=== PATIENT | male | born 1955 | race Caucasian/White ===

== ENCOUNTER → 2018-01-10 11:27 | Outpatient (CLI) | payer OTHER, SELFPAY ==
[2018-01-10 13:58] LABS: Absolute Lymphocyte Count 0.95 X10^3/ul (0.83-4.51); Absolute Neutrophil Count 3.3 X10^3/uL (2.0-7.7); Basophil# 0.02 X10^3/uL; Basophil% 0.4 % (0-1); Eosinophil# 0.15 X10^3/uL; Eosinophils% 3.1 % (0-5); Hematocrit 43.7 % (40-54); Hemoglobin 14.8 g/dl (13.0-16.5); Lymphocyte # 0.95 X10^3/ul (4.0); Lymphocyte % 19.7 % (19-41); Mean Corp Hgb Conc 33.9 g/gl (32-36); Mean Corpuscular Hgb 30.1 pg (27.0-32.0); Mean Platelet Vol. 10.3 fl (6.2-12.0); Monocyte# 0.39 X10^3/uL; Monocyte% 8.1 % (0-10); Neutrophil % 68.5 % (47-70); Platelet Count 189 K/mm3 (150-450); RBC Distribution Width CV 12.9 % (11.6-14.6); RBC Distribution Width SD 41.9 fl (35.1-43.9); Red Blood Count 4.91 M/mm3 (4.6-6.2); White Blood Count 4.8 K/mm3 (4.4-11.0)
[2018-01-10 13:59] LABS: POSITIVE COUNT NO; POSITIVE DIFFERENTIAL NO; POSITIVE MORPHOLOGY NO
[2018-01-10 14:14] LABS: Anion Gap 7 (5-15); BUN 13 mg/dL (7-18); Calcium,Total 9.2 mg/dL (8.5-10.1); Chloride 104 mmol/L (98-107); Cholesterol 212 mg/dL (200); EST Glomerular Filtration Rate 80 mL/min (>60); Est Glom Filt Rate - Afr Amer 97 mL/min (>60); Glucose 88 mg/dL (74-106); High Density Lipoprotein 44 mg/dL; PSA,Total - Annual Screen 0.97 ng/mL (0.00-4.00); Potassium 3.8 mmol/L (3.5-5.1); Sodium Level 139 mmol/L (136-145); Triglycerides 146 mg/dL; Very Low Density Lipoprotein 29 mg/dL (5-40)
== END ==
PROVIDERS: Family Provider Family Medicine; PCP Family Medicine; Visit Provider Family Medicine
DX: Z00.00 Encounter for general adult medical examination without abnormal findings (principal); I10 Essential (primary) hypertension
CPT/HCPCS: 36415; 80048; 80061; 84153; 85025; G0103

== ENCOUNTER → 2018-07-17 10:34 | Outpatient (CLI) | payer OTHER, SELFPAY ==
[2016-08-23 16:16] VITALS: BMI 26.1
[2018-07-17 12:47] LABS: AST(SGOT) 40 U/L (15-37); Alanine Aminotransfer ALT/SGPT 38 U/L (16-61); Cholesterol 243 mg/dL (200); High Density Lipoprotein 50 mg/dL; Triglycerides 168 mg/dL; Very Low Density Lipoprotein 34 mg/dL (5-40)
== END ==
PROVIDERS: Family Provider Family Medicine; PCP Family Medicine; Visit Provider Family Medicine
DX: E16.2 Hypoglycemia, unspecified (principal)
CPT/HCPCS: 36415; 80061; 84450; 84460

== ENCOUNTER 2019-08-17 15:00 | Outpatient (RCR) | payer OTHER, SELFPAY ==
[2019-06-13 14:54] VITALS: BMI 26.1
--- NOTE | 2019-06-27 17:59 | HP.PTEVAL ---
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 Date of Evaluation: 06/27/19 Physical Therapist: Nida Kidd PT, Cert MDT - Visit Plan Frequency: 2-3x /Week Duration: 4-6 Weeks Plan: POSTURE CORRECTION/STRENGTHENING, INSTRUCTION IN APPROPRIATE BODY MECHANICS AND ACTIVITY MODIFICATIONS. RIGHT UE ROM, STRETCHING AND STRENGTHENING. HEP INSTRUCTION. 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 Present symptoms: TWINGES OF PAIN IN RIGHT SHOULDER. NO NUMBNESS OR TINGLING. Present since: CHRONIC RIGHT SHOULDER PAIN. Pain Scale: Worst - 4/10 Least - 0/10. Currently: 0/10. Commenced as a result of: DEGENERATION. Worse: MOVING SHOULDER BACK, DRESSING. Better: WEARING SLING AT NIGHT. IBUPROFEN, CP'S. Disturbed sleep: YES - SLEPT IN BED FOR THE FIRST TIME LAST NIGHT AND SLEPT IN SLING. Previous history/Previous treatment: FULL ROM RIGHT SHOULDER PRIOR TO SURGERY RIGHT SHOULDER PER PATIENT REPORT. PMH/Recent major surgery: HTN, LEFT REVERSE TSR MAR 2017. RESTRICTIONS: NO LIFTING GREATER THAN 1-2 POUNDS. EX'S IN COMFORT RANGE ONLY. OTHER: DOING PENDULUMS, AROM OF ELBOW WRIST AND HAND. ACTIVE SHOULDER FLEX. - Objective Sitting Posture/Standing Posture: FAIR. Other Observations: PATIENT IS PLEASANT AND COOPERATIVE TO WORK WITH AND COMMUNICATES A GOOD UNDERSTANDING OF APPROPRIATE TECHNIQUE AND INTENSITY OF CURRENT HEP. PATIENTS PRESENT THROUGHOUT SESSION. Motor deficit: LEFT UE STRENGTH 5/5 WITH MMT'ING. SEE RIGHT LE ROM BELOW. Sensory deficit: NO. ROM deficit: LEFT UE WFL. RIGHT UE: FULL RIGHT ELBOW, WRIST AND HAND ROM. RIGHT SHOULDER AROM IN SITTING = 85 DEG FLEX AND 65 DEG ABD. SUPINE RIGHT SHLD PROM: FLEX APPROX 100 DEG, IR TO ABDOMEN IN LOOSE PACK POSITION AND ER INITIALLY TO NEUTRAL IN LOOSE PACK POSITION BUT TO APPROX 10 DEG AFTER PROM. Palpation: RIGHT SHOULDER INCISION COVERED WITH BANDAGE. PATIENT REPORTS HE IS SUPPOSED TO LEAVE IT ON WHILE INTACT THEN REMOVE CAREFULLY WHEN STARTS TO COME OFF. - Goals Goal 1:: DECREASE C/O RIGHT SHOULDER PAIN. Goal Time Frame: 4-6 Weeks Goal 2:: IMPROVE RIGHT UE FUNCTIONAL ROM TO EASE ADL'S. Goal Time Frame: 4-6 Weeks Goal 3:: IMPROVE RIGHT UE FUNCTIONAL STRENGTH TO HELP RETURN TO PLOF Goal Time Frame: 4-6 Weeks Goal 4:: INDEP HEP FOR CONTINUED IMPROVEMENT ONCE FORMAL PHYSICAL THERAPY CONCLUDES. Goal Time Frame: 4-6 Weeks - Rehabilitation Potential Rehabilitation Potential: Good - Anticipated Interventions Patient/Client Instruction: Educate patient on: Condition, Plan of Care, Risk Factors, Benefits of Fitness Program For the Purpose of:: To improve self management Therapeutic Exercise to Include: Strength training, Postural training, Flexibilty training, Passive ROM, Active ROM, Scapular Strength/Stabilization For the Purpose of:: To decrease pain, To increase ROM, To improve muscle performance and motor function, To increase tolerance to activity/condition/position, To improve ability of physical actions for home/community/work/leisure Cryotherapy (ice pack, ice massage): Yes Thermo therapy (hot pack): Yes For the Purpose of:: To decrease pain, To decrease swelling/inflammation, To improve nutrient delivery to tissue Thank you for the opportunity to evaluate your patient. For Medicare and Medicare HMO plans, please review the plan of care and approve it. It will need to be FAXED BACK to us at [phone] for Medicare purposes. For Medicare only, by signing this I certify the plan of care. Please let me know if there are questions or concerns regarding this plan of care. Physician Signature: Date:
--- NOTE | 2019-07-30 10:33 | HP.PTREVAL ---
Dakota Lieberman, DO, It has been my pleasure to treat NOLAN HOWE over the last 10 visits for REVERSE RIGHT TOTAL SHOULDER 06/20/19. Please see the progress note below for an update on the physical therapy plan of care! Subjective: PATIENT REPORTS HE IS IMPROVING BUT HIS ROM OUT TO THE SIDE AND HIS STRENGTH IS LIMITED. STATES HE HAS A WORK OUT AREA IN HIS BASEMENT FROM REHAB FOR HIS LEFT TSR TWO YEARS AGO. FOLLOW UP PENDING WITH SURGEON TUESDAY. PATIENT REPORTS HE IS SEEING A GRADUAL IMPROVEMENT EVERYDAY. STATES HE IS REALLY HAPPY WITH HIS PROGRESS. WANTS TO MAXIMIZE REHAB. Objective/Function: PATIENT IS MAKING GREAT PROGRESS WITH PT BUT STILL HAS LIMITED RIGHT UE ROM AND STRENGTH NOTED BELOW. HE IS A GOOD CANDIDATE TO CONTINUE PT FOR MANUAL THERAPY AND EX PROGRESSIONS AND PATIENT DESIRES TO DO SO. UPON EXAM TODAY: ROM deficit: RIGHT UE: FULL RIGHT ELBOW, WRIST AND HAND ROM. RIGHT SHOULDER AROM IN SITTING = 144 DEG FLEX AND 144 DEG ABD. SUPINE RIGHT SHLD PROM: FLEX APPROX 144 DEG, IR/ER = 47 DEG/54 DEG WITH 80 DEG SHLD ABD. MMT: FLEX 3-/5, ABD 3-/5, IR 3-/5, ER 2/5. INCISION LOOKS GOOD AND HAS GOOD SCAR MOBILITY. Plan Plan: *CHECK FOR ANY NEW INSTRUCTIONS FROM SURGEON AFTER FOLLOW UP TUESDAY. ALSO PLEASE CHECK FOR NEW ORDER DUE TO CURRENT ORDER ONLY ALLOWING 18 VISITS. CONT PT 3X/WK X 10 VISITS FOR MANUAL THERAPY AND THER EX PROGRESSIONS WITH HEP PROGRESSIONS TOLERATED EXERCISING IN COMFORTABLE ROM ONLY. Goals Goal 1:: DECREASE C/O RIGHT SHOULDER PAIN. Goal Time Frame: 4-6 Weeks Goal 2:: IMPROVE RIGHT UE FUNCTIONAL ROM TO EASE ADL'S. Goal Time Frame: 4-6 Weeks Goal 3:: IMPROVE RIGHT UE FUNCTIONAL STRENGTH TO HELP RETURN TO PLOF Goal Time Frame: 4-6 Weeks Goal 4:: INDEP HEP FOR CONTINUED IMPROVEMENT ONCE FORMAL PHYSICAL THERAPY CONCLUDES. Goal Time Frame: 4-6 Weeks Anticipated Interventions Patient/Client Instruction: Educate patient on: Condition, Plan of Care, Risk Factors, Benefits of Fitness Program For the Purpose of:: To improve self management Therapeutic Exercise to Include: Strength training, Postural training, Flexibilty training, Passive ROM, Active ROM, Scapular Strength/Stabilization For the Purpose of:: To decrease pain, To increase ROM, To improve muscle performance and motor function, To increase tolerance to activity/condition/position, To improve ability of physical actions for home/community/work/leisure Cryotherapy (ice pack, ice massage): Yes Thermo therapy (hot pack): Yes For the Purpose of:: To decrease pain, To decrease swelling/inflammation, To improve nutrient delivery to tissue Please do not hesitate to contact me at [phone] by phone or if you have questions or concerns regarding this new plan of care! Sincerely, Nida Kidd, PT, Cert MDT
--- NOTE | 2019-08-17 15:23 | HP.PTDCSUM ---
HP - PT D/C Summary It has been my pleasure to treat NOLAN HOWE under orders from Dakota Lieberman DO, for the diagnosis of REVERSE RIGHT TOTAL SHOULDER 06/20/19 for a total of 18 visit(s). Discharge Date: Please see the following information for a summary of their discharge status. - Subjective Subjective: PATIENT REPORTS HE IS DOING GOOD AND IS CONFIDENT THAT HE WILL CONTINUE TO IMPROVE WITH TIME. L SDLY AT NIGHT DOES PROVOKE TINGLING BUT LONG HE STAYS ON HIS BACK IT IS FINE. FOLLOW UP WITH SURGEON PENDING IN ABOUT 4 WEEKS. STATES HE RETIRED TODAY. - Pain Right Shoulder Pain Intensity (Out of 10): 2 - Overall Improvement % Improvement: 50 - Objective Objective/Function: ALL GOALS MET. PATIENT IS INDEP WITH A HEP AND DEMONSTRATES IMPROVED ROM AND FUNCTION WITH RIGHT UE TODAY. UPON EXAM: RIGHT SHOULDER AROM IN SITTING: FLEX 158 DEG, ABD 159 DEG. SUPINE FLEX 155, SUPINE ABD 150 DEG. IR/ER 50/56 W/90 DEG ABD. PATIENT WITH C/O END RANGE DISCOMFORT IN THE SHOULDER WITH TESTING ALL PLANES ESPECIALLY ABD. - Goals Goal 1:: DECREASE C/O RIGHT SHOULDER PAIN. Goal Progress: Goal Met Goal 2:: IMPROVE RIGHT UE FUNCTIONAL ROM TO EASE ADL'S. Goal Progress: Goal Met Goal 3:: IMPROVE RIGHT UE FUNCTIONAL STRENGTH TO HELP RETURN TO PLOF Goal Progress: Goal Met Goal 4:: INDEP HEP FOR CONTINUED IMPROVEMENT ONCE FORMAL PHYSICAL THERAPY CONCLUDES. Goal Progress: Goal Met - Plan Plan: D/C TO INDEP EX. PATIENT IS AGREEABLE. - D/C Information If there are questions or concerns regarding this patient's physical therapy, please feel free to call me at [phone]. Thank you for the referral of this patient. Sincerely, Nida Kidd, PT, Cert MDT
== END 2019-08-17 19:00 | disposition home or self-care (01) ==
LOC: PT 15:00
PROVIDERS: Family Provider Family Medicine; PCP Family Medicine; Referring Provider Orthopaedic Surgery; Visit Provider Orthopaedic Surgery
DX: M19.011 Primary osteoarthritis, right shoulder (principal); M25.511 Pain in right shoulder
CPT/HCPCS: 97110; 97140; 97162; 97530

== ENCOUNTER 2020-02-13 08:30 | Emergency (ER) | payer MEDICARE, OTHER, SELFPAY ==
[2019-06-13 14:54] VITALS: BMI 26.1
[2020-02-13 08:31] VITALS: BP 134/101; PULSE 64; RESP 18; TEMP 36.6; O2SAT 100; BMI 27.6
--- NOTE | 2020-02-13 08:37 | RAD_ITS ---
STUDY: X-RAY - LEFT FOOT CLINICAL: Male, 64 years old. LACERATION TO PLANTAR SURFACE, METATARSAL AREA. STEPPED ON GLASS TECHNIQUE: 3 view(s) of the foot. COMPARISON: None. FINDINGS: Normal talus and tarsal bones. Small calcaneal spurs. Normal visualized subtalar, talonavicular, calcaneocuboid, tarsal and tarsometatarsal articulations. Normal metatarsi. Normal metatarsophalangeal joint of the great toe. Normal tibial and fibular sesamoid bones. Normal interphalangeal joint of the great toe. Normal phalanges of the great toe. Normal second through fifth metatarsophalangeal joints. Normal interphalangeal joints and phalanges of the lesser toes. The soft tissue structures are unremarkable specifically, no demonstrated radiopaque foreign body.. RAD/Foot min 3 Views IMPRESSION: No significant or suspicious soft tissue swelling, no plain film evidence of radio opaque foreign body Calcaneal spurs No demonstrated fracture or suspicious osseous lesion Electronically Signed: Ben Schmidt MD at 9:22 EDT , Service support ,
--- NOTE | 2020-02-13 08:40 | ED.DCSUM_ITS ---
- ER Visit Summary Date of Service: 02/13/20 Chief Complaint: Left foot laceration History of Present Illness: The patient is a 64 M presenting with left foot laceration. Patient accidentally stepped on a broken glass bottle this morning. He cut the bottom of his left foot. He has no foreign body sensation. Last tetanus is unknown. No other injuries. Physical Examination: Vitals are stable. Patient is afebrile. Alert no acute distress. HEENT exam is unremarkable. Neck is supple. Lungs are clear and equal bilaterally. Heart is regular rate and rhythm. Extremities 2 cm laceration plantar surface left foot Skin is warm and dry. No focal neurologic deficit. Remainder of exam is unremarkable. Emergency Department Course and Treatment: Patient was given tetanus IM. Wound was irrigated. Left foot x-ray shows no significant or suspicious soft tissue swelling, no plain film evidence of radio opaque foreign body. Calcaneal spurs. No demonstrated fracture or suspicious osseous lesion. Anesthetized with lidocaine. 2, 5-0 simple sutures were placed. Patient tolerated this well. Advised wound care instructions. Advised return the ED for worsening complaints. Disposition: Discharged home Impression: Left foot laceration, laceration repair This note was generated with [employer] dictation software. It may contain incorrect words, spelling, and punctuation that were not noted in review of the chart prior to signing ED Disposition - Plan for ED Patient: Instructions: ED Laceration Foot Referrals: Avril Sorenson MD [Primary Care Provider] -
[2020-02-13] MEDS: Diphth,Pertuss(Acell),Tet Vac 0.5 ML Vial IM (08:43)
== END 2020-02-13 10:12 | disposition home or self-care (01) ==
LOC: ED 09:19
PROVIDERS: Emergency Provider Emergency Medicine; PCP Family Medicine
DX: S91.312A Laceration without foreign body, left foot, initial encounter (principal); Z23 Encounter for immunization; W25.XXXA Contact with sharp glass, initial encounter; Y93.9 Activity, unspecified; Y92.9 Unspecified place or not applicable; Y99.9 Unspecified external cause status; M77.32 Calcaneal spur, left foot
CPT/HCPCS: 12001; 73630; 90715; 99283

== ENCOUNTER → 2020-04-08 11:40 | Outpatient (CLI) | payer MEDICARE, OTHER, SELFPAY ==
[2020-04-08 15:23] LABS: Absolute Neutrophil Count 3.3 X10^3/uL (2.0-7.7); Basophil# 0.04 X10^3/uL; Basophil% 0.8 % (0-1); Eosinophil# 0.22 X10^3/uL; Eosinophils% 4.5 % (0-5); Hematocrit 44.5 % (40-54); Hemoglobin 14.6 g/dL (13.0-16.5); Lymphocyte % 16.5 % (19-41); Mean Corp Hgb Conc 32.8 g/dL (32-36); Mean Corpuscular Volume 91.6 fL (80-94); Mean Platelet Vol. 10.3 fl (6.2-12.0); Monocyte# 0.46 X10^3/uL; Monocyte% 9.5 % (0-10); NRBC Flagged by Analyzer 0 % (0-5); Neutrophil # 3.31 X10^3/uL (2.7-7.7); Neutrophil % 68.5 % (47-70); Platelet Count 228 K/mm3 (150-450); RBC Distribution Width SD 43.7 fl (35.1-43.9); Red Blood Count 4.86 M/mm3 (4.6-6.2); White Blood Count 4.8 K/mm3 (4.4-11.0)
[2020-04-08 15:40] LABS: Anion Gap 3 (5-15); BUN 17 mg/dL (7-18); BUN/Creat Ratio 16.8 RATIO (10-20); Calcium,Total 9.3 mg/dL (8.5-10.1); Chloride 103 mmol/L (98-107); Creatinine, Serum 1.01 mg/dL (0.70-1.30); EST Glomerular Filtration Rate 79 mL/min (>60); Est Glom Filt Rate - Afr Amer 95 mL/min (>60); Glucose 89 mg/dL (74-106); PSA,Total - Annual Screen 1.38 ng/mL (0.00-4.00); Potassium 3.9 mmol/L (3.5-5.1); Sodium Level 137 mmol/L (136-145)
== END ==
PROVIDERS: PCP Family Medicine; Referring Provider Registered Nurse; Visit Provider Registered Nurse
DX: R31.9 Hematuria, unspecified (principal)
CPT/HCPCS: 36415; 80048; 84153; 85025; 87086; G0103

== ENCOUNTER → 2020-05-07 07:45 | Outpatient (CLI) | payer MEDICARE, OTHER, SELFPAY ==
--- NOTE | 2020-05-07 07:49 | CT_ITS ---
STUDY: CT ABDOMEN AND PELVIS WITH AND WITHOUT CONTRAST REASON FOR EXAM: Male, 65 years old. Hematuria x 4 months, hypertension. No prior abdominal surgery or problems. Delayed images included. RADIATION DOSAGE (If Supplied By Facility): CTDIvol = ( 17.57 ) mGy, DLP = ( 2205.84 ) mGycm TECHNIQUE: Transaxial images were obtained from the dome of the diaphragm to the symphysis pubis without oral contrast. IV 100mL Isovue-300 was administered. Sagittal and coronal images were reconstructed. Individualized dose optimization techniques were used for this CT. COMPARISON: None. FINDINGS: The visualized lung bases are unremarkable. Coronary artery calcification. There is decreased attenuation of the liver consistent with steatosis. Normal gallbladder and extrahepatic biliary system. Normal spleen. There is a 2.6 cm x 2.3 cm aneurysm of the splenic artery with the rim calcification. Normal pancreas. Normal bilateral adrenal glands. There is a 2.8 cm cyst in the mid posterior aspect of the right kidney. 1 cm cyst in the lower pole of the left kidney. There is also evidence of a 1.3 cm cyst in the upper pole of the left kidney with the tiny calcific density along its lateral aspect. Normal visualized stomach. Normal small intestine. There are scattered colonic diverticula consistent with diverticulosis. The appendix is visualized and appears normal. There is scattered atherosclerotic calcification of the abdominal aorta, without a demonstrated aneurysm. Normal inferior vena cava. There is borderline retroperitoneal lymphadenopathy with enlarged nodes no greater than 10mm in the short axis diameter. Marked degree of irregular bladder wall thickening with the papillary masses along the bladder wall. This is worse on the right side. Increased markings in the surrounding peritoneal fat. Prominence of the vas deferens. There is a small umbilical hernia containing fat. Normal osseous structures. CT/CT Abd/Pelvis W/WO Contrast IMPRESSION: Marked degree of irregular bladder wall thickening with intraluminal filling defects. Correlation with cystoscopy is recommended. Small bilateral renal cysts. Fatty infiltration of the liver. 2.6 cm x 2.3 cm splenic artery aneurysm. Electronically Signed: Sabino Rodriguez, at 9:46 EDT , Service support ,
== END ==
PROVIDERS: PCP Family Medicine; Referring Provider Nurse Practitioner Adult Health; Visit Provider Nurse Practitioner Adult Health
DX: R31.0 Gross hematuria (principal)
CPT/HCPCS: 74178; Q9967

== ENCOUNTER 2020-05-30 10:23 | Inpatient (IN) | payer MEDICARE, OTHER, SELFPAY ==
--- NOTE | 2020-05-21 09:13 | EKG12_ITS ---
Test Reason : PRE OP Blood Pressure : / mmHG Vent. Rate : 076 BPM Atrial Rate : 076 BPM P-R Int : 154 ms QRS Dur : 100 ms QT Int : 394 ms P-R-T Axes : 074 -46 040 degrees QTc Int : 443 ms Normal sinus rhythm Left anterior fascicular block Abnormal ECG Confirmed by JHONY MACDONALD, JENNIE ([id number]), industrial editor VICKIE MACIAS ([id number]) on 05/22/2020 8:15:11 AM Referred By: David Pino Confirmed By:JENNIE BOOKER MD
[2020-05-28] VITALS (18 sets, daily range): BP systolic 135–192; BP diastolic 91–122; PULSE 51–98; RESP 16–18; TEMP 36.2–37.2; O2SAT 92–99; BMI 26.9
[2020-05-28] MEDS: Lactated Ringers 1,000 ML 100 ML IV (10:43)
--- NOTE | 2020-05-28 11:55 | BLB_PTH ---
PATIENT: NOLAN HOWE LOC: MS3 U#:[id number] AGE/SX: 65/M ROOM: MS306 RE05/30/[address]: Dr. David Pino MD : 1955 BED: 1 DIS: 05/31/2020 SPEC #: [id number] RECD: 05/28/20 14:42 STATUS: OSMANY FLORES #: [id number] LINDSAY: 05/28/20 11:[address]: David Pino DEPT: SURGICAL PATHOLOGY RECD BY: Elmer Del Valle ENTERED: 05/29/20 07:03 SP TYPE: TURB OTHR DR: Dr. Avril Sorenson MD Tissues: Urinary bladder, NOS Procedures: Surgery Specimen Level V HEADER OPERATION: Cystoscopy, TUR of bladder PRE-OP DIAGNOSIS: Bladder cancer TISSUE SUBMITTED: Bladder resection of bladder tumor MICROSCOPIC DIAGNOSIS Urinary bladder tumor, transurethral resection: Papillary urothelial carcinoma. See cancer checklist below. AM:michael 05/30/20 COMMENT BLADDER CANCER (TUR) SUMMARY Procedure: Transurethral resection of bladder (TURBT) Tumor site: Not specified Histologic type: Papillary urothelial carcinoma Histologic grade: 3/3 (WHO high-grade) Tumor configuration: Papillary Muscularis propria invasion: Present Lymphvascular invasion: Not identified Tumor extension: Into detrusor muscle and adjacent to mature adipose tissue. Additional pathologic findings: Focal chronic inflammation. The above summary is in compliance with [employer] of [place] [employer] (CAP) Cancer Protocols Checklist and [place] Joint Committee on Cancer (AJCC), Staging Manual, 8th Ed. MICROSCOPIC DESCRIPTION Slides are reviewed. GROSS DESCRIPTION Received in fixative is one container labeled with the patient's name and designated bladder resection tumor. The specimen consists of multiple irregular fragments of pink-heran, rubbery, granular, friable soft tissue that in aggregate measure in aggregate 6 x 3 x 0.8 cm. The specimen is totally submitted in six cassettes. / AM:michael 05/29/20 TC:0 [facility]: [id number]
--- NOTE | 2020-05-28 13:13 | PCM.HP.STD ---
Problem List (1) Bladder cancer Status: Acute Qualifiers: Bladder location: overlapping sites Qualified Code(s): C67.8 - Malignant neoplasm of overlapping sites of bladder History of Present Illness Date of Admission: 05/28/20 Chief Complaint: Bladder cancer The patient is a 65 year old male who is been having bleeding for several months finally sought medical attention was found to have multiple large tumors in his bladder today working to proceed with a transurethral resection of large bladder tumors Past Medical History Past Medical History (Chronic Problems): Chronic Problems (Last Reviewed 06/13/19 @ 15:[address] Felipe Barraza MD) Atherosclerosis of coronary artery of [place] heart without angina pectoris (Chronic) Essential (primary) hypertension (Chronic) Hyperlipemia (Chronic) Medical History: Medical History (Last Reviewed 05/28/20 @ 13:[address] David Pino MD) Pre-operative cardiovascular examination (Acute) Z01.810 Atherosclerosis of coronary artery of [place] heart without angina pectoris (Chronic) I25.10 Essential (primary) hypertension (Chronic) I10 Hyperlipemia (Chronic) E78.5 Syncope and collapse (Resolved) Onset Date: 08/23/16 R55 Nonsustained ventricular tachycardia (Resolved) Onset Date: 09/01/07 I47.2 History of non-ST elevation myocardial infarction (NSTEMI) (Resolved) Onset Date: 09/01/07 I25.2 Erectile dysfunction N52.9 Gout M10.9 Hemorrhoids K64.9 Allergies No Known Allergies Allergy (Verified 05/28/20 10:25) Home Medications: Ambulatory Orders Medication Instructions Recorded Ramipril [Altace] 10 mg PO QHS 08/23/16 hydrochlorothiazide 25 mg tablet 12.5 mg PO DAILY 06/12/19 turmeric root extract 500 mg 500 mg PO DAILY 06/13/19 capsule Ginkgo Biloba 500 mg PO BID 05/19/20 [place] Extract [L[place]] 150 mg PO DAILY 05/19/20 Saw [place] Fruit [Saw [place]] 450 mg PO BID 05/19/20 Ciprofloxacin [Cipro] 500 mg PO BID #14 tab 05/28/20 Hydrocodone/Acetaminophen [[place] 1 each PO Q4H PRN PRN 5 Days #14 05/28/20 5-325 Tablet] tablet Surgical History: Surgical History (Last Reviewed 06/13/19 @ 15:[address] Felipe Barraza MD) History of left heart catheterization Onset Date: 08/2007 Z98.890 Surgical History: no surgical history Psychiatric History: No pertinent psych hx Smoking Status: Never smoker Tobacco Use: Non-smoker - *Family History Paternal Family History: Family History (Last Reviewed 06/13/19 @ 15:[address] Felipe Barraza MD) Mother Hypertension Cancer Father Hypertension History Items: Hypertension Maternal Family History: Family History (Last Reviewed 06/13/19 @ 15:[address] Felipe Barraza MD) Mother Hypertension Cancer Father Hypertension History Items: Cancer - Lung cancer, Hypertension Review of Systems Constitutional: Denies: Chills, Fever, Weight Change HEENT: Denies: Head Aches, Sinus Congestion, Sinus Drainage Cardiovascular: Denies: Chest Pain, Palpitations Respiratory: Denies: Cough, Shortness of breath at rest, Sputum production Gastrointestinal: Denies: Abdominal Pain, Nausea, Vomiting Genitourinary: Denies: Dysuria Musculoskeletal: Denies: Joint Pain, Joint Tenderness Skin: Denies: Rash, Wounds Neurological: Denies: Numbness, Tingling, Focal weakness Psychiatric: Denies: Anxiety, Depression, Homicidal Ideations, Suicidal Ideations Hematologic/ Lymphatic: Denies: Easy Bruising, Easy Bleeding VTE Information - Inpt Only VTE Present on Admission: No VTE Mechan Device Prophylaxis: SCD's Patient Problems: Active and Suspected Problems (Last Reviewed 06/13/19 @ 15:[address] Felipe Barraza MD) Bladder cancer (Acute) - Physical Exam Vitals/I&O's: Vital Signs Temp Pulse Resp BP Pulse Ox 98.9 F 69 16 142/101 H 98 05/28/20 10:28 05/28/20 10:28 05/28/20 10:28 05/28/20 10:28 05/28/20 10:28 Oxygen Delivery Method Room Air Weight: 93.2 kg Body Mass Index (BMI) 26.9 Finger Stick Blood Glucose 126 General: Alert, Oriented x3, Cooperative HEENT: Atraumatic, PERRLA, EOMI, Normocephalic Neck: Supple, No JVD, Negative Carotid Bruits Lungs: Clear to auscultation, Normal air movement Cardiovascular: Regular rate, No murmurs Abdomen: Bowel Sounds Present, Soft, Non Tender Extremities: No edema, Capillary Refill Less than 3 Seconds Skin: No rashes, No breakdown Musculoskeletal: No Tenderness to Palpation of Joints or Extremities Neurological: Cranial nerves II-XII grossly intact Psych/Mental Status: Normal Affect, Appropriate Current Medications Lactated Ringer's () 1,000 mls @ 100 mls/hr IV .Q10H TREY Last Admin: 05/28/20 10:43 Dose: 100 mls/hr Documented by: Assessment/Plan All Active Problems (Last Reviewed 06/13/19 @ 15:[address] Felipe Barraza MD) Bladder cancer (Acute) Pre-operative cardiovascular examination (Acute) Syncope and collapse (Resolved 08/23/16) Nonsustained ventricular tachycardia (Resolved 09/01/07) History of non-ST elevation myocardial infarction (NSTEMI) (Resolved 09/01/07) Plan to proceed with resection of multiple large bladder tumors
--- NOTE | 2020-05-28 13:14 | DCINST_ITS ---
Discharge Diet: Light diet - advance as tolerated Discharge Activity: Return to Normal Activity Allergies/Adverse Reactions: Allergies No Known Allergies Allergy (Verified 05/28/20 10:25) Medications to take at Discharge Ramipril [Altace] 10 mg PO QHS 08/23/16 hydrochlorothiazide 25 mg tablet 12.5 mg PO DAILY 06/12/19 turmeric root extract 500 mg capsule 500 mg PO DAILY 06/13/19 Ginkgo Biloba 500 mg PO BID 05/19/20 [place] Extract [[place]] 150 mg PO DAILY 05/19/20 [place] Fruit [Saw [place]] 450 mg PO BID 05/19/20 Ciprofloxacin [Cipro] 500 mg PO BID #14 tab 05/28/20 Hydrocodone/Acetaminophen [[place] 5-325 Tablet] 1 each PO Q4H PRN PRN 5 Days #14 tablet 05/28/20 The following prescriptions were given: Ciprofloxacin [Cipro] 500 mg PO BID #14 tab Transmission Status: Pending to [id number] Hydrocodone/Acetaminophen [[place] 5-325 Tablet] 1 each PO Q4H PRN PRN 5 Days #14 tablet PRN Reason: Pain Score 1-10/10 Transmission Status: Sent to [id number] Primary Care Physician: Avril Sorenson MD [Primary Care Provider] - Test Results: Test results from this visit will be discussed in further detail at your follow- up appointment, if applicable. Please Follow Up With: David Pino MD When: in 2 weeks, please call to make an appointment.
[2020-05-28] MEDS: Cefazolin 2 GM in 0.9% Normal Saline 100 ML IV (13:18)
--- NOTE | 2020-05-28 14:08 | OP.PCM_ITS ---
Problem List (1) Bladder cancer Status: Acute Qualifiers: Bladder location: overlapping sites Qualified Code(s): C67.8 - Malignant neoplasm of overlapping sites of bladder Report of Operation Date of Procedure: 05/28/20 Pre-Operative Diagnosis: Bladder cancer Post-Operative Diagnosis: Same multiple sites appears invasive Surgery/Procedure Performed:: Transurethral resection of a large bladder tumor multiple sites overlapping Description of Surgical Findings:: 65-year-old male who is been having bleeding for quite some time presents to the office for evaluation CAT scan was the done and reviewed on cystoscopy was found multiple tumors are large within the bladder he has tumors in multiple locations within the bladder he has tumors in the posterior wall left wall right lobe dome bladder neck trigone. But more importantly appears to have an invasive tumor involving the right lateral wall. Patient was taken back to the operating room after smooth induction of general anesthesia he was placed in dorsolithotomy position the penis testicles prepped draped in usual sterile fashion went into the bladder with a 21 [place] rigid cystourethroscope then switched over to a 26 [place]ian continuous-flow resectoscope. Identified the trigone the left and right ureter orifice were clear tumors he had some tumors in the posterior wall these were resected these appeared noninvasive tumors in the dome these were resected these appeared non- resect invasive posterior wall tumors were 3 cm the dome tumor was 4 cm and then I got to the right lateral wall right lateral wall is a flat sessile tumor was not papillary in nature appear to base if this was resected this. To be invasive muscle invasive tumor on the right side of the bladder. Resected down to the bladder fibers in the right side and appeared to be invasive cancer in the right side of the bladder this is suspicious on CAT scan. After resecting this and I resected all the major tumors in the bladder at this point appear to have invasive bladder cancer using the need more aggressive. After resection was done I cauterized the resection site obtain hemostasis we put a 24 [place]ian catheter into the bladder put on continuous ear irrigation to keep the urine clear patient anesthetic was reversed is taken at the PACU in good condition. Type of Anesthesia:: General Drains: [address] - Admit VTE Documentation VTE Present on Admission: No VTE Mechan Device Prophylaxis: SCD's
[2020-05-28] MEDS: Ketorolac 15 MG/ML Vial IV (15:04)
--- NOTE | 2020-05-28 17:12 | SUR.PHASEI ---
AT APPROXIMATELY 1615 PATIENT STATES HAS EXTREME URGE TO HAVE A BOWEL MOVEMENT. PATIENT PLACED ON BEDPAN AND UNABLE TO HAVE BOWEL MOVEMENT. DRAINAGE IN HAUSER BAG HAS DECREASED DRAMATICALLY. DR. CAPELLAN NOTIFIED AND TO THE BEDSIDE. DR. CAPELLAN FLUSHED THE HAUSER WITH STERILE SALINE NUMEROUS TIMES. CLOTS REMOVED AND HAUSER PATENT.
[2020-05-28] MEDS: 0.45% Normal Saline 1,000 ML 125 ML IV (18:23)
[2020-05-28] MEDS: Ramipril 10 MG Capsule PO (18:26)
[2020-05-28] MEDS: hydroCHLOROthiazide 12.5mg 12.5 MG PO (18:26)
--- NOTE | 2020-05-28 19:29 | NURSING ---
1915-rounded with banking officer RN. martínez found to be to clotted off. irrigated with saline per MD order. large amount of dark, red clots noted. martínez now patent with dark, red urine. pt denies further pressure at this time. banking officer RN at bedside for report.
[2020-05-28] MEDS: Docusate Sodium 100 MG Capsule PO (21:31)
[2020-05-28] MEDS: oxyCODONE 5 MG Tablet PO (21:31)
[2020-05-28] MEDS: Acetaminophen 500 MG Tablet PO (21:31)
[2020-05-29] MEDS: Ketorolac 15 MG/ML Vial IV ×5 (00:23→23:52)
[2020-05-29] MEDS: 0.45% Normal Saline 1,000 ML 125 ML IV ×3 (02:22→18:11)
[2020-05-29 02:23] VITALS: BP 140/99; PULSE 86; RESP 16; TEMP 36.9; O2SAT 97
[2020-05-29 05:35] LABS: Hematocrit 37.3 % (40-54); Hemoglobin 12.3 g/dL (13.0-16.5); Mean Corpuscular Hgb 30.1 pg (27.0-32.0); Mean Corpuscular Volume 91.4 fL (80-94); Mean Platelet Vol. 9.7 fl (6.2-12.0); Platelet Count 209 K/mm3 (150-450); RBC Distribution Width SD 43.4 fl (35.1-43.9); Red Blood Count 4.08 M/mm3 (4.6-6.2)
[2020-05-29] MEDS: 0.9% Saline Lock 10 ML Syringe IV ×2 (05:45→23:52)
[2020-05-29 05:48] LABS: Anion Gap 6 (5-15); BUN 17 mg/dL (7-18); BUN/Creat Ratio 16.7 RATIO (10-20); Calcium,Total 8.4 mg/dL (8.5-10.1); Chloride 107 mmol/L (98-107); Creatinine, Serum 1.02 mg/dL (0.70-1.30); EST Glomerular Filtration Rate 78 mL/min (>60); Est Glom Filt Rate - Afr Amer 94 mL/min (>60); Estimated Creatinine Clearance 80.51 ml/min; Glucose 114 mg/dL (74-106); Potassium 4.3 mmol/L (3.5-5.1); Sodium Level 138 mmol/L (136-145)
[2020-05-29 06:30] VITALS: BP 133/85; PULSE 77; RESP 16; TEMP 37; O2SAT 96
--- NOTE | 2020-05-29 07:18 | PCM.PN.BLA ---
Progress Note 65-year-old male status post TURBT for a very invasive looking bladder tumor still has bleeding overnight the nurses had to keep irrigating getting clear this morning the urine is finally clearing up but still on continuous irrigation. Was to continue with continuous irrigation till urine is clear hopefully can go home either tomorrow or the next day once the bleeding stopped. STROKE Vital Signs/Narrative: Vital Signs Temp Pulse Resp BP Pulse Ox 05/29/20 06:30 98.6 F 77 16 133/85 H 96
[2020-05-29 09:15] VITALS: BP 114/82; PULSE 81; RESP 16; TEMP 36.6; O2SAT 96
[2020-05-29] MEDS: Pantoprazole Sodium 20 MG Tablet PO (09:19)
[2020-05-29] MEDS: Docusate Sodium 100 MG Capsule PO ×2 (09:20→21:18)
[2020-05-29] MEDS: Magnesium Hydroxide 30 ML UDC 15 ML PO (09:20)
[2020-05-29] MEDS: hydroCHLOROthiazide 12.5mg 12.5 MG PO (09:25)
[2020-05-29 16:00] VITALS: BP 135/91; PULSE 75; RESP 16; TEMP 37.2; O2SAT 98
[2020-05-29 21:02] VITALS: BP 125/91; PULSE 73; RESP 18; TEMP 36.8; O2SAT 96
[2020-05-29] MEDS: Ramipril 10 MG Capsule PO (21:18)
[2020-05-30] MEDS: 0.45% Normal Saline 1,000 ML 125 ML IV ×3 (01:31→16:59)
[2020-05-30 03:15] VITALS: BP 141/93; PULSE 71; RESP 16; TEMP 36.6; O2SAT 98
[2020-05-30] MEDS: Ketorolac 15 MG/ML Vial IV ×3 (05:52→17:00)
[2020-05-30] MEDS: 0.9% Saline Lock 10 ML Syringe IV (05:53)
[2020-05-30] MEDS: hydroCHLOROthiazide 12.5mg 12.5 MG PO (09:01)
[2020-05-30] MEDS: Docusate Sodium 100 MG Capsule PO ×2 (09:01→20:55)
[2020-05-30] MEDS: Magnesium Hydroxide 30 ML UDC 15 ML PO (09:01)
[2020-05-30] MEDS: Pantoprazole Sodium 20 MG Tablet PO (09:01)
[2020-05-30 09:15] VITALS: BP 130/79; PULSE 90; RESP 18; TEMP 36.4; O2SAT 96
--- NOTE | 2020-05-30 10:41 | CASEMGMT ---
RN CM Assessment Intro role of CM to patient in room. He is sitting in chair, awake alert and able to participate in assessment. Patient is in good spirits, verbalized concerns regarding his diagnosis, prognosis and possible more upcoming surgery. Patient states he is independent, able to return home and no concerns re: follow, prescriptions or care needs. His is able to assist and provide transportation. PCP: Dr. Avril Rinaldi Specialist: Dr. Pino Pharmacy: [facility] [place] [facility] benefit: yes Living arrangements: independent, no care needs. Transportation: drives if needed Patient DC goal: home on discharge DC Plan: Home on discharge. Pt may need martínez on dc and will f/u with Dr. Pino. Eagle SCHILLINGN RN ACM
[2020-05-30 15:15] VITALS: BP 125/76; PULSE 85; RESP 18; TEMP 36.6; O2SAT 97
[2020-05-30 20:52] VITALS: BP 110/74; PULSE 73; RESP 18; TEMP 36.8; O2SAT 93
[2020-05-30] MEDS: Ramipril 10 MG Capsule PO (20:55)
[2020-05-31] MEDS: Ketorolac 15 MG/ML Vial IV ×2 (00:50→06:20)
[2020-05-31] MEDS: 0.45% Normal Saline 1,000 ML 125 ML IV (01:01)
[2020-05-31 02:58] VITALS: BP 129/82; PULSE 80; RESP 16; TEMP 36.9; O2SAT 97
--- NOTE | 2020-05-31 07:34 | DCINST_ITS ---
Discharge Diet: Light diet - advance as tolerated Discharge Activity: Return to Normal Activity Suture Line Care: Avoid Pulling/Pushing Catheter: Akbar to large bag Drain: [place] Allergies/Adverse Reactions: Allergies No Known Allergies Allergy (Verified 05/28/20 10:25) Medications to take at Discharge Ramipril [Altace] 10 mg PO QHS 08/23/16 hydrochlorothiazide 25 mg tablet 12.5 mg PO DAILY 06/12/19 turmeric root extract 500 mg capsule 500 mg PO DAILY 06/13/19 Ginkgo Biloba 500 mg PO BID 05/19/20 [place] Extract [[place]] 150 mg PO DAILY 05/19/20 [place] Fruit [Saw [place]] 450 mg PO BID 05/19/20 Ciprofloxacin [Cipro] 500 mg PO BID #14 tab 05/28/20 Hydrocodone/Acetaminophen [[place] 5-325 Tablet] 1 ea PO Q4H PRN PRN 5 Days #14 tab 05/28/20 The following prescriptions were given: Ciprofloxacin [Cipro] 500 mg PO BID #14 tab Transmission Status: Received by [id number] Hydrocodone/Acetaminophen [[place] 5-325 Tablet] 1 ea PO Q4H PRN PRN 5 Days #14 tab PRN Reason: Pain Score 1-10/10 Transmission Status: Received by [id number] Primary Care Physician: Avril Sorenson MD [Primary Care Provider] - Test Results: Test results from this visit will be discussed in further detail at your follow- up appointment, if applicable. Please Follow Up With: David Pino MD When: tuesday
--- NOTE | 2020-05-31 07:35 | PCM.DC.SUM ---
Discharge Date and Diagnosis - Problem List Patient Problems: Active and Suspected Problems (Last Reviewed 05/28/20 @ 13:[address] David Pino MD) Bladder cancer (Acute) Date of Admission: 05/28/20 Date of Discharge: 05/31/20 - Primary Discharge Diagnosis Acute Problems: Active Problems (Last Reviewed 05/28/20 @ 13:[address] David Pino MD) Bladder cancer (Acute) - Secondary Discharge Diagnosis Chronic Problems: Chronic Problems (Last Reviewed 05/28/20 @ 13:[address] David Pino MD) Atherosclerosis of coronary artery of the [place] heart without angina pectoris (Chronic) Essential (primary) hypertension (Chronic) Hyperlipemia (Chronic) Hospital Course and Treatment Operations: None, - - TURBT large tumor Summary of Care Provided: The patient is a 65 year old male with a history of gross hematuria presented to the hospital for treatment for transurethral urethral resection he underwent a transurethral resection of very large invasive tumor pathology came back invasive bladder cancer long discussion with the patient regarding the findings he had to stay in the hospital for several days because of the bleeding from the deep resection bleeding finally stopped he can go home today with the Akbar catheter on and get it out Tuesday. Patient Problems: Active and Suspected Problems (Last Reviewed 05/28/20 @ 13:[address] David Pino MD) Bladder cancer (Acute) - Physical Exam Vitals/I&O's: Vital Signs Temp Pulse Resp BP Pulse Ox 98.4 F 80 16 129/82 H 97 05/31/20 02:58 05/31/20 02:58 05/31/20 02:58 05/31/20 02:58 05/31/20 02:58 Oxygen Delivery Method Room Air Weight: 93.2 kg Body Mass Index (BMI) 26.9 Finger Stick Blood Glucose 126 Intake and Output for Last 24 Hours 05/29/20 05/30/20 05/31/20 23:59 23:59 23:59 Intake Total 3862.09 / 4162.09 3427.09 / 3427.09 1000 / 1000 Output Total 8420 / 8420 92317 / 86448 2350 / 2350 Balance -4557.91 / -4257.91 -8522.91 / -8522.91 -1350 / -1350 General: Alert, Oriented x3, Cooperative HEENT: Atraumatic, PERRLA, EOMI, Normocephalic Neck: Supple, No JVD, Negative Carotid Bruits Lungs: Clear to auscultation, Normal air movement Cardiovascular: Regular rate, No murmurs Abdomen: Bowel Sounds Present, Soft, Non Tender Extremities: No edema, Capillary Refill Less than 3 Seconds Skin: No rashes, No breakdown Musculoskeletal: No Tenderness to Palpation of Joints or Extremities Neurological: Cranial nerves II-XII grossly intact Psych/Mental Status: Normal Affect, Appropriate Current Medications Acetaminophen (Tylenol) 500 mg PO Q4H PRN PRN PRN Reason: Pain Score 1-10/10 /Headache Last Admin: 05/28/20 21:31 Dose: 500 mg Documented by: Aminocaproic Acid (Amicar) 500 mg PO Q6 COUNT INCLUDES THE [facility] Last Admin: 05/31/20 06:20 Dose: 500 mg Documented by: [place] Alkaloids/Opium (B & O) 60 mg RECTAL Q6H PRN PRN PRN Reason: Spasm Last Admin: 05/29/20 00:34 Dose: 60 mg Documented by: Docusate Sodium (Colace) 100 mg PO BID COUNT INCLUDES THE [facility] Last Admin: 05/30/20 20:55 Dose: 100 mg Documented by: Hydrochlorothiazide () 12.5 mg PO DAILY COUNT INCLUDES THE [facility] Last Admin: 05/30/20 09:01 Dose: 12.5 mg Documented by: Sodium Chloride () 1,000 mls @ 125 mls/hr IV .Q8H COUNT INCLUDES THE [facility] Last Admin: 05/31/20 01:01 Dose: 125 mls/hr Documented by: Ketorolac Tromethamine (Toradol (Bkc)) 15 mg IV Q6 COUNT INCLUDES THE [facility] Stop: 06/02/20 18:01 Last Admin: 05/31/20 06:20 Dose: 15 mg Documented by: Magnesium Hydroxide (Milk Of Magnesia) 15 ml PO DAILY COUNT INCLUDES THE [facility] Last Admin: 05/30/20 09:01 Dose: 15 ml Documented by: Morphine Sulfate () 2 mg IV Q2H PRN PRN PRN Reason: Pain Score 6-10/10 Ondansetron HCl (Zofran) 4 mg IV Q6H PRN PRN PRN Reason: Nausea Oxycodone HCl (Oxyir) 5 mg PO Q4H PRN PRN PRN Reason: Pain Score 1-05/31 Last Admin: 05/28/20 21:31 Dose: 5 mg Documented by: Pantoprazole Sodium (Protonix) 20 mg PO DAILY COUNT INCLUDES THE [facility] Last Admin: 05/30/20 09:01 Dose: 20 mg Documented by: Ramipril (Altace) 10 mg PO QHS COUNT INCLUDES THE [facility] Last Admin: 05/30/20 20:55 Dose: 10 mg Documented by: Sodium Chloride () 10 - 40 ml IV UD PRN PRN Reason: SALINE FLUSH Last Admin: 05/30/20 05:53 Dose: 10 ml Documented by: Tolterodine Tartrate (Detrol La) 4 mg PO DAILY PRN PRN PRN Reason: Spasms Discharge Diet: Light diet - advance as tolerated Discharge Activity: Return to Normal Activity Suture Line Care: Avoid Pulling/Pushing Catheter: Akbar to large bag Drain: [place] Home Medications: Medications to take at Discharge Ramipril [Altace] 10 mg PO QHS 08/23/16 hydrochlorothiazide 25 mg tablet 12.5 mg PO DAILY 06/12/19 turmeric root extract 500 mg capsule 500 mg PO DAILY 06/13/19 Ginkgo Biloba 500 mg PO BID 05/19/20 [place] Extract [[place]] 150 mg PO DAILY 05/19/20 [place] Fruit [Saw [place]] 450 mg PO BID 05/19/20 Ciprofloxacin [Cipro] 500 mg PO BID #14 tab 05/28/20 Hydrocodone/Acetaminophen [[place] 5-325 Tablet] 1 ea PO Q4H PRN PRN 5 Days #14 tab 05/28/20 Following Prescriptions Were Given to Patient: Ciprofloxacin [Cipro] 500 mg PO BID #14 tab Transmission Status: Received by [id number] Hydrocodone/Acetaminophen [[place] 5-325 Tablet] 1 ea PO Q4H PRN PRN 5 Days #14 tab PRN Reason: Pain Score 1-05/31 Transmission Status: Received by [id number] Primary Care Physician: Avril Sorenson MD [Primary Care Provider] - Please Follow Up With: David Pino MD When: tuesday Medical Necessity - Tobacco Use Smoking Status: Never smoker Tobacco Use: Non-smoker Meaningful Use Info Meaningful Use Diagnoses (Choose all that apply): None applicable
[2020-05-31 08:27] VITALS: BP 144/85; PULSE 75; RESP 18; TEMP 36.7; O2SAT 97
[2020-05-31] MEDS: Docusate Sodium 100 MG Capsule PO (09:28)
[2020-05-31] MEDS: Pantoprazole Sodium 20 MG Tablet PO (09:28)
[2020-05-31] MEDS: Magnesium Hydroxide 30 ML UDC 15 ML PO (09:35)
[2020-05-31] MEDS: hydroCHLOROthiazide 12.5mg 12.5 MG PO (09:35)
[2020-05-31 10:50] VITALS: BP 138/77; PULSE 60; RESP 18; TEMP 37; O2SAT 99
== END 2020-05-31 11:08 | disposition home or self-care (01) | DRG 670 ==
LOC: SDC 10:30 → MS3 10:30
PROVIDERS: Anesthesiology; Admitting Provider Urology; PCP Family Medicine; Referring Provider Urology; Visit Provider Urology
PROC: 0TBB8ZZ Excision of Bladder, Via Natural or Artificial Opening Endoscopic (ICD-10-PCS; principal; 2020-05-28 11:45)
DX: C67.8 Malignant neoplasm of overlapping sites of bladder (principal); R31.0 Gross hematuria; N32.89 Other specified disorders of bladder; I25.10 Atherosclerotic heart disease of native coronary artery without angina pectoris; I10 Essential (primary) hypertension; E78.5 Hyperlipidemia, unspecified; I25.2 Old myocardial infarction; Z79.899 Other long term (current) drug therapy
CPT/HCPCS: 36415; 80048; 85027; 87635; 88307; 93005; 99251; C9803; J7120; A4216; G0463; J2405; J3490; J9280; U0003

== ENCOUNTER → 2020-06-04 11:30 | Outpatient (CLI) | payer MEDICARE, OTHER, SELFPAY ==
[2020-05-28 18:08] VITALS: BMI 26.9
--- NOTE | 2020-06-04 11:33 | VDLE_ITS ---
Reason For Study: RLE swelling RIGHT GSV is normal. CFV is compressible, spontaneous, phasic, competent and demonstrates normal augmentation. FV is compressible, spontaneous, phasic, competent and demonstrates normal augmentation. POP V is partially compressible with decreased flow. DVT appears to be loosley attached. T/P Trunk, PTV, Gastroc V, and Soleus V are dilated and noncompressible. Varicose veins below the knee are dilated and noncompressible. Procedure This is a venous duplex using B-mode, color flow and spectral Doppler. Exam performed in department. The exam was abbreviated due to the COVID 19 protocol. The exam was diagnostic. A preliminary report was called and/or faxed to Dr. Sorenson. Interpretation Summary Acute deep vein thrombosis is noted in the right popliteal vein. Acute deep vein thrombosis is noted in the right tibio-peroneal trunk. Acute deep vein thrombosis is noted in the right posterior tibial vein. Acute deep vein thrombosis is noted in the right peroneal vein. Acute deep vein thrombosis is noted in the right gastrocnemius vein. Acute deep vein thrombosis is noted in the right soleus vein. The right common femoral vein and femoral vein are patent, compressible, and competent. The right great saphenous vein appears patent and compressible segmentally. Acute superficial thrombophlebitis is noted involving superficial varicosities below the right knee. Ordering Physician: Ju Berrios Referring Physician: Avril Sorenson M.D. Performed By: Alexander Kerr RVT
== END ==
PROVIDERS: PCP Family Medicine; Referring Provider Registered Nurse; Visit Provider Registered Nurse
CPT/HCPCS: 93971

== ENCOUNTER → 2020-06-11 13:59 | Outpatient (CLI) | payer MEDICARE, OTHER, SELFPAY ==
[2020-06-10 14:22] VITALS: BMI 26.0
--- NOTE | 2020-06-11 14:01 | VDLE_ITS ---
Reason For Study: DVT RIGHT LEFT GSV is normal. GSV is normal. CFV is compressible, spontaneous, phasic, CFV is compressible, spontaneous, phasic, competent and demonstrates normal competent, and demonstrates normal augmentation. augmentation. FV is compressible, spontaneous, phasic, FV is compressible, spontaneous, phasic, competent and demonstrates normal competent and demonstrates normal augmentation. augmentation. POP V is compressible, spontaneous, phasic, POP V is compressible, spontaneous, phasic, competent and demonstrates normal competent and demonstrates normal augmentation. augmentation. Right T/P Trunk, PTV, Gastroc V, and Soleus V T/P Trunk is compressible. are dilated and noncompressible. PTV is compressible. Varicose veins below the knee are dilated and LT PerV is compressible. noncompressible. Acute deep tyree thrombosis is noted in the RT PerV is compressible. left Gastroc V. Procedure This is a venous duplex using B-mode, color flow and spectral Doppler. Exam performed in department. A preliminary report was called and/or faxed to [facility]. Interpretation Summary Acute deep venous thrombosis right tibioperoneal trunk and posterior tibial and gastrocnemius and soleus veins. Superficial thrombophlebitis right lower extremity infrageniculate varicose veins Acute deep venous thrombosis left gastrocnemius vein Patent and compressible bilateral great saphenous veins Right lower extremity comparison to previous examination of June 04, 2020 is similar except for loosely attached thrombus appears more consolidated Ordering Physician: Lit Cobb Referring Physician: Avril Sorenson M.D. Performed By: Elsa Prescott RVT
== END ==
PROVIDERS: PCP Family Medicine; Referring Provider Internal Medicine Medical Oncology; Visit Provider Internal Medicine Medical Oncology
DX: I82.431 Acute embolism and thrombosis of right popliteal vein (principal); M79.89 Other specified soft tissue disorders
CPT/HCPCS: 93970

== ENCOUNTER → 2020-06-17 14:53 | Outpatient (CLI) | payer MEDICARE, OTHER, SELFPAY ==
[2020-06-11 15:04] VITALS: BMI 26.0
--- NOTE | 2020-06-17 14:53 | VDLE_ITS ---
Reason For Study: DVT RIGHT LEFT GSV is normal. GSV is normal. CFV is compressible, spontaneous, phasic, CFV is compressible, spontaneous, phasic, competent and demonstrates normal competent, and demonstrates normal augmentation. augmentation. FV is compressible, spontaneous, phasic, FV is compressible, spontaneous, phasic, competent and demonstrates normal competent and demonstrates normal augmentation. augmentation. POP V is compressible, spontaneous, phasic, POP V is compressible, spontaneous, phasic, competent and demonstrates normal competent and demonstrates normal augmentation. augmentation. Right T/P Trunk, PTV, Gastroc V, and Soleus V T/P Trunk is compressible. are dilated and noncompressible. PTV is compressible. Varicose veins below the knee are dilated and LT PerV is compressible. noncompressible. Acute deep vein thrombosis is noted in the RT PerV is compressible. left GastrocV. Procedure Acute deep vein thrombosis is now noted in This is a venous duplex using B-mode, color the left SoleusV. flow and spectral Doppler. Exam performed in department. Compared to 06/11/2020. A preliminary report was called and/or faxed to [facility]. Interpretation Summary Acute deep venous thrombosis right tibioperoneal trunk, posterior tibial vein, gastrocnemius vein, and soleus veins. Superficial thrombophlebitis varicose veins distal to the right knee. Deep venous thrombosis left gastrocnemius and soleus veins Patent and compressible bilateral great saphenous veins Refer to previous examinations of June 11 and June 04 documenting deep venous thrombosis Ordering Physician: Lit Cobb Referring Physician: Avril Sorensno M.D. Performed By: Elsa Prescott RVT
== END ==
PROVIDERS: PCP Family Medicine; Referring Provider Internal Medicine Medical Oncology; Visit Provider Internal Medicine Medical Oncology
DX: I82.402 Acute embolism and thrombosis of unspecified deep veins of left lower extremity (principal); I82.431 Acute embolism and thrombosis of right popliteal vein
CPT/HCPCS: 93970

== ENCOUNTER 2020-06-18 05:57 | Inpatient (IN) | payer MEDICARE, OTHER, SELFPAY ==
[2020-05-28 18:08] VITALS: BMI 26.9
--- NOTE | 2020-06-11 08:45 | RAD_ITS ---
HISTORY: PREOP FOR BLADDER SURGERY. EXAM: XR Chest 2 Views: COMPARISON: None FINDINGS: # of images incl. paperwork: 2 Bilateral shoulder arthroplasties. Pulmonary hyperexpansion with flattening of the diaphragm Paucity of peripheral parenchymal pulmonary perfusion Heart is not enlarged. No acute osseous pathology perceived. Pulmonary vascularity is distinct. No effusions. RAD/Chest PA and Lateral IMPRESSION: No acute cardiopulmonary disease. Probable obstructive lung disease.. at 0509 Reported and signed by: Keven Quinonez MD Electronically Signed: Keven Quinonez MD at 5:08 EDT Tel , Service support ,
[2020-06-11 09:53] LABS: Hematocrit 36.4 % (40-54); Hemoglobin 11.9 g/dL (13.0-16.5); Mean Corp Hgb Conc 32.7 g/dL (32-36); Mean Corpuscular Hgb 30.1 pg (27.0-32.0); Mean Corpuscular Volume 92.2 fL (80-94); Mean Platelet Vol. 9.2 fl (6.2-12.0); Platelet Count 346 K/mm3 (150-450); RBC Distribution Width CV 12.9 % (11.6-14.6); Red Blood Count 3.95 M/mm3 (4.6-6.2); White Blood Count 7.2 K/mm3 (4.4-11.0)
[2020-06-11 10:40] LABS: ALB/GLOB Ratio 0.8 RATIO (0.9-2.4); AST(SGOT) 66 U/L (15-37); Alanine Aminotransfer ALT/SGPT 86 U/L (16-61); Albumin, Serum 3.6 g/dL (3.2-5.0); Alkaline Phosphatase 61 U/L (45-117); Anion Gap 7 (5-15); BUN 20 mg/dL (7-18); BUN/Creat Ratio 18.9 RATIO (10-20); Calcium,Total 9.2 mg/dL (8.5-10.1); Chloride 104 mmol/L (98-107); Creatinine, Serum 1.06 mg/dL (0.70-1.30); EST Glomerular Filtration Rate 74 mL/min (>60); Est Glom Filt Rate - Afr Amer 90 mL/min (>60); Globulin 4.3 g/dL (2.2-4.2); Glucose 91 mg/dL (74-106); Potassium 3.8 mmol/L (3.5-5.1); Protein, Total 7.9 g/dL (6.4-8.2); Sodium Level 138 mmol/L (136-145)
[2020-06-11 15:04] VITALS: BMI 26.0
[2020-06-18] VITALS (13 sets, daily range): BP systolic 123–158; BP diastolic 83–101; PULSE 79–102; RESP 16–18; TEMP 36.1–37.1; O2SAT 92–97; BMI 25.4
[2020-06-18] MEDS: Lactated Ringers 1,000 ML 100 ML IV ×4 (06:53→15:05)
[2020-06-18] MEDS: Lactated Ringers 1,000 ML 15 ML IV (06:59)
[2020-06-18] MEDS: Cefazolin 2 GM in 0.9% Normal Saline 100 ML IV ×2 (07:29→13:00)
--- NOTE | 2020-06-18 07:30 | BLA_PTH ---
PATIENT: NOLAN HOWE LOC: [facility] U#:[id number] AGE/SX: 65/M ROOM: [facility]314 RE06/18/[address]: Dr. David Pino MD : 1955 BED: 1 DIS: 06/24/2020 SPEC #: [id number] RECD: 06/18/20 14:37 STATUS: OSMANY FLORES #: [id number] LINDSAY: 06/18/20 07:[address]: David Pino DEPT: SURGICAL PATHOLOGY RECD BY: Elmer Del Valle ENTERED: 06/19/20 07:03 SP TYPE: BLADDER BX OTHR DR: Dr. Avril Sorenson MD Tissues: A - LYMPH NODE BIOPSY B - LYMPH NODE BIOPSY C - Prostate, NOS Procedures: Surgery Specimen Level V Surgery Specimen Level HEADER OPERATION: Laparoscopic robotic assisted cystectomy PRE-OP DIAGNOSIS: Invasive bladder cancer TISSUE SUBMITTED: A - Right pelvic lymph node, B - Left pelvic lymph node, C - Bladder MICROSCOPIC DIAGNOSIS A. Right pelvic lymph node, biopsy: Seven out of seven lymph nodes, negative for metastatic carcinoma. B. Left pelvic lymph node, biopsy: One lymph node, negative for metastatic carcinoma. C. Bladder and prostate, radical cystoprostatectomy: Invasive urothelial carcinoma. A minute focus of prostatic adenocarcinoma (0.3 x 0.2 cm in greatest dimension). Two out of two lymph nodes, negative for metastatic carcinoma. See cancer summary in the comment section. SJ:michael 06/24/20 COMMENT BLADDER CANCER SUMMARY Procedure - radical cystoprostatectomy Tumor site - invasive carcinoma involving anterior wall and right lateral wall and noninvasive carcinoma involving dome, left lateral, anterior and posterior wall. Tumor size - exact size cannot be determined. Histologic type - invasive urothelial carcinoma Histologic grade - grade 3, poorly differentiated Tumor configuration - invasive and flat Tumor extension - tumor invades into the perivesical tissue microscopically. Margins - margins uninvolved by invasive carcinoma. Lymphvascular invasion - not identified Regional lymph nodes: Number of lymph nodes examined - 10 Number of lymph nodes involved - 0 Additional pathologic findings - - urothelial dysplasia. - chronic inflammation and foreign body giant cell reaction. - multiple hyalinized and calcified nodules, perivesical adipose tissue. - ureter, no pathologic diagnosis. PATHOLOGIC STAGE: pT3a pN0 Mx PROSTATE CANCER (RADICAL) SUMMARY Procedure - Radical cystoprostatectomy Prostate Size - 4 cm craniocaudally, 5 cm transversely and 3 cm anterior-posteriorly Histologic type: Acinar adenocarcinoma Histologic grade - grade group 1 ([place] score 3+3=6) Tumor Quantitation - estimated % of prostate involved by tumor - <5% Extraprostatic Extension - Not identified Urinary Bladder Neck Invasion - Not identified Seminal Vesicle Invasion - Not identified Lymphvascular Invasion - Not identified Perineural Invasion - Not identified Margins - Margins uninvolved by invasive carcinoma, Treatment Effect - No known presurgical therapy. Regional Lymph Nodes - Number of lymph nodes involved - 0 Number of Lymph Nodes Examined - 10 Additional Pathologic Findings - Benign prostatic hyperplasia. - Chronic inflammation. Ancillary studies - not performed PATHOLOGIC STAGE: pT2 pN0 pMx The above summary is in compliance with [employer] ([employer]) Cancer Protocols Checklist and [place] [employer] on Cancer (AJCC), Staging Manual, 8th Ed. Please make reference to previous specimen ([id number]) urinary bladder tumor, TUR with diagnosis of papillary urothelial carcinoma. Case has been reviewed in consultation with Dr. Jean who concurs with the above diagnosis. IDC:AM MICROSCOPIC DESCRIPTION Slides are reviewed. GROSS DESCRIPTION A - Received in fixative is one container labeled with the patient's name and designated right pelvic lymph node. The specimen consists of multiple pieces of adipose tissue that in aggregate measure 8 x 6 x 2 cm. Multiple indurated nodules, possible lymph nodes, are identified, largest lymph node measures 2.5 x 0.5 x 0.3 cm. News Gathering Technician sections are submitted in two cassettes as follows: 1 - multiple possible lymph nodes, 2 - one serially sectioned lymph node. / SJ:rg 06/19/20 B - Received in fixative is one container labeled with the patient's name and designated left pelvic lymph node. The specimen consists of multiple pieces of adipose tissue that in aggregate measure 7 x 4.5 x 1.5 cm. An indurated area, possible lymph node, is identified. Multiple plastic nuno are noted in the specimen. News Gathering Technician sections are submitted in two cassettes as follows: 1 - one possible lymph node, 2 - area associated with nuno. / SJ:rg 06/19/20 C - Received in fixative is one container labeled with the patient's name and designated bladder and prostate. The specimen consists of a radical cystoprostatectomy specimen weight 350 gm. The portion of bladder with attached perivesical adipose tissue measures 11 x 6 x 7 cm. The prostate measures 4 cm craniocaudally, 5 cm transversely and 3 cm anterior-posteriorly. The attached right seminal vesicle measures 2 x 2 x 1 cm and attached right vas deferens measures 3 cm in length and 0.5 cm in diameter. The left seminal vesicle measures 2 x 1.5 x 1 cm and the attached left vas deferens measures 4 cm in length and 0.5 cm in diameter. The dome of the bladder and the posterior surface shows peritoneal reflection. The resection margin of the bladder is inked black. The prostate is inked as follows: anterior surface - yellow, posterior surface - black, right lateral surface - blue, left lateral surface - green. The bladder is open and it is filled with hemorrhagic fluid. More dictation will follow after overnight fixation. / SJ: 06/19/20 Sections of prostate do not reveal any mass lesion. The bladder mucosa throughout bladder wall shows ragged surface. No gross tumor projecting into the bladder lumen is identified. The ragged left mucosa measures 4 x 4 x 0.2 cm. The ureteral opening appears to be patent. A tubular segment, possible left ureter measures 5 cm in length and 0.5 cm in diameter. Sections do not reveal any mass lesion. The resection margin is inked blue. The right ureter measures 4 cm in length and 0.5 cm in diameter. Sections do not reveal any mass lesion. The resection margin is inked green. Section of bladder wall reveals the tumor appears to invade into the bladder wall. Invasion into the prostate tissue is not seen. Sections of the perivesical adipose tissue do not reveal any bladder lesion or any obviously enlarged lymph node. Several indurated and hard calcified nodules are noted in the area of perivesical adipose tissue largest measuring 0.5 cm in greatest dimension. News Gathering Technician sections are submitted as follows: 1 - right seminal vesicle and vas deferens, 2 - left seminal vesicle and vas deferens, 3 - apical margin, prostate, enface, 4-9 - prostate (4 & 5 - apical portion prostate, 6?&?7 - middle portion prostate, 8 & 9 - basal portion prostate), 10??possible left ureter, 11 - right ureter, 12 & 13 - dome of bladder, 14 & 15 - anterior wall, 16-18 - right bladder wall, 19 & 20 - left bladder wall, 21 & 22 - posterior bladder wall 23 & 24 - perivesical adipose tissue, 25 - calcified nodules after decalcification. / JOS:michael 06/20/20 More sections are submitted in two more cassettes, possible sections of ureter. / JOS:michael 06/23/20 TC:0 CPT: 92870, 79050 [id number]
--- NOTE | 2020-06-18 07:33 | HP.PCM_ITS ---
Problem List (1) Bladder cancer Status: Acute Qualifiers: Bladder location: overlapping sites History of Present Illness Date of Admission: 06/18/20 Chief Complaint: Invasive bladder cancer The patient is a 65 year old male who been having gross bleeding for about 5-1/2 months finally sought medical help and was referred to urology. We did a cystoscopy showed at mass and on CAT scan he looked appear to have an invasive m ass we did a resection and this came back with invasive bladder cancer. During his postoperative period he did have a DVT and was put on low-dose Lovenox. He underwent a bowel prep and he has been marked for stoma we talked about the options of management for his invasive bladder cancer including chemotherapy and radiation, chemotherapy followed by cystectomy, and cystectomy and bilateral lymph node dissection. He saw medical oncology to review the options. And he is decided to proceed with radical cystectomy and formation of an ileal conduit and also organ to bilateral pelvic complete lymph node dissection. Past Medical History Past Medical History (Chronic Problems): Chronic Problems (Last Reviewed 06/11/20 @ 15:01 by Alexandrea Graves) Atherosclerosis of coronary artery of [place] heart without angina pectoris (Chronic) Essential (primary) hypertension (Chronic) Hyperlipemia (Chronic) Medical History: Medical History (Last Reviewed 06/18/20 @ 07:[address] David Pino MD) Pre-operative cardiovascular examination (Acute) Z01.810 Atherosclerosis of coronary artery of [place] heart without angina pectoris (Chronic) I25.10 Essential (primary) hypertension (Chronic) I10 Hyperlipemia (Chronic) E78.5 Syncope and collapse (Resolved) Onset Date: 08/23/16 R55 Nonsustained ventricular tachycardia (Resolved) Onset Date: 09/01/07 I47.2 History of non-ST elevation myocardial infarction (NSTEMI) (Resolved) Onset Date: 09/01/07 I25.2 Deep venous thrombosis of right popliteal vein I82.431 Erectile dysfunction N52.9 Gout M10.9 Hemorrhoids K64.9 Allergies No Known Allergies Allergy (Verified 06/06/20 14:05) Home Medications: Ambulatory Orders Medication Instructions Recorded Ramipril [Altace] 10 mg PO QHS 08/23/16 hydrochlorothiazide 25 mg tablet 12.5 mg PO DAILY 06/12/19 Enoxaparin Sodium [Lovenox] 100 mg SQ DAILY 06/06/20 Surgical History: Surgical History (Last Reviewed 06/18/20 @ 07:[address] David Pino MD) History of left heart catheterization Onset Date: 08/2007 Z98.890 Surgical History: no surgical history Psychiatric History: No pertinent psych hx Smoking Status: Never smoker Tobacco Use: Non-smoker - *Family History Paternal Family History: Family History (Last Reviewed 06/11/20 @ 15:01 by Alexandrea Graves) Mother Hypertension Cancer Father Hypertension History Items: Hypertension Maternal Family History: Family History (Last Reviewed 06/11/20 @ 15:01 by Alexandrea Graves) Mother Hypertension Cancer Father Hypertension History Items: Cancer - Lung cancer, Hypertension Review of Systems Constitutional: Denies: Chills, Fever, Weight Change HEENT: Denies: Head Aches, Sinus Congestion, Sinus Drainage Cardiovascular: Denies: Chest Pain, Palpitations Respiratory: Denies: Cough, Shortness of breath at rest, Sputum production Gastrointestinal: Denies: Abdominal Pain, Nausea, Vomiting Genitourinary: Denies: Dysuria Musculoskeletal: Denies: Joint Pain, Joint Tenderness Skin: Denies: Rash, Wounds Neurological: Denies: Numbness, Tingling, Focal weakness Psychiatric: Denies: Anxiety, Depression, Homicidal Ideations, Suicidal Ideations Hematologic/ Lymphatic: Denies: Easy Bruising, Easy Bleeding VTE Information - Inpt Only VTE Present on Admission: No VTE Mechan Device Prophylaxis: SCD's - Physical Exam Vitals/I&O's: Vital Signs Temp Pulse Resp BP Pulse Ox 98.8 F 79 16 123/87 H 95 06/18/20 06:36 06/18/20 06:36 06/18/20 06:36 06/18/20 06:36 06/18/20 06:36 Oxygen Delivery Method Room Air Weight: 88.5 kg Body Mass Index (BMI) 25.4 Finger Stick Blood Glucose 126 General: Alert, Oriented x3, Cooperative HEENT: Atraumatic, PERRLA, EOMI, Normocephalic Neck: Supple, No JVD, Negative Carotid Bruits Lungs: Clear to auscultation, Normal air movement Cardiovascular: Regular rate, No murmurs Abdomen: Bowel Sounds Present, Soft, Non Tender Extremities: No edema, Capillary Refill Less than 3 Seconds Skin: No rashes, No breakdown Musculoskeletal: No Tenderness to Palpation of Joints or Extremities Neurological: Cranial nerves II-XII grossly intact Psych/Mental Status: Normal Affect, Appropriate Laboratory Results 06/18/20 06:40: Blood Type Pending, Antibody Screen Pending, Crossmatch See Detail Current Medications Cefazolin Sodium 2 gm/ Sodium (Chloride) 110 mls @ 150 mls/hr IV PREOP ONE Stop: 06/18/20 07:43 Lactated Ringer's () 1,000 mls @ 100 mls/hr IV .Q10H TREY Last Admin: 06/18/20 06:53 Dose: 100 mls/hr Documented by: Lactated Ringer's () 1,000 mls @ 15 mls/hr IV .Q48H TREY Last Admin: 06/18/20 06:59 Dose: 15 mls/hr Documented by: Assessment/Plan All Active Problems (Last Reviewed 06/11/20 @ 15:01 by Alexandrea Graves) Bladder cancer (Acute) DVT, popliteal, acute (Acute) Pre-operative cardiovascular examination (Acute) Syncope and collapse (Resolved 08/23/16) Nonsustained ventricular tachycardia (Resolved 09/01/07) History of non-ST elevation myocardial infarction (NSTEMI) (Resolved 09/01/07) 65-year-old male with invasive bladder cancer plan to proceed with a robotic cystoprostatectomy and an open formation of an ileal conduit and bilateral pelvic lymph node dissection, bowel prep is been performed, he has been marked for stoma, consent was signed in the preoperative area, I spoke to patient and his all their questions were answered and he is willing to proceed.
[2020-06-18] MEDS: Bupivacaine Mpf 0.5% 30 ML VIAL (13:30)
--- NOTE | 2020-06-18 13:47 | OP.PCM_ITS ---
Problem List (1) Bladder cancer Status: Acute Qualifiers: Bladder location: overlapping sites Report of Operation Date of Procedure: 06/18/20 Pre-Operative Diagnosis: Invasive bladder cancer Post-Operative Diagnosis: Same Surgery/Procedure Performed:: Laparoscopic robotic assisted radical cystoprostatectomy, bilateral pelvic lymph node dissection, open formation of an ileal conduit Description of Surgical Findings:: 65-year-old male was taken back to the operating room at the smooth induction of general anesthesia he was placed supine on the table and then in dorsolithotomy position with the legs in stirrups. The abdomen shaved prepped and draped in usual sterile fashion. First used a Veress needle to go into the umbilicus with a camera and placed my camera trocar right arm trocar to left arm trochars dental front office assistant air seal suction port and a 5 mm suction port. We then docked the robot the patient was full Trendelenburg and we started the dissection first restoring both posterior behind the bladder and we incised along the course of the vas deferens and the right side all the way to the prostate and went to the left side incised the vas deferens all the way to the prostate and then dissected out the vas deferens and seminal vesicles posteriorly and dissected out the prostate posteriorly to the between the rectum and the and the prostate I then pulled out of the pelvis we opened up the prostate space on the right side went through we took the pedicles on the right side with clips all the way to the pedicles of the prostate and the bladder going as wide as possible then we reached the apex of the prostate and then we went to the left side and did a very wide dissection of the left side and took the pedicle the bladder and prostate and the left side with a very wide dissection using clips through the vascular pedicle I then came up to the prostate we incised the endopelvic fascia place a stitch in the dorsal vein complex transected through the dorsal vein complex with stitches and then transected through the dorsal vein complex and the urethra I then oversewed the urethra and then we dissected between the pelvic wall and the prostate we then freed up the prostate off the deep pelvis and then this was pulled out and put an Endo Catch bag we completed the radical cystoprostatectomy part this only took about 200 cc blood loss I then went to the lymph node dissection on the left side and looked in the left side and went to the right side first open up the fascia over the artery and vein dissected out the the lymph nodes over the artery and vein of the pelvic lymph nodes identified the thermal cutting machine operator nerve and dissected all the lymph node tissue on the right and the right side is complete lymph node dissection the right side took a extensive amount time of 45 minutes to get all the tissue. I then went to the left side started dissection off the left sidewall opened up the nerve packet off the left sidewall immediately the I did not opt I did not identify the left thermal cutting machine operator nerve Searching for and then as I was searching for it came across the clip that was on the obturator nerve look like the obturator nerve had been inadvertently taken and transected during the pedicle dissection of the left bladder dissection I tried to find the other end of the thermal cutting machine operator nerve but he had pulled back retracted into the pelvis and I could not get the other ends to do a reanastomosis of the nerve so at this point is documented that the left thermal cutting machine operator nerve unfortunately had been transected let the family know about the repercussions regarding this complication. I then continued the dissection of the left sidewall took all the lymph node tissue in the left sidewall I then once as this was done then the robot was undocked we made a midline incision we pulled out the prostate and bladder through the midline incision I then identified the sigmoid colon identified the terminal ileum we went 15 cm from the to mid terminal ileum and then I marked the bowel we did another 15 cm for the for the bowel we then stapled across the bowel with the Endo SOURAV in 2 locations we went through the mesentery making sure that we had good blood supply to our conduit we did a reanastomosis of the 2 ends of the bowel first by antimesenteric side but placing the Endo SOURAV through the bowel and then using a TA 85 across the top we then closed the peritoneal window then the 2 ureters were identified and they had been transected during the dissection and the long length of been saved and then did anastomosis of the left ureter to the conduit in a Mary fashion the anastomosis of the right ureter to the conduit in a Mary fashion over a stent and then once the anastomosis was the done then we created the stoma open up the incision over the stoma site made sure that 2 fingerbreadths was able go through the fascia then grabbed the end of the ileal conduit with the [place] pulled it up transected the suture line and then we did a stitches to put the ileal conduit up on the bowel we did a imbricated fashion stitches all the way around to do a nose nice [place] I then closed the midline incision with a running PDS and then closed the skin with nuno we left a drain in the pelvis through one of the port sites and then all the needles and sponges were accounted for blood loss was by 500 500 cc he did get 3.5 L of crystalloid the dressings were placed the all the incisions were closed with subcuticular stitches except for the midline incision was closed with nuno and the appliance was placed on the conduit patient acetic was reversed taken back to PACU in good condition I will let the family know about the surgery and also let them know about the injury to the left obturator nerve. Type of Anesthesia:: General Specimen's removed: prostate and bladder Drains: SANTIAGO drain pelvis Estimated Blood Loss (mL): 500cc - Admit VTE Documentation VTE Present on Admission: No VTE Mechan Device Prophylaxis: SCD's
[2020-06-18 14:39] LABS: Hematocrit 37.8 % (40-54); Hemoglobin 11.9 g/dL (13.0-16.5); Mean Corp Hgb Conc 31.5 g/dL (32-36); Mean Corpuscular Hgb 29.5 pg (27.0-32.0); Mean Corpuscular Volume 93.8 fL (80-94); Mean Platelet Vol. 8.9 fl (6.2-12.0); Platelet Count 313 K/mm3 (150-450); RBC Distribution Width CV 12.8 % (11.6-14.6); RBC Distribution Width SD 44.4 fl (35.1-43.9); Red Blood Count 4.03 M/mm3 (4.6-6.2); White Blood Count 13.5 K/mm3 (4.4-11.0)
[2020-06-18 14:49] LABS: Anion Gap 7 (5-15); BUN 21 mg/dL (7-18); BUN/Creat Ratio 14.4 RATIO (10-20); Calcium,Total 9.1 mg/dL (8.5-10.1); Chloride 109 mmol/L (98-107); Creatinine, Serum 1.46 mg/dL (0.70-1.30); EST Glomerular Filtration Rate 51 mL/min (>60); Est Glom Filt Rate - Afr Amer 62 mL/min (>60); Estimated Creatinine Clearance 56.25 ml/min; Glucose 131 mg/dL (74-106); Potassium 5.3 mmol/L (3.5-5.1); Sodium Level 138 mmol/L (136-145)
--- NOTE | 2020-06-18 16:25 | NURSING ---
pt arrived to unit. a&ox3. ls cta, dim bases. bs hypoactive. gown changed as drainage noted. shadow drainage on drsg marked. noted moderate amt leaking coming from under flap of illeoconduit ostomy appliance, op site applied to nuno. martínez attached to ileoconduit appliance. SANTIAGO emptied w/ primary RN for 70cc dark red drainage. pt does states he has not had his altace yet today, communication sent to pharmacy to send up. pt report slight dizziness when he raises his head. Dr. Odette ureña.
[2020-06-18] MEDS: 0.45% Normal Saline 1,000 ML 150 ML IV (16:54)
[2020-06-18] MEDS: Ketorolac 15 MG/ML Vial IV (18:30)
[2020-06-18] MEDS: Ramipril 10 MG Capsule PO (18:30)
[2020-06-18] MEDS: Ciprofloxacin 400 MG/200 ML BAG 200 MG IV (21:38)
[2020-06-18] MEDS: 0.9% Saline Lock 10 ML Syringe IV (21:47)
[2020-06-18] MEDS: Docusate Sodium 100 MG Capsule PO (21:49)
[2020-06-19] VITALS (7 sets, daily range): BP systolic 97–133; BP diastolic 60–85; PULSE 82–94; RESP 18; TEMP 36.5–37.1; O2SAT 93–98; BMI 25.4
[2020-06-19] MEDS: Ketorolac 15 MG/ML Vial IV ×4 (00:41→17:27)
[2020-06-19] MEDS: 0.9% Saline Lock 10 ML Syringe IV ×5 (00:44→22:40)
[2020-06-19] MEDS: 0.45% Normal Saline 1,000 ML 150 ML IV ×4 (00:59→19:54)
[2020-06-19] MEDS: Enoxaparin 40 MG/0.4 ML Syringe SC (05:00)
[2020-06-19 06:31] LABS: Hematocrit 33.7 % (40-54); Hemoglobin 10.8 g/dL (13.0-16.5); Mean Corpuscular Hgb 29.3 pg (27.0-32.0); Mean Corpuscular Volume 91.3 fL (80-94); Mean Platelet Vol. 9.5 fl (6.2-12.0); Platelet Count 247 K/mm3 (150-450); RBC Distribution Width CV 12.7 % (11.6-14.6); RBC Distribution Width SD 42.2 fl (35.1-43.9); Red Blood Count 3.69 M/mm3 (4.6-6.2); White Blood Count 9.4 K/mm3 (4.4-11.0)
[2020-06-19 06:50] LABS: Anion Gap 6 (5-15); BUN 24 mg/dL (7-18); BUN/Creat Ratio 18.8 RATIO (10-20); Calcium,Total 8.2 mg/dL (8.5-10.1); Chloride 109 mmol/L (98-107); Creatinine, Serum 1.28 mg/dL (0.70-1.30); EST Glomerular Filtration Rate 60 mL/min (>60); Est Glom Filt Rate - Afr Amer 72 mL/min (>60); Estimated Creatinine Clearance 64.16 ml/min; Glucose 101 mg/dL (74-106); Sodium Level 138 mmol/L (136-145)
--- NOTE | 2020-06-19 07:30 | PCM.PROGNOTE ---
Patient Problems: Active and Suspected Problems (Last Reviewed 06/18/20 @ 07:[address] David Pino MD) Bladder cancer (Acute) Subjective: Postoperative day #1 status post radical cystectomy and ileal conduit formation, he has good urine output from the ileal conduit. Some leakage around the ostomy site because of the bag and the staple line - Physical Exam Vitals/I&O's: Vital Signs Temp Pulse Resp BP Pulse Ox 98.4 F 84 18 120/73 98 06/19/20 04:52 06/19/20 04:52 06/19/20 04:52 06/19/20 04:52 06/19/20 04:52 Oxygen Delivery Method Room Air Weight: 88.5 kg Body Mass Index (BMI) 25.4 Finger Stick Blood Glucose 126 Intake and Output for Last 24 Hours 06/17/20 06/18/20 06/19/20 23:59 23:59 23:59 Intake Total 4808.33 / 4808.33 980.25 / 980.25 Output Total 960 / 960 520 / 520 Balance 3848.33 / 3848.33 460.25 / 460.25 General: Alert, Oriented x3, Cooperative HEENT: Atraumatic, PERRLA, EOMI, Normocephalic Neck: Supple, No JVD, Negative Carotid Bruits Lungs: Clear to auscultation, Normal air movement Cardiovascular: Regular rate, No murmurs Abdomen: Bowel Sounds Present, Soft, Non Tender Extremities: No edema, Capillary Refill Less than 3 Seconds Skin: No rashes, No breakdown Musculoskeletal: No Tenderness to Palpation of Joints or Extremities Neurological: Cranial nerves II-XII grossly intact Psych/Mental Status: Normal Affect, Appropriate Laboratory Results 06/18/20 06:40: Blood Type A NEGATIVE, Antibody Screen NEGATIVE, Crossmatch See Detail 06/18/20 14:30: WBC 13.5 H, RBC 4.03 L, Hgb 11.9 L, Hct 37.8 L, MCV 93.8, MCH 29.5, MCHC 31.5 L, RDW Std Deviation 44.4 H, RDW Coeff of Lidia 12.8, Plt Count 313, MPV 8.9 06/18/20 14:30: Sodium 138, Potassium 5.3 H, Chloride 109 H, Carbon Dioxide 22.0, Anion Gap 7, BUN 21 H, Creatinine 1.46 H, Estim Creat Clear Calc 56.25, Est GFR (MDRD) Af Amer 62, Est GFR (MDRD) Non-Af 51 L, BUN/Creatinine Ratio 14.4, Glucose 131 H, Calcium 9.1 06/19/20 05:45: WBC 9.4, RBC 3.69 L, Hgb 10.8 L, Hct 33.7 L, MCV 91.3, MCH 29.3, MCHC 32.0, RDW Std Deviation 42.2, RDW Coeff of Lidia 12.7, Plt Count 247, MPV 9.5 06/19/20 05:45: Sodium 138, Potassium 4.0, Chloride 109 H, Carbon Dioxide 23.0, Anion Gap 6, BUN 24 H, Creatinine 1.28, Estim Creat Clear Calc 64.16, Est GFR (MDRD) Af Amer 72, Est GFR (MDRD) Non-Af 60, BUN/Creatinine Ratio 18.8, Glucose 101, Calcium 8.2 L Current Medications Acetaminophen (Acetaminophen 500 Mg Tablet) 500 mg PO Q4H PRN PRN PRN Reason: Pain Score 1-05/31 /Headache Docusate Sodium (Docusate Sodium 100 Mg Capsule) 100 mg PO BID [facility] Last Admin: 06/18/20 21:49 Dose: 100 mg Documented by: Enoxaparin Sodium (Enoxaparin 40 Mg/0.4 Ml Syringe) 40 mg SC DAILY@0600 [facility] Last Admin: 06/19/20 05:00 Dose: 40 mg Documented by: Hydrochlorothiazide (Hydrochlorothiazide 12.5mg) 12.5 mg PO DAILY [facility] Lactated Ringer's () 1,000 mls @ 15 mls/hr IV .Q48H [facility] Last Infusion: 06/18/20 14:40 Dose: Infused Documented by: Sodium Chloride () 1,000 mls @ 150 mls/hr IV .[id number] [facility] Last Admin: 06/19/20 05:00 Dose: 150 mls/hr Documented by: Ciprofloxacin (Cipro) 400 mg in 200 mls @ 200 mls/hr IV Q12H [facility] Stop: 06/19/20 09:59 Last Infusion: 06/19/20 00:25 Dose: Infused Documented by: Sodium Chloride () 250 mls @ 15 mls/hr IV .[id number] PRN PRN Reason: Saline Flush Last Infusion: 06/19/20 00:59 Dose: 0 mls/hr Documented by: Sodium Chloride () 250 mls @ 15 mls/hr IV .[id number] PRN PRN Reason: Additional IVPB Infusion Ketorolac Tromethamine (Ketorolac 15 Mg/Ml Vial) 15 mg IV Q6 [facility] Stop: 06/23/20 18:01 Last Admin: 06/19/20 05:01 Dose: 15 mg Documented by: Magnesium Hydroxide (Magnesium Hydroxide 30 Ml Udc) 15 ml PO DAILY [facility] Metoclopramide HCl (Metoclopramide 10 Mg/2 Ml Vial) 10 mg IV Q8H PRN PRN PRN Reason: Nausea/vomiting Morphine Sulfate (Morphine 2 Mg/Ml Syringe) 2 mg IV Q2H PRN PRN PRN Reason: Pain Score 6-10 Ondansetron HCl (Ondansetron 4 Mg/2 Ml Vial) 4 mg IV Q6H PRN PRN PRN Reason: Nausea Pantoprazole Sodium (Pantoprazole Sodium 20 Mg Tablet) 20 mg PO DAILY [facility] Ramipril (Ramipril 10 Mg Capsule) 10 mg PO DAILY@1900 [facility] Last Admin: 06/18/20 18:30 Dose: 10 mg Documented by: Sodium Chloride (0.9% Saline Lock 10 Ml Syringe) 10 - 40 ml IV UD PRN PRN Reason: SALINE FLUSH Last Admin: 06/19/20 05:02 Dose: 10 ml Documented by: Medical Necessity - Tobacco Use Smoking Status: Never smoker Tobacco Use: Non-smoker Assessment/Plan All Active Problems (Last Reviewed 06/18/20 @ 07:[address] David Pino MD) Bladder cancer (Acute) DVT, popliteal, acute (Acute) Pre-operative cardiovascular examination (Acute) Syncope and collapse (Resolved 08/23/16) Nonsustained ventricular tachycardia (Resolved 09/01/07) History of non-ST elevation myocardial infarction (NSTEMI) (Resolved 09/01/07) 65-year-old male status post cystectomy and ileal conduit today with stay on sips of water and chips we can also do clear Ensure. He needs to walk the hallways and we can await return of bowel function continue with IV fluids. Also has a history of DVT and currently is on low-dose Lovenox once there is no sign of bleeding we can increase Lovenox dose.
--- NOTE | 2020-06-19 08:28 | NURSING ---
wound photo: abdomen
[2020-06-19] MEDS: Ensure Clear 120 ML Liquid PO ×4 (08:32→22:40)
[2020-06-19] MEDS: Magnesium Hydroxide 30 ML UDC 15 ML PO (08:33)
[2020-06-19] MEDS: Pantoprazole Sodium 20 MG Tablet PO (08:33)
[2020-06-19] MEDS: hydroCHLOROthiazide 12.5mg 12.5 MG PO (08:33)
[2020-06-19] MEDS: Ciprofloxacin 400 MG/200 ML BAG 200 MG IV (08:34)
[2020-06-19] MEDS: Docusate Sodium 100 MG Capsule PO ×2 (08:35→22:38)
--- NOTE | 2020-06-19 10:30 | CASEMGMT ---
RN CM Face to Face with patient for initial transition planning/care coordination assessment. RN CM introduced self and role at [facility]. Patient lying in bed, alert and oriented. Patient willing to participate in assessment and is able to answer all questions appropriately. Care providers, pharmacy, and demographics verified. Patient wishes to discharge home, denies need for home health at this time. Patient states he has no further needs or concerns at this time. CM to follow for discharge planning needs that may arise. PCP: [facility]: Odette, urologist; Reza, oncologist; Axel, care advocate Preferred Pharmacy: [facility] Insurance: [facility] [place] Prescription Benefit: yes Living Will/HPOA: yes, Mary Marinelli LNOK: Living Arrangements: Patient lives with in a single story home with 2 steps to enter the home. Patient is independent at home. Transportation: self, DME/HHC: Patient states she has raised toilet and grab bars at home. Patient denies previous HHC. Disposition Plan: Patient to discharge home with family support and follow up plans in place. Elsa FERRARO, RN, CM
--- NOTE | 2020-06-19 10:39 | NT.THERAPY_ITS ---
Nutrition Therapy Report - History Nutrition Services has been consulted to:: Manage nutrient details of diet order Current diet / nutrition support order:: NPO sip/chips; Ensure Clear 120 ml 4x/day medpass. - Anthropometric Measurements Height:: 6 ft 1.5 in Weight:: 88.5 kg Body Mass Index (BMI):: 25.4 - Relevant Labs Relevant Labs:: WBC 13.5 K/mm3 (4.4-11.0) H 06/18/20 14:30 RBC 3.69 M/mm3 (4.6-6.2) L 06/19/20 05:45 Hgb 10.8 g/dL (13.0-16.5) L 06/19/20 05:45 Hct 33.7 % (40-54) L 06/19/20 05:45 MCHC 31.5 g/dL (32-36) L 06/18/20 14:30 RDW Std Deviation 44.4 fl (35.1-43.9) H 06/18/20 14:30 Potassium 5.3 mmol/L (3.5-5.1) H 06/18/20 14:30 Chloride 109 mmol/L (98-107) H 06/19/20 05:45 BUN 24 mg/dL (7-18) H 06/19/20 05:45 Creatinine 1.46 mg/dL (0.70-1.30) H 06/18/20 14:30 Est GFR (MDRD) Non-Af 51 mL/min (>60) L 06/18/20 14:30 Glucose 131 mg/dL (74-106) H 06/18/20 14:30 Calcium 8.2 mg/dL (8.5-10.1) L 06/19/20 05:45 AST 66 U/L (15-37) H 06/11/20 09:03 ALT 86 U/L (16-61) H 06/11/20 09:03 Globulin 4.3 g/dL (2.2-4.2) H 06/11/20 09:03 Albumin/Globulin Ratio 0.8 RATIO (0.9-2.4) L 06/11/20 09:03 - Assessment Food / Nutrition-Related History:: Pt 3 wks ago underwent ransurethral resection of a large bladder tumor; s/p day #1 radical cystoprostatectomy, bilateral pelvic lymph node dissection, ileal conduit. Pt w/ variable intake x 3 weeks d/t testing & procedures w/ intake of jello over the past 4 days-- typically consumes 3 meals per day, d/t taking antibiotics since previous admin notes I haven't gotten back to eating normally. Tolerated 4 oz Ensure clear this a.m.; pt notes passing flatus. Pt reports unintentional wt loss w/ UBW 205#, CBW 195.1#; wt hx per EMR 205.04# 05/28/20. Wt loss 9.94#/4.8% x ~2 1/2 weeks (severe). - Nutrition Diagnosis Problem / Etiology / Signs & Symptoms (PES):: Moderate malnutrition in the context of acute illness/injury r/t inadequate oral intake d/t several test ing/procedures x 3 weeks aeb pt consuming </= 75% energy intake compared to estimated energy needs x 3 weeks, wt loss 9.94#/4.8% x 2 1/2 weeks. Evidence of Malnutrition Exists:: Yes Moderate PCM:: Acute Illness - Nutrition Intervention Nutrition Prescription:: [id number] calories, 85-95 grams protein. - Food / Nutrient Delivery Interventions Nutrition support ordered as / adjusted to:: Rec GLORIA Cardiac as pt medically able. Continue Ensure clear w/ medpass. Will adjust ONS as diet order progresses. Nutrition education provided?: No - MNT Monitoring Further MNT monitoring and evaluation required?: Yes MNT Follow-up in:: 3-5 days
[2020-06-19] MEDS: Acetaminophen 500 MG Tablet PO (17:34)
[2020-06-19] MEDS: Ramipril 10 MG Capsule PO (19:09)
--- NOTE | 2020-06-19 19:46 | NURSING ---
pt walked two full laps in the [place]. tolerated well.
[2020-06-20] MEDS: 0.9% Saline Lock 10 ML Syringe IV ×6 (00:18→17:35)
[2020-06-20] MEDS: Ketorolac 15 MG/ML Vial IV ×4 (00:18→17:36)
[2020-06-20 00:21] VITALS: BP 151/88; PULSE 85; RESP 18; TEMP 37.2; O2SAT 95
[2020-06-20] MEDS: Acetaminophen 500 MG Tablet PO (00:25)
[2020-06-20] MEDS: 0.45% Normal Saline 1,000 ML 150 ML IV ×2 (02:03→08:47)
[2020-06-20] MEDS: Morphine 2 MG/ML Syringe IV (02:42)
[2020-06-20 02:43] VITALS: BP 135/88; PULSE 87; RESP 18; TEMP 37.2; O2SAT 95
[2020-06-20] MEDS: Enoxaparin 40 MG/0.4 ML Syringe SC (06:17)
[2020-06-20 07:30] LABS: Hematocrit 30.8 % (40-54); Hemoglobin 10.3 g/dL (13.0-16.5); Mean Corp Hgb Conc 33.4 g/dL (32-36); Mean Corpuscular Hgb 30.3 pg (27.0-32.0); Mean Corpuscular Volume 90.6 fL (80-94); Platelet Count 218 K/mm3 (150-450); RBC Distribution Width CV 12.8 % (11.6-14.6); RBC Distribution Width SD 42.3 fl (35.1-43.9); White Blood Count 8.7 K/mm3 (4.4-11.0)
[2020-06-20 08:00] LABS: Anion Gap 7 (5-15); BUN 15 mg/dL (7-18); BUN/Creat Ratio 15.2 RATIO (10-20); Calcium,Total 8.2 mg/dL (8.5-10.1); Chloride 106 mmol/L (98-107); Creatinine, Serum 0.99 mg/dL (0.70-1.30); EST Glomerular Filtration Rate 80 mL/min (>60); Est Glom Filt Rate - Afr Amer 97 mL/min (>60); Estimated Creatinine Clearance 82.95 ml/min; Glucose 99 mg/dL (74-106); Potassium 3.6 mmol/L (3.5-5.1); Sodium Level 137 mmol/L (136-145)
[2020-06-20 08:31] VITALS: BP 130/72; PULSE 80; RESP 18; TEMP 37; O2SAT 96
[2020-06-20 08:43] VITALS: PULSE 80
[2020-06-20] MEDS: Magnesium Hydroxide 30 ML UDC 15 ML PO (08:48)
[2020-06-20] MEDS: Ensure Clear 120 ML Liquid PO ×3 (08:48→17:35)
[2020-06-20] MEDS: Pantoprazole Sodium 20 MG Tablet PO (08:50)
[2020-06-20] MEDS: hydroCHLOROthiazide 12.5mg 12.5 MG PO (08:50)
[2020-06-20] MEDS: Docusate Sodium 100 MG Capsule PO ×2 (08:50→21:10)
--- NOTE | 2020-06-20 08:50 | CASEMGMT ---
TYE CARIAS updated by ostomy nurse that patient will need HHC at discharge. TYE CARIAS in to discuss with patient. List provided and patient would like [facility]. TYE CARIAS sent referral to [facility] and awaiting call back with acceptance. TYE CARIAS will continue to monitor this patient and plan for a safe discharge.
--- NOTE | 2020-06-20 10:15 | CASEMGMT ---
RN ARETHA received call from [facility] and they are able to accept the patient. RN ARETHA updated the patient regarding acceptance. Patient had no further questions or concerns at this time.
--- NOTE | 2020-06-20 12:50 | PCM.PN.BLA ---
Progress Note 65-year-old male status post radical cystoprostatectomy, lymph node dissection, is doing well. Labs reviewed today. Hemoglobin stable creatinines good he is got good urine output still not passing gas or flatus. No abdominal pain. No abdominal distention. Ileal conduit looks healthy. All incisions are clean and intact. He has been up and walking in the hallways. Doing well progressing rapidly. Still continue with sips of water and chips for now until his bowel function returns.
[2020-06-20] MEDS: 0.45% Normal Saline 1,000 ML 100 ML IV (17:35)
[2020-06-20] MEDS: Ramipril 10 MG Capsule PO (17:36)
[2020-06-20 17:40] VITALS: BP 147/86; PULSE 83; RESP 18; TEMP 36.9; O2SAT 95
[2020-06-20 21:04] VITALS: BP 126/90; PULSE 88; RESP 18; TEMP 36.9; O2SAT 95
[2020-06-20] MEDS: Calcium Carbonate 500 MG Tablet PO (22:41)
[2020-06-21] MEDS: Ketorolac 15 MG/ML Vial IV ×2 (00:24→06:35)
[2020-06-21 03:11] VITALS: BP 154/100; PULSE 91; RESP 18; TEMP 36.8; O2SAT 94
[2020-06-21] MEDS: Mag Hydrox/Al Hydrox/Simeth 30 ML UDC PO ×2 (03:15→23:50)
[2020-06-21] MEDS: 0.45% Normal Saline 1,000 ML 100 ML IV ×3 (03:15→22:18)
[2020-06-21] MEDS: Calcium Carbonate 500 MG Tablet PO (03:15)
[2020-06-21] MEDS: Enoxaparin 40 MG/0.4 ML Syringe SC (06:34)
[2020-06-21 08:32] VITALS: BP 150/89; PULSE 82; RESP 18; TEMP 36.9; O2SAT 94
[2020-06-21 08:32] LABS: Hematocrit 29.4 % (40-54); Hemoglobin 9.5 g/dL (13.0-16.5); Mean Corp Hgb Conc 32.3 g/dL (32-36); Mean Corpuscular Hgb 29.2 pg (27.0-32.0); Mean Corpuscular Volume 90.5 fL (80-94); Platelet Count 213 K/mm3 (150-450); RBC Distribution Width CV 12.5 % (11.6-14.6); RBC Distribution Width SD 41.3 fl (35.1-43.9); Red Blood Count 3.25 M/mm3 (4.6-6.2); White Blood Count 7.7 K/mm3 (4.4-11.0)
[2020-06-21] MEDS: Docusate Sodium 100 MG Capsule PO ×2 (08:56→19:57)
[2020-06-21] MEDS: Pantoprazole Sodium 20 MG Tablet PO (08:57)
[2020-06-21] MEDS: Magnesium Hydroxide 30 ML UDC 15 ML PO (08:57)
[2020-06-21] MEDS: hydroCHLOROthiazide 12.5mg 12.5 MG PO (08:57)
[2020-06-21] MEDS: Ensure Clear 120 ML Liquid PO ×2 (09:00→12:40)
[2020-06-21 09:02] LABS: Anion Gap 9 (5-15); BUN 14 mg/dL (7-18); BUN/Creat Ratio 15.3 RATIO (10-20); Calcium,Total 7.9 mg/dL (8.5-10.1); Chloride 106 mmol/L (98-107); Creatinine, Serum 0.92 mg/dL (0.70-1.30); EST Glomerular Filtration Rate 88 mL/min (>60); Est Glom Filt Rate - Afr Amer 106 mL/min (>60); Estimated Creatinine Clearance 89.26 ml/min; Glucose 86 mg/dL (74-106); Potassium 3.8 mmol/L (3.5-5.1); Sodium Level 137 mmol/L (136-145)
--- NOTE | 2020-06-21 09:49 | PCM.PN.BLA ---
Progress Note 65-year-old male status post robotic radical cystoprostatectomy he is doing really well his abdomen is nice and soft the conduit is pink and healthy has good urine output. Blood work is stable. Still has not passed any flatus no bowel movement yet await for return of bowel function but working to proceed with clear liquid diet but no further than that until he passes gas or has return of bowel function. He has been ambulating. Abdomen soft soft and benign. His both his legs no swelling or tenderness in both his legs he is on Lovenox for DVT history just low-dose since he still perioperative and at risk of bleeding if he got a high dose. STROKE Vital Signs/Narrative: Vital Signs Temp Pulse Resp BP Pulse Ox 06/21/20 08:32 98.5 F 82 18 150/89 H 94
[2020-06-21] MEDS: Ketorolac 10 MG Tablet PO ×3 (12:36→23:50)
[2020-06-21 14:08] VITALS: BP 120/77; PULSE 82; RESP 14; TEMP 36.9; O2SAT 96
[2020-06-21] MEDS: Ramipril 10 MG Capsule PO (17:34)
[2020-06-21 20:00] VITALS: BP 132/84; PULSE 75; RESP 18; TEMP 36.6; O2SAT 97
[2020-06-21 23:51] VITALS: BP 137/96; PULSE 80; RESP 16; TEMP 36.9; O2SAT 94
[2020-06-22 06:17] VITALS: BP 145/94; PULSE 81; RESP 16; TEMP 36.9; O2SAT 96
[2020-06-22] MEDS: Ketorolac 10 MG Tablet PO ×3 (06:22→18:11)
[2020-06-22] MEDS: Enoxaparin 40 MG/0.4 ML Syringe SC (06:23)
[2020-06-22] MEDS: 0.9% Saline Lock 10 ML Syringe IV (06:23)
[2020-06-22] MEDS: 0.45% Normal Saline 1,000 ML 100 ML IV ×2 (07:15→16:24)
[2020-06-22] MEDS: hydroCHLOROthiazide 12.5mg 12.5 MG PO (09:19)
[2020-06-22] MEDS: Pantoprazole Sodium 20 MG Tablet PO (09:19)
[2020-06-22] MEDS: Magnesium Hydroxide 30 ML UDC 15 ML PO (09:19)
--- NOTE | 2020-06-22 09:57 | PCM.PROGNOTE ---
Patient Problems: Active and Suspected Problems (Last Reviewed 06/18/20 @ 07:[address] David Pino MD) Bladder cancer (Acute) Subjective: He passed some gas yesterday liquid bowel movement just a little bit of gas he is on clear liquid diet. Abdomen is nice and soft and benign has been ambulating doing well - Physical Exam Vitals/I&O's: Vital Signs Temp Pulse Resp BP Pulse Ox 98.4 F 81 16 145/94 H 96 06/22/20 06:17 06/22/20 06:17 06/22/20 06:17 06/22/20 06:17 06/22/20 06:17 Oxygen Delivery Method Room Air Weight: 88.5 kg Body Mass Index (BMI) 25.4 Finger Stick Blood Glucose 126 Intake and Output for Last 24 Hours 06/20/20 06/21/20 06/22/20 23:59 23:59 22:59 Intake Total 3922.5 / 3922.5 3171.67 / 3651.67 1875 / 1875 Output Total 2147 / 2147 2440 / 3080 1580 / 1580 Balance 1775.5 / 1775.5 731.67 / 571.67 295 / 295 General: Alert, Oriented x3, Cooperative HEENT: Atraumatic, PERRLA, EOMI, Normocephalic Neck: Supple, No JVD, Negative Carotid Bruits Lungs: Clear to auscultation, Normal air movement Cardiovascular: Regular rate, No murmurs Abdomen: Bowel Sounds Present, Soft, Non Tender Extremities: No edema, Capillary Refill Less than 3 Seconds Skin: No rashes, No breakdown Musculoskeletal: No Tenderness to Palpation of Joints or Extremities Neurological: Cranial nerves II-XII grossly intact Psych/Mental Status: Normal Affect, Appropriate Laboratory Results 06/18/20 06:40: Crossmatch See Detail Current Medications Acetaminophen (Acetaminophen 500 Mg Tablet) 500 mg PO Q4H PRN PRN PRN Reason: Pain Score 1-10/10 /Headache Last Admin: 06/20/20 00:25 Dose: 500 mg Documented by: Al Hydroxide/Mg Hydroxide (Mag Hydrox/Al Hydrox/Simeth 30 Ml Udc) 30 ml PO Q6H PRN PRN PRN Reason: reflux Last Admin: 06/21/20 23:50 Dose: 30 ml Documented by: Calcium Carbonate (Calcium Carbonate 500 Mg Tablet) 500 mg PO Q4H PRN PRN PRN Reason: reflux Last Admin: 06/21/20 03:15 Dose: 500 mg Documented by: Docusate Sodium (Docusate Sodium 100 Mg Capsule) 100 mg PO BID [facility] Last Admin: 06/22/20 09:16 Dose: Not Given Documented by: Enoxaparin Sodium (Enoxaparin 40 Mg/0.4 Ml Syringe) 40 mg SC DAILY@0600 [facility] Last Admin: 06/22/20 06:23 Dose: 40 mg Documented by: Hydrochlorothiazide (Hydrochlorothiazide 12.5mg) 12.5 mg PO DAILY [facility] Last Admin: 06/22/20 09:19 Dose: 12.5 mg Documented by: Lactated Ringer's () 1,000 mls @ 15 mls/hr IV .Q48H [facility] Last Admin: 06/22/20 09:16 Dose: Not Given Documented by: Sodium Chloride () 250 mls @ 15 mls/hr IV .[id number] PRN PRN Reason: Saline Flush Last Infusion: 06/19/20 10:15 Dose: 0 mls/hr Documented by: Sodium Chloride () 250 mls @ 15 mls/hr IV .[id number] PRN PRN Reason: Additional IVPB Infusion Sodium Chloride () 1,000 mls @ 100 mls/hr IV .Q10H [facility] Last Admin: 06/22/20 07:15 Dose: 100 mls/hr Documented by: Ketorolac Tromethamine (Ketorolac 10 Mg Tablet) 10 mg PO Q6 [facility] Stop: 06/26/20 11:37 Last Admin: 06/22/20 06:22 Dose: 10 mg Documented by: Magnesium Hydroxide (Magnesium Hydroxide 30 Ml Udc) 15 ml PO DAILY [facility] Last Admin: 06/22/20 09:19 Dose: 15 ml Documented by: Metoclopramide HCl (Metoclopramide 10 Mg/2 Ml Vial) 10 mg IV Q8H PRN PRN PRN Reason: Nausea/vomiting Morphine Sulfate (Morphine 2 Mg/Ml Syringe) 2 mg IV Q2H PRN PRN PRN Reason: Pain Score 6-10 Last Admin: 06/20/20 02:42 Dose: 2 mg Documented by: Nutritional Formula (Lactose Free) (Ensure Clear 120 Ml Liquid) 120 ml PO 4X/DAY [facility] Last Admin: 06/22/20 09:16 Dose: Not Given Documented by: Ondansetron HCl (Ondansetron 4 Mg/2 Ml Vial) 4 mg IV Q6H PRN PRN PRN Reason: Nausea Pantoprazole Sodium (Pantoprazole Sodium 20 Mg Tablet) 20 mg PO DAILY [facility] Last Admin: 06/22/20 09:19 Dose: 20 mg Documented by: Ramipril (Ramipril 10 Mg Capsule) 10 mg PO DAILY@1900 [facility] Last Admin: 06/21/20 17:34 Dose: 10 mg Documented by: Sodium Chloride (0.9% Saline Lock 10 Ml Syringe) 10 - 40 ml IV UD PRN PRN Reason: SALINE FLUSH Last Admin: 06/22/20 06:23 Dose: 10 ml Documented by: Medical Necessity - Tobacco Use Smoking Status: Never smoker Tobacco Use: Non-smoker Assessment/Plan All Active Problems (Last Reviewed 06/18/20 @ 07:[address] David Pino MD) Bladder cancer (Acute) DVT, popliteal, acute (Acute) Pre-operative cardiovascular examination (Acute) Syncope and collapse (Resolved 08/23/16) Nonsustained ventricular tachycardia (Resolved 09/01/07) History of non-ST elevation myocardial infarction (NSTEMI) (Resolved 09/01/07) 65-year-old male status post radical cystectomy ostomy nurse should see him on Tuesday to deal with ostomy supplies and also help with placement of the ostomy so does not fall off. The ileostomy is a exact location where was marked for surgery but may have some difficulty with seal because of the nuno and skin etc. Good urine output. Await return of bowel function will continue with clear liquid diets.
[2020-06-22 12:48] VITALS: BP 137/79; PULSE 96; RESP 18; TEMP 37.3; O2SAT 96
[2020-06-22 15:50] VITALS: PULSE 68
[2020-06-22 16:29] VITALS: BP 119/75; PULSE 85; RESP 16; TEMP 38.2; O2SAT 97
[2020-06-22] MEDS: Ramipril 10 MG Capsule PO (18:11)
[2020-06-22 21:50] VITALS: BP 126/71; PULSE 76; RESP 18; TEMP 36.8; O2SAT 95
[2020-06-23] MEDS: 0.9% Saline Lock 10 ML Syringe IV (00:43)
[2020-06-23] MEDS: Ketorolac 10 MG Tablet PO ×3 (00:44→19:26)
[2020-06-23] MEDS: 0.45% Normal Saline 1,000 ML 100 ML IV (02:14)
[2020-06-23 04:00] VITALS: BP 138/72; PULSE 71; RESP 18; TEMP 36.7; O2SAT 98
[2020-06-23] MEDS: Enoxaparin 40 MG/0.4 ML Syringe SC (05:20)
--- NOTE | 2020-06-23 07:26 | PCM.PROGNOTE ---
Patient Problems: Active and Suspected Problems (Last Reviewed 06/18/20 @ 07:[address] David Pino MD) Bladder cancer (Acute) Subjective: 65-year-old male status post radical cystoprostatectomy ileal conduit formation doing well passing gas has had liquid bowel movements abdomen is nice and soft and benign incisions are clean and intact SANTIAGO output is minimal. - Physical Exam Vitals/I&O's: Vital Signs Temp Pulse Resp BP Pulse Ox 98.1 F 71 18 138/72 H 98 06/23/20 04:00 06/23/20 04:00 06/23/20 04:00 06/23/20 04:00 06/23/20 04:00 Oxygen Delivery Method Room Air Weight: 88.5 kg Body Mass Index (BMI) 25.4 Finger Stick Blood Glucose 126 Intake and Output for Last 24 Hours 06/22/20 06/22/20 06/23/20 00:59 23:59 23:59 Intake Total 1523.33 / 1523.33 Output Total 1220 / 1220 Balance 303.33 / 303.33 General: Alert, Oriented x3, Cooperative HEENT: Atraumatic, PERRLA, EOMI, Normocephalic Neck: Supple, No JVD, Negative Carotid Bruits Lungs: Clear to auscultation, Normal air movement Cardiovascular: Regular rate, No murmurs Abdomen: Bowel Sounds Present, Soft, Non Tender Extremities: No edema, Capillary Refill Less than 3 Seconds Skin: No rashes, No breakdown Musculoskeletal: No Tenderness to Palpation of Joints or Extremities Neurological: Cranial nerves II-XII grossly intact Psych/Mental Status: Normal Affect, Appropriate Current Medications Acetaminophen (Acetaminophen 500 Mg Tablet) 500 mg PO Q4H PRN PRN PRN Reason: Pain Score 1-10/10 /Headache Last Admin: 06/20/20 00:25 Dose: 500 mg Documented by: Al Hydroxide/Mg Hydroxide (Mag Hydrox/Al Hydrox/Simeth 30 Ml Udc) 30 ml PO Q6H PRN PRN PRN Reason: reflux Last Admin: 06/21/20 23:50 Dose: 30 ml Documented by: Calcium Carbonate (Calcium Carbonate 500 Mg Tablet) 500 mg PO Q4H PRN PRN PRN Reason: reflux Last Admin: 06/21/20 03:15 Dose: 500 mg Documented by: Docusate Sodium (Docusate Sodium 100 Mg Capsule) 100 mg PO BID [facility] Last Admin: 06/22/20 23:00 Dose: Not Given Documented by: Enoxaparin Sodium (Enoxaparin 40 Mg/0.4 Ml Syringe) 40 mg SC DAILY@0600 [facility] Last Admin: 06/23/20 05:20 Dose: 40 mg Documented by: Hydrochlorothiazide (Hydrochlorothiazide 12.5mg) 12.5 mg PO DAILY [facility] Last Admin: 06/22/20 09:19 Dose: 12.5 mg Documented by: Ketorolac Tromethamine (Ketorolac 10 Mg Tablet) 10 mg PO Q6H PRN PRN PRN Reason: Pain Score 1-10 Stop: 06/26/20 11:31 Magnesium Hydroxide (Magnesium Hydroxide 30 Ml Udc) 15 ml PO DAILY [facility] Last Admin: 06/22/20 09:19 Dose: 15 ml Documented by: Morphine Sulfate (Morphine 2 Mg/Ml Syringe) 2 mg IV Q2H PRN PRN PRN Reason: Pain Score 6-10 Last Admin: 06/20/20 02:42 Dose: 2 mg Documented by: Pantoprazole Sodium (Pantoprazole Sodium 20 Mg Tablet) 20 mg PO DAILY [facility] Last Admin: 06/22/20 09:19 Dose: 20 mg Documented by: Ramipril (Ramipril 10 Mg Capsule) 10 mg PO DAILY@1900 [facility] Last Admin: 06/22/20 18:11 Dose: 10 mg Documented by: Sodium Chloride (0.9% Saline Lock 10 Ml Syringe) 10 - 40 ml IV UD PRN PRN Reason: SALINE FLUSH Last Admin: 06/23/20 00:43 Dose: 10 ml Documented by: Medical Necessity - Tobacco Use Smoking Status: Never smoker Tobacco Use: Non-smoker Assessment/Plan All Active Problems (Last Reviewed 06/18/20 @ 07:[address] David Pino MD) Bladder cancer (Acute) DVT, popliteal, acute (Acute) Pre-operative cardiovascular examination (Acute) Syncope and collapse (Resolved 08/23/16) Nonsustained ventricular tachycardia (Resolved 09/01/07) History of non-ST elevation myocardial infarction (NSTEMI) (Resolved 09/01/07) 65-year-old male status post cystoprostatectomy ileal conduit formation doing well advance to regular diet, nuno out tomorrow, consult ostomy nurse for supplies and ostomy issues. Probably will be better once to get the nuno out the seal will be better etc. Plan for discharge tomorrow.
--- NOTE | 2020-06-23 07:40 | NURSING ---
[facility] and patient will have [facility]'s home health care for reinforcing ostomy teaching at discharge. Plan is for possible discharge tomorrow according to Dr Pino's note. Ostomy appliance was changed this am per career orientation teacher RN. hoping once nuno are removed, the ostomy appliance will stay in place longer than a day. will continue to follow.
[2020-06-23] MEDS: Pantoprazole Sodium 20 MG Tablet PO (08:15)
[2020-06-23] MEDS: hydroCHLOROthiazide 12.5mg 12.5 MG PO (08:15)
--- NOTE | 2020-06-23 08:59 | NURSING ---
Discussed options with patient about appliance types. A flat 1 piece appliance may be a better choice for patient since it is more flexible than a 2 piece appliance. will try with next change. pt has been very attentive with appliance changes.
[2020-06-23 09:42] VITALS: BP 126/64; PULSE 86; RESP 18; TEMP 37.1; O2SAT 96
[2020-06-23 13:50] VITALS: BP 117/69; PULSE 67; RESP 18; TEMP 36.9; O2SAT 96
[2020-06-23] MEDS: Ramipril 10 MG Capsule PO (19:26)
[2020-06-23 19:54] VITALS: BP 136/74; PULSE 72; RESP 18; TEMP 36.9; O2SAT 97
[2020-06-24] MEDS: Ketorolac 10 MG Tablet PO (01:26)
[2020-06-24 02:00] VITALS: BP 143/91; PULSE 74; RESP 18; TEMP 36.8; O2SAT 95
[2020-06-24] MEDS: Enoxaparin 40 MG/0.4 ML Syringe SC (06:25)
--- NOTE | 2020-06-24 07:42 | DCINST_ITS ---
Discharge Diet: Light diet - advance as tolerated, Soft diet Discharge Activity: May Not Drive, May not drive while taking narcotic pain medications. Call your doctor if your incision/area has: Continuous Slow Oozing, Sudden Increased Bleeding, Increased Pain/ Swelling, Increased Redness, Foul Smelling Discharge, Swelling at the incision site Call your doctor if you observe: Fever of 101 or Higher Suture Line Care: Avoid Pulling/Pushing, Avoid Pinching/Bending Additional Dressing/Incision Instructions:: Ostomy care Allergies/Adverse Reactions: Allergies No Known Allergies Allergy (Verified 06/06/20 14:05) Medications to take at Discharge Ramipril [Altace] 10 mg PO QHS 08/23/16 hydrochlorothiazide 25 mg tablet 12.5 mg PO DAILY 06/12/19 Enoxaparin Sodium [Lovenox] 100 mg SQ DAILY 06/06/20 Ciprofloxacin [Cipro] 500 mg PO DAILY #10 tab 06/24/20 Docusate Sodium [Colace] 100 mg PO BID #20 cap 06/24/20 Hydrocodone/Acetaminophen [[place] 5-325 Tablet] 1 each PO Q6H PRN PRN 7 Days #14 tablet 06/24/20 The following prescriptions were given: Ciprofloxacin [Cipro] 500 mg PO DAILY #10 tab Transmission Status: Pending to [id number] Docusate Sodium [Colace] 100 mg PO BID #20 cap Transmission Status: Pending to [id number] Hydrocodone/Acetaminophen [[place] 5-325 Tablet] 1 each PO Q6H PRN PRN 7 Days #14 tablet PRN Reason: Pain 1-10 Or Fever Transmission Status: Received by [id number] Orders to be completed after discharge: Type & Screen Time Frame: 06/11/20, Location: None Selected Primary Care Physician: Avril Sorenson MD [Primary Care Provider] - Test Results: Test results from this visit will be discussed in further detail at your follow- up appointment, if applicable. Please Follow Up With: David Pino MD When: in 2 weeks, please call to make an appointment.
--- NOTE | 2020-06-24 07:44 | PCM.DC.SUM ---
Discharge Date and Diagnosis - Problem List Patient Problems: Active and Suspected Problems (Last Reviewed 06/18/20 @ 07:[address] David Pino MD) Bladder cancer (Acute) Date of Admission: 06/18/20 Date of Discharge: 06/24/20 - Primary Discharge Diagnosis Acute Problems: Active Problems (Last Reviewed 06/18/20 @ 07:[address] David Pino MD) Bladder cancer (Acute) - Secondary Discharge Diagnosis Chronic Problems: Chronic Problems (Last Reviewed 06/18/20 @ 07:[address] David Pino MD) Atherosclerosis of coronary artery of [place] without angina pectoris (Chronic) Essential (primary) hypertension (Chronic) Hyperlipemia (Chronic) Hospital Course and Treatment Consultations 06/18/20 20:45 Consult: Onc/Wound/label folder Routine Comment: 06/23/20 07:25 Consult: Onc/Wound/label folder Routine Comment: ostomy care, plan discharge tomorrow Operations: None, - - Robotic cystectomy and formation of an ileal conduit Summary of Care Provided: The patient is a 65 year old male who was found to have invasive bladder cancer underwent robotic cystoprostatectomy and formation of an ileal conduit. Postoperative course was relatively unremarkable by postoperative day #4 he was passing gas and flatus advanced him to a clear liquid diet and then we advance him to full liquid diet and then finally regular diet he was ambulating pain was under control abdomen is nice and soft SANTIAGO drain was removed, nuno removed. He was discharged home in good condition on postoperative day #6 with an ileal conduit he will go home ostomy supplies is given daily antibiotic, stool softeners and pain medicine he resume all his medications. Patient Problems: Active and Suspected Problems (Last Reviewed 06/18/20 @ 07:[address] David Pino MD) Bladder cancer (Acute) - Physical Exam Vitals/I&O's: Vital Signs Temp Pulse Resp BP Pulse Ox 98.3 F 74 18 143/91 H 95 06/24/20 02:00 06/24/20 02:00 06/24/20 02:00 06/24/20 02:00 06/24/20 02:00 Oxygen Delivery Method Room Air Weight: 88.5 kg Body Mass Index (BMI) 25.4 Finger Stick Blood Glucose 126 Intake and Output for Last 24 Hours 06/22/20 06/23/20 06/24/20 23:59 23:59 23:59 Intake Total 5.00 / 2095.00 700 / 700 Output Total 2154 / 215 1240 / 1240 Balance -60.00 / -60.00 -540 / -540 General: Alert, Oriented x3, Cooperative HEENT: Atraumatic, PERRLA, EOMI, Normocephalic Neck: Supple, No JVD, Negative Carotid Bruits Lungs: Clear to auscultation, Normal air movement Cardiovascular: Regular rate, No murmurs Abdomen: Bowel Sounds Present, Soft, Non Tender Extremities: No edema, Capillary Refill Less than 3 Seconds Skin: No rashes, No breakdown Musculoskeletal: No Tenderness to Palpation of Joints or Extremities Neurological: Cranial nerves II-XII grossly intact Psych/Mental Status: Normal Affect, Appropriate Current Medications Acetaminophen (Acetaminophen 500 Mg Tablet) 500 mg PO Q4H PRN PRN PRN Reason: Pain Score 1-10/10 /Headache Last Admin: 06/20/20 00:25 Dose: 500 mg Documented by: Al Hydroxide/Mg Hydroxide (Mag Hydrox/Al Hydrox/Simeth 30 Ml Udc) 30 ml PO Q6H PRN PRN PRN Reason: reflux Last Admin: 06/21/20 23:50 Dose: 30 ml Documented by: Calcium Carbonate (Calcium Carbonate 500 Mg Tablet) 500 mg PO Q4H PRN PRN PRN Reason: reflux Last Admin: 06/21/20 03:15 Dose: 500 mg Documented by: Docusate Sodium (Docusate Sodium 100 Mg Capsule) 100 mg PO BID COUNTS INCLUDE 234 BEDS AT THE [facility] Last Admin: 06/23/20 22:46 Dose: Not Given Documented by: Enoxaparin Sodium (Enoxaparin 40 Mg/0.4 Ml Syringe) 40 mg SC DAILY@0600 COUNTS INCLUDE 234 BEDS AT THE [facility] Last Admin: 06/24/20 06:25 Dose: 40 mg Documented by: Hydrochlorothiazide (Hydrochlorothiazide 12.5mg) 12.5 mg PO DAILY COUNTS INCLUDE 234 BEDS AT THE [facility] Last Admin: 06/23/20 08:15 Dose: 12.5 mg Documented by: Ketorolac Tromethamine (Ketorolac 10 Mg Tablet) 10 mg PO Q6H PRN PRN PRN Reason: Pain Score 1-10 Stop: 06/26/20 11:31 Last Admin: 06/24/20 01:26 Dose: 10 mg Documented by: Magnesium Hydroxide (Magnesium Hydroxide 30 Ml Udc) 15 ml PO DAILY COUNTS INCLUDE 234 BEDS AT THE [facility] Last Admin: 06/23/20 08:10 Dose: Not Given Documented by: Morphine Sulfate (Morphine 2 Mg/Ml Syringe) 2 mg IV Q2H PRN PRN PRN Reason: Pain Score 6-10 Last Admin: 06/20/20 02:42 Dose: 2 mg Documented by: Pantoprazole Sodium (Pantoprazole Sodium 20 Mg Tablet) 20 mg PO DAILY COUNTS INCLUDE 234 BEDS AT THE [facility] Last Admin: 06/23/20 08:15 Dose: 20 mg Documented by: Ramipril (Ramipril 10 Mg Capsule) 10 mg PO DAILY@1900 COUNTS INCLUDE 234 BEDS AT THE [facility] Last Admin: 06/23/20 19:26 Dose: 10 mg Documented by: Sodium Chloride (0.9% Saline Lock 10 Ml Syringe) 10 - 40 ml IV UD PRN PRN Reason: SALINE FLUSH Last Admin: 06/23/20 00:43 Dose: 10 ml Documented by: Discharge Diet: Light diet - advance as tolerated, Soft diet Discharge Activity: May Not Drive, May not drive while taking narcotic pain medications. Call your doctor if your incision/area has: Continuous Slow Oozing, Sudden Increased Bleeding, Increased Pain/ Swelling, Increased Redness, Foul Smelling Discharge, Swelling at the incision site Call your doctor if you observe: Fever of 101 or Higher Suture Line Care: Avoid Pulling/Pushing, Avoid Pinching/Bending Additional Dressing/Incision Instructions:: Ostomy [facility]PC Medications: Medications to take at Discharge Ramipril [Altace] 10 mg PO QHS 08/23/16 hydrochlorothiazide 25 mg tablet 12.5 mg PO DAILY 06/12/19 Enoxaparin Sodium [Lovenox] 100 mg SQ DAILY 06/06/20 Ciprofloxacin [Cipro] 500 mg PO DAILY #10 tab 06/24/20 Docusate Sodium [Colace] 100 mg PO BID #20 cap 06/24/20 Hydrocodone/Acetaminophen [[place] 5-325 Tablet] 1 each PO Q6H PRN PRN 7 Days #14 tablet 06/24/20 Following Prescriptions Were Given to Patient: Ciprofloxacin [Cipro] 500 mg PO DAILY #10 tab Transmission Status: Pending to [id number] Docusate Sodium [Colace] 100 mg PO BID #20 cap Transmission Status: Pending to [id number] Hydrocodone/Acetaminophen [[place] 5-325 Tablet] 1 each PO Q6H PRN PRN 7 Days #14 tablet PRN Reason: Pain 1-10 Or Fever Transmission Status: Received by [id number] Other Amb Orders: Type & Screen Time Frame: 06/11/20, Location: None Selected Primary Care Physician: Avril Sorenson MD [Primary Care Provider] - Please Follow Up With: David Pino MD When: in 2 weeks, please call to make an appointment. Medical Necessity - Tobacco Use Smoking Status: Never smoker Tobacco Use: Non-smoker Meaningful Use Info Meaningful Use Diagnoses (Choose all that apply): None applicable
[2020-06-24 08:18] VITALS: BP 132/87; PULSE 71; RESP 18; TEMP 36.7; O2SAT 98
[2020-06-24] MEDS: hydroCHLOROthiazide 12.5mg 12.5 MG PO (08:36)
[2020-06-24] MEDS: Pantoprazole Sodium 20 MG Tablet PO (08:36)
--- NOTE | 2020-06-24 09:43 | NURSING ---
Dr Pino was in this am to remove the nuno to the abdominal incision. steri strips are in place. wanted to review ostomy appliance change with patient again prior to discharge home. removed appliance. peristomal skin is intact. stoma is still slightly edematous and beefy red. stoma measures approx 1 1/8. pt still with some small creases in skin around the stoma. cleansed peristomal skin with warm water. pat dry. applied an Adaptic ring with a flat 1 piece Dara appliance. Pt tolerated well. denies further questions or concerns. pt aware that supplies have been ordered through [employer] and should be delivered in 3-5 days. pt sent home with 4 ostomy appliances and night drainage bag with connectors.
--- NOTE | 2020-06-24 11:22 | NURSING ---
[facility] called this nurse and stated that since patient's primary insurance is Medicare, the home health care will have to get supplies for patient and once patient is finished with home health, supplies can be ordered through [facility]. This nurse let Elsa Buitrago RN CM know this and the supply list was faxed to [facility]'s home health care. Lisa stated that Medicare is the only insurance that has that stipulation.
== END 2020-06-24 10:01 | disposition home or self-care (01) | DRG 654 ==
LOC: ACINP 05:58 → MS3 15:56
PROVIDERS: Admitting Provider Urology; PCP Family Medicine; Referring Provider Urology; Visit Provider Urology
PROC: 0VT04ZZ Resection of Prostate, Percutaneous Endoscopic Approach (ICD-10-PCS; CPT 55866; principal; 2020-06-18 07:10)
DX: C67.8 Malignant neoplasm of overlapping sites of bladder (principal); I82.402 Acute embolism and thrombosis of unspecified deep veins of left lower extremity; I82.431 Acute embolism and thrombosis of right popliteal vein; C79.82 Secondary malignant neoplasm of genital organs; G97.49 Accidental puncture and laceration of other nervous system organ or structure during other procedure; I25.10 Atherosclerotic heart disease of native coronary artery without angina pectoris; E78.5 Hyperlipidemia, unspecified; I10 Essential (primary) hypertension; Z79.02 Long term (current) use of antithrombotics/antiplatelets; Z79.899 Other long term (current) drug therapy; S34.4XXA Injury of lumbosacral plexus, initial encounter; Y83.8 Other surgical procedures as the cause of abnormal reaction of the patient, or of later complication, without mention of misadventure at the time of the procedure; Y73.3 Surgical instruments, materials and gastroenterology and urology devices (including sutures) associated with adverse incidents; Y92.234 Operating room of hospital as the place of occurrence of the external cause; Y93.89 Activity, other specified; Y99.8 Other external cause status
CPT/HCPCS: 36415; 71046; 80048; 80053; 85027; 86850; 86900; 86901; 86920; 86922; 87635; 88305; 88307; 88309; 93970; C9803; J7050; J7120; A4216; C1769; J0744; J2405; U0003

== ENCOUNTER → 2020-07-01 10:31 | Outpatient (CLI) | payer MEDICARE, OTHER, SELFPAY ==
[2020-06-19 10:41] VITALS: BMI 25.4
[2020-07-01 11:08] LABS: Hematocrit 36.6 % (40-54); Hemoglobin 11.5 g/dL (13.0-16.5); Mean Corp Hgb Conc 31.4 g/dL (32-36); Mean Corpuscular Hgb 28.4 pg (27.0-32.0); Mean Corpuscular Volume 90.4 fL (80-94); Mean Platelet Vol. 9.4 fl (6.2-12.0); Platelet Count 353 K/mm3 (150-450); RBC Distribution Width CV 12.9 % (11.6-14.6); RBC Distribution Width SD 42.7 fl (35.1-43.9); Red Blood Count 4.05 M/mm3 (4.6-6.2); White Blood Count 10.6 K/mm3 (4.4-11.0)
[2020-07-01 11:29] LABS: Anion Gap 8 (5-15); BUN 24 mg/dL (7-18); BUN/Creat Ratio 19.7 RATIO (10-20); Calcium,Total 9.5 mg/dL (8.5-10.1); Chloride 105 mmol/L (98-107); Creatinine, Serum 1.22 mg/dL (0.70-1.30); EST Glomerular Filtration Rate 63 mL/min (>60); Est Glom Filt Rate - Afr Amer 76 mL/min (>60); Glucose 102 mg/dL (74-106); Potassium 3.9 mmol/L (3.5-5.1); Sodium Level 138 mmol/L (136-145)
== END ==
PROVIDERS: PCP Family Medicine; Visit Provider Urology
DX: R39.89 Other symptoms and signs involving the genitourinary system (principal)
CPT/HCPCS: 36415; 80048; 85027

== ENCOUNTER 2020-07-06 11:51 | Inpatient (IN) | payer MEDICARE, OTHER, SELFPAY ==
[2020-06-19 10:41] VITALS: BMI 25.4
[2020-07-06] VITALS (8 sets, daily range): BP systolic 134–148; BP diastolic 69–95; PULSE 76–87; RESP 16–20; TEMP 36.3–37.6; O2SAT 96–100; BMI 23.5; BMI 25.1; BMI 25.2
--- NOTE | 2020-07-06 12:08 | CT_ITS ---
STUDY: CT ABDOMEN AND PELVIS WITH CONTRAST REASON FOR EXAM: Male, 65 years old. Upper abdominal pain elevated white cells nausea vomiting, cystectomy for bladder cancer RADIATION DOSAGE (If Supplied By Facility): CTDIvol = ( 14.55 ) mGy, DLP = ( 1362.16 ) mGycm TECHNIQUE: CT images were obtained from the dome of the diaphragm to the symphysis pubis without oral contrast. Oral and amp; IV Gastrografin and amp; 100mL Isovue-300 was administered. Sagittal and coronal images were reconstructed. Individualized dose optimization techniques were used for this CT. COMPARISON: None. FINDINGS: The visualized lung bases are unremarkable. The visualized portions of the heart are within normal limits. Normal liver. Normal gallbladder and extrahepatic biliary system. Normal spleen. Normal pancreas. Normal bilateral adrenal glands. There are bilateral renal cysts and mild hydronephrosis with bilateral stents leading to a right lower quadrant urinary divergence. There is a small parastomal hernia. There is early small bowel obstruction with dilated fluid-filled loops of bowel. Normal abdominal aorta. Normal inferior vena cava. Normal retroperitoneum. Normal urinary bladder. Normal abdominal wall. Normal osseous structures. CT/Abdomen/Pelvis WITH Contrast IMPRESSION: 1. Small bowel obstruction. 2. Expected appearance after cystectomy and urinary diversion. Electronically Signed: Carine Kelley, at 15:00 EST Tel , Service support ,
--- NOTE | 2020-07-06 12:10 | ED.DCSUM_ITS ---
History of Present Illness Chief Complaint: Abd Pain Informant: Patient Onset: Yesterday Context: Gradual Onset Timing: Waxes and wanes Current Severity: Moderate Maximum Severity: Moderate Narrative: Patient presents with upper abdominal pain that started after eating pizza last evening. He has had waves of pain and spasm since that time. He had bladder surgery twice in May, with removal of his bladder, lymph nodes, and prostate on June 18 and placement of urostomy. Patient states since his pain started last evening he has not noted any passage of gas or bowel movements. He denies fever or chills. He has been able to tolerate liquids but does report 2 episodes of vomiting. - Past Medical History (1) Bladder cancer Status: Chronic (2) DVT, popliteal, acute Status: Chronic (3) Atherosclerosis of coronary artery of [place] heart without angina pectoris Status: Chronic (4) Essential (primary) hypertension Status: Chronic (5) Hyperlipemia Status: Chronic (6) History of non-ST elevation myocardial infarction (NSTEMI) Status: Resolved (7) Nonsustained ventricular tachycardia Status: Resolved Past Medical History - Allergies and Home Meds Allergies/Adverse Reactions: Allergies No Known Allergies Allergy (Verified 06/06/20 14:05) Primary Care Physician: Avril Sorenson MD [Primary Care Provider] - Prior records reviewed: Yes Surgical History: no surgical history Smoking Status: Never smoker - Family History Paternal Family History: Family History (Last Reviewed 06/11/20 @ 15:01 by Alexandrea Graves) Mother Hypertension Cancer Father Hypertension Family History: Reports: Hypertension Maternal Family History: Family History (Last Reviewed 06/11/20 @ 15:01 by Alexandrea Graves) Mother Hypertension Cancer Father Hypertension Family History: Reports: Cancer - Lung cancer, Hypertension Review of Systems General: Denies: Chills, Fever Eyes: Denies: Visual changes - bilaterally ENT: Denies: Bilateral ear pain Cardiovascular: Denies: Chest pain Respiratory: Denies: Dyspnea, Cough Gastrointestinal: Reports: Abdominal pain, Nausea, Vomiting Musculoskeletal: Denies: Swelling, Extremity Pain Neurological: Denies: Headache Hematologic: Denies: Easy bruising, Easy bleeding Allergy: Denies: Uticaria Physical Exam Vital Signs/Narrative: Vital Signs Temp Pulse Resp BP Pulse Ox 07/06/20 11:51 97.4 F L 83 20 H 137/85 H 100 Inital Vital Signs reviewed: Yes General: Well nourished, Well developed Head: Normocephalic ENT: Moist mucous membranes Neck: Supple Cardiovascular: Regular rate, Regular rhythm Respiratory: No distress, CTA bilaterally Abdomen: Soft, Tender - Fuhs upper abdominal tenderness to palpation. Tenderness slightly increased around the midline surgical incision. No overlying skin changes., Hypoactive bowel sounds Skin: Normal color Neurological: Alert, Oriented x3 Psychological: Normal affect Diagnostic/Tx/Re-eval Impressions Abdomen/Pelvis CT 07/06/20 12:08 IMPRESSION: 1. Small bowel obstruction. 2. Expected appearance after cystectomy and urinary diversion. Electronically Signed: Carine Kelley, at 15:00 EST Tel , Service support , 07/06/20 12:08 Abdomen/Pelvis WITH Contrast [CT] Stat Laboratory Results 07/06/20 07/06/20 07/06/20 12:20 12:28 12:28 WBC 12.2 H RBC 4.38 L Hgb 12.4 L Hct 38.4 L MCV 87.7 MCH 28.3 MCHC 32.3 RDW Std Deviation 41.1 RDW Coeff of Lidia 12.8 Plt Count 390 MPV 9.6 Immature Gran % (Auto) 0.400 Neut % (Auto) 89.0 H Lymph % (Auto) 5.6 L [place] % (Auto) 3.9 Eos % (Auto) 0.7 Baso % (Auto) 0.4 Absolute Neuts (auto) 10.9 H Absolute Lymphs (auto) 0.68 L Nucleated RBC % 0 Sodium 140 Potassium 4.2 Chloride 107 Carbon Dioxide 24.0 Anion Gap 9 BUN 28 H Creatinine 1.13 Estim Creat Clear Calc 74.76 Est GFR (MDRD) Af Amer 83 Est GFR (MDRD) Non-Af 69 BUN/Creatinine Ratio 24.8 H Glucose 114 H Lactic Acid Calcium 9.7 Total Bilirubin 0.40 Direct Bilirubin 0.13 AST 21 ALT 30 Alkaline Phosphatase 68 Total Protein 8.3 H Albumin 3.3 Globulin 5.0 H Lipase 278 Urine Color Straw Urine Clarity Cloudy Urine pH 8.0 Ur Specific [place] 1.015 Urine Protein 100 H Urine Glucose (UA) Normal Urine Ketones 15 H Urine Occult Blood 250 H Urine Nitrite Positive H Urine Bilirubin Negative Urine Urobilinogen Normal Ur Leukocyte Esterase 500 H Urine RBC 25-50 SEEN Urine WBC 25-50 SEEN Ur Squamous Epith Cells 0 SEEN Urine Bacteria 2+ Urine Mucus 1+ Urine Yeast 2+ 07/06/20 12:28 WBC RBC Hgb Hct MCV MCH MCHC RDW Std Deviation RDW Coeff of Lidia Plt Count MPV Immature Gran % (Auto) Neut % (Auto) Lymph % (Auto) [place] % (Auto) Eos % (Auto) Baso % (Auto) Absolute Neuts (auto) Absolute Lymphs (auto) Nucleated RBC % Sodium Potassium Chloride Carbon Dioxide Anion Gap BUN Creatinine Estim Creat Clear Calc Est GFR (MDRD) Af Amer Est GFR (MDRD) Non-Af BUN/Creatinine Ratio Glucose Lactic Acid 2.2 H* Calcium Total Bilirubin Direct Bilirubin AST ALT Alkaline Phosphatase Total Protein Albumin Globulin Lipase Urine Color Urine Clarity Urine pH Ur Specific [place] Urine Protein Urine Glucose (UA) Urine Ketones Urine Occult Blood Urine Nitrite Urine Bilirubin Urine Urobilinogen Ur Leukocyte Esterase Urine RBC Urine WBC Ur Squamous Epith Cells Urine Bacteria Urine Mucus Urine Yeast - Medical Decision Making Patient has been given 2 doses of morphine along with a dose of Zofran to help with pain and nausea. He was able to tolerate p.o. contrast for his CT scan. He does have evidence of mild dehydration with an elevated BUN. He was given a liter of IV fluids. CT scan does reveal early small bowel obstruction. I will speak with surgery as well as hospitalist for admission and will update his u rologist, Dr. Pino as well. ED Disposition - Plan for ED Patient: Disposition: Acute Care Hospital [facility] Diagnosis: Small bowel obstruction Referrals: Avril Sorenson MD [Primary Care Provider] -
[2020-07-06] MEDS: 0.9% Normal Saline 1,000 ML 150 ML IV ×3 (12:26→22:28)
[2020-07-06] MEDS: Morphine 4 MG/ML Syringe IV ×4 (12:27→20:09)
[2020-07-06] MEDS: Ondansetron 4 MG/2 ML Vial IV (12:27)
[2020-07-06 12:41] LABS: Squamous Epithelial Cells - UA 0 SEEN /hpf (0-5)
[2020-07-06 12:44] LABS: Absolute Lymphocyte Count 0.68 X10^3/uL (0.83-4.51); Absolute Neutrophil Count 10.9 X10^3/uL (2.0-7.7); Basophil# 0.05 X10^3/uL; Basophil% 0.4 % (0-1); Eosinophil# 0.08 X10^3/uL; Eosinophils% 0.7 % (0-5); Hematocrit 38.4 % (40-54); Hemoglobin 12.4 g/dL (13.0-16.5); Lymphocyte # 0.68 X10^3/ul (4.0); Lymphocyte % 5.6 % (19-41); Mean Corp Hgb Conc 32.3 g/dL (32-36); Mean Corpuscular Hgb 28.3 pg (27.0-32.0); Mean Corpuscular Volume 87.7 fL (80-94); Mean Platelet Vol. 9.6 fl (6.2-12.0); Monocyte# 0.47 X10^3/uL; Monocyte% 3.9 % (0-10); NRBC Flagged by Analyzer 0 % (0-5); Neutrophil # 10.87 X10^3/uL (2.7-7.7); Platelet Count 390 K/mm3 (150-450); RBC Distribution Width CV 12.8 % (11.6-14.6); RBC Distribution Width SD 41.1 fl (35.1-43.9); Red Blood Count 4.38 M/mm3 (4.6-6.2); White Blood Count 12.2 K/mm3 (4.4-11.0)
[2020-07-06 12:44] LABS: Color, Urine Straw (Yellow); Glucose, Dipstick Normal (Normal); Ketone-Dipstick 15 mg/dl (Negative); Leukocyte Esterase-Dipstick 500 /ul (Negative); Nitrite-Dipstick Positive (Negative); Occult Blood-Urine 250 /ul (Negative); Protein-Dipstick 100 mg/dl (Negative); Specific Gravity, Urine 1.015 (1.002-1.030); Urine Bilirubin Dipstick Negative (Negative); Urine Clarity Cloudy (Clear); Urine Urobilinogen Normal (Normal)
[2020-07-06 12:55] LABS: Bacteria 2+ /hpf (None Seen); Mucous, Urine 1+ /hpf (<or=2+); Red Blood Cells-Urine 25-50 SEEN /hpf (0-5); White Blood Cells 25-50 SEEN /hpf (0-5); Yeast-Urine 2+ /hpf (None Seen)
[2020-07-06 13:08] LABS: AST(SGOT) 21 U/L (15-37); Alanine Aminotransfer ALT/SGPT 30 U/L (16-61); Albumin, Serum 3.3 g/dL (3.2-5.0); Alkaline Phosphatase 68 U/L (45-117); Anion Gap 9 (5-15); BUN 28 mg/dL (7-18); BUN/Creat Ratio 24.8 RATIO (10-20); Bilirubin, Direct 0.13 mg/dL (0.00-0.30); Calcium,Total 9.7 mg/dL (8.5-10.1); Chloride 107 mmol/L (98-107); Creatinine, Serum 1.13 mg/dL (0.70-1.30); EST Glomerular Filtration Rate 69 mL/min (>60); Est Glom Filt Rate - Afr Amer 83 mL/min (>60); Estimated Creatinine Clearance 74.76 ml/min; Glucose 114 mg/dL (74-106); Lipase 278 U/L (73-393); Potassium 4.2 mmol/L (3.5-5.1); Protein, Total 8.3 g/dL (6.4-8.2); Sodium Level 140 mmol/L (136-145)
--- NOTE | 2020-07-06 13:13 | ED.RN ---
lactic of 2.2 reported to . verbalizes understanding
[2020-07-06 13:14] LABS: Lactic Acid 2.2 mmol/L (0.4-1.9)
[2020-07-06] MEDS: 0.9% Normal Saline 1,000 ML 999 ML IV (14:07)
--- NOTE | 2020-07-06 15:39 | PCM.HP.STD ---
<Jamshid Lord - Last Filed: 07/06/20 15:39> Problem List (1) Small bowel obstruction Status: Acute (2) CAD (coronary artery disease) Status: Chronic (3) Bladder cancer Status: Chronic (4) Essential (primary) hypertension Status: Chronic History of Present Illness Date of Admission: 07/06/20 Chief Complaint: abdominal pain The patient is a 65 year old M with pmhx of bladder cancer with recent cystoprostatectomy, ileal conduit and lymph node removal 06/18, also hx CAD prior NSTEMI, HTN who presented to the ER with c/o abdominal pain. He began having pain about 4am today. He described it as a severe aching across the mid abdominal area somewhat above his ostomy sight. He had associated nausea and vomiting. He was found to have a SBO. He last ate last night about 8pm - pizza. Last BM was two days ago and was normal no diarrhea or blood. He has had occasional flatus today. Currently he has no nausea or pain at all after receiving prn meds in the ER. He denies hx of bowel obstruction or bowel cancer. [] Past Medical History Past Medical History (Chronic Problems): Chronic Problems (Last Reviewed 06/18/20 @ 07:[address] David Pino MD) Bladder cancer (Chronic) DVT, popliteal, acute (Chronic) CAD (coronary artery disease) (Chronic) Atherosclerosis of coronary artery of [place] heart without angina pectoris (Chronic) Essential (primary) hypertension (Chronic) Hyperlipemia (Chronic) Medical History: Medical History (Last Reviewed 06/18/20 @ 07:[address] David Pino MD) Pre-operative cardiovascular examination (Acute) Z01.810 Atherosclerosis of coronary artery of [place] heart without angina pectoris (Chronic) I25.10 Essential (primary) hypertension (Chronic) I10 Hyperlipemia (Chronic) E78.5 Syncope and collapse (Resolved) Onset Date: 08/23/16 R55 Nonsustained ventricular tachycardia (Resolved) Onset Date: 09/01/07 I47.2 History of non-ST elevation myocardial infarction (NSTEMI) (Resolved) Onset Date: 09/01/07 I25.2 Deep venous thrombosis of right popliteal vein I82.431 Erectile dysfunction N52.9 Gout M10.9 Hemorrhoids K64.9 Allergies No Known Allergies Allergy (Verified 06/06/20 14:05) Home Medications: Ambulatory Orders Medication Instructions Recorded Ramipril [Altace] 10 mg PO QHS 08/23/16 hydrochlorothiazide 25 mg tablet 12.5 mg PO DAILY 06/12/19 Enoxaparin Sodium [Lovenox] 100 mg SQ DAILY 06/06/20 Ciprofloxacin [Cipro] 500 mg PO DAILY #10 tab 06/24/20 Docusate Sodium [Colace] 100 mg PO BID #20 cap 06/24/20 Surgical History: Surgical History (Last Reviewed 06/18/20 @ 07:[address] David Pino MD) History of left heart catheterization Onset Date: 08/2007 Z98.890 Surgical History: - - ileal conduit, prostatectomy, bladder removal, bladder tumor excision Psychiatric History: No pertinent psych hx Lives: Spouse/ Significant Other Smoking Status: Never smoker Tobacco Use: Non-smoker Alcohol: None Drugs: None - *Family History Paternal Family History: Family History (Last Reviewed 07/06/20 @ 15:46 by ASTER Walker) Mother Hypertension Cancer Father Hypertension History Items: Hypertension Maternal Family History: Family History (Last Reviewed 07/06/20 @ 15:46 by ASTER Walker) Mother Hypertension Cancer Father Hypertension History Items: Cancer - Lung cancer, Hypertension Review of Systems Constitutional: Denies: Chills, Fever, Weight Change HEENT: Denies: Head Aches, Sinus Congestion, Sinus Drainage Cardiovascular: Denies: Chest Pain, Palpitations Respiratory: Denies: Cough, Shortness of breath at rest, Sputum production Gastrointestinal: Reports: Abdominal Pain, Nausea, Vomiting. Denies: Diarrhea Genitourinary: Denies: Dysuria, Hesitancy, Urgency Musculoskeletal: Denies: Joint Pain, Joint Tenderness Skin: Denies: Lesions, Rash, Wounds Neurological: Denies: Numbness, Tingling, Focal weakness Psychiatric: Denies: Anxiety, Depression, Homicidal Ideations, Suicidal Ideations Hematologic/ Lymphatic: Denies: Easy Bruising, Easy Bleeding VTE Information - Inpt Only VTE Present on Admission: No VTE Mechan Device Prophylaxis: None VTE Pharm Prophylaxis ordered?: Yes Patient Problems: Active and Suspected Problems (Last Reviewed 06/18/20 @ 07:[address] David Pino MD) Small bowel obstruction (Acute) - Physical Exam Vitals/I&O's: Vital Signs Temp Pulse Resp BP Pulse Ox 97.8 F 84 17 148/76 H 96 07/06/20 15:23 07/06/20 15:23 07/06/20 15:23 07/06/20 15:23 07/06/20 15:23 Oxygen Delivery Method Room Air Weight: 183 lb Body Mass Index (BMI) 23.5 Finger Stick Blood Glucose 126 Intake and Output for Last 24 Hours 07/04/20 07/05/20 07/06/20 23:59 23:59 23:59 Intake Total 806.85 / 806.85 Balance 806.85 / 806.85 General: Alert, Oriented x3, Cooperative HEENT: Atraumatic, PERRLA, EOMI, Normocephalic Neck: Supple, No JVD, Negative Carotid Bruits Lungs: Clear to auscultation, Normal air movement Cardiovascular: Regular rate, No murmurs Abdomen: Hypoactive Bowel Sounds, Tender Extremities: No edema, Capillary Refill Less than 3 Seconds Skin: No rashes, No breakdown Musculoskeletal: No Tenderness to Palpation of Joints or Extremities Neurological: Cranial nerves II-XII grossly intact Psych/Mental Status: Normal Affect, Appropriate, Alert and oriented to time, place, person, mood and affect Laboratory Results 07/06/20 12:20: Urine Color Straw, Urine Clarity Cloudy, Urine pH 8.0, Ur Specific [place] 1.015, Urine Protein 100 H, Urine Glucose (UA) Normal, Urine Ketones 15 H, Urine Occult Blood 250 H, Urine Nitrite Positive H, Urine Bilirubin Negative, Urine Urobilinogen Normal, Ur Leukocyte Esterase 500 H, Urine RBC 25-50 SEEN, Urine WBC 25-50 SEEN, Ur Squamous Epith Cells 0 SEEN, Urine Bacteria 2+, Urine Mucus 1+, Urine Yeast 2+ 07/06/20 12:28: WBC 12.2 H, RBC 4.38 L, Hgb 12.4 L, Hct 38.4 L, MCV 87.7, MCH 28.3, MCHC 32.3, RDW Std Deviation 41.1, RDW Coeff of [place]idia 12.8, Plt Count 390, MPV 9.6, Immature Gran % (Auto) 0.400, Neut % (Auto) 89.0 H, Lymph % (Auto) 5.6 L, [place] % (Auto) 3.9, Eos % (Auto) 0.7, Baso % (Auto) 0.4, Absolute Neuts (auto) 10.9 H, Absolute Lymphs (auto) 0.68 L, Nucleated RBC % 0 07/06/20 12:28: Sodium 140, Potassium 4.2, Chloride 107, Carbon Dioxide 24.0, Anion Gap 9, BUN 28 H, Creatinine 1.13, Estim Creat Clear Calc 74.76, Est GFR (MDRD) Af Amer 83, Est GFR (MDRD) Non-Af 69, BUN/Creatinine Ratio 24.8 H, Glucose 114 H, Calcium 9.7, Total Bilirubin 0.40, Direct Bilirubin 0.13, AST 21, ALT 30, Alkaline Phosphatase 68, Total Protein 8.3 H, Albumin 3.3, Globulin 5.0 H, Lipase 278 07/06/20 12:28: Lactic Acid 2.2 H* Current Medications Sodium Chloride () 1,000 mls @ 150 mls/hr IV .Q6H40M TREY Last Infusion: 07/06/20 14:08 Dose: 0 mls/hr Documented by: Assessment/Plan All Active Problems (Last Reviewed 06/18/20 @ 07:[address] David Pino MD) Small bowel obstruction (Acute) Pre-operative cardiovascular examination (Acute) Syncope and collapse (Resolved 08/23/16) Nonsustained ventricular tachycardia (Resolved 09/01/07) History of non-ST elevation myocardial infarction (NSTEMI) (Resolved 09/01/07) 1. SBO - See CT abdomen. initiate bowel rest. currently no pain or nausea. had flatus today. NPO, IV fluids, antiemetics. Dr. Prabhakar following. 2. Recent ileal conduit - wound care consult for ostomy care. UA + however unsure if this is relevant given his recent ileal conduit procedure. No fever. Some leukocytosis but likely 2/2 SBO. 3. Bladder cancer - care as per Dr. Pino. 4. Hx CAD/NSTEMI- hold home meds. 5. HTN - recently taken off HCTZ for hypotension. hold home meds DVT ppx: lovenox This patient was seen by Jamshid Lord PA-C under the supervision of Dr. Fernandez. <Samuel Fernandez - Last Filed: 07/06/20 16:00> History of Present Illness The patient is a 65 year old M presents with abdominal pain that began this morning. Patient presented to the emergency room and was found to have a small bowel obstruction. Patient did receive morphine that did help his abdominal pain. Patient denies a history of a prior small bowel obstruction. [] Past Medical History Medical History: Medical History (Last Updated 07/06/20 @ 15:[address] Samuel Fernandez DO) Pre-operative cardiovascular examination (Acute) Z01.810 Atherosclerosis of coronary artery of [place] heart without angina pectoris (Chronic) I25.10 Essential (primary) hypertension (Chronic) I10 Hyperlipemia (Chronic) E78.5 Syncope and collapse (Resolved) Onset Date: 08/23/16 R55 Nonsustained ventricular tachycardia (Resolved) Onset Date: 09/01/07 I47.2 History of non-ST elevation myocardial infarction (NSTEMI) (Resolved) Onset Date: 09/01/07 I25.2 Bladder cancer C67.9 Deep venous thrombosis of right popliteal vein I82.431 Erectile dysfunction N52.9 Gout M10.9 Hemorrhoids K64.9 Allergies No Known Allergies Allergy (Verified 06/06/20 14:05) Surgical History: Surgical History (Last Updated 07/06/20 @ 15:[address] Samuel Fernandez DO) S/P ileal conduit Z93.6 Status post radical cystoprostatectomy Z90.79, Z90.6 History of left heart catheterization Onset Date: 08/2007 Z98.890 Surgical History: - Psychiatric History: No pertinent psych hx Lives: Spouse/ Significant Other Smoking Status: Never smoker Tobacco Use: Non-smoker Alcohol: None Drugs: None - *Family History Paternal Family History: Family History (Last Reviewed 07/06/20 @ 15:[address] Samuel Fernandez DO) Mother Hypertension Cancer Father Hypertension Maternal Family History: Family History (Last Reviewed 07/06/20 @ 15:[address] Samuel Fernandez DO) Mother Hypertension Cancer Father Hypertension Review of Systems Constitutional: Denies: Chills, Fever, Weight Change HEENT: Denies: Head Aches, Sinus Congestion, Sinus Drainage Cardiovascular: Denies: Chest Pain, Palpitations Respiratory: Denies: Cough, Shortness of breath at rest Gastrointestinal: Reports: Abdominal Pain, Nausea, Vomiting. Denies: Diarrhea Genitourinary: Denies: Dysuria, Hesitancy, Urgency Musculoskeletal: Denies: Joint Pain, Joint Tenderness Skin: Denies: Lesions, Rash, Wounds Neurological: Denies: Focal weakness, Numbness, Tingling Psychiatric: Denies: Anxiety, Depression, Homicidal Ideations, Suicidal Ideations Hematologic/ Lymphatic: Denies: Easy Bruising, Easy Bleeding VTE Information - Inpt Only VTE Present on Admission: No VTE Mechan Device Prophylaxis: None VTE Pharm Prophylaxis ordered?: Yes - Physical Exam Vitals/I&O's: Vital Signs Temp Pulse Resp BP Pulse Ox 36.6 C 84 17 148/76 H 96 07/06/20 15:23 07/06/20 15:23 07/06/20 15:23 07/06/20 15:23 07/06/20 15:23 Oxygen Delivery Method Room Air Weight: 83.007 kg Body Mass Index (BMI) 23.5 Finger Stick Blood Glucose 126 Intake and Output for Last 24 Hours 07/04/20 07/05/20 07/06/20 23:59 23:59 23:59 Intake Total 806.85 / 806.85 Balance 806.85 / 806.85 General: Alert, Cooperative HEENT: Atraumatic, Normocephalic Lungs: Clear to auscultation, Normal air movement Cardiovascular: Regular rate, No murmurs Abdomen: Soft, Hypoactive Bowel Sounds, Tender Extremities: No edema, No Calf Tenderness Skin: No rashes, No breakdown Psych/Mental Status: Normal Affect, Appropriate Laboratory Results 07/06/20 12:20: Urine Color Straw, Urine Clarity Cloudy, Urine pH 8.0, Ur Specific [place] 1.015, Urine Protein 100 H, Urine Glucose (UA) Normal, Urine Ketones 15 H, Urine Occult Blood 250 H, Urine Nitrite Positive H, Urine Bilirubin Negative, Urine Urobilinogen Normal, Ur Leukocyte Esterase 500 H, Urine RBC 25-50 SEEN, Urine WBC 25-50 SEEN, Ur Squamous Epith Cells 0 SEEN, Urine Bacteria 2+, Urine Mucus 1+, Urine Yeast 2+ 07/06/20 12:28: WBC 12.2 H, RBC 4.38 L, Hgb 12.4 L, Hct 38.4 L, MCV 87.7, MCH 28.3, MCHC 32.3, RDW Std Deviation 41.1, RDW Coeff of [place] 12.8, Plt Count 390, MPV 9.6, Immature Gran % (Auto) 0.400, Neut % (Auto) 89.0 H, Lymph % (Auto) 5.6 L, [place] % (Auto) 3.9, Eos % (Auto) 0.7, Baso % (Auto) 0.4, Absolute Neuts (auto) 10.9 H, Absolute Lymphs (auto) 0.68 L, Nucleated RBC % 0 07/06/20 12:28: Sodium 140, Potassium 4.2, Chloride 107, Carbon Dioxide 24.0, Anion Gap 9, BUN 28 H, Creatinine 1.13, Estim Creat Clear Calc 74.76, Est GFR (MDRD) Af Amer 83, Est GFR (MDRD) Non-Af 69, BUN/Creatinine Ratio 24.8 H, Glucose 114 H, Calcium 9.7, Total Bilirubin 0.40, Direct Bilirubin 0.13, AST 21, ALT 30, Alkaline Phosphatase 68, Total Protein 8.3 H, Albumin 3.3, Globulin 5.0 H, Lipase 278 07/06/20 12:28: Lactic Acid 2.2 H* Current Medications Sodium Chloride () 1,000 mls @ 150 mls/hr IV .Q6H40M TREY Last Infusion: 07/06/20 14:08 Dose: 0 mls/hr Documented by: Assessment/Plan Patient seen and examined independently. Data reviewed. I agree with the above note by the physician assistant press operator. 1. Partial small bowel obstruction: Supportive management at this time with IV fluids, pain control and antiemetics. Dr. Prabhakar was notified from the emergency room and will be seeing patient in consultation. Discussed with the patient that the plan is conservative and that surgery would be a last resort at this time. Inpatient E&M: 51229 Init Hosp L2
[2020-07-06] MEDS: proCHLORPERazine 10 MG/2 ML Vial 5 MG IV (16:22)
[2020-07-06 16:38] LABS: Reflex Lactate? Y
--- NOTE | 2020-07-06 16:45 | RAD_ITS ---
STUDY: X-RAY - ABDOMEN/PELVIS REASON FOR EXAM: Male, 65 years old. n/g placement TECHNIQUE: Frontal view of the abdomen COMPARISON: 06 July 2020 earlier same day FINDINGS: Gastric drainage tube is present with its tip immediately past the gastroesophageal junction and side-port likely at the gastric esophageal junction. Lung bases are clear. Intravenously administered contrast is excreted bilaterally into the mildly dilated renal collecting systems which are decompressed with stents. RAD/Abdomen Single View (Portable) IMPRESSION: Gastric tube with tip in the proximal fundus, immediately past the gastric esophageal junction. Consider advancing to place into the gastric antrum. Electronically Signed: Carine Kelley, at 17:41 EST Tel , Service support ,
--- NOTE | 2020-07-06 16:50 | PCM.CONS.B ---
- Consult Date of Consult: 07/06/20 - Reason for Consult Chief Complaint: abdominal pain History of Present Illness: 65 y/o WM s/p cystoprostatectomy with ileal conduit done on 06/18/[address] Pino. He presents with complaint of abdominal pain beginning early this morning. Described as a severe ache across abdomen with upper abdominal pain with occasional sharp spasms. He has nausea and numerous episodes of emesis. He states that last BM was about two days ago and he did have flatus today. He does feel bloated. He denies fevers. He presented to [facility] ED and workup revealed WBC of 12.2K with left shift of differential. He had an elevated lactic acid level - probably due to volume depletion and repeat lactic acid was normal. His BUN level was elevated, again because of above. CT scan was obtained which revealed early small bowel obstruction. He is admitted to the hospitalist service and I have been consulted for surgical evaluation. Past Medical History: bladder cancer - node negative coronary artery disease hypertension hyperlipidemia history of DVT history of gout Past Surgical History: cystoprostatectomy with ileal conduit and ureteral implantation cardiac catheterization Medications: altace HCTZ lovenox Allergies: Has no known drug allergies Social history: TOB use denies Review of Systems: General - denies fevers Cardiovascular denies chest pain, has known coronary artery disease, has hypertension Pulmonary denies shortness of breath, denies coughing up blood Gastrointestinal as per HPI Neurological denies seizures Genitourinary see HPI Hematological denies spontaneous/prolonged bleeding Skin denies open non healing wound Musculoskeletal no new major bone/joint pains Endocrine denies diabetes Psychological denies hallucinations Physical examination: Vital signs Temp 98.5 HR 67 BP 136/74 RR 18 General WD/WN WM in no apparent distress, alert and oriented, not septic appearing HEENT Normocephalic. EOM intact with sclera clear and no icterus noted. Neck is supple with no jugular venous distention noted. Trachea is midline. Lungs no labored breathing noted, such as retractions. No cough heard. Heart regular. Abdomen soft with some generalized tenderness but no peritoneal signs, tympanitic, stoma is pink and functioning Extremities no pitting edema noted. Genitourinary/Rectal deferred Skin normal skin integrity. 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 At this point in time, I do not believe that this patient requires surgical intervention. He is about 2 1/2 weeks out from bladder resection with ileal conduit with ureteral implantation done via robotic surgery. I have reviewed CT scan, and this appears as an early SBO. He presented with dehydration as noted by elevated BUN and lactic acid, he rec'd IV bolus of fluid. Continue with IV fluid, NPO/bowel rest, NG tub decompression, pain medications as needed. Will follow patient with you, I suspect Dr. Pino will take over care tomorrow. I suspect that this patient's SBO will resolve - he was given gastrografin contrast for the CT scan - this will help. I have answered all questions to the patient?s satisfaction and the patient has no further questions. Thank you for allowing me to participate in the care of this nice patient.
[2020-07-06 17:29] LABS: Lactic Acid 0.9 mmol/L (0.4-1.9)
[2020-07-06] MEDS: 0.9% Saline Lock 10 ML Syringe IV (20:08)
--- NOTE | 2020-07-06 20:11 | NURSING ---
advanced ng 4 cm per nursing communication. pt tolerated well. flushed the NG at this time.
[2020-07-07 00:59] VITALS: BP 136/92; PULSE 80; RESP 16; TEMP 36.8; O2SAT 98
[2020-07-07] MEDS: 0.9% Saline Lock 10 ML Syringe IV ×3 (01:01→07:06)
[2020-07-07] MEDS: Morphine 4 MG/ML Syringe IV ×4 (01:01→18:25)
[2020-07-07 04:37] VITALS: BP 135/89; PULSE 83; RESP 16; TEMP 37.2; O2SAT 98
[2020-07-07] MEDS: 0.9% Normal Saline 1,000 ML 150 ML IV ×2 (04:38→11:35)
--- NOTE | 2020-07-07 04:42 | NURSING ---
flushed ng tube with 30 ml NS.
--- NOTE | 2020-07-07 05:45 | RAD_ITS ---
HISTORY: SBO EXAMINATION/TECHNIQUE: XR Abdomen 1 View: COMPARISON: July 06, 2020 FINDINGS: LINES AND TUBES: Bilateral ureteral stents are again noted. Distal tips in the region of the right side of the bladder NG tube is seen with the tip in the distal stomach BOWEL GAS PATTERN: Retained fecal material is seen predominantly in the a sending colon. There is a dilated loop of proximal small bowel measures up to 4.7 cm. The patient has a known small bowel obstruction. FREE AIR: Not assessed on a single supine view. ORGANOMEGALY: Not seen. CALCIFICATIONS: No abnormal calcifications observed. LOWER CHEST: No acute pathology. BONES AND SOFT TISSUES: No acute pathology. RAD/Abdomen Single View (Portable) IMPRESSION: Dilated loop of small bowel in the upper abdomen compatible with patient's history of small bowel obstruction. Retained fecal material seen within the a sending colon Ureter ostomy tubes and NG tube as discussed at 2240 Reported and signed by: Leonor Lockhart DO Electronically Signed: Leonor Lockhart DO at 22:39 EST Tel , Service support ,
[2020-07-07 05:53] LABS: Absolute Lymphocyte Count 0.58 X10^3/uL (0.83-4.51); Absolute Neutrophil Count 9.6 X10^3/uL (2.0-7.7); Basophil# 0.04 X10^3/uL; Basophil% 0.4 % (0-1); Eosinophils% 1.8 % (0-5); Hemoglobin 10.4 g/dL (13.0-16.5); Lymphocyte # 0.58 X10^3/ul (4.0); Lymphocyte % 5.2 % (19-41); Mean Corp Hgb Conc 31.5 g/dL (32-36); Mean Corpuscular Hgb 28.3 pg (27.0-32.0); Mean Corpuscular Volume 89.9 fL (80-94); Mean Platelet Vol. 9.3 fl (6.2-12.0); Monocyte# 0.69 X10^3/uL; Monocyte% 6.2 % (0-10); NRBC Flagged by Analyzer 0 % (0-5); Neutrophil # 9.57 X10^3/uL (2.7-7.7); POSITIVE DIFFERENTIAL YES; Platelet Count 304 K/mm3 (150-450); RBC Distribution Width SD 42.9 fl (35.1-43.9); Red Blood Count 3.67 M/mm3 (4.6-6.2); White Blood Count 11.1 K/mm3 (4.4-11.0)
[2020-07-07 05:57] LABS: Differential Indicated SCAN CRITERIA MET
[2020-07-07 06:25] LABS: Differential Comment SCANNED
[2020-07-07 06:40] LABS: ALB/GLOB Ratio 0.6 RATIO (0.9-2.4); AST(SGOT) 14 U/L (15-37); Alanine Aminotransfer ALT/SGPT 21 U/L (16-61); Albumin, Serum 2.6 g/dL (3.2-5.0); Alkaline Phosphatase 58 U/L (45-117); Anion Gap 4 (5-15); BUN 22 mg/dL (7-18); Calcium,Total 8.9 mg/dL (8.5-10.1); Chloride 116 mmol/L (98-107); EST Glomerular Filtration Rate 79 mL/min (>60); Est Glom Filt Rate - Afr Amer 96 mL/min (>60); Estimated Creatinine Clearance 82.12 ml/min; Globulin 4.1 g/dL (2.2-4.2); Glucose 101 mg/dL (74-106); Potassium 4.2 mmol/L (3.5-5.1); Protein, Total 6.7 g/dL (6.4-8.2); Sodium Level 145 mmol/L (136-145)
--- NOTE | 2020-07-07 06:51 | PN_ITS ---
Progress Note 65-year-old male who is about 3 weeks out from a robotic cystoprostatectomy and open formation of an ileal conduit. Just saw him last week and he was on regular diet passing gas having bowel movements was losing some weight but his appetite was coming back. He then described having some sharp abdominal pains in the lower abdomen and then he had some pizza yesterday and then started throwing up and having sharp abdominal pain came into the emergency room CAT scan was done that demonstrated dilated loops of small bowel some stool and air in the colon and the rectum but what appears to be an early small bowel obstruction His white blood count is normal. No fevers or chills. CT scan was reviewed x- ray reviewed today. X-ray still demonstrates dilated loop of small bowel this morning. On examination he is alert and oriented x3 in no acute distress his abdomen is actually remarkably soft and benign appearing has had no pain or tenderness. The conduit is clean and intact the conduit is nice and healthy and pink urine output is adequate. Assessment and plan 65-year-old male status post cystectomy and formation ileal conduit for invasive bladder cancer, lymph nodes were negative prognosis is good. General surgery saw him yesterday and recommended conservative approach which is very reasonable with early small bowel obstruction especially early after major surgery possible that NG decompression ambulation and time will resolve his small bowel obstruction so organ to proceed with this approach but I did speak to the patient with the possibility that if the bowel obstruction does not resolve spontaneously or on its own that we may need to explore the patient possible do a laparoscopic or open exploration. For now follow general surgery recommendations for NG decompression ambulation and observation. STROKE Vital Signs/Narrative: Vital Signs Temp Pulse Resp BP Pulse Ox 07/07/20 04:37 98.9 F 83 16 135/89 H 98
--- NOTE | 2020-07-07 07:37 | PCM.PN.SRG ---
Patient Problems: Active and Suspected Problems (Last Updated 07/06/20 @ 15:[address] Samuel Fernandez, DO) Small bowel obstruction (Acute) Subjective: patient's abdominal pain is about the same, developed left flank back spasm which is more painful at this point - will give toradol x 1 and heating pads to area, still no flatus - Physical Exam Vitals/I&O's: Vital Signs Temp Pulse Resp BP Pulse Ox 98.9 F 83 16 135/89 H 98 07/07/20 04:37 07/07/20 04:37 07/07/20 04:37 07/07/20 04:37 07/07/20 04:37 Oxygen Delivery Method Room Air Weight: 86.5 kg Body Mass Index (BMI) 25.1 Finger Stick Blood Glucose 126 Intake and Output for Last 24 Hours 07/05/20 07/06/20 07/07/20 23:59 23:59 23:59 Intake Total 2841.85 / 2841.85 955 / 955 Output Total 1750 / 1750 1200 / 1200 Balance 1091.85 / 1091.85 -245 / -245 General: Alert, Oriented x3 HEENT: Atraumatic Oral: Moist Mucosa Neck: Supple Lungs: Normal air movement Abdomen: Soft, - - no peritoneal signs or guarding Laboratory Results 07/06/20 12:20: Urine Color Straw, Urine Clarity Cloudy, Urine pH 8.0, Ur Specific [place] 1.015, Urine Protein 100 H, Urine Glucose (UA) Normal, Urine Ketones 15 H, Urine Occult Blood 250 H, Urine Nitrite Positive H, Urine Bilirubin Negative, Urine Urobilinogen Normal, Ur Leukocyte Esterase 500 H, Urine RBC 25-50 SEEN, Urine WBC 25-50 SEEN, Ur Squamous Epith Cells 0 SEEN, Urine Bacteria 2+, Urine Mucus 1+, Urine Yeast 2+ 07/06/20 12:28: WBC 12.2 H, RBC 4.38 L, Hgb 12.4 L, Hct 38.4 L, MCV 87.7, MCH 28.3, MCHC 32.3, RDW Std Deviation 41.1, RDW Coeff of Lidia 12.8, Plt Count 390, MPV 9.6, Immature Gran % (Auto) 0.400, Neut % (Auto) 89.0 H, Lymph % (Auto) 5.6 L, [place] % (Auto) 3.9, Eos % (Auto) 0.7, Baso % (Auto) 0.4, Absolute Neuts (auto) 10.9 H, Absolute Lymphs (auto) 0.68 L, Nucleated RBC % 0 07/06/20 12:28: Sodium 140, Potassium 4.2, Chloride 107, Carbon Dioxide 24.0, Anion Gap 9, BUN 28 H, Creatinine 1.13, Estim Creat Clear Calc 74.76, Est GFR (MDRD) Af Amer 83, Est GFR (MDRD) Non-Af 69, BUN/Creatinine Ratio 24.8 H, Glucose 114 H, Calcium 9.7, Total Bilirubin 0.40, Direct Bilirubin 0.13, AST 21, ALT 30, Alkaline Phosphatase 68, Total Protein 8.3 H, Albumin 3.3, Globulin 5.0 H, Lipase 278 07/06/20 12:28: Lactic Acid 2.2 H* 07/06/20 16:50: Lactic Acid 0.9 07/07/20 05:35: WBC 11.1 H, RBC 3.67 L, Hgb 10.4 L, Hct 33.0 L, MCV 89.9, MCH 28.3, MCHC 31.5 L, RDW Std Deviation 42.9, RDW Coeff of Lidia 13.0, Plt Count 304, MPV 9.3, Immature Gran % (Auto) 0.400, Neut % (Auto) 86.0 H, Lymph % (Auto) 5.2 L, [place] % (Auto) 6.2, Eos % (Auto) 1.8, Baso % (Auto) 0.4, Absolute Neuts (auto) 9.6 H, Absolute Lymphs (auto) 0.58 L, Nucleated RBC % 0, Differential Comment SCANNED 07/07/20 05:35: Sodium 145, Potassium 4.2, Chloride 116 H, Carbon Dioxide 25.0, Anion Gap 4 L, BUN 22 H, Creatinine 1.00, Estim Creat Clear Calc 82.12, Est GFR (MDRD) Af Amer 96, Est GFR (MDRD) Non-Af 79, BUN/Creatinine Ratio 22.0 H, Glucose 101, Calcium 8.9, Total Bilirubin 0.50, AST 14 L, ALT 21, Alkaline Phosphatase 58, Total Protein 6.7, Albumin 2.6 L, Globulin 4.1, Albumin/Globulin Ratio 0.6 L Current Medications Acetaminophen (Acetaminophen 325 Mg Tablet) 650 mg PO Q6H PRN PRN PRN Reason: Pain Score 1-10/Temp > 100.7 F Enoxaparin Sodium (Enoxaparin 40 Mg/0.4 Ml Syringe) 40 mg SC DAILY [facility] Sodium Chloride () 1,000 mls @ 150 mls/hr IV .Q6H40M TREY Last Admin: 07/07/20 04:38 Dose: 150 mls/hr Documented by: Famotidine 20 mg/ Sodium (Chloride) 10 mls @ 300 mls/hr IV Q12 TREY Morphine Sulfate (Morphine 4 Mg/Ml Syringe) 4 mg IV Q3H PRN PRN PRN Reason: Pain Score 6-10 Last Admin: 07/07/20 07:06 Dose: 4 mg Documented by: Ondansetron HCl (Ondansetron 4 Mg/2 Ml Vial) 4 mg IV Q8H PRN PRN PRN Reason: NAUSEA/VOMITING Prochlorperazine Edisylate (Prochlorperazine 10 Mg/2 Ml Vial) 5 mg IV Q4H PRN PRN PRN Reason: Breakthrough nausea/vomiting Last Admin: 07/06/20 16:22 Dose: 5 mg Documented by: Sodium Chloride (0.9% Saline Lock 10 Ml Syringe) 10 - 40 ml IV UD PRN PRN Reason: SALINE FLUSH Last Admin: 07/07/20 07:06 Dose: 10 ml Documented by: Medical Necessity - Tobacco Use Smoking Status: Never smoker Tobacco Use: Non-smoker Assessment/Plan All Active Problems (Last Updated 07/06/20 @ 15:[address] Samuel Fernandez, DO) Small bowel obstruction (Acute) Pre-operative cardiovascular examination (Acute) Syncope and collapse (Resolved 08/23/16) Nonsustained ventricular tachycardia (Resolved 09/01/07) History of non-ST elevation myocardial infarction (NSTEMI) (Resolved 09/01/07) Impression: partial SBO, s/p cystoprostatectomy with ileal conduit Plan: I would recommend continue present therapy Will treat left flank pain with heating pads, see if toradol will help May consider another dose of gastrograffin via NG tube to see if it will open things up I have reviewed this morning's KUB - I believe that there is contrast in the right colon as well as a large amount of stool, albeit there is a dilated upper abdominal SB loop noted
[2020-07-07 07:42] VITALS: BP 142/91; PULSE 81; RESP 18; TEMP 36.9; O2SAT 97
[2020-07-07] MEDS: Ketorolac 15 MG/ML Vial IV ×2 (07:44→18:23)
--- NOTE | 2020-07-07 08:42 | PN_ITS ---
Patient Problems: Active and Suspected Problems (Last Updated 07/06/20 @ 15:[address] Samuel Fernandez, DO) Small bowel obstruction (Acute) Reason for Visit: Small bowel obstruction Subjective: Patient is a 65-year-old gentleman with history of bladder CA with recent ileal conduit creation presented with abdominal pain imaging studies demonstrated small bowel obstruction Objective: GENERAL: cooperative HEENT: Atraumatic; EYES; Anicteric, Normal Conjunctiva NECK; supple, normal thyroid, RESPIRATORY: Diminished to auscultation CARDIOVASCULAR: Regular S1 S2, GI: soft, normoactive bowel sounds, : No Renal angle tenderness; EXTREMITIES: No edema, no clubbing, MUSCULOSKELETAL: no muscle waisting NEURO: Awake; no lateralizing signs. SKIN: No Rash PSYCH; Flat affect Vitals/I&O's: Vital Signs Temp Pulse Resp BP Pulse Ox 98.4 F 81 18 142/91 H 97 07/07/20 07:42 07/07/20 07:42 07/07/20 07:42 07/07/20 07:42 07/07/20 07:42 Oxygen Delivery Method Room Air Weight: 86.5 kg Body Mass Index (BMI) 25.1 Finger Stick Blood Glucose 126 Intake and Output for Last 24 Hours 07/05/20 07/06/20 07/07/20 23:59 23:59 23:59 Intake Total 2841.85 / 2841.85 955 / 955 Output Total 1750 / 1750 1200 / 1200 Balance 1091.85 / 1091.85 -245 / -245 Laboratory Results 07/06/20 12:20: Urine Color Straw, Urine Clarity Cloudy, Urine pH 8.0, Ur Specific [place] 1.015, Urine Protein 100 H, Urine Glucose (UA) Normal, Urine Ketones 15 H, Urine Occult Blood 250 H, Urine Nitrite Positive H, Urine Bilirubin Negative, Urine Urobilinogen Normal, Ur Leukocyte Esterase 500 H, Urine RBC 25-50 SEEN, Urine WBC 25-50 SEEN, Ur Squamous Epith Cells 0 SEEN, Urine Bacteria 2+, Urine Mucus 1+, Urine Yeast 2+ 07/06/20 12:28: WBC 12.2 H, RBC 4.38 L, Hgb 12.4 L, Hct 38.4 L, MCV 87.7, MCH 28.3, MCHC 32.3, RDW Std Deviation 41.1, RDW Coeff of Lidia 12.8, Plt Count 390, MPV 9.6, Immature Gran % (Auto) 0.400, Neut % (Auto) 89.0 H, Lymph % (Auto) 5.6 L, [place] % (Auto) 3.9, Eos % (Auto) 0.7, Baso % (Auto) 0.4, Absolute Neuts (auto) 10.9 H, Absolute Lymphs (auto) 0.68 L, Nucleated RBC % 0 07/06/20 12:28: Sodium 140, Potassium 4.2, Chloride 107, Carbon Dioxide 24.0, Anion Gap 9, BUN 28 H, Creatinine 1.13, Estim Creat Clear Calc 74.76, Est GFR (MDRD) Af Amer 83, Est GFR (MDRD) Non-Af 69, BUN/Creatinine Ratio 24.8 H, Glucose 114 H, Calcium 9.7, Total Bilirubin 0.40, Direct Bilirubin 0.13, AST 21, ALT 30, Alkaline Phosphatase 68, Total Protein 8.3 H, Albumin 3.3, Globulin 5.0 H, Lipase 278 07/06/20 12:28: Lactic Acid 2.2 H* 07/06/20 16:50: Lactic Acid 0.9 07/07/20 05:35: WBC 11.1 H, RBC 3.67 L, Hgb 10.4 L, Hct 33.0 L, MCV 89.9, MCH 28.3, MCHC 31.5 L, RDW Std Deviation 42.9, RDW Coeff of Lidia 13.0, Plt Count 304, MPV 9.3, Immature Gran % (Auto) 0.400, Neut % (Auto) 86.0 H, Lymph % (Auto) 5.2 L, [place] % (Auto) 6.2, Eos % (Auto) 1.8, Baso % (Auto) 0.4, Absolute Neuts (auto) 9.6 H, Absolute Lymphs (auto) 0.58 L, Nucleated RBC % 0, Differential Comment SCANNED 07/07/20 05:35: Sodium 145, Potassium 4.2, Chloride 116 H, Carbon Dioxide 25.0, Anion Gap 4 L, BUN 22 H, Creatinine 1.00, Estim Creat Clear Calc 82.12, Est GFR (MDRD) Af Amer 96, Est GFR (MDRD) Non-Af 79, BUN/Creatinine Ratio 22.0 H, Glucose 101, Calcium 8.9, Total Bilirubin 0.50, AST 14 L, ALT 21, Alkaline Phosphatase 58, Total Protein 6.7, Albumin 2.6 L, Globulin 4.1, Albumin/Globulin Ratio 0.6 L Current Medications Acetaminophen (Acetaminophen 325 Mg Tablet) 650 mg PO Q6H PRN PRN PRN Reason: Pain Score 1-10/Temp > 100.7 F Enoxaparin Sodium (Enoxaparin 40 Mg/0.4 Ml Syringe) 40 mg SC DAILY [facility] Sodium Chloride () 1,000 mls @ 150 mls/hr IV .Q6H40M TRE[facility] Last Admin: 07/07/20 04:38 Dose: 150 mls/hr Documented by: Famotidine 20 mg/ Sodium (Chloride) 10 mls @ 300 mls/hr IV Q12 [facility] Morphine Sulfate (Morphine 4 Mg/Ml Syringe) 4 mg IV Q3H PRN PRN PRN Reason: Pain Score 6-10 Last Admin: 07/07/20 07:06 Dose: 4 mg Documented by: Ondansetron HCl (Ondansetron 4 Mg/2 Ml Vial) 4 mg IV Q8H PRN PRN PRN Reason: NAUSEA/VOMITING Prochlorperazine Edisylate (Prochlorperazine 10 Mg/2 Ml Vial) 5 mg IV Q4H PRN PRN PRN Reason: Breakthrough nausea/vomiting Last Admin: 07/06/20 16:22 Dose: 5 mg Documented by: Sodium Chloride (0.9% Saline Lock 10 Ml Syringe) 10 - 40 ml IV UD PRN PRN Reason: SALINE FLUSH Last Admin: 07/07/20 07:06 Dose: 10 ml Documented by: STROKE Vital Signs/Narrative: Vital Signs Temp Pulse Resp BP Pulse Ox 07/07/20 07:42 98.4 F 81 18 142/91 H 97 Medical Necessity - Tobacco Use Smoking Status: Never smoker Tobacco Use: Non-smoker Assessment/Plan All Active Problems (Last Updated 07/06/20 @ 15:[address] Samuel Fernandez, DO) Small bowel obstruction (Acute) Pre-operative cardiovascular examination (Acute) Syncope and collapse (Resolved 08/23/16) Nonsustained ventricular tachycardia (Resolved 09/01/07) History of non-ST elevation myocardial infarction (NSTEMI) (Resolved 09/01/07) Patient is a 65-year-old gentleman with history of bladder CA with recent ileal conduit creation presented with abdominal pain imaging studies demonstrated small bowel obstruction 1. Small bowel obstruction ?Admitted to regular nursing floor managed conservatively with bowel rest IV fluids pain medications with consultation placed to general surgery 2. History of bladder cancer ?s/p cystoprostatectomy with ileal conduit, consult placed to urology and wound care consult for ostomy care. 3. Hypertension - Blood pressure controlled, home medications continued with dose adjustment as needed 4. History of coronary artery disease ?History of previous non-STEMI 5. DVT prophylaxis ?CHEMA Ariza Clinical Impression(s) from Imaging Studies Abdomen/Pelvis CT 07/06/20 12:08 IMPRESSION: 1. Small bowel obstruction. 2. Expected appearance after cystectomy and urinary diversion. Electronically Signed: Carine Kelley, at 15:00 EST Tel , Service support , KUB X-Ray 07/06/20 16:45 IMPRESSION: Gastric tube with tip in the proximal fundus, immediately past the gastric esophageal junction. Consider advancing to place into the gastric antrum. Electronically Signed: Carine Kelley, at 17:41 EST Tel , Service support , Inpatient E&M: [id number] [facility] L2
--- NOTE | 2020-07-07 08:53 | NURSING ---
Was asked to see patient for ileal conduit. pt is s/p robotic cystoprostatectomy on 06/18/[address] Pino. Pt had been having leakage issues at home and had reached out to this nurse a few times. Pt is now doing much better with appliance changes and is getting approx 2-3 days out of an appliance. pt had been changing appliance numerous times a day previously. pt states he has been feeling much more confident now. appliance intact at this time. stoma is nice an pink. urine is clear with a few mucous shreds noted. pt aware to call for needs. will continue to monitor.
[2020-07-07] MEDS: Famotidine 200 MG/20 ML MDV 20 MG in 0.9% Normal Saline (Pres. free 8 ML 300 MG IV ×2 (09:15→22:19)
[2020-07-07] MEDS: Enoxaparin 40 MG/0.4 ML Syringe SC (09:15)
--- NOTE | 2020-07-07 10:24 | NURSING ---
Pt had been up ambulating in the halls. pt states that the ostomy appliance started leaking once back to the room. removed the ostomy appliance. peristomal skin is intact. pt still has 3 small crease noted to the medial edge of the stoma that patient has been filling in with stoma paste. stoma measures approx 1 1/4. patient currently using a flat 1 piece appliance with paste and an Adaptic ring. pt tolerated appliance change well. will continue to monitor. pt has been doing well with appliance changes at home.
--- NOTE | 2020-07-07 13:17 | CASEMGMT ---
Social Work Note Per home health nurse licensed practical questions, pt has completed HCPOA and LW and provided copies to [facility]. SW reviewed chart, no copies found on chart. SW in to speak with pt. SW introduced self and role at [facility]. Pt is alert and orientated x3. SW informed pt that HCPOA and LW are not on file at [facility]. Pt states he completed the documents on June 04 or and is able to bring in copies. 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
[2020-07-07 14:06] VITALS: BP 128/88; PULSE 92; RESP 18; TEMP 36.9; O2SAT 97
--- NOTE | 2020-07-07 14:44 | CHAPLAIN ---
Type of Pastoral Visit _x__ Initial Visit ___ Follow-up Visit ___ On-call Visit ___ General Patient Visit ___ Spiritual Assessment ___ Family Conference ___ Bereavement ___ Rapid Response ___ Code Blue ___ Other (describe below) Pastoral Care Referral From _x__ Patient ___ Family ___ Nurse ___ Physician ___ Health Care Consultant ___ Police Artist ___ Other (describe below) Sacrament/Intervention _x__ Active listening ___ Anointing ___ Orthodoxy ___ Bereavement ___ Communion _x__ Jael exploration ___ ___ Life review _x__ Prayer ___ Reconciliation ___ Sacrament of Sick _x__ Supportive presence ___ Wedding ___ Other (describe below) Pastoral Comments patient leads the lengthy conversation of health review and jael development; pt identifies self as a believer and knows I am ready; pt states that though I would not wish this on myself, it has actually been a very good thing for me and it has caused me to grow in my jael in God and to reach out to people; pt welcomes prayer and presence
--- NOTE | 2020-07-07 16:32 | PCM.PN.SRG ---
Patient Problems: Active and Suspected Problems (Last Updated 07/06/20 @ 15:[address] Samuel Fernandez, DO) Small bowel obstruction (Acute) Subjective: Patient is feeling significantly better. No abdominal pain at this time. He has been up and walking. Very little coming out of his NG tube. Objective: Soft nontender nondistended - Physical Exam Vitals/I&O's: Vital Signs Temp Pulse Resp BP Pulse Ox 98.4 F 92 18 128/88 H 97 07/07/20 14:06 07/07/20 14:06 07/07/20 14:06 07/07/20 14:06 07/07/20 14:06 Oxygen Delivery Method Room Air Weight: 190 lb 11.198 oz Body Mass Index (BMI) 25.1 Finger Stick Blood Glucose 126 Intake and Output for Last 24 Hours 07/05/20 07/06/20 07/07/20 23:59 23:59 23:59 Intake Total 2841.85 / 2841.85 2475 / 2475 Output Total 1750 / 1750 1800 / 1800 Balance 1091.85 / 1091.85 675 / 675 Laboratory Results 07/06/20 16:50: Lactic Acid 0.9 07/07/20 05:35: WBC 11.1 H, RBC 3.67 L, Hgb 10.4 L, Hct 33.0 L, MCV 89.9, MCH 28.3, MCHC 31.5 L, RDW Std Deviation 42.9, RDW Coeff of Lidia 13.0, Plt Count 304, MPV 9.3, Immature Gran % (Auto) 0.400, Neut % (Auto) 86.0 H, Lymph % (Auto) 5.2 L, [place] % (Auto) 6.2, Eos % (Auto) 1.8, Baso % (Auto) 0.4, Absolute Neuts (auto) 9.6 H, Absolute Lymphs (auto) 0.58 L, Nucleated RBC % 0, Differential Comment SCANNED 07/07/20 05:35: Sodium 145, Potassium 4.2, Chloride 116 H, Carbon Dioxide 25.0, Anion Gap 4 L, BUN 22 H, Creatinine 1.00, Estim Creat Clear Calc 82.12, Est GFR (MDRD) Af Amer 96, Est GFR (MDRD) Non-Af 79, BUN/Creatinine Ratio 22.0 H, Glucose 101, Calcium 8.9, Total Bilirubin 0.50, AST 14 L, ALT 21, Alkaline Phosphatase 58, Total Protein 6.7, Albumin 2.6 L, Globulin 4.1, Albumin/Globulin Ratio 0.6 L Current Medications Acetaminophen (Acetaminophen 325 Mg Tablet) 650 mg PO Q6H PRN PRN PRN Reason: Pain Score 1-10/Temp > 100.7 F Enoxaparin Sodium (Enoxaparin 40 Mg/0.4 Ml Syringe) 40 mg SC DAILY [facility] Last Admin: 07/07/20 09:15 Dose: 40 mg Documented by: Sodium Chloride () 1,000 mls @ 150 mls/hr IV .Q6H40M [facility] Last Infusion: 07/07/20 14:47 Dose: 150 mls/hr Documented by: Famotidine 20 mg/ Sodium (Chloride) 10 mls @ 300 mls/hr IV Q12 [facility] Last Infusion: 07/07/20 09:17 Dose: Infused Documented by: Morphine Sulfate (Morphine 4 Mg/Ml Syringe) 4 mg IV Q3H PRN PRN PRN Reason: Pain Score 6-10 Last Admin: 07/07/20 14:00 Dose: 4 mg Documented by: Ondansetron HCl (Ondansetron 4 Mg/2 Ml Vial) 4 mg IV Q8H PRN PRN PRN Reason: NAUSEA/VOMITING Prochlorperazine Edisylate (Prochlorperazine 10 Mg/2 Ml Vial) 5 mg IV Q4H PRN PRN PRN Reason: Breakthrough nausea/vomiting Last Admin: 07/06/20 16:22 Dose: 5 mg Documented by: Sodium Chloride (0.9% Saline Lock 10 Ml Syringe) 10 - 40 ml IV UD PRN PRN Reason: SALINE FLUSH Last Admin: 07/07/20 07:06 Dose: 10 ml Documented by: Medical Necessity - Tobacco Use Smoking Status: Never smoker Tobacco Use: Non-smoker Assessment/Plan All Active Problems (Last Updated 07/06/20 @ 15:[address] Samuel Fernandez, DO) Small bowel obstruction (Acute) Pre-operative cardiovascular examination (Acute) Syncope and collapse (Resolved 08/23/16) Nonsustained ventricular tachycardia (Resolved 09/01/07) History of non-ST elevation myocardial infarction (NSTEMI) (Resolved 09/01/07) Assessment resolving partial small bowel obstruction Plan: Anticipate probably being able to get the NG tube out either later today or tomorrow anticipate him to make a full recovery.
[2020-07-07] MEDS: BENZOCAINE/MENTHOL 1 LOZENGE MUCOUS MEM ×2 (17:57→22:23)
[2020-07-07 20:00] VITALS: BP 132/85; PULSE 110; RESP 18; TEMP 37.5; O2SAT 94
[2020-07-08] MEDS: 0.9% Normal Saline 1,000 ML 150 ML IV ×3 (00:44→13:47)
[2020-07-08 02:20] VITALS: BP 142/96; PULSE 91; RESP 16; TEMP 36.7; O2SAT 95
[2020-07-08] MEDS: Morphine 4 MG/ML Syringe IV (02:27)
[2020-07-08] MEDS: Ketorolac 15 MG/ML Vial IV (04:54)
--- NOTE | 2020-07-08 05:55 | RAD_ITS ---
STUDY: X-RAY - ABDOMEN/PELVIS REASON FOR EXAM: Male, 65 years old. Small bowel obstruction. TECHNIQUE: Two AP supine views of the abdomen and pelvis. COMPARISON: 07/07/2020. FINDINGS: Normal visualized lung bases. There is an NG tube with its tip in the distal stomach. Again seen are bilateral ureteral stents. There is increasing air within mildly distended small bowel loops. Dominantly in the left upper quadrant. Feces is seen in nondistended ascending colon. Air is seen in the rectum. There is no demonstrated free abdominal air. The visualized liver, spleen and kidneys are grossly normal in size and morphology. Normal soft tissue structures. There are no osseous changes. RAD/Abdomen Single View IMPRESSION: 1. Increasing small bowel dilatation when compared to prior study. 2. NG tube not present on the prior study. 3. No other major interval change. Electronically Signed: Andrew Hubbard DO at 18:35 EST Tel [phone], Service support ,
[2020-07-08 06:04] LABS: Hematocrit 30.6 % (40-54); Hemoglobin 9.5 g/dL (13.0-16.5); Mean Corpuscular Hgb 28.2 pg (27.0-32.0); Mean Corpuscular Volume 90.8 fL (80-94); Mean Platelet Vol. 9.6 fl (6.2-12.0); Platelet Count 273 K/mm3 (150-450); RBC Distribution Width CV 13.2 % (11.6-14.6); RBC Distribution Width SD 44.2 fl (35.1-43.9); Red Blood Count 3.37 M/mm3 (4.6-6.2); White Blood Count 8.7 K/mm3 (4.4-11.0)
[2020-07-08 06:28] LABS: Anion Gap 8 (5-15); BUN 21 mg/dL (7-18); BUN/Creat Ratio 21.9 RATIO (10-20); Calcium,Total 8.3 mg/dL (8.5-10.1); Chloride 116 mmol/L (98-107); Creatinine, Serum 0.96 mg/dL (0.70-1.30); EST Glomerular Filtration Rate 83 mL/min (>60); Est Glom Filt Rate - Afr Amer 101 mL/min (>60); Estimated Creatinine Clearance 85.54 ml/min; Glucose 88 mg/dL (74-106); Magnesium 2.1 mg/dL (1.6-2.6); Potassium 3.6 mmol/L (3.5-5.1); Sodium Level 144 mmol/L (136-145)
--- NOTE | 2020-07-08 07:21 | PN_ITS ---
Progress Note 65-year-old male status post radical cystoprostatectomy and lymph node dissection for invasive bladder cancer. Cancer was invasive but all the lymph nodes were negative so hopefully he is in the clear. Came back with either small bowel early obstruction or ileus. He underwent NG decompression. NG output is fairly low. Clinically on exam his abdomen is soft and benign not distended he is got good bowel sounds this morning he reported passing some gas. On KUB still has some loops of dilated small bowel but no stacking pattern and there is a lot of stool in the rectum. On examination is alert oriented x3 nontoxic abdomen soft and benign good bowel sounds in all quadrants. Ileostomy is nice and pink and healthy good urine output. 65-year-old male appears to be resolving partial small bowel obstruction versus ileus. Today we will remove the NG tube. We will continue with sips and chips of water no more. May be can have some clear Ensure but otherwise very limited oral intake for now. Ambulate. Will give him a Dulcolax suppository. And will await full return of bowel function I think he needs to have a bowel movement a nd move some stool that in the colon hopefully this will resolve his ileus. Do not discharge patient not ready to go home.
--- NOTE | 2020-07-08 07:29 | PN_ITS ---
Patient Problems: Active and Suspected Problems (Last Updated 07/06/20 @ 15:[address] Samuel Fernandez, DO) Small bowel obstruction (Acute) Reason for Visit: Small bowel obstruction Subjective: Patient is a 65-year-old gentleman with history of bladder CA with recent ileal conduit creation presented with abdominal pain imaging studies demonstrated small bowel obstruction Patient is a 65-year-old gentleman with history of bladder CA with recent ileal conduit creation presented with abdominal pain imaging studies demonstrated small bowel obstruction Objective: GENERAL: cooperative HEENT: Atraumatic; EYES; Anicteric, Normal Conjunctiva NECK; supple, normal thyroid, RESPIRATORY: Diminished to auscultation CARDIOVASCULAR: Regular S1 S2, GI: soft, normoactive bowel sounds, : No Renal angle tenderness; EXTREMITIES: No edema, no clubbing, MUSCULOSKELETAL: no muscle waisting NEURO: Awake; no lateralizing signs. SKIN: No Rash PSYCH; Flat affect Vitals/I&O's: Vital Signs Temp Pulse Resp BP Pulse Ox 98.1 F 91 16 142/96 H 95 07/08/20 02:20 07/08/20 02:20 07/08/20 02:20 07/08/20 02:20 07/08/20 02:20 Oxygen Delivery Method Room Air Weight: 86.5 kg Body Mass Index (BMI) 25.1 Finger Stick Blood Glucose 126 Intake and Output for Last 24 Hours 07/06/20 07/07/20 07/08/20 23:59 23:59 23:59 Intake Total 2841.85 / 2841.85 3102.5 / 3102.5 1105 / 1105 Output Total 1750 / 1750 2375 / 2375 1125 / 1125 Balance 1091.85 / 1091.85 727.5 / 727.5 - Laboratory Results 07/08/20 05:25: WBC 8.7, RBC 3.37 L, Hgb 9.5 L, Hct 30.6 L, MCV 90.8, MCH 28.2, MCHC 31.0 L, RDW Std Deviation 44.2 H, RDW Coeff of Lidia 13.2, Plt Count 273, MPV 9.6 07/08/20 05:25: Sodium 144, Potassium 3.6, Chloride 116 H, Carbon Dioxide 20.0 L , Anion Gap 8, BUN 21 H, Creatinine 0.96, Estim Creat Clear Calc 85.54, Est GFR (MDRD) Af Amer 101, Est GFR (MDRD) Non-Af 83, BUN/Creatinine Ratio 21.9 H, Glucose 88, Calcium 8.3 L, Magnesium 2.1 Current Medications Acetaminophen (Acetaminophen 325 Mg Tablet) 650 mg PO Q6H PRN PRN PRN Reason: Pain Score 1-10/Temp > 100.7 F Enoxaparin Sodium (Enoxaparin 40 Mg/0.4 Ml Syringe) 40 mg SC DAILY [facility] Last Admin: 07/07/20 09:15 Dose: 40 mg Documented by: Sodium Chloride () 1,000 mls @ 150 mls/hr IV .Q6H40M [facility] Last Admin: 07/08/20 07:06 Dose: 150 mls/hr Documented by: Famotidine 20 mg/ Sodium (Chloride) 10 mls @ 300 mls/hr IV Q12 [facility] Last Infusion: 07/07/20 22:21 Dose: Infused Documented by: Morphine Sulfate (Morphine 4 Mg/Ml Syringe) 4 mg IV Q3H PRN PRN PRN Reason: Pain Score 6-10 Last Admin: 07/08/20 02:27 Dose: 4 mg Documented by: Ondansetron HCl (Ondansetron 4 Mg/2 Ml Vial) 4 mg IV Q8H PRN PRN PRN Reason: NAUSEA/VOMITING Prochlorperazine Edisylate (Prochlorperazine 10 Mg/2 Ml Vial) 5 mg IV Q4H PRN PRN PRN Reason: Breakthrough nausea/vomiting Last Admin: 07/06/20 16:22 Dose: 5 mg Documented by: Sodium Chloride (0.9% Saline Lock 10 Ml Syringe) 10 - 40 ml IV UD PRN PRN Reason: SALINE FLUSH Last Admin: 07/07/20 07:06 Dose: 10 ml Documented by: Throat Lozenges (Benzocaine/Menthol 1 Lozenge) 1 lozenge MUCOUS MEM Q2H PRN PRN PRN Reason: SORE THROAT Last Admin: 07/07/20 22:23 Dose: 1 lozenge Documented by: Medical Necessity - Tobacco Use Smoking Status: Never smoker Tobacco Use: Non-smoker Assessment/Plan All Active Problems (Last Updated 07/06/20 @ 15:[address] Samuel Fernandez, DO) Small bowel obstruction (Acute) Pre-operative cardiovascular examination (Acute) Syncope and collapse (Resolved 08/23/16) Nonsustained ventricular tachycardia (Resolved 09/01/07) History of non-ST elevation myocardial infarction (NSTEMI) (Resolved 09/01/07) Patient is a 65-year-old gentleman with history of bladder CA with recent ileal conduit creation presented with abdominal pain imaging studies demonstrated small bowel obstruction 1. Small bowel obstruction ?Admitted to regular nursing floor managed conservatively with bowel rest IV fluids pain medications with consultation placed to general surgery - Patient is a 65-year-old gentleman with history of bladder CA with recent ileal conduit creation presented with abdominal pain imaging studies demonstrated small bowel obstruction 2. History of bladder cancer ?s/p cystoprostatectomy with ileal conduit, consult placed to urology and wound care consult for ostomy care. 3. Hypertension - Blood pressure controlled, home medications continued with dose adjustment as needed 4. History of coronary artery disease ?History of previous non-STEMI 5. DVT prophylaxis ?[facility]: 22664 [facility] H[facility] L2
[2020-07-08 08:50] VITALS: BP 123/73; PULSE 80; RESP 18; TEMP 36.9; O2SAT 98
[2020-07-08] MEDS: Famotidine 200 MG/20 ML MDV 20 MG in 0.9% Normal Saline (Pres. free 8 ML 300 MG IV (08:52)
[2020-07-08] MEDS: Enoxaparin 40 MG/0.4 ML Syringe SC (08:52)
--- NOTE | 2020-07-08 10:13 | NURSING ---
Pt sitting up in chair. had been up ambulating in the halls frequently this am. NG tube was D/C'd this am and pt is now taking clear liquids. pt states tolerating them well at this time. ostomy appliance remains intact. urine is slightly dark in color, but pt has been NPO and just getting IV fluids. will monitor. pt denies pain or cramping.
--- NOTE | 2020-07-08 11:25 | PN.SURG_ITS ---
Patient Problems: Active and Suspected Problems (Last Updated 07/06/20 @ 15:[address] Samuel Fernandez, DO) Small bowel obstruction (Acute) Subjective: patient feels much improved, passing flatus, denies abdominal pain - Physical Exam Vitals/I&O's: Vital Signs Temp Pulse Resp BP Pulse Ox 98.1 F 91 16 142/96 H 95 07/08/20 02:20 07/08/20 02:20 07/08/20 02:20 07/08/20 02:20 07/08/20 02:20 Oxygen Delivery Method Room Air Weight: 86.5 kg Body Mass Index (BMI) 25.1 Finger Stick Blood Glucose 126 Intake and Output for Last 24 Hours 07/06/20 07/07/20 07/08/20 23:59 23:59 23:59 Intake Total 2841.85 / 2841.85 3102.5 / 3102.5 1115 / 1115 Output Total 1750 / 1750 2375 / 2375 1125 / 1125 Balance 1091.85 / 1091.85 727.5 / 727.5 -10 / -10 General: Alert, Oriented x3 Oral: Moist Mucosa Neck: Supple Lungs: Normal air movement Abdomen: Soft Laboratory Results 07/08/20 05:25: WBC 8.7, RBC 3.37 L, Hgb 9.5 L, Hct 30.6 L, MCV 90.8, MCH 28.2, MCHC 31.0 L, RDW Std Deviation 44.2 H, RDW Coeff of Lidia 13.2, Plt Count 273, MPV 9.6 07/08/20 05:25: Sodium 144, Potassium 3.6, Chloride 116 H, Carbon Dioxide 20.0 L , Anion Gap 8, BUN 21 H, Creatinine 0.96, Estim Creat Clear Calc 85.54, Est GFR (MDRD) Af Amer 101, Est GFR (MDRD) Non-Af 83, BUN/Creatinine Ratio 21.9 H, Glucose 88, Calcium 8.3 L, Magnesium 2.1 Current Medications Acetaminophen (Acetaminophen 325 Mg Tablet) 650 mg PO Q6H PRN PRN PRN Reason: Pain Score 1-10/Temp > 100.7 F Enoxaparin Sodium (Enoxaparin 40 Mg/0.4 Ml Syringe) 40 mg SC DAILY [facility] Last Admin: 07/08/20 08:52 Dose: 40 mg Documented by: Sodium Chloride () 1,000 mls @ 150 mls/hr IV .Q6H40M [facility] Last Admin: 07/08/20 07:06 Dose: 150 mls/hr Documented by: Famotidine 20 mg/ Sodium (Chloride) 10 mls @ 300 mls/hr IV Q12 [facility] Last Infusion: 07/08/20 08:54 Dose: Infused Documented by: Morphine Sulfate (Morphine 4 Mg/Ml Syringe) 4 mg IV Q3H PRN PRN PRN Reason: Pain Score 6-10 Last Admin: 07/08/20 02:27 Dose: 4 mg Documented by: Ondansetron HCl (Ondansetron 4 Mg/2 Ml Vial) 4 mg IV Q8H PRN PRN PRN Reason: NAUSEA/VOMITING Prochlorperazine Edisylate (Prochlorperazine 10 Mg/2 Ml Vial) 5 mg IV Q4H PRN PRN PRN Reason: Breakthrough nausea/vomiting Last Admin: 07/06/20 16:22 Dose: 5 mg Documented by: Sodium Chloride (0.9% Saline Lock 10 Ml Syringe) 10 - 40 ml IV UD PRN PRN Reason: SALINE FLUSH Last Admin: 07/07/20 07:06 Dose: 10 ml Documented by: Throat Lozenges (Benzocaine/Menthol 1 Lozenge) 1 lozenge MUCOUS MEM Q2H PRN PRN PRN Reason: SORE THROAT Last Admin: 07/07/20 22:23 Dose: 1 lozenge Documented by: Medical Necessity - Tobacco Use Smoking Status: Never smoker Tobacco Use: Non-smoker Assessment/Plan All Active Problems (Last Updated 07/06/20 @ 15:[address] Samuel Fernandez, DO) Small bowel obstruction (Acute) Pre-operative cardiovascular examination (Acute) Syncope and collapse (Resolved 08/23/16) Nonsustained ventricular tachycardia (Resolved 09/01/07) History of non-ST elevation myocardial infarction (NSTEMI) (Resolved 09/01/07) Impression: partial SBO - resolved, s/p cystoprostatectomy with ileal conduit Plan: Will sign off case please let me know if any changes in patient's progress, thank you
--- NOTE | 2020-07-08 11:33 | DCINST_ITS ---
- Discharge Diagnoses Current Active Problems: Current Active and Chronic Problems (Last Updated 07/06/20 @ 15:[address] Samuel Fernandez, DO) Bladder cancer (Chronic) DVT, popliteal, acute (Chronic) Small bowel obstruction (Acute) CAD (coronary artery disease) (Chronic) Atherosclerosis of coronary artery of [place] heart without angina pectoris (Ch [place]) Essential (primary) hypertension (Chronic) Hyperlipemia (Chronic) You will use the following diet at home:: Regular - Soft mechanical diet advance as tolerated Your food should be the consistency of: Soft (bite-sized & easy to chew/swallow) Allergies/Adverse Reactions: Allergies No Known Allergies Allergy (Verified 06/06/20 14:05) Medications to take at Discharge Ramipril [Altace] 10 mg PO QHS 08/23/16 hydrochlorothiazide 25 mg tablet 12.5 mg PO DAILY 06/12/19 Enoxaparin Sodium [Lovenox] 100 mg SQ DAILY 06/06/20 Docusate Sodium [Colace] 100 mg PO BID #20 cap 06/24/20 Primary Care Physician: Avril Sorenson MD [Primary Care Provider] - Please follow up with your Primary Care Physician in: in 1-2 weeks Test Results: Test results from this visit will be discussed in further detail at your follow- up appointment, if applicable. Please Follow Up With: David Pino MD When: To call for appointment Proposed Discharge Date: 07/08/20
--- NOTE | 2020-07-08 11:49 | DS.PCM_ITS ---
Discharge Date and Diagnosis - Problem List Patient Problems: Active and Suspected Problems (Last Updated 07/06/20 @ 15:[address] Samuel Fernandez DO) Small bowel obstruction (Acute) Date of Admission: 07/06/20 Date of Discharge: 07/08/20 - Primary Discharge Diagnosis Acute Problems: Active Problems (Last Updated 07/06/20 @ 15:[address] Samuel Fernandez DO) Small bowel obstruction (Acute) - Secondary Discharge Diagnosis Chronic Problems: Chronic Problems (Last Updated 07/06/20 @ 15:[address] Samuel Fernandez DO) Bladder cancer (Chronic) DVT, popliteal, acute (Chronic) CAD (coronary artery disease) (Chronic) Atherosclerosis of coronary artery of [place] heart without angina pectoris (Chronic) Essential (primary) hypertension (Chronic) Hyperlipemia (Chronic) Hospital Course and Treatment Imaging Results: Clinical Impression(s) from Imaging Studies Abdomen/Pelvis CT 07/06/20 12:08 IMPRESSION: 1. Small bowel obstruction. 2. Expected appearance after cystectomy and urinary diversion. Electronically Signed: Carine Kelley, at 15:00 EST Tel , Service support , KUB X-Ray 07/06/20 16:45 IMPRESSION: Gastric tube with tip in the proximal fundus, immediately past the gastric esophageal junction. Consider advancing to place into the gastric antrum. Electronically Signed: Carine Kelley at 17:41 EST Tel , Service support , KUB X-Ray 07/07/20 05:45 IMPRESSION: Dilated loop of small bowel in the upper abdomen compatible with patient's history of small bowel obstruction. Retained fecal material seen within the a sending colon Ureter ostomy tubes and NG tube as discussed at 2240 Reported and signed by: Leonor Lockhart DO Electronically Signed: Leonor Lockhart DO at 22:39 EST Tel , Service support , Consultations 07/06/20 22:32 Consult: Onc/Wound/sleeve maker Routine Comment: Operations: None, - - Robotic cystectomy and formation of an ileal conduit Summary of Care Provided: Patient is a 65-year-old gentleman with history of bladder CA with recent ileal conduit creation presented with abdominal pain imaging studies demonstrated small bowel obstruction 1. Small bowel obstruction ?Admitted to regular nursing floor managed conservatively with bowel rest IV fluids pain medications with consultation placed to general surgery - Patient is a 65-year-old gentleman with history of bladder CA with recent ileal conduit creation presented with abdominal pain imaging studies demonstrated small bowel obstruction -Patient did respond to conservative management discharged home after his small bowel obstruction resolved on soft mechanical diet with plans to advance as tolerated 2. History of bladder cancer ?s/p cystoprostatectomy with ileal conduit, consult placed to urology and wound care consult for ostomy care. 3. Hypertension - Blood pressure controlled, home medications continued with dose adjustment as needed 4. History of coronary artery disease ?History of previous non-STEMI 5. DVT prophylaxis ?[facility] Lovenox Patient Problems: Active and Suspected Problems (Last Updated 07/06/20 @ 15:[address] Samuel Fernandez, DO) Small bowel obstruction (Acute) Objective: GENERAL: cooperative HEENT: Atraumatic; EYES; Anicteric, Normal Conjunctiva NECK; supple, normal thyroid, RESPIRATORY: Diminished to auscultation CARDIOVASCULAR: Regular S1 S2, GI: soft, normoactive bowel sounds, : No Renal angle tenderness; EXTREMITIES: No edema, no clubbing, MUSCULOSKELETAL: no muscle waisting NEURO: Awake; no lateralizing signs. SKIN: No Rash PSYCH; Flat affect - Physical Exam Vitals/I&O's: Vital Signs Temp Pulse Resp BP Pulse Ox 98.1 F 91 16 142/96 H 95 07/08/20 02:20 07/08/20 02:20 07/08/20 02:20 07/08/20 02:20 07/08/20 02:20 Oxygen Delivery Method Room Air Weight: 86.5 kg Body Mass Index (BMI) 25.1 Finger Stick Blood Glucose 126 Intake and Output for Last 24 Hours 07/06/20 07/07/20 07/08/20 23:59 23:59 23:59 Intake Total 2841.85 / 2841.85 3102.5 / 3102.5 1115 / 1115 Output Total 1750 / 1750 2375 / 2375 1125 / 1125 Balance 1091.85 / 1091.85 727.5 / 727.5 -10 / -10 Laboratory Results 07/08/20 05:25: WBC 8.7, RBC 3.37 L, Hgb 9.5 L, Hct 30.6 L, MCV 90.8, MCH 28.2, MCHC 31.0 L, RDW Std Deviation 44.2 H, RDW Coeff of Lidia 13.2, Plt Count 273, MPV 9.6 07/08/20 05:25: Sodium 144, Potassium 3.6, Chloride 116 H, Carbon Dioxide 20.0 L , Anion Gap 8, BUN 21 H, Creatinine 0.96, Estim Creat Clear Calc 85.54, Est GFR (MDRD) Af Amer 101, Est GFR (MDRD) Non-Af 83, BUN/Creatinine Ratio 21.9 H, Glucose 88, Calcium 8.3 L, Magnesium 2.1 Current Medications Acetaminophen (Acetaminophen 325 Mg Tablet) 650 mg PO Q6H PRN PRN PRN Reason: Pain Score 1-10/Temp > 100.7 F Enoxaparin Sodium (Enoxaparin 40 Mg/0.4 Ml Syringe) 40 mg SC DAILY [facility] Last Admin: 07/08/20 08:52 Dose: 40 mg Documented by: Sodium Chloride () 1,000 mls @ 150 mls/hr IV .Q6H40M [facility] Last Admin: 07/08/20 07:06 Dose: 150 mls/hr Documented by: Famotidine 20 mg/ Sodium (Chloride) 10 mls @ 300 mls/hr IV Q12 [facility] Last Infusion: 07/08/20 08:54 Dose: Infused Documented by: Morphine Sulfate (Morphine 4 Mg/Ml Syringe) 4 mg IV Q3H PRN PRN PRN Reason: Pain Score 6-10 Last Admin: 07/08/20 02:27 Dose: 4 mg Documented by: Ondansetron HCl (Ondansetron 4 Mg/2 Ml Vial) 4 mg IV Q8H PRN PRN PRN Reason: NAUSEA/VOMITING Prochlorperazine Edisylate (Prochlorperazine 10 Mg/2 Ml Vial) 5 mg IV Q4H PRN PRN PRN Reason: Breakthrough nausea/vomiting Last Admin: 07/06/20 16:22 Dose: 5 mg Documented by: Sodium Chloride (0.9% Saline Lock 10 Ml Syringe) 10 - 40 ml IV UD PRN PRN Reason: SALINE FLUSH Last Admin: 07/07/20 07:06 Dose: 10 ml Documented by: Throat Lozenges (Benzocaine/Menthol 1 Lozenge) 1 lozenge MUCOUS MEM Q2H PRN PRN PRN Reason: SORE THROAT Last Admin: 07/07/20 22:23 Dose: 1 lozenge Documented by: Discharge Diet: Soft diet Discharge Activity: Return to Normal Activity Home Medications: Medications to take at Discharge Ramipril [Altace] 10 mg PO QHS 08/23/16 hydrochlorothiazide 25 mg tablet 12.5 mg PO DAILY 06/12/19 Enoxaparin Sodium [Lovenox] 100 mg SQ DAILY 06/06/20 Docusate Sodium [Colace] 100 mg PO BID #20 cap 06/24/20 Primary Care Physician: Avril Sorenson MD [Primary Care Provider] - Please follow up with your Primary Care Physician in: in 1-2 weeks Please Follow Up With: David Pino MD When: To call for appointment Disposition: Home Minutes spent on discharge:: 45 Patient Condition:: Stable Medical Necessity - Tobacco Use Smoking Status: Never smoker Tobacco Use: Non-smoker Meaningful Use Info Meaningful Use Diagnoses (Choose all that apply): None applicable Inpatient E&M: 60821 Disch Hosp
--- NOTE | 2020-07-08 14:39 | CASEMGMT ---
TYE CARIAS readmission chart review: Patient initial admission 06/18/20 for Lap robotic cystectomy , open ileo conduit. Patient was discharged home on 06/24/20 with [facility] for urostomy teaching. Patient had follow up appt with [facility] urologist on 07/01/20 and REKHA Sorenson 07/04/20. Patient returned 07/06/20 to [facility] ED for abdominal pain. CT showed SBO and NG tube was placed. TYE CARIAS in to discuss discharge planning with patient. Patient is up independent in the hallways walking. Patient wishes to return home with resumption of HHC with [facility]. Disposition plan: Patient to discharge home with resumption of HHC, family support, and follow-up plans in place.
[2020-07-08] MEDS: Ensure Clear 120 ML Liquid PO ×2 (14:41→17:42)
[2020-07-08 14:45] VITALS: BP 120/74; PULSE 72; RESP 18; TEMP 36.8; O2SAT 95
[2020-07-08 20:45] VITALS: BP 121/81; PULSE 72; RESP 18; TEMP 36.8; O2SAT 99
[2020-07-08] MEDS: Acetaminophen 325 MG Tablet 650 MG PO (21:14)
[2020-07-08] MEDS: Famotidine 20 MG Tablet PO (21:14)
[2020-07-09] MEDS: BENZOCAINE/MENTHOL 1 LOZENGE MUCOUS MEM (00:25)
--- NOTE | 2020-07-09 05:55 | RAD_ITS ---
STUDY: X-RAY - ABDOMEN/PELVIS REASON FOR EXAM: Male, 65 years old patient with small bowel obstruction. TECHNIQUE: Two AP supine views of the abdomen and pelvis. COMPARISON: Radiographs of the abdomen dated 07/08/2020. FINDINGS: Normal visualized lung bases. There is dilated small bowel with maximum transverse dimension of approximately 5.6 cm. Patient has bilateral ureteral stents. There is no obvious organomegaly or mass. Normal soft tissue structures. Normal visualized osseous structures. RAD/Abdomen Single View IMPRESSION: Radiographic findings are consistent with small bowel obstruction Electronically Signed: Nayeli Feliciano MD at 5:44 EST , Service support ,
[2020-07-09 06:08] VITALS: BP 137/93; PULSE 62; RESP 18; TEMP 36.6; O2SAT 100
[2020-07-09 06:53] LABS: Hematocrit 30.2 % (40-54); Hemoglobin 9.3 g/dL (13.0-16.5); Mean Corp Hgb Conc 30.8 g/dL (32-36); Mean Corpuscular Hgb 27.8 pg (27.0-32.0); Mean Corpuscular Volume 90.1 fL (80-94); Mean Platelet Vol. 9.5 fl (6.2-12.0); Platelet Count 268 K/mm3 (150-450); RBC Distribution Width CV 13.1 % (11.6-14.6); RBC Distribution Width SD 43.1 fl (35.1-43.9); Red Blood Count 3.35 M/mm3 (4.6-6.2); White Blood Count 6.3 K/mm3 (4.4-11.0)
[2020-07-09 07:18] LABS: Anion Gap 6 (5-15); BUN 17 mg/dL (7-18); BUN/Creat Ratio 18.1 RATIO (10-20); Calcium,Total 8.5 mg/dL (8.5-10.1); Chloride 117 mmol/L (98-107); Creatinine, Serum 0.94 mg/dL (0.70-1.30); EST Glomerular Filtration Rate 86 mL/min (>60); Est Glom Filt Rate - Afr Amer 104 mL/min (>60); Estimated Creatinine Clearance 87.36 ml/min; Glucose 89 mg/dL (74-106); Potassium 3.6 mmol/L (3.5-5.1); Sodium Level 143 mmol/L (136-145)
--- NOTE | 2020-07-09 07:21 | PCM.PN.BLA ---
Progress Note 65-year-old male status post cystoprostatectomy his abdomen is soft and benign he is passing gas he had bowel movements yesterday KUB today still demonstrates a few loops of small bowel but he does have air also within the colon and he had a bowel movement yesterday is passing flatus. So clinically he is not acting like a small bowel obstruction even on x-ray there is some dilated loops? We can advance his diet to regular diet today we will see how he does. If he can tolerate regular food notes a late today he may be able to go home if he is tolerating regular diet. STROKE Vital Signs/Narrative: Vital Signs Temp Pulse Resp BP Pulse Ox 07/09/20 06:08 97.8 F 62 18 137/93 H 100
[2020-07-09 08:00] VITALS: BP 144/90; PULSE 72; RESP 16; TEMP 36.5; O2SAT 97
[2020-07-09] MEDS: Enoxaparin 40 MG/0.4 ML Syringe SC (08:01)
[2020-07-09] MEDS: Famotidine 20 MG Tablet PO ×2 (08:01→20:51)
--- NOTE | 2020-07-09 08:37 | PCM.PN.HOSP ---
Patient Problems: Active and Suspected Problems (Last Updated 07/06/20 @ 15:[address] Samuel Fernandez, DO) Small bowel obstruction (Acute) Reason for Visit: Small bowel obstruction Subjective: Patient seen admits to having had bowel movement. Repeat imaging studies obtained this morning however demonstrated presence of small bowel obstruction. Objective: GENERAL: cooperative HEENT: Atraumatic; EYES; Anicteric, Normal Conjunctiva NECK; supple, normal thyroid, RESPIRATORY: Diminished to auscultation CARDIOVASCULAR: Regular S1 S2, GI: soft, normoactive bowel sounds, : No Renal angle tenderness; EXTREMITIES: No edema, no clubbing, MUSCULOSKELETAL: no muscle waisting NEURO: Awake; no lateralizing signs. SKIN: No Rash PSYCH; Flat affect Vitals/I&O's: Vital Signs Temp Pulse Resp BP Pulse Ox 97.8 F 62 18 137/93 H 100 07/09/20 06:08 07/09/20 06:08 07/09/20 06:08 07/09/20 06:08 07/09/20 06:08 Oxygen Delivery Method Room Air Weight: 86.5 kg Body Mass Index (BMI) 25.1 Finger Stick Blood Glucose 126 Intake and Output for Last 24 Hours 07/07/20 07/08/20 07/09/20 23:59 23:59 23:59 Intake Total 3102.5 / 3102.5 3780 / 3780 400 / 400 Output Total 2375 / 2375 1875 / 1875 Balance 727.5 / 727.5 1905 / 1905 400 / 400 Laboratory Results 07/09/20 06:32: WBC 6.3, RBC 3.35 L, Hgb 9.3 L, Hct 30.2 L, MCV 90.1, MCH 27.8, MCHC 30.8 L, RDW Std Deviation 43.1, RDW Coeff of Lidia 13.1, Plt Count 268, MPV 9.5 07/09/20 06:32: Sodium 143, Potassium 3.6, Chloride 117 H, Carbon Dioxide 20.0 L, Anion Gap 6, BUN 17, Creatinine 0.94, Estim Creat Clear Calc 87.36, Est GFR (MDRD) Af Amer 104, Est GFR (MDRD) Non-Af 86, BUN/Creatinine Ratio 18.1, Glucose 89, Calcium 8.5 Current Medications Acetaminophen (Acetaminophen 325 Mg Tablet) 650 mg PO Q6H PRN PRN PRN Reason: Pain Score 1-10/Temp > 100.7 F Last Admin: 07/08/20 21:14 Dose: 650 mg Documented by: Enoxaparin Sodium (Enoxaparin 40 Mg/0.4 Ml Syringe) 40 mg SC DAILY [facility] Last Admin: 07/09/20 08:01 Dose: 40 mg Documented by: Famotidine (Famotidine 20 Mg Tablet) 20 mg PO BID [facility] Last Admin: 07/09/20 08:01 Dose: 20 mg Documented by: Morphine Sulfate (Morphine 4 Mg/Ml Syringe) 4 mg IV Q3H PRN PRN PRN Reason: Pain Score 6-10 Last Admin: 07/08/20 02:27 Dose: 4 mg Documented by: Nutritional Formula (Lactose Free) (Ensure Clear 120 Ml Liquid) 120 ml PO 4X/DAY [facility] Last Admin: 07/09/20 08:03 Dose: Not Given Documented by: Ondansetron HCl (Ondansetron 4 Mg/2 Ml Vial) 4 mg IV Q8H PRN PRN PRN Reason: NAUSEA/VOMITING Prochlorperazine Edisylate (Prochlorperazine 10 Mg/2 Ml Vial) 5 mg IV Q4H PRN PRN PRN Reason: Breakthrough nausea/vomiting Last Admin: 07/06/20 16:22 Dose: 5 mg Documented by: Sodium Chloride (0.9% Saline Lock 10 Ml Syringe) 10 - 40 ml IV UD PRN PRN Reason: SALINE FLUSH Last Admin: 07/07/20 07:06 Dose: 10 ml Documented by: Throat Lozenges (Benzocaine/Menthol 1 Lozenge) 1 lozenge MUCOUS MEM Q2H PRN PRN PRN Reason: SORE THROAT Last Admin: 07/09/20 00:25 Dose: 1 lozenge Documented by: STROKE Vital Signs/Narrative: Vital Signs Temp Pulse Resp BP Pulse Ox 07/09/20 06:08 97.8 F 62 18 137/93 H 100 Medical Necessity - Tobacco Use Smoking Status: Never smoker Tobacco Use: Non-smoker Assessment/Plan All Active Problems (Last Updated 07/06/20 @ 15:[address] Samuel Fernandez, DO) Small bowel obstruction (Acute) Pre-operative cardiovascular examination (Acute) Syncope and collapse (Resolved 08/23/16) Nonsustained ventricular tachycardia (Resolved 09/01/07) History of non-ST elevation myocardial infarction (NSTEMI) (Resolved 09/01/07) Patient is a 65-year-old gentleman with history of bladder CA with recent ileal conduit creation presented with abdominal pain imaging studies demonstrated small bowel obstruction 1. Small bowel obstruction ?Admitted to regular nursing floor managed conservatively with bowel rest IV fluids pain medications with consultation placed to general surgery - Patient is a 65-year-old gentleman with history of bladder CA with recent ileal conduit creation presented with abdominal pain imaging studies demonstrated small bowel obstruction ?07/09/2020. Patient is having bowel movement imaging studies however demonstrated presence of small bowel obstruction. Clinically patient small bowel obstruction is resolved surgery recommended discharge however patient urologist felt patient needed to stay for 1 additional day view of the radiographic findings 2. History of bladder cancer ?s/p cystoprostatectomy with ileal conduit, consult placed to urology and wound care consult for ostomy care. 3. Hypertension - Blood pressure controlled, home medications continued with dose adjustment as needed 4. History of coronary artery disease ?History of previous non-STEMI 5. DVT prophylaxis [facility]: 68391 [facility] Hosp L2
[2020-07-09 10:07] LABS: Ferritin 118 ng/mL (26-388); Iron 17 ug/dL (65-175); Iron Binding Capacity,Total 204 ug/dL (250-450); PERCENT IRON SATURATION 8.3 % (15.0-55.0)
[2020-07-09] MEDS: Sodium Ferric Gluconat 250 MG in 0.9% Normal Saline 250 ML 135 MG IV (13:20)
[2020-07-09] MEDS: 0.9% Saline Lock 10 ML Syringe IV (13:21)
[2020-07-09 15:20] VITALS: BP 127/76; PULSE 78; RESP 16; TEMP 36.4; O2SAT 97
--- NOTE | 2020-07-09 15:47 | PN.SURG_ITS ---
Patient Problems: Active and Suspected Problems (Last Updated 07/06/20 @ 15:[address] Samuel Fernandez, DO) Small bowel obstruction (Acute) Subjective: Patient tolerating p.o. Patient has had bowel movements and is passing flatus. Objective: Abdomen is soft nontender. - Physical Exam Vitals/I&O's: Vital Signs Temp Pulse Resp BP Pulse Ox 97.6 F L 78 16 127/76 H 97 07/09/20 15:20 07/09/20 15:20 07/09/20 15:20 07/09/20 15:20 07/09/20 15:20 Oxygen Delivery Method Room Air Weight: 190 lb 11.198 oz Body Mass Index (BMI) 25.1 Finger Stick Blood Glucose 126 Intake and Output for Last 24 Hours 07/07/20 07/08/20 07/09/20 23:59 23:59 23:59 Intake Total 3102.5 / 3102.5 3780 / 3780 850 / 850 Output Total 2375 / 2375 1875 / 1875 Balance 727.5 / 727.5 1905 / 1905 850 / 850 Laboratory Results 07/09/20 06:32: WBC 6.3, RBC 3.35 L, Hgb 9.3 L, Hct 30.2 L, MCV 90.1, MCH 27.8, MCHC 30.8 L, RDW Std Deviation 43.1, RDW Coeff of Lidia 13.1, Plt Count 268, MPV 9.5 07/09/20 06:32: Sodium 143, Potassium 3.6, Chloride 117 H, Carbon Dioxide 20.0 L , Anion Gap 6, BUN 17, Creatinine 0.94, Estim Creat Clear Calc 87.36, Est GFR (MDRD) Af Amer 104, Est GFR (MDRD) Non-Af 86, BUN/Creatinine Ratio 18.1, Glucose 89, Calcium 8.5 07/09/20 06:32: Iron 17 L, TIBC 204 L, Iron Saturation 8.3 L, Ferritin 118 Current Medications Acetaminophen (Acetaminophen 325 Mg Tablet) 650 mg PO Q6H PRN PRN PRN Reason: Pain Score 1-10/Temp > 100.7 F Last Admin: 07/08/20 21:14 Dose: 650 mg Documented by: Enoxaparin Sodium (Enoxaparin 40 Mg/0.4 Ml Syringe) 40 mg SC DAILY [facility] Last Admin: 07/09/20 08:01 Dose: 40 mg Documented by: Famotidine (Famotidine 20 Mg Tablet) 20 mg PO BID [facility] Last Admin: 07/09/20 08:01 Dose: 20 mg Documented by: Morphine Sulfate (Morphine 4 Mg/Ml Syringe) 4 mg IV Q3H PRN PRN PRN Reason: Pain Score 6-10 Last Admin: 07/08/20 02:27 Dose: 4 mg Documented by: Nutritional Formula (Lactose Free) (Ensure Clear 120 Ml Liquid) 120 ml PO 4X/DAY [facility] Last Admin: 07/09/20 13:07 Dose: Not Given Documented by: Ondansetron HCl (Ondansetron 4 Mg/2 Ml Vial) 4 mg IV Q8H PRN PRN PRN Reason: NAUSEA/VOMITING Prochlorperazine Edisylate (Prochlorperazine 10 Mg/2 Ml Vial) 5 mg IV Q4H PRN PRN PRN Reason: Breakthrough nausea/vomiting Last Admin: 07/06/20 16:22 Dose: 5 mg Documented by: Sodium Chloride (0.9% Saline Lock 10 Ml Syringe) 10 - 40 ml IV UD PRN PRN Reason: SALINE FLUSH Last Admin: 07/09/20 13:21 Dose: 10 ml Documented by: Throat Lozenges (Benzocaine/Menthol 1 Lozenge) 1 lozenge MUCOUS MEM Q2H PRN PRN PRN Reason: SORE THROAT Last Admin: 07/09/20 00:25 Dose: 1 lozenge Documented by: Medical Necessity - Tobacco Use Smoking Status: Never smoker Tobacco Use: Non-smoker Assessment/Plan All Active Problems (Last Updated 07/06/20 @ 15:[address] Samuel Fernandez, DO) Small bowel obstruction (Acute) Pre-operative cardiovascular examination (Acute) Syncope and collapse (Resolved 08/23/16) Nonsustained ventricular tachycardia (Resolved 09/01/07) History of non-ST elevation myocardial infarction (NSTEMI) (Resolved 09/01/07) We will go slow on advancing his diet. Should be able to be discharged tomorrow.
[2020-07-09 20:48] VITALS: BP 147/102; PULSE 75; RESP 18; TEMP 37.2; O2SAT 97
[2020-07-09] MEDS: Ramipril 10 MG Capsule PO (22:57)
[2020-07-10 02:43] VITALS: BP 141/98; PULSE 64; RESP 18; TEMP 36.6; O2SAT 96
[2020-07-10 06:02] LABS: Hematocrit 27.9 % (40-54); Hemoglobin 8.8 g/dL (13.0-16.5); Mean Corp Hgb Conc 31.5 g/dL (32-36); Mean Corpuscular Volume 88.9 fL (80-94); Mean Platelet Vol. 9.5 fl (6.2-12.0); Platelet Count 260 K/mm3 (150-450); RBC Distribution Width SD 42.2 fl (35.1-43.9); Red Blood Count 3.14 M/mm3 (4.6-6.2); White Blood Count 5.3 K/mm3 (4.4-11.0)
[2020-07-10 06:40] LABS: Anion Gap 7 (5-15); BUN 12 mg/dL (7-18); Calcium,Total 8.5 mg/dL (8.5-10.1); Chloride 114 mmol/L (98-107); Creatinine, Serum 0.92 mg/dL (0.70-1.30); EST Glomerular Filtration Rate 87 mL/min (>60); Est Glom Filt Rate - Afr Amer 106 mL/min (>60); Estimated Creatinine Clearance 89.26 ml/min; Glucose 93 mg/dL (74-106); Potassium 3.5 mmol/L (3.5-5.1); Sodium Level 142 mmol/L (136-145)
[2020-07-10 07:45] VITALS: BP 154/90; PULSE 72; RESP 16; TEMP 36.6; O2SAT 98
[2020-07-10 07:53] LABS: Vitamin B12 416 pg/mL (211-911)
[2020-07-10] MEDS: Famotidine 20 MG Tablet PO (08:48)
[2020-07-10] MEDS: Enoxaparin 40 MG/0.4 ML Syringe SC (08:48)
[2020-07-10] MEDS: 0.9% Saline Lock 10 ML Syringe IV (08:49)
--- NOTE | 2020-07-10 09:47 | NURSING ---
Ostomy appliance changed without difficulty. pt has been up ambulating in halls. should be able to discharge later today.
--- NOTE | 2020-07-10 11:21 | PCM.DC ---
- Discharge Diagnoses Current Active Problems: Current Active and Chronic Problems (Last Updated 07/06/20 @ 15:[address] Samuel Fernandez, DO) Bladder cancer (Chronic) DVT, popliteal, acute (Chronic) Small bowel obstruction (Acute) CAD (coronary artery disease) (Chronic) Atherosclerosis of coronary artery of [place] heart without angina pectoris (Chronic) Essential (primary) hypertension (Chronic) Hyperlipemia (Chronic) You will use the following diet at home:: Regular Your food should be the consistency of: Mechanical soft (ground), Soft (bite-sized & easy to chew/swallow) Discharge Activity: Return to Normal Activity Allergies/Adverse Reactions: Allergies No Known Allergies Allergy (Verified 06/06/20 14:05) Medications to take at Discharge Ramipril [Altace] 10 mg PO QHS 08/23/16 Enoxaparin Sodium [Lovenox] 100 mg SQ DAILY 06/06/20 Docusate Sodium [Colace] 100 mg PO BID #120 cap 07/10/20 Iron Poly/Vit C [Niferex-150] 150 mg PO DAILYCM #60 cap 07/10/20 The following prescriptions were given: Docusate Sodium [Colace] 100 mg PO BID #120 cap Transmission Status: Pending to [id number] Iron Poly/Vit C [Niferex-150] 150 mg PO DAILYCM #60 cap Transmission Status: Pending to [id number] Primary Care Physician: Avril Sorenson MD [Primary Care Provider] - Please follow up with your Primary Care Physician in: in 1-2 weeks Test Results: Test results from this visit will be discussed in further detail at your follow-up appointment, if applicable. Please Follow Up With: David Pino MD When: To call for appointment Proposed Discharge Date: 07/10/20
[2020-07-10 11:30] VITALS: BP 127/80; PULSE 75; RESP 16; TEMP 36.8; O2SAT 98
--- NOTE | 2020-07-11 16:02 | CASEMGMT ---
TYE CM DC CALL DC Date: 07/10/2020 DC Disposition: Home DC Diagnosis: SBO Intro role of CM to patient via phone. Pt had concerns re: being readmitted with SBO. He felt it would have benefitted him to have been told prior to discharge to have milder, softer diet and perhaps he would not have had a bowel obstruction. Pt states he is following softer, small bite diet and tolerating. He walked a half hour today without difficulty. He needs to make f/u appointments and states he does not need assistance with this. No further concerns and no questions. Eagle SCHILLINGN RN ACM
== END 2020-07-10 11:41 | disposition home or self-care (01) | DRG 390 ==
LOC: ED 15:10 → MS3 15:27
PROVIDERS: Emergency Provider Emergency Medicine; PCP Family Medicine; Visit Provider Internal Medicine
DX: K91.31 Postprocedural partial intestinal obstruction (principal); I25.10 Atherosclerotic heart disease of native coronary artery without angina pectoris; I10 Essential (primary) hypertension; E78.5 Hyperlipidemia, unspecified; E86.9 Volume depletion, unspecified; D50.9 Iron deficiency anemia, unspecified; M62.830 Muscle spasm of back; Y83.6 Removal of other organ (partial) (total) as the cause of abnormal reaction of the patient, or of later complication, without mention of misadventure at the time of the procedure; Y92.9 Unspecified place or not applicable; Z79.899 Other long term (current) drug therapy; I25.2 Old myocardial infarction; Z86.718 Personal history of other venous thrombosis and embolism; Z85.51 Personal history of malignant neoplasm of bladder; Z90.79 Acquired absence of other genital organ(s)
CPT/HCPCS: 36415; 74018; 74177; 80048; 80053; 80076; 81001; 82607; 82728; 83540; 83550; 83605; 83690; 83735; 85025; 85027; 97802; 97803; 99285; J7030; J7050; Q9967; A4216; J2405; J2916; J3490

== ENCOUNTER → 2020-07-16 10:35 | Outpatient (CLI) | payer MEDICARE, OTHER, SELFPAY ==
[2020-07-15 13:07] VITALS: BMI 24.3
[2020-07-16 12:35] LABS: Absolute Lymphocyte Count 0.93 X10^3/uL (0.83-4.51); Basophil# 0.03 X10^3/uL; Basophil% 0.4 % (0-1); Eosinophil# 0.46 X10^3/uL; Eosinophils% 5.8 % (0-5); Hematocrit 37.2 % (40-54); Hemoglobin 11.4 g/dL (13.0-16.5); Lymphocyte # 0.93 X10^3/ul (4.0); Lymphocyte % 11.8 % (19-41); Mean Corp Hgb Conc 30.6 g/dL (32-36); Mean Corpuscular Hgb 27.5 pg (27.0-32.0); Mean Corpuscular Volume 89.6 fL (80-94); Mean Platelet Vol. 9.8 fl (6.2-12.0); Monocyte% 5.1 % (0-10); NRBC Flagged by Analyzer 0 % (0-5); Neutrophil # 6.01 X10^3/uL (2.7-7.7); Neutrophil % 76.4 % (47-70); Platelet Count 395 K/mm3 (150-450); RBC Distribution Width CV 13.9 % (11.6-14.6); RBC Distribution Width SD 45.2 fl (35.1-43.9); Red Blood Count 4.15 M/mm3 (4.6-6.2); White Blood Count 7.9 K/mm3 (4.4-11.0)
== END ==
PROVIDERS: PCP Family Medicine; Referring Provider Family Medicine; Visit Provider Family Medicine
DX: D64.9 Anemia, unspecified (principal)
CPT/HCPCS: 36415; 85025

== ENCOUNTER → 2020-07-22 08:58 | Outpatient (CLI) | payer MEDICARE, OTHER, SELFPAY ==
[2020-06-11 15:04] VITALS: BMI 26.0
[2020-07-15 13:07] VITALS: BMI 24.3
--- NOTE | 2020-07-22 08:59 | VDLE_ITS ---
Reason For Study: HX OF DVT RIGHT LEFT GSV is normal. GSV is normal. CFV is compressible, spontaneous, phasic, CFV is compressible, spontaneous, phasic, competent and demonstrates normal competent, and demonstrates normal augmentation. augmentation. FV is compressible, spontaneous, phasic, FV is compressible, spontaneous, phasic, competent and demonstrates normal competent and demonstrates normal augmentation. augmentation. POP V, T/P TRUNK, GASTROCNEMIUS V, SOLEUS V, POP V is compressible, spontaneous, phasic, PTV, PERVare dilated and noncompressible. competent and demonstrates normal augmentation. SSV is compressible. T/P Trunk is compressible. Procedure PROX & DISTAL PTV are compressible. This is a venous duplex using B-mode, color flow and spectral Doppler. MID PTV & GASTROCNEMIUS V are DILATED AND Exam performed in department. NONCMPRESSIBLE. A preliminary report was called and/or faxed to DR SHEPPARD @ [phone]. Interpretation Summary Deep venous thrombosis right popliteal, tibioperoneal trunk, gastrocnemius, soleus, posterior tibial, and peroneal veins. Patent and compressible right great and small saphenous vein Deep venous thrombosis left mid posterior tibial vein and gastrocnemius vein. Patent and compressible left great saphenous vein Refer to previous examination of June 17, 2020 demonstrating bilateral lower extremity deep vein thrombosis Ordering Physician: Lit Sheppard Referring Physician: Lit Sheppard Performed By: Heike Doherty, GRABIEL, RVT
== END ==
PROVIDERS: PCP Family Medicine; Referring Provider Internal Medicine Medical Oncology; Visit Provider Internal Medicine Medical Oncology
DX: I82.431 Acute embolism and thrombosis of right popliteal vein (principal)
CPT/HCPCS: 93970

== ENCOUNTER 2020-07-25 14:16 | Inpatient (IN) | payer MEDICARE, OTHER, SELFPAY ==
[2020-07-15 13:07] VITALS: BMI 24.3
[2020-07-25] VITALS (7 sets, daily range): BP systolic 137–173; BP diastolic 92–100; PULSE 80–95; RESP 16–24; TEMP 36.2–37.1; O2SAT 97–100; BMI 24.4; BMI 24.3
--- NOTE | 2020-07-25 15:11 | CT_ITS ---
STUDY: CT ABDOMEN AND PELVIS WITH CONTRAST REASON FOR EXAM: Male, 65 years old. Bowel obstruction 2 weeks ago, pain with nausea/vomiting today. Prior cystoprostatectomy with bilateral ureteral stents. RADIATION DOSAGE (If Supplied By Facility): CTDIvol = ( 10.68 ) mGy, DLP = ( 772.46 ) mGycm TECHNIQUE: Transaxial images were obtained from the dome of the diaphragm to the symphysis pubis without oral contrast. IV 100mL Isovue-300 was administered. Sagittal and coronal images were reconstructed. Individualized dose optimization techniques were used for this CT. COMPARISON: 07/06/2020 FINDINGS: The visualized lung bases are unremarkable. The visualized portions of the heart are within normal limits. Small amount of ascites surrounding the liver. Normal liver. Normal gallbladder and extrahepatic biliary system. Normal spleen. Normal pancreas. Normal bilateral adrenal glands. Small bilateral renal cysts. Bilateral ureteral stents into the right lower quadrant ileal conduit with mild hydronephrosis bilaterally. However, no ureteral dilatation. Normal visualized stomach. There is a moderately dilated fluid-filled loop of small bowel in the right side of the pelvis. Normal colon. There is non-visualization of the appendix. Normal abdominal aorta. Normal inferior vena cava. Normal retroperitoneum. Normal urinary bladder. Normal abdominal wall. Normal osseous structures. CT/Abdomen/Pelvis W IV Cont ONLY IMPRESSION: Moderately dilated fluid-filled loop of small bowel in the right side of the pelvis. Electronically Signed: Gary Ortiz MD at 17:07 EST Tel , Service support ,
--- NOTE | 2020-07-25 15:13 | ED.DCSUM_ITS ---
- ER Visit Summary Date of Service: 07/25/20 Chief Complaint: Abdominal pain History of Present Illness: The patient is a 65 M 3 of bladder cancer with bladder resection, urostomy, recent small bowel obstruction 2 weeks ago for which she was admitted and DVT for which he just finished Lovenox for. Patient states he started have abdominal pain again today at noon. He denies any fever or chills. He did throw up today at home. Physical Examination: Older male vital signs stable afebrile. H EENT exam unremarkable. Neck nontender. Lungs clear to auscultation bilaterally. Heart regular rhythm no murmur. Abdomen soft diffusely tender. Urostomy bag with yellow urine in it. He is diffusely tender in his abdomen. He does have bowel sounds. Patient is moving all 4 extremities. Currently calves are nontender without edema. Neurologically is awake and alert. Test Results: White count of 13.4. Hemoglobin 12. Chemistries showed a chloride of 110. Gap of 15 creatinine 1.38 previously was 0.9. Liver enzymes normal. Lipase 289. CAT scan abdomen pelvis with IV contrast shows dilated loops of small bowel consistent with small bowel obstruction. Emergency Department Course and Treatment: Older male with a recent bowel obstruction. Prior abdominal surgery for bladder resection and urostomy. Concern is for bowel obstruction. Treated with IV morphine, Zofran and IV fluids. CAT scan and labs pending. Repeat exam patient received a second dose of morphine 8 mg IV. Treatment Plan: Hospitalist is being consulted as is Dr. Paradise Mckoy for general surgery. Disposition: Admit Impression: Acute abdominal pain small bowel obstruction History of bladder CA with resection History of prior bowel obstruction History of recent DVT This note was generated with [employer] dictation software. It may contain incorrect words, spelling, and punctuation that were not noted in review of the chart prior to signing ED Disposition - Plan for ED Patient: Referrals: Avril Sorenson MD [Primary Care Provider] -
[2020-07-25 15:28] LABS: Absolute Lymphocyte Count 0.78 X10^3/uL (0.83-4.51); Basophil# 0.04 X10^3/uL; Basophil% 0.3 % (0-1); Eosinophil# 0.06 X10^3/uL; Eosinophils% 0.4 % (0-5); Hematocrit 39.1 % (40-54); Hemoglobin 12.7 g/dL (13.0-16.5); Lymphocyte # 0.78 X10^3/ul (4.0); Lymphocyte % 5.8 % (19-41); Mean Corp Hgb Conc 32.5 g/dL (32-36); Mean Corpuscular Hgb 28.2 pg (27.0-32.0); Mean Corpuscular Volume 86.9 fL (80-94); Mean Platelet Vol. 9.8 fl (6.2-12.0); Monocyte# 0.44 X10^3/uL; Monocyte% 3.3 % (0-10); NRBC Flagged by Analyzer 0 % (0-5); Neutrophil # 11.98 X10^3/uL (2.7-7.7); Neutrophil % 89.8 % (47-70); Platelet Count 334 K/mm3 (150-450); RBC Distribution Width CV 14.2 % (11.6-14.6); RBC Distribution Width SD 44.9 fl (35.1-43.9); White Blood Count 13.4 K/mm3 (4.4-11.0)
[2020-07-25] MEDS: 0.9% Normal Saline 1,000 ML 1000 ML IV (15:28)
[2020-07-25] MEDS: morphine 8 MG/ML Syringe IV ×2 (15:29→16:05)
[2020-07-25] MEDS: Ondansetron 4 MG/2 ML Vial IV (15:29)
[2020-07-25 15:45] LABS: ALB/GLOB Ratio 0.8 RATIO (0.9-2.4); AST(SGOT) 16 U/L (15-37); Alanine Aminotransfer ALT/SGPT 27 U/L (16-61); Albumin, Serum 3.9 g/dL (3.2-5.0); Alkaline Phosphatase 74 U/L (45-117); Anion Gap 15 (5-15); BUN 28 mg/dL (7-18); BUN/Creat Ratio 20.3 RATIO (10-20); Calcium,Total 10.1 mg/dL (8.5-10.1); Chloride 110 mmol/L (98-107); Creatinine, Serum 1.38 mg/dL (0.70-1.30); EST Glomerular Filtration Rate 55 mL/min (>60); Est Glom Filt Rate - Afr Amer 66 mL/min (>60); Estimated Creatinine Clearance 59.51 ml/min; Globulin 4.8 g/dL (2.2-4.2); Glucose 134 mg/dL (74-106); Lipase 289 U/L (73-393); Potassium 3.5 mmol/L (3.5-5.1); Protein, Total 8.7 g/dL (6.4-8.2); Sodium Level 143 mmol/L (136-145)
[2020-07-25] MEDS: morphine 8 MG/ML Syringe 6 MG IV (17:11)
[2020-07-25] MEDS: morphine 10 MG/ML Syringe 6 MG IV (17:44)
[2020-07-25] MEDS: 0.9% Normal Saline 1,000 ML 175 ML IV (20:31)
--- NOTE | 2020-07-25 20:42 | HP.PCM_ITS ---
Problem List (1) Abdominal pain Status: Acute Qualifiers: Abdominal location: generalized Qualified Code(s): R10.84 - Generalized abdominal pain (2) Nausea and vomiting Status: Acute Qualifiers: Vomiting type: unspecified Vomiting Intractability: non-intractable Qualified Code(s): R11.2 - Nausea with vomiting, unspecified History of Present Illness Date of Admission: 07/25/20 Chief Complaint: Generalized abdominal pain, nausea and vomiting The patient is a 65 year old M seen in the emergency room at [facility] with chief complaint of generalized abdominal pain that started today along with nausea and vomiting. Patient had recently been hospitalized at [facility] for small bowel obstruction-he did not require surgery, he was discharged on 09/09/2019. Work-up in the emergency room included a CBC which showed a white count of 13.4, chemistry profile showed a creatinine of 1.38, BUN of 28, and his lipase was 289. Patient had a CT of the abdomen and pelvis-it showed moderately dilated fluid-filled loops of small bowel in the right side of the pelvis. Patient was given morphine and Zofran along with IV fluids in the emergency room. He will be admitted to [place] [id number] for small bowel obstruction, he will be seen in consultation by general surgery, he will receive IV fluids and IV pain medications. Past Medical History Past Medical History (Chronic Problems): Chronic Problems (Last Updated 07/25/20 @ 20:[address] Greg Iglesias, ) Bladder cancer (Chronic) CAD (coronary artery disease) (Chronic) Atherosclerosis of coronary artery of [place] heart without angina pectoris (Chronic) Essential (primary) hypertension (Chronic) Hyperlipemia (Chronic) Medical History: Medical History (Last Updated 07/25/20 @ 20:[address] Greg Iglesias, ) Pre-operative cardiovascular examination (Resolved) Z01.810 Atherosclerosis of coronary artery of [place] heart without angina pectoris (Chronic) I25.10 Essential (primary) hypertension (Chronic) I10 Hyperlipemia (Chronic) E78.5 Syncope and collapse (Resolved) Onset Date: 08/23/16 R55 Nonsustained ventricular tachycardia (Resolved) Onset Date: 09/01/07 I47.2 History of non-ST elevation myocardial infarction (NSTEMI) (Resolved) Onset Date: 09/01/07 I25.2 Bladder cancer C67.9 Deep venous thrombosis of right popliteal vein I82.431 Erectile dysfunction N52.9 Gout M10.9 Hemorrhoids K64.9 Allergies No Known Allergies Allergy (Verified 07/25/20 14:17) Home Medications: Ambulatory Orders Medication Instructions Recorded Enoxaparin Sodium [Lovenox] 100 mg SQ DAILY 06/06/20 Docusate Sodium [Colace] 100 mg PO BID #120 cap 07/10/20 Iron Poly/Vit C [Niferex-150] 150 mg PO DAILYCM #60 cap 07/10/20 Surgical History: Surgical History (Last Reviewed 07/15/20 @ 13:05 by Leigha Escobedo) S/P ileal conduit Z93.6 Status post radical cystoprostatectomy Z90.79, Z90.6 History of left heart catheterization Onset Date: 08/2007 Z98.890 Surgical History: - - Bladder resection, urostomy, prostate resection Psychiatric History: No pertinent psych hx Lives: Spouse/ Significant Other Smoking Status: Never smoker Tobacco Use: Non-smoker Alcohol: None Drugs: None - *Family History Paternal Family History: Family History (Last Reviewed 07/15/20 @ 13:05 by Leigha Escobedo) Mother Hypertension Cancer Father Hypertension History Items: Hypertension Maternal Family History: Family History (Last Reviewed 07/15/20 @ 13:05 by Leigha Escobedo) Mother Hypertension Cancer Father Hypertension History Items: Cancer - Lung cancer, Hypertension Review of Systems Constitutional: Denies: Anorexia - Bilateral, Chills, Fever, Night Sweats, Malaise, Weakness, Weight Change, Fatigue Eyes: Denies: Cataracts, Conjunctivae Inflammation, Double vision, Drainage HEENT: Denies: Dysphasia, Ear Pain, Eye Pain, Hearing Changes, Nasal bleeding, Nasal Congestion, Post Nasal Drip Cardiovascular: Denies: Chest Pain, Claudication, Chest Pressure, Chest Tightness, Edema, Heaviness, Palpitations Respiratory: Denies: Cough, Hemoptysis, Pleuritic Pain, Shortness of Breath, Shortness of breath at rest, Shortness of breath upon exertion, Sputum production Gastrointestinal: Reports: Abdominal Pain, Nausea, Vomiting. Denies: Constipation, Diarrhea, Hematemesis, Hematochezia, Melena Genitourinary: Denies: Dysuria, Frequency, Hematuria, Hesitancy, Urgency Musculoskeletal: Denies: Back Pain, Foot Pain, Hand Pain, Joint Pain, Joint stiffness, Joint swelling, Joint Tenderness, Leg Pain Skin: Denies: Dryness, Pruritis, Rash Neurological: Denies: Blurred vision, Double vision, Change in Speech, Slurred speech, Difficulty swallowing, Focal weakness, Incoordination, Numbness, Tingling Psychiatric: Denies: Anxiety, Depression, Homicidal Ideations, Suicidal Ideations Endocrine: Denies: Change in Body Habitus, Heat/ Cold Intolerance, Polydipsia, Polyuria Hematologic/ Lymphatic: Reports: Hx of blood clot - History of bilateral DVT May 2020, repeat duplex in July 2020 shows presence of continued right VTE. Denies: Adenopathy, Anemia, Easy Bruising, Easy Bleeding, Petechiae, Purpura VTE Information - Inpt Only VTE Present on Admission: No VTE Mechan Device Prophylaxis: None VTE Pharm Prophylaxis ordered?: No Reason prophylaxis not ordered:: Treatment Not Indicated - Patient has VTE of the right leg Patient Problems: Active and Suspected Problems (Last Updated 07/25/20 @ 20:[address] Greg Iglesias, DO) Abdominal pain (Acute) Nausea and vomiting (Acute) - Physical Exam Vitals/I&O's: Vital Signs Temp Pulse Resp BP Pulse Ox 98.6 F 85 18 150/94 H 100 07/25/20 18:12 07/25/20 18:12 07/25/20 18:12 07/25/20 18:12 07/25/20 18:12 Oxygen Delivery Method Room Air Weight: 83.574 kg Body Mass Index (BMI) 24.3 Finger Stick Blood Glucose 126 Intake and Output for Last 24 Hours 07/23/20 07/24/20 07/25/20 23:59 23:59 23:59 Intake Total 1000 / 1000 Balance 1000 / 1000 General: Alert, Oriented x3, Cooperative, No apparent distress, Well developed, Well nourished HEENT: Atraumatic, PERRLA, EOMI, Normocephalic Oral: Moist Mucosa Neck: Supple, No JVD, Negative Carotid Bruits, Trachea Midline, Thyroid Normal Size and Texture Lungs: Clear to auscultation, Normal air movement, No rhonchi, No wheeze, No rales Cardiovascular: Regular rate, Regular Rhythm, Normal S1, Normal S2, No murmurs, PMI Normal, No rub noted, No Gallop Abdomen: Non-Distended, Hypoactive Bowel Sounds, Tender - Diffuse abdominal tenderness is noted across the abdomen to palpation, - - Ileostomy is present Extremities: No clubbing, No cyanosis, No edema, Capillary Refill Less than 3 Seconds Skin: No rashes, No breakdown Musculoskeletal: No Tenderness to Palpation of Joints or Extremities Neurological: Cranial nerves II-XII grossly intact, Neuro grossly intact Psych/Mental Status: Normal Affect, Appropriate, Alert and oriented to time, place, person, mood and affect Laboratory Results 07/25/20 05:20: WBC 13.4 H, RBC 4.50 L, Hgb 12.7 L, Hct 39.1 L, MCV 86.9, MCH 28.2, MCHC 32.5, RDW Std Deviation 44.9 H, RDW Coeff of Lidia 14.2, Plt Count 334, MPV 9.8, Immature Gran % (Auto) 0.400, Neut % (Auto) 89.8 H, Lymph % (Auto) 5.8 L, Jenkins % (Auto) 3.3, Eos % (Auto) 0.4, Baso % (Auto) 0.3, Absolute Neuts (auto) 12.0 H, Absolute Lymphs (auto) 0.78 L, Nucleated RBC % 0 07/25/20 15:20: Sodium 143, Potassium 3.5, Chloride 110 H, Carbon Dioxide 18.0 L , Anion Gap 15, BUN 28 H, Creatinine 1.38 H, Estim Creat Clear Calc 59.51, Est GFR (MDRD) Af Amer 66, Est GFR (MDRD) Non-Af 55 L, BUN/Creatinine Ratio 20.3 H, Glucose 134 H, Calcium 10.1, Total Bilirubin 0.50, AST 16, ALT 27, Alkaline Phosphatase 74, Total Protein 8.7 H, Albumin 3.9, Globulin 4.8 H, Albumin/Globulin Ratio 0.8 L, Lipase 289 Current Medications Enoxaparin Sodium (Enoxaparin 40 Mg/0.4 Ml Syringe) 40 mg SC DAILY [facility] Sodium Chloride () 1,000 mls @ 175 mls/hr IV .[id number] [facility] Last Admin: 07/25/20 20:31 Dose: 175 mls/hr Documented by: Morphine Sulfate (Morphine 4 Mg/Ml Syringe) 4 mg IV Q3H PRN PRN PRN Reason: Pain Score 6-10 Ondansetron HCl (Ondansetron 4 Mg/2 Ml Vial) 4 mg IV Q8H PRN PRN PRN Reason: NAUSEA/VOMITING Assessment/Plan All Active Problems (Last Updated 07/25/20 @ 20:[address] Greg Iglesias, DO) DVT, popliteal, acute (Acute) Small bowel obstruction (Acute) Prostate cancer (Resolved) Abdominal pain (Acute) Nausea and vomiting (Acute) Pre-operative cardiovascular examination (Resolved) Syncope and collapse (Resolved 08/23/16) Nonsustained ventricular tachycardia (Resolved 09/01/07) History of non-ST elevation myocardial infarction (NSTEMI) (Resolved 09/01/07) #1 acute small bowel obstruction-patient will be admitted to [facility], he will be given IV fluids, he will be n.p.o., he will be seen by general surgery in consultation. #2 VTE right leg-patient will need to remain on Lovenox or another anticoagulant, his latest study dated 07/22/2020 shows continued DVT in the right leg. #3 recent history of bladder cancer 05/2020 with complete bladder resection and prostate resection and the formation of an ileal conduit. #4 history of essential hypertension-patient is not currently on any medications Inpatient E&M: 38340 Init Hosp L3
[2020-07-25] MEDS: Enoxaparin 100 MG/ML Syringe 90 MG SC (23:23)
[2020-07-25] MEDS: Morphine 4 MG/ML Syringe IV (23:34)
[2020-07-26] MEDS: 0.9% Normal Saline 1,000 ML 175 ML IV ×4 (02:18→23:26)
[2020-07-26] MEDS: Morphine 4 MG/ML Syringe IV (02:43)
[2020-07-26] MEDS: Ondansetron 4 MG/2 ML Vial IV ×2 (02:47→20:20)
[2020-07-26 03:46] VITALS: BP 159/89; PULSE 82; RESP 18; TEMP 37.3; O2SAT 93
[2020-07-26] MEDS: HYDROmorphone 0.5 MG/0.5 ML SYRINGE IV (04:12)
[2020-07-26 07:14] LABS: Absolute Lymphocyte Count 0.18 X10^3/uL (0.83-4.51); Absolute Neutrophil Count 10.4 X10^3/uL (2.0-7.7); Basophil# 0.02 X10^3/uL; Basophil% 0.2 % (0-1); Eosinophil# 0.01 X10^3/uL; Eosinophils% 0.1 % (0-5); Hematocrit 36.8 % (40-54); Hemoglobin 11.6 g/dL (13.0-16.5); Lymphocyte # 0.18 X10^3/ul (4.0); Lymphocyte % 1.6 % (19-41); Mean Corp Hgb Conc 31.5 g/dL (32-36); Mean Corpuscular Hgb 27.6 pg (27.0-32.0); Mean Corpuscular Volume 87.6 fL (80-94); Mean Platelet Vol. 9.6 fl (6.2-12.0); Monocyte# 0.46 X10^3/uL; Monocyte% 4.1 % (0-10); NRBC Flagged by Analyzer 0 % (0-5); Neutrophil # 10.43 X10^3/uL (2.7-7.7); Neutrophil % 93.6 % (47-70); POSITIVE DIFFERENTIAL YES; Platelet Count 228 K/mm3 (150-450); RBC Distribution Width CV 14.6 % (11.6-14.6); RBC Distribution Width SD 47.2 fl (35.1-43.9); White Blood Count 11.2 K/mm3 (4.4-11.0)
[2020-07-26 07:18] LABS: Differential Indicated SCAN CRITERIA MET
[2020-07-26 07:36] LABS: Differential Comment SCANNED
--- NOTE | 2020-07-26 08:05 | PCM.CONS.GEN ---
Reason for Consult Date of Consultation: 07/26/20 History of Present Illness: The patient is a 65 year old M male presented to the ER due to abdominal pain nausea and vomiting starting yesterday. Patient states around noon he ate something that did not seem to agree with them he did have nausea and vomiting and also increased abdominal pain started periumbilical and then more towards the right side of the abdomen. Patient states his pain has improved significantly and does not really have any pain this morning. Patient still has not passed any flatus or had any bowel movements since yesterday. Patient states he normally has bowel movement every other day or daily. Patient currently denies any nausea or vomiting. Patient did recently just have a ileal conduit placed the end of May due to bladder cancer. He did have an episode of partial small bowel obstruction which he was admitted for mid June - resolved with NG/conservative management. Patient CT abdomen pelvis on admit does show some mildly dilated small bowel loops in the right abdomen however the stomach is not distended. Past Medical History Past Medical History (Chronic Problems): Chronic Problems (Last Updated 07/25/20 @ 20:[address] Greg Iglesias, ) Bladder cancer (Chronic) CAD (coronary artery disease) (Chronic) Atherosclerosis of coronary artery of [place] heart without angina pectoris (Chronic) Essential (primary) hypertension (Chronic) Hyperlipemia (Chronic) Medical History: Medical History (Last Updated 07/25/20 @ 20:[address] Greg Iglesias, ) Pre-operative cardiovascular examination (Resolved) Z01.810 Atherosclerosis of coronary artery of [place] heart without angina pectoris (Chronic) I25.10 Essential (primary) hypertension (Chronic) I10 Hyperlipemia (Chronic) E78.5 Syncope and collapse (Resolved) Onset Date: 08/23/16 R55 Nonsustained ventricular tachycardia (Resolved) Onset Date: 09/01/07 I47.2 History of non-ST elevation myocardial infarction (NSTEMI) (Resolved) Onset Date: 09/01/07 I25.2 Bladder cancer C67.9 Deep venous thrombosis of right popliteal vein I82.431 Erectile dysfunction N52.9 Gout M10.9 Hemorrhoids K64.9 Allergies No Known Allergies Allergy (Verified 07/25/20 14:17) Home Medications: Ambulatory Orders Medication Instructions Recorded Enoxaparin Sodium [Lovenox] 40 mg SQ DAILY 06/06/20 Docusate Sodium [Colace] 100 mg PO BID #120 cap 07/10/20 Iron Poly/Vit C [Niferex-150] 150 mg PO DAILYCM #60 cap 07/10/20 Surgical History: Surgical History (Last Reviewed 07/15/20 @ 13:05 by Leigha Escobedo) S/P ileal conduit Z93.6 Status post radical cystoprostatectomy Z90.79, Z90.6 History of left heart catheterization Onset Date: 08/2007 Z98.890 Surgical History: - - Bladder resection, urostomy, prostate resection Psychiatric History: No pertinent psych hx Lives: Spouse/ Significant Other Smoking Status: Never smoker Tobacco Use: Non-smoker Alcohol: None Drugs: None - *Family History Paternal Family History: Family History (Last Reviewed 07/15/20 @ 13:05 by Leigha Escobedo) Mother Hypertension Cancer Father Hypertension History Items: Hypertension Maternal Family History: Family History (Last Reviewed 07/15/20 @ 13:05 by Leigha Escobedo) Mother Hypertension Cancer Father Hypertension History Items: Cancer - Lung cancer, Hypertension Review of Systems Constitutional: Denies: Anorexia Eyes: Denies: Blurred vision HEENT: Denies: Difficulty Swallowing Cardiovascular: Denies: Chest Pain Respiratory: Denies: Cough Gastrointestinal: Reports: Abdominal Pain, Constipation, Nausea, Vomiting Neurological: Denies: Balance problems Psychiatric: Denies: Depression Hematologic/ Lymphatic: Reports: Hx of blood clot. Denies: Anemia Patient Problems: Active and Suspected Problems (Last Updated 07/25/20 @ 20:[address] Greg Iglesias, DO) Abdominal pain (Acute) Nausea and vomiting (Acute) - Physical Exam Vitals/I&O's: Vital Signs Temp Pulse Resp BP Pulse Ox 99.1 F 82 18 159/89 H 93 07/26/20 03:46 07/26/20 03:46 07/26/20 03:46 07/26/20 03:46 07/26/20 03:46 Oxygen Delivery Method Room Air Weight: 184 lb 4 oz Body Mass Index (BMI) 24.3 Finger Stick Blood Glucose 126 Intake and Output for Last 24 Hours 07/24/20 07/25/20 07/26/20 23:59 23:59 23:59 Intake Total 1000 / 1000 / Output Total 500 / 500 550 / 550 Balance 500 / 500 1438.75 / 1438.75 General: Alert, Oriented x3, Cooperative, No apparent distress HEENT: Atraumatic Lungs: Normal air movement Cardiovascular: Regular rate Abdomen: Soft, Non Tender, Non-Distended, - - Ileal conduit pink Extremities: No clubbing, No cyanosis, No edema Neurological: Cranial nerves II-XII grossly intact Psych/Mental Status: Normal Affect Laboratory Results 07/25/20 05:20: WBC 13.4 H, RBC 4.50 L, Hgb 12.7 L, Hct 39.1 L, MCV 86.9, MCH 28.2, MCHC 32.5, RDW Std Deviation 44.9 H, RDW Coeff of Lidia 14.2, Plt Count 334, MPV 9.8, Immature Gran % (Auto) 0.400, Neut % (Auto) 89.8 H, Lymph % (Auto) 5.8 L, [place] % (Auto) 3.3, Eos % (Auto) 0.4, Baso % (Auto) 0.3, Absolute Neuts (auto) 12.0 H, Absolute Lymphs (auto) 0.78 L, Nucleated RBC % 0 07/25/20 15:20: Sodium 143, Potassium 3.5, Chloride 110 H, Carbon Dioxide 18.0 L, Anion Gap 15, BUN 28 H, Creatinine 1.38 H, Estim Creat Clear Calc 59.51, Est GFR (MDRD) Af Amer 66, Est GFR (MDRD) Non-Af 55 L, BUN/Creatinine Ratio 20.3 H, Glucose 134 H, Calcium 10.1, Total Bilirubin 0.50, AST 16, ALT 27, Alkaline Phosphatase 74, Total Protein 8.7 H, Albumin 3.9, Globulin 4.8 H, Albumin/Globulin Ratio 0.8 L, Lipase 289 07/26/20 06:55: WBC 11.2 H, RBC 4.20 L, Hgb 11.6 L, Hct 36.8 L, MCV 87.6, MCH 27.6, MCHC 31.5 L, RDW Std Deviation 47.2 H, RDW Coeff of Lidia 14.6, Plt Count 228, MPV 9.6, Immature Gran % (Auto) 0.400, Neut % (Auto) 93.6 H, Lymph % (Auto) 1.6 L, [place] % (Auto) 4.1, Eos % (Auto) 0.1, Baso % (Auto) 0.2, Absolute Neuts (auto) 10.4 H, Absolute Lymphs (auto) 0.18 L, Nucleated RBC % 0, Differential Comment SCANNED 07/26/20 06:55: Sodium Pending, Potassium Pending, Chloride Pending, Carbon Dioxide Pending, Anion Gap Pending, BUN Pending, Creatinine Pending, Est GFR (MDRD) Af Amer Pending, Est GFR (MDRD) Non-Af Pending, BUN/Creatinine Ratio Pending, Glucose Pending, Calcium Pending Current Medications Enoxaparin Sodium (Enoxaparin 100 Mg/Ml Syringe) 90 mg SC Q12 [facility] Last Admin: 07/25/20 23:23 Dose: 90 mg Documented by: Sodium Chloride () 1,000 mls @ 175 mls/hr IV .Q5H43M [facility] Last Admin: 07/26/20 07:57 Dose: 175 mls/hr Documented by: Morphine Sulfate (Morphine 4 Mg/Ml Syringe) 4 mg IV Q3H PRN PRN PRN Reason: Pain Score 6-10 Last Admin: 07/26/20 02:43 Dose: 4 mg Documented by: Ondansetron HCl (Ondansetron 4 Mg/2 Ml Vial) 4 mg IV Q8H PRN PRN PRN Reason: NAUSEA/VOMITING Last Admin: 07/26/20 02:47 Dose: 4 mg Documented by: Sodium Chloride (0.9% Saline Lock 10 Ml Syringe) 10 - 40 ml IV UD PRN PRN Reason: SALINE FLUSH Assessment/Plan All Active Problems (Last Updated 07/25/20 @ 20:[address] Greg Iglesias, DO) DVT, popliteal, acute (Acute) Small bowel obstruction (Acute) Prostate cancer (Resolved) Abdominal pain (Acute) Nausea and vomiting (Acute) Pre-operative cardiovascular examination (Resolved) Syncope and collapse (Resolved 08/23/16) Nonsustained ventricular tachycardia (Resolved 09/01/07) History of non-ST elevation myocardial infarction (NSTEMI) (Resolved 09/01/07) Will plan for modified small bowel follow-through. We will have patient drink contrast then will get acute abdominal series downstairs in 1 hour and then in another 3 hours if the contrast not already in the colon. If contrast does make it to the colon we will plan to allow the patient to eat. Patient no further questions this time. Jelena Mckoy M.D. Pager: [phone] [facility] [address] [place] [address], [address] [place] [address] Office: [phone] Inpatient E&M: 18652 Init Hosp L3
[2020-07-26 08:27] LABS: Anion Gap 8 (5-15); BUN 28 mg/dL (7-18); BUN/Creat Ratio 23.5 RATIO (10-20); Chloride 117 mmol/L (98-107); Creatinine, Serum 1.19 mg/dL (0.70-1.30); EST Glomerular Filtration Rate 65 mL/min (>60); Est Glom Filt Rate - Afr Amer 79 mL/min (>60); Estimated Creatinine Clearance 69.01 ml/min; Glucose 114 mg/dL (74-106); Potassium 3.8 mmol/L (3.5-5.1); Sodium Level 144 mmol/L (136-145)
--- NOTE | 2020-07-26 08:29 | RAD_ITS ---
CLINICAL HISTORY: Male, 65 years old. Small bowel obstruction. PROCEDURE: Small bowel follow-through TECHNIQUE: (All elements of maximal sterile barrier technique followed, including US elements as applicable) After the ministration of oral contrast, multiple images of the opacified abdomen were obtained. FINDINGS: There are multiple loops of moderately dilated small bowel with progression of oral contrast through the small bowel consistent with a moderate puncture partial small bowel obstruction. RAD/Small Bowel Series Only IMPRESSION: Moderate partial small bowel obstruction. Electronically Signed: Gary Ortiz MD at 7:36 EST Tel , Service support ,
[2020-07-26 08:36] VITALS: BP 125/77; PULSE 48; RESP 18; TEMP 36.7; O2SAT 98
[2020-07-26] MEDS: Enoxaparin 100 MG/ML Syringe 90 MG SC ×2 (08:41→21:29)
[2020-07-26] MEDS: Bisacodyl 10 MG Suppository RECTAL (11:26)
--- NOTE | 2020-07-26 11:27 | NT.THERAPY_ITS ---
Nutrition Therapy Report - History Nutrition Services has been consulted to:: Manage nutrient details of diet order Current diet / nutrition support order:: NPO - Anthropometric Measurements Height:: 6 ft 1 in Weight:: 83.574 kg Body Mass Index (BMI):: 24.3 - Relevant Labs Relevant Labs:: WBC 11.2 K/mm3 (4.4-11.0) H 07/26/20 06:55 RBC 4.20 M/mm3 (4.6-6.2) L 07/26/20 06:55 Hgb 11.6 g/dL (13.0-16.5) L 07/26/20 06:55 Hct 36.8 % (40-54) L 07/26/20 06:55 MCHC 31.5 g/dL (32-36) L 07/26/20 06:55 RDW Std Deviation 47.2 fl (35.1-43.9) H 07/26/20 06:55 Neut % (Auto) 93.6 % (47-70) H 07/26/20 06:55 Lymph % (Auto) 1.6 % (19-41) L 07/26/20 06:55 Absolute Neuts (auto) 10.4 X10^3/uL (2.0-7.7) H 07/26/20 06:55 Absolute Lymphs (auto) 0.18 X10^3/uL (0.83-4.51) L 07/26/20 06:55 Chloride 117 mmol/L (98-107) H 07/26/20 06:55 Carbon Dioxide 19.0 mmol/L (21.0-32.0) L 07/26/20 06:55 BUN 28 mg/dL (7-18) H 07/26/20 06:55 Creatinine 1.38 mg/dL (0.70-1.30) H 07/25/20 15:20 Est GFR (MDRD) Non-Af 55 mL/min (>60) L 07/25/20 15:20 BUN/Creatinine Ratio 23.5 RATIO (10-20) H 07/26/20 06:55 Glucose 114 mg/dL (74-106) H 07/26/20 06:55 Total Protein 8.7 g/dL (6.4-8.2) H 07/25/20 15:20 Globulin 4.8 g/dL (2.2-4.2) H 07/25/20 15:20 Albumin/Globulin Ratio 0.8 RATIO (0.9-2.4) L 07/25/20 15:20 - Assessment Food / Nutrition-Related History:: Pt states he has been on a low fiber diet since all this started. Pt declines need for diet education and seems to be aware of what foods he can tolerate and those that he should avoid/limit. PO intake has been fair at best and pt states that foods don't taste like they use to. Drinks 2 Boost/day and 1/2 Body [place]/day at home for increased nutrition and electrolytes. UBW: 92.533 kg - wt loss of 9.7% x 2 mo (sig for malnutrition). Pt currently NPO w/ hypoactive BS and neg flatus. Pt agreeable to trying ensure clear w/ meals when able to advance po diet for increased nutrition if consumed. - Nutrition Diagnosis Problem / Etiology / Signs & Symptoms (PES):: Pt with severe malnutrition r/t issues w/ cancer and bowel obstruction aeb 9.7% wt loss x 2 mo and ~ 50% po intake x >1 mo. Evidence of Malnutrition Exists:: Yes Severe PCM:: Acute Illness - Nutrition Intervention Nutrition Prescription:: [id number] jose enrique / 80-90 gm pro / day - Food / Nutrient Delivery Interventions Summary of nutrition intervention:: Will provide ensure clear w/ meals when po diet resumes for increased nutrition if consumed. As medically able, rec GLORIA to transitional. [ End ] Nutrition education provided?: No - MNT Monitoring Further MNT monitoring and evaluation required?: Yes MNT Follow-up in:: 3-5 days - please call RD/LD if questions concerns at [phone]
[2020-07-26 11:30] VITALS: BMI 24.3
--- NOTE | 2020-07-26 13:53 | PN_ITS ---
Patient Problems: Active and Suspected Problems (Last Updated 07/25/20 @ 20:[address] Greg Iglesias, DO) Abdominal pain (Acute) Nausea and vomiting (Acute) Subjective: Patient seen and examined. He had no active events overnight. He is here for small bowel obstruction. Abdominal pain was persistent so he was sent for a small bowel follow through, which showed contrast still sitting in the stomach. He therefore had NG tube inserted. General surgery on board. Vitals/I&O's: Vital Signs Temp Pulse Resp BP Pulse Ox 98.1 F 48 L 18 125/77 H 98 07/26/20 08:36 07/26/20 08:36 07/26/20 08:36 07/26/20 08:36 07/26/20 08:36 Oxygen Delivery Method Room Air Weight: 184 lb 3.986 oz Body Mass Index (BMI) 24.3 Finger Stick Blood Glucose 126 Intake and Output for Last 24 Hours 07/24/20 07/25/20 07/26/20 23:59 23:59 23:59 Intake Total 1000 / 1000 1988.75 / 1988.75 Output Total 500 / 500 950 / 950 Balance 500 / 500 1038.75 / 1038.75 General: Alert, Oriented x3, Cooperative, No apparent distress HEENT: Atraumatic, PERRLA, EOMI, Normocephalic Oral: Moist Mucosa Neck: Supple, No JVD, Negative Carotid Bruits, Negative Hepatojugular Reflux, No Nodes, No Nuchal Rigidity Lungs: Clear to auscultation, Normal air movement Cardiovascular: Regular rate, Regular Rhythm, Normal S1, Normal S2, No murmurs Abdomen: Bowel Sounds Present, Soft, Non Tender, Non-Distended, - - ileal conduit in place Extremities: No clubbing, No cyanosis, No edema, Capillary Refill Less than 3 Seconds Skin: No rashes, No breakdown Musculoskeletal: No Tenderness to Palpation of Joints or Extremities Lymphatic: No Cervical, Supraclavicular, or Inguinal Adenopathy Neurological: Cranial nerves II-XII grossly intact, Neuro grossly intact, Motor Exam 5/5 strength throughout Psych/Mental Status: Normal Affect, Appropriate, Alert and oriented to time, place, person, mood and affect Laboratory Results 07/25/20 05:20: WBC 13.4 H, RBC 4.50 L, Hgb 12.7 L, Hct 39.1 L, MCV 86.9, MCH 28.2, MCHC 32.5, RDW Std Deviation 44.9 H, RDW Coeff of Lidia 14.2, Plt Count 334, MPV 9.8, Immature Gran % (Auto) 0.400, Neut % (Auto) 89.8 H, Lymph % (Auto) 5.8 L, [place] % (Auto) 3.3, Eos % (Auto) 0.4, Baso % (Auto) 0.3, Absolute Neuts (auto) 12.0 H, Absolute Lymphs (auto) 0.78 L, Nucleated RBC % 0 07/25/20 15:20: Sodium 143, Potassium 3.5, Chloride 110 H, Carbon Dioxide 18.0 L , Anion Gap 15, BUN 28 H, Creatinine 1.38 H, Estim Creat Clear Calc 59.51, Est GFR (MDRD) Af Amer 66, Est GFR (MDRD) Non-Af 55 L, BUN/Creatinine Ratio 20.3 H, Glucose 134 H, Calcium 10.1, Total Bilirubin 0.50, AST 16, ALT 27, Alkaline Phosphatase 74, Total Protein 8.7 H, Albumin 3.9, Globulin 4.8 H, Alb umin/Globulin Ratio 0.8 L, Lipase 289 07/26/20 06:55: WBC 11.2 H, RBC 4.20 L, Hgb 11.6 L, Hct 36.8 L, MCV 87.6, MCH 27.6, MCHC 31.5 L, RDW Std Deviation 47.2 H, RDW Coeff of Lidia 14.6, Plt Count 228, MPV 9.6, Immature Gran % (Auto) 0.400, Neut % (Auto) 93.6 H, Lymph % (Auto) 1.6 L, [place] % (Auto) 4.1, Eos % (Auto) 0.1, Baso % (Auto) 0.2, Absolute Neuts (auto) 10.4 H, Absolute Lymphs (auto) 0.18 L, Nucleated RBC % 0, Differential Comment SCANNED 07/26/20 06:55: Sodium 144, Potassium 3.8, Chloride 117 H, Carbon Dioxide 19.0 L , Anion Gap 8, BUN 28 H, Creatinine 1.19, Estim Creat Clear Calc 69.01, Est GFR (MDRD) Af Amer 79, Est GFR (MDRD) Non-Af 65, BUN/Creatinine Ratio 23.5 H, Glucose 114 H, Calcium 9.0 Diagnostic Data Abdomen/Pelvis CT 07/25/20 15:11 IMPRESSION: Moderately dilated fluid-filled loop of small bowel in the right side of the pelvis. Electronically Signed: Gary Ortiz MD at 17:07 EST Tel , Service support , Current Medications Enoxaparin Sodium (Enoxaparin 100 Mg/Ml Syringe) 90 mg SC Q12 [facility] Last Admin: 07/26/20 08:41 Dose: 90 mg Documented by: Sodium Chloride () 1,000 mls @ 175 mls/hr IV .Q5H43M [facility] Last Admin: 07/26/20 07:57 Dose: 175 mls/hr Documented by: Morphine Sulfate (Morphine 4 Mg/Ml Syringe) 4 mg IV Q3H PRN PRN PRN Reason: Pain Score 6-10 Last Admin: 07/26/20 02:43 Dose: 4 mg Documented by: Ondansetron HCl (Ondansetron 4 Mg/2 Ml Vial) 4 mg IV Q8H PRN PRN PRN Reason: NAUSEA/VOMITING Last Admin: 07/26/20 02:47 Dose: 4 mg Documented by: Sodium Chloride (0.9% Saline Lock 10 Ml Syringe) 10 - 40 ml IV UD PRN PRN Reason: SALINE FLUSH Medical Necessity - Tobacco Use Smoking Status: Never smoker Tobacco Use: Non-smoker Assessment/Plan All Active Problems (Last Updated 07/25/20 @ 20:[address] Greg Iglesias, DO) DVT, popliteal, acute (Acute) Small bowel obstruction (Acute) Prostate cancer (Resolved) Abdominal pain (Acute) Nausea and vomiting (Acute) Pre-operative cardiovascular examination (Resolved) Syncope and collapse (Resolved 08/23/16) Nonsustained ventricular tachycardia (Resolved 09/01/07) History of non-ST elevation myocardial infarction (NSTEMI) (Resolved 09/01/07) # Small bowel obstruction * had small bowel follow through this morning which showed persistent obstruction. * on gentle hydration with IVF * NG tube inserted per general surgery * gen surg to determine need for surgery or otherwise * # History of DVT of RLE: on lovenox # bladder cancer s/p bladder and prostate resection and ileal conduit. * stable * #Hypertension: controlled. not on any oral meds at home. IV hydralazine prn DVT prophylaxis: on lovenox therapeutic dose o/a of DVT of RLE Inpatient E&M: 11764 Subs Hosp L2
[2020-07-26 15:41] VITALS: BP 153/84; PULSE 83; RESP 18; TEMP 36.8; O2SAT 94
--- NOTE | 2020-07-26 16:51 | CASEMGMT ---
Chart review: patient was admitted 07/06-07/10/20 for SBO. Patient returns 07/25/20 for SBO. Patient states he saw his PCP after last admission. Patient is active with [facility] for H[facility]. Patient was taking medications a prescribed. No concerns at discharge. [facility]
--- NOTE | 2020-07-26 17:18 | RAD_ITS ---
STUDY: X-RAY - ABDOMEN/PELVIS REASON FOR EXAM: Male, 65 years old. CONSTIPATION/SMALL BOWEL OBSTRUCTION TECHNIQUE: Upright COMPARISON: 07/09/2020 FINDINGS: Normal visualized lung bases. Oral contrast within moderately dilated stomach as well as multiple loops of moderately dilated small bowel with air-fluid levels consistent with a small bowel obstruction. There is no demonstrated free abdominal air. The visualized liver, spleen and kidneys are grossly normal in size and morphology. Bilateral ureteral stents. Normal visualized osseous structures. RAD/Abd Decub and/or Erect(Portabl IMPRESSION: Moderate partial small bowel obstruction. Electronically Signed: Gary Ortiz MD at 7:36 EST Tel , Service support ,
--- NOTE | 2020-07-26 18:30 | RAD_ITS ---
STUDY: X-RAY - ABDOMEN/PELVIS REASON FOR EXAM: Male, 65 years old. NG placement TECHNIQUE: KUB COMPARISON: None. FINDINGS: Normal visualized lung bases. There is an unremarkable bowel gas pattern. There is no demonstrated free abdominal air. The visualized liver, spleen and kidneys are grossly normal in size and morphology. Nasogastric tube is seen with tip at the level of the proximal to mid gastric fundus which contains oral contrast. Ureterovesical stent is seen on the right. Normal visualized osseous structures. RAD/Abdomen Single View IMPRESSION: Nasogastric tube placement with tip in proximal to mid gastric fundus Electronically Signed: Brown Green MD at 19:08 EST , Service support ,
--- NOTE | 2020-07-26 19:40 | NURSING ---
KUB report verified placement of NG tube. Pt hooked up to low intermittent suction at this time per order. 100cc of green gastric contents immediately drained into canister. Will continue to monitor.
[2020-07-26 20:07] VITALS: BP 161/98; PULSE 85; RESP 18; TEMP 36.9; O2SAT 96
[2020-07-27 01:53] VITALS: BP 166/96; PULSE 86; RESP 18; TEMP 37.8; O2SAT 96
[2020-07-27] MEDS: Morphine 4 MG/ML Syringe IV ×4 (02:10→21:17)
--- NOTE | 2020-07-27 05:00 | RAD_ITS ---
STUDY: X-RAY - ABDOMEN/PELVIS REASON FOR EXAM: Male, 65 years old. staff on med surg unit thinks there could be possible small bowel obstruction in the pt. pt has hx of bowel obstructions. He is having trouble defecating, and has had previous surgery to remove his bladder. TECHNIQUE: Single AP view of the abdomen / pelvis. COMPARISON: 07/26/2020 FINDINGS: Nasogastric tube with the tip in the left upper quadrant likely in the body the stomach. Bilateral ureteral stents. There is a loop of dilated small bowel in the left side of the abdomen possibly with oral contrast. The visualized liver, spleen and kidneys are grossly normal in size and morphology. Normal soft tissue structures. Normal visualized osseous structures. RAD/Abdomen Single View (Portable) IMPRESSION: 1. Nasogastric tube with the tip in the left upper quadrant likely in the body the stomach. 2. Bilateral ureteral stents. 3. Dilated loop of small bowel in the left side of the abdomen possibly containing oral contrast. Electronically Signed: Gary Ortiz MD at 7:25 EST Tel , Service support ,
[2020-07-27] MEDS: 0.9% Normal Saline 1,000 ML 175 ML IV ×2 (05:05→11:15)
[2020-07-27 05:06] VITALS: BP 154/86; PULSE 88; RESP 16; TEMP 36.7; O2SAT 96
--- NOTE | 2020-07-27 08:40 | PN.SURG_ITS ---
Patient Problems: Active and Suspected Problems (Last Updated 07/25/20 @ 20:[address] Greg Iglesias, DO) Abdominal pain (Acute) Nausea and vomiting (Acute) Subjective: Patient is oral contrast mostly stayed in his stomach for the small bowel follow-through. NG was placed last night did get 1600 out initially --currently from 5 this morning he has another 600 out. - Physical Exam Vitals/I&O's: Vital Signs Temp Pulse Resp BP Pulse Ox 98.0 F 88 16 154/86 H 96 07/27/20 05:06 07/27/20 05:06 07/27/20 05:06 07/27/20 05:06 07/27/20 05:06 Oxygen Delivery Method Room Air Weight: 184 lb 3.986 oz Body Mass Index (BMI) 24.3 Finger Stick Blood Glucose 126 Intake and Output for Last 24 Hours 07/25/20 07/26/20 07/27/20 23:59 23:59 23:59 Intake Total 1000 / 1000 3988.75 / 3988.75 1048.75 / 1048.75 Output Total 500 / 500 3700 / 3700 1250 / 1250 Balance 500 / 500 288.75 / 288.75 -201.25 / -201.25 General: Alert, Oriented x3, Cooperative HEENT: - - NG in place Lungs: Normal air movement Cardiovascular: Regular rate Abdomen: Soft, Non-Distended, Tender - Minimal in the lower abdomen, no peritoneal signs, - - Ileal conduit pink Extremities: No clubbing, No cyanosis, No edema Neurological: Cranial nerves II-XII grossly intact Psych/Mental Status: Normal Affect Current Medications Enoxaparin Sodium (Enoxaparin 100 Mg/Ml Syringe) 90 mg SC Q12 [facility] Last Admin: 07/26/20 21:29 Dose: 90 mg Documented by: Sodium Chloride () 1,000 mls @ 175 mls/hr IV .[id number] [facility] Last Admin: 07/27/20 05:05 Dose: 175 mls/hr Documented by: Morphine Sulfate (Morphine 4 Mg/Ml Syringe) 4 mg IV Q3H PRN PRN PRN Reason: Pain Score 6-10 Last Admin: 07/27/20 02:10 Dose: 4 mg Documented by: Ondansetron HCl (Ondansetron 4 Mg/2 Ml Vial) 4 mg IV Q8H PRN PRN PRN Reason: NAUSEA/VOMITING Last Admin: 07/26/20 20:20 Dose: 4 mg Documented by: Sodium Chloride (0.9% Saline Lock 10 Ml Syringe) 10 - 40 ml IV UD PRN PRN Reason: SALINE FLUSH Medical Necessity - Tobacco Use Smoking Status: Never smoker Tobacco Use: Non-smoker Assessment/Plan All Active Problems (Last Updated 07/25/20 @ 20:[address] Greg Iglesias, DO) DVT, popliteal, acute (Acute) Small bowel obstruction (Acute) Prostate cancer (Resolved) Abdominal pain (Acute) Nausea and vomiting (Acute) Pre-operative cardiovascular examination (Resolved) Syncope and collapse (Resolved 08/23/16) Nonsustained ventricular tachycardia (Resolved 09/01/07) History of non-ST elevation myocardial infarction (NSTEMI) (Resolved 09/01/07) Contrast did not go to the colon. NG was placed last night initially put out 1600cc. Did discuss with Dr. Pino Due to the increased output will plan to explore also patient has had this recur in less than 20 days from previous episode of small bowel obstruction. Plan to start laparoscopically and possible laparotomy possible revision of ileal conduit as Dr. Pino will assist in case there is any need to take down the conduit. Discussed the risk including but not limited to bleeding, infection, injury to another organ small bowel, colon, ureter, etc. and anesthesia. All patient's questions were answered. Jelena Mckoy M.D. Pager: [phone] [facility] [address] [place] [address], [address] [place] [address] Office: [phone] Procedure Criteria Procedure Type: Elective COVID Risk Discussion: The surgeon/proceduralist and patient have discussed in detail the risk of exposure to and/or potential harm posed by the COVID-19 virus with having a surgery/procedure at this time versus the risk of delaying the surgery/procedure. It is not possible to know either the risk of delaying the surgery or procedure or chance of getting an infection with perfect accuracy, but a joint decision was made between the patient and the surgeon/proceduralist to proceed at this time with the scheduled surgery/procedure as indicated on the consent form.
[2020-07-27 08:41] VITALS: BP 163/97; PULSE 86; RESP 18; TEMP 36.7; O2SAT 97
[2020-07-27] MEDS: Enoxaparin 100 MG/ML Syringe 90 MG SC (08:45)
--- NOTE | 2020-07-27 09:00 | EKG12_ITS ---
Test Reason : PRE OP Blood Pressure : / mmHG Vent. Rate : 085 BPM Atrial Rate : 085 BPM P-R Int : 148 ms QRS Dur : 092 ms QT Int : 364 ms P-R-T Axes : 074 -38 014 degrees QTc Int : 433 ms Normal sinus rhythm Left axis deviation Abnormal ECG Confirmed by JEANETTE MACDONALD, JAHAIRA ([id number]), editor newspaper ALIZA CASEY ([id number]) on 07/30/2020 1:30:06 PM Referred By: ALEXEI Confirmed By:JAHAIRA REID MD
[2020-07-27 09:29] LABS: Absolute Lymphocyte Count 0.51 X10^3/uL (0.83-4.51); Absolute Neutrophil Count 9.1 X10^3/uL (2.0-7.7); Basophil# 0.01 X10^3/uL; Basophil% 0.1 % (0-1); Hematocrit 33.8 % (40-54); Hemoglobin 10.7 g/dL (13.0-16.5); Lymphocyte # 0.51 X10^3/ul (4.0); Lymphocyte % 4.9 % (19-41); Mean Corp Hgb Conc 31.7 g/dL (32-36); Mean Corpuscular Hgb 27.9 pg (27.0-32.0); Mean Corpuscular Volume 88.3 fL (80-94); Monocyte# 0.67 X10^3/uL; Monocyte% 6.4 % (0-10); NRBC Flagged by Analyzer 0 % (0-5); Neutrophil # 9.14 X10^3/uL (2.7-7.7); Neutrophil % 87.9 % (47-70); POSITIVE DIFFERENTIAL YES; Platelet Count 218 K/mm3 (150-450); RBC Distribution Width CV 15.1 % (11.6-14.6); RBC Distribution Width SD 48.4 fl (35.1-43.9); Red Blood Count 3.83 M/mm3 (4.6-6.2); White Blood Count 10.4 K/mm3 (4.4-11.0)
[2020-07-27 09:38] VITALS: BMI 24.3
[2020-07-27 09:40] LABS: Anion Gap 7 (5-15); BUN 27 mg/dL (7-18); BUN/Creat Ratio 27.3 RATIO (10-20); Calcium,Total 9.1 mg/dL (8.5-10.1); Chloride 118 mmol/L (98-107); Creatinine, Serum 0.99 mg/dL (0.70-1.30); EST Glomerular Filtration Rate 81 mL/min (>60); Est Glom Filt Rate - Afr Amer 97 mL/min (>60); Estimated Creatinine Clearance 82.95 ml/min; Glucose 105 mg/dL (74-106); Potassium 3.5 mmol/L (3.5-5.1); Sodium Level 147 mmol/L (136-145)
--- NOTE | 2020-07-27 09:40 | NURSING ---
assisted Primary RN w/ NG placement
[2020-07-27 09:50] LABS: Differential Indicated SCAN CRITERIA MET
[2020-07-27 09:58] LABS: Differential Comment SCANNED
--- NOTE | 2020-07-27 12:20 | PN_ITS ---
Patient Problems: Active and Suspected Problems (Last Updated 07/25/20 @ 20:[address] Greg Iglesias, DO) Abdominal pain (Acute) Nausea and vomiting (Acute) Subjective: Patient seen and examined. He had an NG tube inserted yesterday. All contrast media stayed in the stomach for the small bowel follow-through. He did have about 1600 cc suctioned out yesterday and has had 600 cc so far today. General surgery on board and he is to go for surgery today. He still complains of some abdominal pain. Review of systems otherwise negative. Vitals/I&O's: Vital Signs Temp Pulse Resp BP Pulse Ox 98.1 F 86 18 163/97 H 97 07/27/20 08:41 07/27/20 08:41 07/27/20 08:41 07/27/20 08:41 07/27/20 08:41 Oxygen Delivery Method Room Air Weight: 184 lb 3.986 oz Body Mass Index (BMI) 24.3 Finger Stick Blood Glucose 126 Intake and Output for Last 24 Hours 07/25/20 07/26/20 07/27/20 23:59 23:59 23:59 Intake Total 1000 / 1000 3988.75 / 3988.75 2078.75 / 2078.75 Output Total 500 / 500 3700 / 3700 2500 / 2500 Balance 500 / 500 288.75 / 288.75 -421.25 / -421.25 General: Alert, Oriented x3, Cooperative, No apparent distress HEENT: Atraumatic, PERRLA, EOMI, Normocephalic Oral: Moist Mucosa Neck: Supple, No JVD, Negative Carotid Bruits, Lungs: Clear to auscultation, Normal air movement Cardiovascular: Regular rate, Regular Rhythm, Normal S1, Normal S2, No murmurs Abdomen: Bowel Sounds Present, Soft, Non Tender, Non-Distended, - - ileal conduit in place; NG tube in place Extremities: No clubbing, No cyanosis, No edema, Capillary Refill Less than 3 Seconds Skin: No rashes, No breakdown Musculoskeletal: No Tenderness to Palpation of Joints or Extremities Lymphatic: No Cervical, Supraclavicular, or Inguinal Adenopathy Neurological: Cranial nerves II-XII grossly intact, Neuro grossly intact, Motor Exam 5/5 strength throughout Psych/Mental Status: Normal Affect, Appropriate, Alert and oriented to time, place, person, mood and affect Microbiology Past 72 Hours 07/27/20 09:20 Mucosa - Nose SARS-CoV-2 Antigen (Rapid) - Final Laboratory Results 07/27/20 09:00: WBC 10.4, RBC 3.83 L, Hgb 10.7 L, Hct 33.8 L, MCV 88.3, MCH 27.9, MCHC 31.7 L, RDW Std Deviation 48.4 H, RDW Coeff of Lidia 15.1 H, Plt Count 218, MPV 10.0, Immature Gran % (Auto) 0.700, Neut % (Auto) 87.9 H, Lymph % (Aut o) 4.9 L, [place] % (Auto) 6.4, Eos % (Auto) 0.0, Baso % (Auto) 0.1, Absolute Neuts (auto) 9.1 H, Absolute Lymphs (auto) 0.51 L, Nucleated RBC % 0, Differential Comment SCANNED 07/27/20 09:00: Sodium 147 H, Potassium 3.5, Chloride 118 H, Carbon Dioxide 22.0, Anion Gap 7, BUN 27 H, Creatinine 0.99, Estim Creat Clear Calc 82.95, Est GFR (MDRD) Af Amer 97, Est GFR (MDRD) Non-Af 81, BUN/Creatinine Ratio 27.3 H, Glucose 105, Calcium 9.1 07/27/20 09:00: APTT 40.0 H Diagnostic Data Abdomen/Pelvis CT 07/25/20 15:11 IMPRESSION: Moderately dilated fluid-filled loop of small bowel in the right side of the pelvis. Electronically Signed: Gary Ortiz MD at 17:07 EST Tel , Service support , Small Bowel X-Ray 07/26/20 08:29 IMPRESSION: Moderate partial small bowel obstruction. Electronically Signed: Gary Ortiz MD at 7:36 EST Tel , Service support , Abdomen X-Ray 07/26/20 17:18 IMPRESSION: Moderate partial small bowel obstruction. Electronically Signed: Gary Ortiz MD at 7:36 EST Tel , Service support , KUB X-Ray 07/27/20 05:00 IMPRESSION: 1. Nasogastric tube with the tip in the left upper quadrant likely in the body the stomach. 2. Bilateral ureteral stents. 3. Dilated loop of small bowel in the left side of the abdomen possibly containing oral contrast. Electronically Signed: Gary Ortiz MD at 7:25 EST Tel , Service support , Current Medications Enoxaparin Sodium (Enoxaparin 100 Mg/Ml Syringe) 90 mg SC Q12 [facility] Last Admin: 07/27/20 08:45 Dose: 90 mg Documented by: Sodium Chloride () 1,000 mls @ 175 mls/hr IV .[id number] [facility] Last Admin: 07/27/20 11:15 Dose: 175 mls/hr Documented by: Morphine Sulfate (Morphine 4 Mg/Ml Syringe) 4 mg IV Q3H PRN PRN PRN Reason: Pain Score 6-10 Last Admin: 07/27/20 11:18 Dose: 4 mg Documented by: Ondansetron HCl (Ondansetron 4 Mg/2 Ml Vial) 4 mg IV Q8H PRN PRN PRN Reason: NAUSEA/VOMITING Last Admin: 07/26/20 20:20 Dose: 4 mg Documented by: Sodium Chloride (0.9% Saline Lock 10 Ml Syringe) 10 - 40 ml IV UD PRN PRN Reason: SALINE FLUSH STROKE Vital Signs/Narrative: Vital Signs Temp Pulse Resp BP Pulse Ox 07/27/20 08:41 98.1 F 86 18 163/97 H 97 Medical Necessity - Tobacco Use Smoking Status: Never smoker Tobacco Use: Non-smoker Assessment/Plan All Active Problems (Last Updated 07/25/20 @ 20:[address] Greg Iglesias, DO) DVT, popliteal, acute (Acute) Small bowel obstruction (Acute) Prostate cancer (Resolved) Abdominal pain (Acute) Nausea and vomiting (Acute) Pre-operative cardiovascular examination (Resolved) Syncope and collapse (Resolved 08/23/16) Nonsustained ventricular tachycardia (Resolved 09/01/07) History of non-ST elevation myocardial infarction (NSTEMI) (Resolved 09/01/07) # Small bowel obstruction * small bowel follow through still shows contrast in the stomach and small bowel * has NG tube in place * patient to be taken for surgery today by general surgery * * #Hypernatremia; Na is 147 today. Likely due to hydration with IVF. 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 * stable * #Hypertension: controlled. not on any oral meds at home. IV hydralazine prn DVT prophylaxis: on lovenox therapeutic dose o/a of DVT of RLE Inpatient E&M: [id number] [facility] Hosp L2
[2020-07-27] MEDS: 0.45% Normal Saline 1,000 ML 75 ML IV (14:13)
[2020-07-27 17:24] VITALS: BP 166/88; PULSE 81; RESP 18; TEMP 36.7; O2SAT 98
[2020-07-27] MEDS: BENZOCAINE/MENTHOL 1 LOZENGE MUCOUS MEM ×2 (17:30→21:13)
--- NOTE | 2020-07-27 17:56 | PCM.PN.BLA ---
Progress Note Surgery changed to tomorrow afternoon. d/w pt . NG didn't look to put out any more since this AM still at 800cc on canister. Will plan for exploratory laparotomy, possible revision of ileal conduit with Dr. Pino. Continue NPO/NG/IVF & pain control STROKE Vital Signs/Narrative: Vital Signs Temp Pulse Resp BP Pulse Ox 07/27/20 17:24 98.0 F 81 18 166/88 H 98
[2020-07-27] MEDS: Famotidine 200 MG/20 ML MDV 20 MG in 0.9% Normal Saline (Pres. free 8 ML 300 MG IV (21:13)
[2020-07-27 21:15] VITALS: BP 162/92; PULSE 82; RESP 20; TEMP 36.6; O2SAT 96
[2020-07-28] VITALS (10 sets, daily range): BP systolic 147–163; BP diastolic 88–101; PULSE 75–95; RESP 16–18; TEMP 36.4–38.3; O2SAT 93–97; BMI 24.3
[2020-07-28] MEDS: 0.45% Normal Saline 1,000 ML 75 ML IV (03:44)
[2020-07-28] MEDS: BENZOCAINE/MENTHOL 1 LOZENGE MUCOUS MEM (06:11)
[2020-07-28 06:23] LABS: Absolute Neutrophil Count 7.5 X10^3/uL (2.0-7.7); Basophil# 0.02 X10^3/uL; Basophil% 0.2 % (0-1); Hematocrit 32.7 % (40-54); Hemoglobin 10.1 g/dL (13.0-16.5); Lymphocyte % 5.7 % (19-41); Mean Corp Hgb Conc 30.9 g/dL (32-36); Mean Corpuscular Hgb 27.6 pg (27.0-32.0); Mean Corpuscular Volume 89.3 fL (80-94); Mean Platelet Vol. 10.4 fl (6.2-12.0); NRBC Flagged by Analyzer 0 % (0-5); Neutrophil # 7.49 X10^3/uL (2.7-7.7); Neutrophil % 85.5 % (47-70); POSITIVE DIFFERENTIAL YES; Platelet Count 195 K/mm3 (150-450); RBC Distribution Width CV 14.9 % (11.6-14.6); RBC Distribution Width SD 48.7 fl (35.1-43.9); Red Blood Count 3.66 M/mm3 (4.6-6.2); White Blood Count 8.8 K/mm3 (4.4-11.0)
[2020-07-28 06:50] LABS: Anion Gap 7 (5-15); BUN 25 mg/dL (7-18); BUN/Creat Ratio 26.2 RATIO (10-20); Calcium,Total 9.1 mg/dL (8.5-10.1); Chloride 118 mmol/L (98-107); Creatinine, Serum 0.96 mg/dL (0.70-1.30); EST Glomerular Filtration Rate 84 mL/min (>60); Est Glom Filt Rate - Afr Amer 101 mL/min (>60); Estimated Creatinine Clearance 85.54 ml/min; Glucose 94 mg/dL (74-106); Potassium 3.2 mmol/L (3.5-5.1); Sodium Level 147 mmol/L (136-145)
[2020-07-28 06:53] LABS: Differential Indicated SCAN CRITERIA MET
--- NOTE | 2020-07-28 07:40 | PCM.PN.BLA ---
Progress Note Patient returns 65-year-old male who underwent a radical cystoprostatectomy more than a month ago and returns to the hospital with a small bowel obstruction. This is a second return to the hospital with small bowel obstruction at this point speaking with general surgery I think exploration is warranted so we will plan for exploratory laparotomy and hopefully resolve his small bowel obstruction. Plan for surgery today around noon.
--- NOTE | 2020-07-28 08:00 | COL_PTH ---
PATIENT: NOLAN HOWE LOC: MS3 U#:[id number] AGE/SX: 65/M ROOM: MS309 RE07/25/[address]: Dr. Kaden Pleitez MD : 1955 BED: 1 DIS: 08/01/2020 SPEC #: [id number] RECD: 07/28/20 15:55 STATUS: OSMANY RECurtis #: [id number] LINDSAY: 07/28/20 08:[address]: Jelena Mckoy DEPT: SURGICAL PATHOLOGY RECD BY: Oralia Cazares ENTERED: 07/29/20 08:18 SP TYPE: COLON OTHR DR: MD Dr. Greg Davey DO Dr. Nicholas F Kotsonis, MD Dr. Tamera Robotham, MD Tissues: Colon, NOS Procedures: Surgery Specimen Level V Comments: @ Ordering doctor for SUV edited from to @ by KALEIGH at 07/29/20 1308 @ Submitting doctor edited from to @ by RGOOD at 07/29/20 1308 HEADER OPERATION: Exploratory laparotomy, small bowel resection, lysis of adhesions PRE-OP DIAGNOSIS: Partial small bowel obstruction TISSUE SUBMITTED: Mid jejunum MICROSCOPIC DIAGNOSIS Mid jejunum, segmental resection: Submucosal vascular congestion and serosal fibrosis. Focal acute mucosal ulceration. No evidence of malignancy. AM:michael 07/30/20 MICROSCOPIC DESCRIPTION Slides are reviewed. GROSS DESCRIPTION Received in fixative is one container labeled with the patient's name and designated mid jejunum. The specimen consists of two fragments. The smaller fragment is dark hearn in color measuring 4.5 x 1 x 0.8 cm. Serial sections of this fragment do not reveal mass lesions. Inside Meter Tester sections from this fragment are submitted in cassette 1. The second fragment consists of a segment of bowel measuring 15?cm in length and containing focal adherent fibrofatty tissue. Both ends of the bowel are stapled. A small defect is present from one staple margin measuring 1.5 cm in greatest dimension. This stapled end?is inked in black ink. The defect communicates with the lumen surface. No mucosal mass lesions are identified. The serosa surrounding the area of defect is inked in blue ink. Inside Meter Tester sections from the smaller fragment is submitted as follows: 1 - mid section of bowel, 2 - mucosal margins, 3 & 4 - area of defect, 5 & 6 - uninvolved segments of bowel. / AM:michael 07/29/20 TC:2 CPT: 50359
--- NOTE | 2020-07-28 08:42 | PCM.PN.SRG ---
Patient Problems: Active and Suspected Problems (Last Updated 07/25/20 @ 20:[address] Greg Iglesias, DO) Abdominal pain (Acute) Nausea and vomiting (Acute) Subjective: 400 cc in container from NG overnight, flatus x4 - Physical Exam Vitals/I&O's: Vital Signs Temp Pulse Resp BP Pulse Ox 98.3 F 95 18 153/88 H 93 07/28/20 02:45 07/28/20 02:45 07/28/20 02:45 07/28/20 02:45 07/28/20 02:45 Oxygen Delivery Method Room Air Weight: 184 lb 3.986 oz Body Mass Index (BMI) 24.3 Finger Stick Blood Glucose 126 Intake and Output for Last 24 Hours 07/26/20 07/27/20 07/28/20 23:59 23:59 23:59 Intake Total 3988.75 / 3988.75 2752.08 / 2752.08 1060 / 1060 Output Total 3700 / 3700 4625 / 4625 700 / 700 Balance 288.75 / 288.75 -1872.92 / -1872.92 360 / 360 Microbiology Past 72 Hours 07/27/20 09:20 Mucosa - Nose SARS-CoV-2 Antigen (Rapid) - Final Laboratory Results 07/27/20 09:00: WBC 10.4, RBC 3.83 L, Hgb 10.7 L, Hct 33.8 L, MCV 88.3, MCH 27.9, MCHC 31.7 L, RDW Std Deviation 48.4 H, RDW Coeff of Lidia 15.1 H, Plt Count 218, MPV 10.0, Immature Gran % (Auto) 0.700, Neut % (Auto) 87.9 H, Lymph % (Auto) 4.9 L, [place] % (Auto) 6.4, Eos % (Auto) 0.0, Baso % (Auto) 0.1, Absolute Neuts (auto) 9.1 H, Absolute Lymphs (auto) 0.51 L, Nucleated RBC % 0, Differential Comment SCANNED 07/27/20 09:00: Sodium 147 H, Potassium 3.5, Chloride 118 H, Carbon Dioxide 22.0, Anion Gap 7, BUN 27 H, Creatinine 0.99, Estim Creat Clear Calc 82.95, Est GFR (MDRD) Af Amer 97, Est GFR (MDRD) Non-Af 81, BUN/Creatinine Ratio 27.3 H, Glucose 105, Calcium 9.1 07/27/20 09:00: APTT 40.0 H 07/28/20 05:28: WBC 8.8, RBC 3.66 L, Hgb 10.1 L, Hct 32.7 L, MCV 89.3, MCH 27.6, MCHC 30.9 L, RDW Std Deviation 48.7 H, RDW Coeff of Lidia 14.9 H, Plt Count 195, MPV 10.4, Immature Gran % (Auto) 0.600, Neut % (Auto) 85.5 H, Lymph % (Auto) 5.7 L, [place]lin % (Auto) 8.0, Eos % (Auto) 0.0, Baso % (Auto) 0.2, Absolute Neuts (auto) 7.5, Absolute Lymphs (auto) 0.50 L, Nucleated RBC % 0 07/28/20 05:28: Sodium 147 H, Potassium 3.2 L, Chloride 118 H, Carbon Dioxide 22.0, Anion Gap 7, BUN 25 H, Creatinine 0.96, Estim Creat Clear Calc 85.54, Est GFR (MDRD) Af Amer 101, Est GFR (MDRD) Non-Af 84, BUN/Creatinine Ratio 26.2 H, Glucose 94, Calcium 9.1 Current Medications Enoxaparin Sodium (Enoxaparin 100 Mg/Ml Syringe) 90 mg SC Q12 [facility] Last Admin: 07/27/20 18:37 Dose: Not Given Documented by: Sodium Chloride () 1,000 mls @ 75 mls/hr IV .[id number] [facility] Stop: 07/28/20 15:29 Last Admin: 07/28/20 03:44 Dose: 75 mls/hr Documented by: Famotidine 20 mg/ Sodium (Chloride) 10 mls @ 300 mls/hr IV Q12 [facility] Last Infusion: 07/27/20 21:15 Dose: Infused Documented by: Morphine Sulfate (Morphine 4 Mg/Ml Syringe) 4 mg IV Q3H PRN PRN PRN Reason: Pain Score 6-10 Last Admin: 07/27/20 21:17 Dose: 4 mg Documented by: Ondansetron HCl (Ondansetron 4 Mg/2 Ml Vial) 4 mg IV Q8H PRN PRN PRN Reason: NAUSEA/VOMITING Last Admin: 07/26/20 20:20 Dose: 4 mg Documented by: Sodium Chloride (0.9% Saline Lock 10 Ml Syringe) 10 - 40 ml IV UD PRN PRN Reason: SALINE FLUSH Throat Lozenges (Benzocaine/Menthol 1 Lozenge) 1 - 2 lozenge MUCOUS MEM Q2H PRN PRN PRN Reason: SORE THROAT Last Admin: 07/28/20 06:11 Dose: 2 lozenge Documented by: Medical Necessity - Tobacco Use Smoking Status: Never smoker Tobacco Use: Non-smoker Assessment/Plan All Active Problems (Last Updated 07/25/20 @ 20:[address] Greg Iglesias, DO) DVT, popliteal, acute (Acute) Small bowel obstruction (Acute) Prostate cancer (Resolved) Abdominal pain (Acute) Nausea and vomiting (Acute) Pre-operative cardiovascular examination (Resolved) Syncope and collapse (Resolved 08/23/16) Nonsustained ventricular tachycardia (Resolved 09/01/07) History of non-ST elevation myocardial infarction (NSTEMI) (Resolved 09/01/07) will go for an exploratory laparotomy, possible ileal conduit revision today with Dr. Pino. Pt had no further questions at this time. Jelena Mckoy M.D. Pager: [phone] [facility] [address] [place] [address], [address] [place] [address] Office: [phone] Procedure Criteria Procedure Type: Elective COVID Risk Discussion: The surgeon/proceduralist and patient have discussed in detail the risk of exposure to and/or potential harm posed by the COVID-19 virus with having a surgery/procedure at this time versus the risk of delaying the surgery/procedure. It is not possible to know either the risk of delaying the surgery or procedure or chance of getting an infection with perfect accuracy, but a joint decision was made between the patient and the surgeon/proceduralist to proceed at this time with the scheduled surgery/procedure as indicated on the consent form.
[2020-07-28] MEDS: Famotidine 200 MG/20 ML MDV 20 MG in 0.9% Normal Saline (Pres. free 8 ML 300 MG IV ×2 (09:46→20:42)
--- NOTE | 2020-07-28 12:12 | NURSING ---
pt transported off unit via bed at 1135 for surgery
--- NOTE | 2020-07-28 12:16 | PCM.PN.HOSP ---
Patient Problems: Active and Suspected Problems (Last Updated 07/25/20 @ 20:[address] Greg Iglesias, DO) Abdominal pain (Acute) Nausea and vomiting (Acute) Subjective: Denies any abdominal pain. Is having discomfort from the NG tube. Plan for OR today. Vitals/I&O's: Vital Signs Temp Pulse Resp BP Pulse Ox 97.5 F L 75 18 147/89 H 97 07/28/20 11:00 07/28/20 11:00 07/28/20 11:00 07/28/20 11:00 07/28/20 11:00 Oxygen Delivery Method Room Air Weight: 184 lb 3.986 oz Body Mass Index (BMI) 24.3 Finger Stick Blood Glucose 126 Intake and Output for Last 24 Hours 07/26/20 07/27/20 07/28/20 23:59 23:59 23:59 Intake Total 3988.75 / 3988.75 2752.08 / 2752.08 1130 / 1130 Output Total 3700 / 3700 4625 / 4625 1550 / 1550 Balance 288.75 / 288.75 -1872.92 / -1872.92 -420 / -420 General: Alert, Oriented x3, Cooperative, No apparent distress, - - NG tube in place HEENT: Atraumatic, PERRLA, EOMI, Normocephalic Oral: Moist Mucosa Neck: Supple, No JVD Lungs: Clear to auscultation, Normal air movement, No rhonchi, No wheeze, No rales Cardiovascular: Regular rate, Regular Rhythm, Normal S1, Normal S2, No murmurs Abdomen: Soft, Non Tender, Non-Distended, No Hepato-splenomegaly Extremities: No edema, Capillary Refill Less than 3 Seconds Skin: No rashes, No breakdown Neurological: Neuro grossly intact, Sensory exam intact to light touch and pain Psych/Mental Status: Normal Affect, Appropriate Microbiology Past 72 Hours 07/27/20 09:20 Mucosa - Nose SARS-CoV-2 Antigen (Rapid) - Final Laboratory Results 07/28/20 05:28: WBC 8.8, RBC 3.66 L, Hgb 10.1 L, Hct 32.7 L, MCV 89.3, MCH 27.6, MCHC 30.9 L, RDW Std Deviation 48.7 H, RDW Coeff of Lidia 14.9 H, Plt Count 195, MPV 10.4, Immature Gran % (Auto) 0.600, Neut % (Auto) 85.5 H, Lymph % (Auto) 5.7 L, [place] % (Auto) 8.0, Eos % (Auto) 0.0, Baso % (Auto) 0.2, Absolute Neuts (auto) 7.5, Absolute Lymphs (auto) 0.50 L, Nucleated RBC % 0 07/28/20 05:28: Sodium 147 H, Potassium 3.2 L, Chloride 118 H, Carbon Dioxide 22.0, Anion Gap 7, BUN 25 H, Creatinine 0.96, Estim Creat Clear Calc 85.54, Est GFR (MDRD) Af Amer 101, Est GFR (MDRD) Non-Af 84, BUN/Creatinine Ratio 26.2 H, Glucose 94, Calcium 9.1 Current Medications Enoxaparin Sodium (Enoxaparin 100 Mg/Ml Syringe) 90 mg SC Q12 [facility] Last Admin: 07/27/20 18:37 Dose: Not Given Documented by: Sodium Chloride () 1,000 mls @ 75 mls/hr IV .[id number] [facility] Stop: 07/28/20 15:29 Last Admin: 07/28/20 03:44 Dose: 75 mls/hr Documented by: Famotidine 20 mg/ Sodium (Chloride) 10 mls @ 300 mls/hr IV Q12 [facility] Last Infusion: 07/28/20 09:48 Dose: Infused Documented by: Morphine Sulfate (Morphine 4 Mg/Ml Syringe) 4 mg IV Q3H PRN PRN PRN Reason: Pain Score 6-10 Last Admin: 07/27/20 21:17 Dose: 4 mg Documented by: Ondansetron HCl (Ondansetron 4 Mg/2 Ml Vial) 4 mg IV Q8H PRN PRN PRN Reason: NAUSEA/VOMITING Last Admin: 07/26/20 20:20 Dose: 4 mg Documented by: Sodium Chloride (0.9% Saline Lock 10 Ml Syringe) 10 - 40 ml IV UD PRN PRN Reason: SALINE FLUSH Throat Lozenges (Benzocaine/Menthol 1 Lozenge) 1 - 2 lozenge MUCOUS MEM Q2H PRN PRN PRN Reason: SORE THROAT Last Admin: 07/28/20 06:11 Dose: 2 lozenge Documented by: STROKE Vital Signs/Narrative: Vital Signs Temp Pulse Resp BP Pulse Ox 07/28/20 11:00 97.5 F L 75 18 147/89 H 97 07/28/20 08:20 98.2 F 77 18 154/94 H 96 Medical Necessity - Tobacco Use Smoking Status: Never smoker Tobacco Use: Non-smoker Assessment/Plan All Active Problems (Last Updated 07/25/20 @ 20:[address] Greg Iglesias, DO) DVT, popliteal, acute (Acute) Small bowel obstruction (Acute) Prostate cancer (Resolved) Abdominal pain (Acute) Nausea and vomiting (Acute) Pre-operative cardiovascular examination (Resolved) Syncope and collapse (Resolved 08/23/16) Nonsustained ventricular tachycardia (Resolved 09/01/07) History of non-ST elevation myocardial infarction (NSTEMI) (Resolved 09/01/07) 1. Small bowel obstruction/bladder cancer status post bladder and prostate resection with ileal conduit in May 2020 -Recently had an ileal conduit and a prostatectomy as well as bladder resection in May -This is his third SBO since surgery -Plan for ex lap today by general surgery and urology -Maintain NG tube to LIWS 2. Hypernatremia -Sodium is 147, continue with half-normal saline 3. HTN -Does not take any medications at home -We will monitor and will likely need to follow-up with his PCP on discharge. 4. History of DVT in his right lower extremity -He is on home Lovenox -Can continue on discharge -Ultrasound on 07/22/2020 demonstrated continued DVT DVT: Lovenox Inpatient E&M: 03463 Subs Hosp L2
[2020-07-28] MEDS: Lactated Ringers 1,000 ML 100 ML IV ×2 (13:30→16:45)
--- NOTE | 2020-07-28 15:02 | OP.PCM_ITS ---
Report of Operation Date of Procedure: 07/28/20 Pre-Operative Diagnosis: Partial small bowel obstruction Post-Operative Diagnosis: Same Surgery/Procedure Performed:: Exploratory laparotomy, small bowel resection with primary anastomosis, lysis of adhesions release of partial small bowel obstruction machine or machinery mechanic: David Pino Type of Anesthesia:: General/Supplemental Anesthesiologist: Raz Iqbal Special Medications: Cefotetan 2 g IV x1 Specimen's removed: mid jejunum Estimated Blood Loss (mL): 100 cc Fluids Replaced: 900 cc Description of Procedure: Indications: 65-year-old male status post cystectomy due to bladder cancer with ileal conduit end of May. Patient previously been admitted for partial small bowel obstruction which resolved. Patient again was admitted with partial small bowel obstruction [place] night, attempted conservative management but the p.o. contrast did not go into the colon & hr had a large amount of output from his NG. Discussed with patient exploratory laparotomy for release of partial small bowel obstruction. Patient was agreeable to proceed. Description: Patient brought operating placed find the operating table. General anesthesia was induced. Timeout was completed verifying correct patient, procedure, site, positioning, special equipment prior to beginning procedure. Abdomen was prepped and draped in usual sterile fashion with Betadine. The urostomy was covered with a towel and Ioban. The previous midline incision was reincised with a 10 blade scalpel. This was deepened to the fascia with electrocautery. There is noted to be dense adhesions of the proximal small bowel to the anastomosis of both distal ureters to the anastomosis of ureters and the conduit. This was freed with metzenbaum scissors. There was a serosal injury to the bowel due to the dense adhesions. A small bowel resection was completed using SOURAV 75 to divide proximal and distal aspects to healthy bowel. Enseal was used to divide the mesentery. Anastomosis was completed using the SOURAV-75 stapler to the antimesenteric borders and TL 60 stapler to close the enterotomy. There was good blood flow at anastomosis. Areas of oozing at the anastomosis were oversewn with figure 8 3-0 silk suture. The mesenteric defect was closed with 3-0 silk suture. Anastomosis was widely patent able to fit 2-3 fingers. Patient did have diffuse oozing throughout the case due to his previous therapeutic lovenox for recent DVT. The ureters and conduit were reinspected by Dr. Pino and they were intact. Abdomen was irrigated. Fascia was closed with 1-0 PDS suture. Skin was closed with nuno. Ostomy appliance was placed over the urostomy. Patient tolerated procedure well taken to the postanesthesia care unit in stable condition. - Complications none
[2020-07-28] MEDS: Morphine 4 MG/ML Syringe IV ×2 (16:44→19:02)
[2020-07-29 00:13] VITALS: BP 156/87; PULSE 79; RESP 18; TEMP 36.8; O2SAT 94
[2020-07-29] MEDS: Morphine 4 MG/ML Syringe IV ×5 (00:16→18:14)
[2020-07-29] MEDS: Lactated Ringers 1,000 ML 100 ML IV ×2 (02:29→12:31)
[2020-07-29] MEDS: BENZOCAINE/MENTHOL 1 LOZENGE MUCOUS MEM ×3 (02:33→12:31)
[2020-07-29 04:15] VITALS: BP 154/94; PULSE 73; RESP 18; TEMP 36.9; O2SAT 97
[2020-07-29 04:30] VITALS: BMI 24.3
[2020-07-29 06:56] LABS: Absolute Lymphocyte Count 0.67 X10^3/uL (0.83-4.51); Absolute Neutrophil Count 5.9 X10^3/uL (2.0-7.7); Basophil# 0.01 X10^3/uL; Basophil% 0.1 % (0-1); Eosinophil# 0.01 X10^3/uL; Eosinophils% 0.1 % (0-5); Hematocrit 34.8 % (40-54); Hemoglobin 10.7 g/dL (13.0-16.5); Lymphocyte # 0.67 X10^3/ul (4.0); Lymphocyte % 9.1 % (19-41); Mean Corp Hgb Conc 30.7 g/dL (32-36); Mean Corpuscular Hgb 27.4 pg (27.0-32.0); Mean Corpuscular Volume 89.2 fL (80-94); Mean Platelet Vol. 9.9 fl (6.2-12.0); Monocyte# 0.78 X10^3/uL; Monocyte% 10.6 % (0-10); NRBC Flagged by Analyzer 0 % (0-5); Neutrophil # 5.85 X10^3/uL (2.7-7.7); Neutrophil % 79.8 % (47-70); Platelet Count 188 K/mm3 (150-450); RBC Distribution Width CV 14.8 % (11.6-14.6); RBC Distribution Width SD 48.3 fl (35.1-43.9); White Blood Count 7.3 K/mm3 (4.4-11.0)
[2020-07-29 07:29] LABS: Anion Gap 7 (5-15); BUN 27 mg/dL (7-18); BUN/Creat Ratio 27.2 RATIO (10-20); Calcium,Total 8.7 mg/dL (8.5-10.1); Chloride 121 mmol/L (98-107); Creatinine, Serum 0.99 mg/dL (0.70-1.30); EST Glomerular Filtration Rate 80 mL/min (>60); Est Glom Filt Rate - Afr Amer 97 mL/min (>60); Estimated Creatinine Clearance 82.95 ml/min; Glucose 107 mg/dL (74-106); Potassium 3.4 mmol/L (3.5-5.1); Sodium Level 149 mmol/L (136-145)
--- NOTE | 2020-07-29 07:48 | PCM.PN.BLA ---
Progress Note Status post exploration and was found to have some adhesions between the bowel and the conduit and anastomosis. The anastomosis between the ureters and the conduit looked good so tomorrow okay to take him to surgery for extraction of the stents via the ileal conduit this to be endoscopically. GI management per general surgery but he is looking good. STROKE Vital Signs/Narrative: Vital Signs Temp Pulse Resp BP Pulse Ox 07/29/20 04:15 98.4 F 73 18 154/94 H 97
[2020-07-29 08:00] VITALS: PULSE 73
[2020-07-29 08:40] VITALS: BMI 24.3
[2020-07-29] MEDS: 0.9% Saline Lock 10 ML Syringe IV (08:43)
--- NOTE | 2020-07-29 09:00 | NURSING ---
Pt up ambulating in the halls. states he has had some discomfort. ostomy appliance intact.
--- NOTE | 2020-07-29 09:26 | PN.SURG_ITS ---
Patient Problems: Active and Suspected Problems (Last Updated 07/25/20 @ 20:[address] Greg Iglesias, DO) Abdominal pain (Acute) Nausea and vomiting (Acute) Subjective: Patient's abdomen is sore, still making good urine output from his urostomy, NG only put out about 250 this morning currently clamped as patient just walked - Physical Exam Vitals/I&O's: Vital Signs Temp Pulse Resp BP Pulse Ox 98.4 F 73 18 154/94 H 97 07/29/20 04:15 07/29/20 04:15 07/29/20 04:15 07/29/20 04:15 07/29/20 04:15 Oxygen Delivery Method Room Air Weight: 184 lb 3.986 oz Body Mass Index (BMI) 24.3 Finger Stick Blood Glucose 126 Intake and Output for Last 24 Hours 07/27/20 07/28/20 07/29/20 23:59 23:59 23:59 Intake Total 2752.08 / 2752.08 2655 / 2655 1033.33 / 1033.33 Output Total 4625 / 4625 3030 / 3030 925 / 925 Balance -1872.92 / -1872.92 -375 / -375 108.33 / 108.33 General: Alert, Oriented x3, Cooperative, No apparent distress HEENT: - - NG in place Lungs: Normal air movement Cardiovascular: Regular rate Abdomen: Soft, Distended - Minimal, Tender - Near incision clean and dry and intact with nuno and dressed, urostomy pink, clear urine Extremities: No clubbing, No cyanosis, No edema Microbiology Past 72 Hours 07/27/20 09:20 Mucosa - Nose SARS-CoV-2 Antigen (Rapid) - Final Laboratory Results 07/29/20 06:44: WBC 7.3, RBC 3.90 L, Hgb 10.7 L, Hct 34.8 L, MCV 89.2, MCH 27.4, MCHC 30.7 L, RDW Std Deviation 48.3 H, RDW Coeff of Lidia 14.8 H, Plt Count 188, MPV 9.9, Immature Gran % (Auto) 0.300, Neut % (Auto) 79.8 H, Lymph % (Auto) 9.1 L, [place] % (Auto) 10.6 H, Eos % (Auto) 0.1, Baso % (Auto) 0.1, Absolute Neuts (auto) 5.9, Absolute Lymphs (auto) 0.67 L, Nucleated RBC % 0 07/29/20 06:44: Sodium 149 H, Potassium 3.4 L, Chloride 121 H, Carbon Dioxide 21.0, Anion Gap 7, BUN 27 H, Creatinine 0.99, Estim Creat Clear Calc 82.95, Est GFR (MDRD) Af Amer 97, Est GFR (MDRD) Non-Af 80, BUN/Creatinine Ratio 27.2 H, Glucose 107 H, Calcium 8.7 Current Medications Famotidine 20 mg/ Sodium (Chloride) 10 mls @ 300 mls/hr IV Q12 [facility] Last Infusion: 07/28/20 20:44 Dose: Infused Documented by: Lactated Ringer's () 1,000 mls @ 100 mls/hr IV .Q10H [facility] Last Admin: 07/29/20 02:29 Dose: 100 mls/hr Documented by: Morphine Sulfate (Morphine 4 Mg/Ml Syringe) 2 - 4 mg IV Q2H PRN PRN PRN Reason: Pain Score 2-10/10 Last Admin: 07/29/20 08:43 Dose: 4 mg Documented by: Morphine Sulfate (Morphine 2 Mg/Ml Syringe) 2 - 4 mg IV Q2H PRN PRN PRN Reason: Pain Score 2-10/10 Ondansetron HCl (Ondansetron 4 Mg/2 Ml Vial) 4 mg IV Q8H PRN PRN PRN Reason: NAUSEA/VOMITING Last Admin: 07/26/20 20:20 Dose: 4 mg Documented by: Sodium Chloride (0.9% Saline Lock 10 Ml Syringe) 10 - 40 ml IV UD PRN PRN Reason: SALINE FLUSH Last Admin: 07/29/20 08:43 Dose: 10 ml Documented by: Throat Lozenges (Benzocaine/Menthol 1 Lozenge) 1 - 2 lozenge MUCOUS MEM Q2H PRN PRN PRN Reason: SORE THROAT Last Admin: 07/29/20 04:12 Dose: 1 lozenge Documented by: Medical Necessity - Tobacco Use Smoking Status: Never smoker Tobacco Use: Non-smoker Assessment/Plan All Active Problems (Last Updated 07/25/20 @ 20:[address] Greg Iglesias, DO) DVT, popliteal, acute (Acute) Small bowel obstruction (Acute) Prostate cancer (Resolved) Abdominal pain (Acute) Nausea and vomiting (Acute) Pre-operative cardiovascular examination (Resolved) Syncope and collapse (Resolved 08/23/16) Nonsustained ventricular tachycardia (Resolved 09/01/07) History of non-ST elevation myocardial infarction (NSTEMI) (Resolved 09/01/07) Six 5-year-old male status post exploratory laparotomy, lysis of adhesion release of partial small bowel obstruction, small bowel resection with anastomosis, status post recent cystectomy with ileal conduit due to bladder cancer We will clamp NG for 4 hours and check residual possible DC of NG depending on residual. Keep n.p.o./IV fluids until patient starts to have bowel function. Continue ambulating/up in the chair Pain control Pepcid, will hold Lovenox until tomorrow Jelena Mckoy M.D. Pager: [phone] [facility] [address] [place] [address], [facility], [address] [place] [address] Office: [phone]
--- NOTE | 2020-07-29 10:12 | NT.THERAPY_ITS ---
Nutrition Therapy Report - History Nutrition Services has been consulted to:: Manage nutrient details of diet order Current diet / nutrition support order:: NPO day #4 - Anthropometric Measurements Height:: 6 ft 1 in Weight:: 83.574 kg Body Mass Index (BMI):: 24.3 - Relevant Labs Relevant Labs:: WBC 11.2 K/mm3 (4.4-11.0) H 07/26/20 06:55 RBC 3.90 M/mm3 (4.6-6.2) L 07/29/20 06:44 Hgb 10.7 g/dL (13.0-16.5) L 07/29/20 06:44 Hct 34.8 % (40-54) L 07/29/20 06:44 MCHC 30.7 g/dL (32-36) L 07/29/20 06:44 RDW Std Deviation 48.3 fl (35.1-43.9) H 07/29/20 06:44 RDW Coeff of Lidia 14.8 % (11.6-14.6) H 07/29/20 06:44 Neut % (Auto) 79.8 % (47-70) H 07/29/20 06:44 Lymph % (Auto) 9.1 % (19-41) L 07/29/20 06:44 [place] % (Auto) 10.6 % (0-10) H 07/29/20 06:44 Absolute Neuts (auto) 9.1 X10^3/uL (2.0-7.7) H 07/27/20 09:00 Absolute Lymphs (auto) 0.67 X10^3/uL (0.83-4.51) L 07/29/20 06:44 APTT 40.0 Seconds (24.1-36.2) H 07/27/20 09:00 Sodium 149 mmol/L (136-145) H 07/29/20 06:44 Potassium 3.4 mmol/L (3.5-5.1) L 07/29/20 06:44 Chloride 121 mmol/L (98-107) H 07/29/20 06:44 Carbon Dioxide 19.0 mmol/L (21.0-32.0) L 07/26/20 06:55 BUN 27 mg/dL (7-18) H 07/29/20 06:44 Creatinine 1.38 mg/dL (0.70-1.30) H 07/25/20 15:20 Est GFR (MDRD) Non-Af 55 mL/min (>60) L 07/25/20 15:20 BUN/Creatinine Ratio 27.2 RATIO (10-20) H 07/29/20 06:44 Glucose 107 mg/dL (74-106) H 07/29/20 06:44 Total Protein 8.7 g/dL (6.4-8.2) H 07/25/20 15:20 Globulin 4.8 g/dL (2.2-4.2) H 07/25/20 15:20 Albumin/Globulin Ratio 0.8 RATIO (0.9-2.4) L 07/25/20 15:20 - Assessment Food / Nutrition-Related History:: Remains NPO-day #4. S/p ex lap, small bowel resection, lysis of adhesions, and release of partial SBO. Remains NPO w/ plans for OR tomorrow for extration of stents via ileal conduit per Dr. Pino. Has NGT in place. Per Dr. Mckoy, NG will be clamped today and d/c'd pending on residuals. Has IV fluids running w/ plans to remain NPO until bowel function returns per Dr. Mckoy. No new wt to assess since admission. - Nutrition Diagnosis Problem / Etiology / Signs & Symptoms (PES):: Upon initial assessment, pt presented w/ severe malnutrition r/t inadequate energy intake while on low-fiber diet as evidenced by PO intake meeting less than 50% of estimated nutritional needs for greater than 1 month, and 9.7% wt loss x 2 months. Evidence of Malnutrition Exists:: Yes Severe PCM:: Acute Illness - Food / Nutrient Delivery Interventions Summary of nutrition intervention:: NPO day #4. If pt is not anticipated to return to PO diet in next 24-48 hours, recommend initiation of nutrition support. Consult RDN for further recommendations as indicated. Nutrition support ordered as / adjusted to:: advance diet as tolerated to transitional w/ 240mL ensure clear TID w/ meals; recommend nutrition support if unable to advance diet in next 24-48 hours. - MNT Monitoring Further MNT monitoring and evaluation required?: Yes MNT Follow-up in:: 1-2 days
[2020-07-29 10:15] VITALS: BMI 24.3
[2020-07-29] MEDS: Famotidine 200 MG/20 ML MDV 20 MG in 0.9% Normal Saline (Pres. free 8 ML 300 MG IV ×2 (10:16→22:36)
--- NOTE | 2020-07-29 12:08 | PCM.PN.HOSP ---
Patient Problems: Active and Suspected Problems (Last Updated 07/25/20 @ 20:[address] Greg Iglesias, DO) Abdominal pain (Acute) Nausea and vomiting (Acute) Subjective: Tolerated surgery well yesterday. Ambulating nursing unit with the NG clamped Vitals/I&O's: Vital Signs Temp Pulse Resp BP Pulse Ox 98.4 F 73 18 154/94 H 97 07/29/20 04:15 07/29/20 08:00 07/29/20 04:15 07/29/20 04:15 07/29/20 04:15 Oxygen Delivery Method Room Air Weight: 184 lb 3.986 oz Body Mass Index (BMI) 24.3 Finger Stick Blood Glucose 126 Intake and Output for Last 24 Hours 07/27/20 07/28/20 07/29/20 23:59 23:59 23:59 Intake Total 2752.08 / 2752.08 2655 / 2655 1073.33 / 1073.33 Output Total 4625 / 4625 3030 / 3030 925 / 925 Balance -1872.92 / -1872.92 -375 / -375 148.33 / 148.33 General: Alert, Oriented x3, Cooperative, No apparent distress, - - NG tube in place HEENT: Atraumatic, PERRLA, EOMI, Normocephalic Oral: Moist Mucosa Neck: Supple, No JVD Lungs: Clear to auscultation, Normal air movement, No rhonchi, No wheeze, No rales Cardiovascular: Regular rate, Regular Rhythm, Normal S1, Normal S2, No murmurs Abdomen: Soft, Non Tender, Non-Distended, No Hepato-splenomegaly Extremities: No edema, Capillary Refill Less than 3 Seconds Skin: No rashes, No breakdown, incisional dressing is CDI Neurological: Neuro grossly intact, Sensory exam intact to light touch and pain Psych/Mental Status: Normal Affect, Appropriate Microbiology Past 72 Hours 07/27/20 09:20 Mucosa - Nose SARS-CoV-2 Antigen (Rapid) - Final Laboratory Results 07/29/20 06:44: WBC 7.3, RBC 3.90 L, Hgb 10.7 L, Hct 34.8 L, MCV 89.2, MCH 27.4, MCHC 30.7 L, RDW Std Deviation 48.3 H, RDW Coeff of Lidia 14.8 H, Plt Count 188, MPV 9.9, Immature Gran % (Auto) 0.300, Neut % (Auto) 79.8 H, Lymph % (Auto) 9.1 L, [place] % (Auto) 10.6 H, Eos % (Auto) 0.1, Baso % (Auto) 0.1, Absolute Neuts (auto) 5.9, Absolute Lymphs (auto) 0.67 L, Nucleated RBC % 0 07/29/20 06:44: Sodium 149 H, Potassium 3.4 L, Chloride 121 H, Carbon Dioxide 21.0, Anion Gap 7, BUN 27 H, Creatinine 0.99, Estim Creat Clear Calc 82.95, Est GFR (MDRD) Af Amer 97, Est GFR (MDRD) Non-Af 80, BUN/Creatinine Ratio 27.2 H, Glucose 107 H, Calcium 8.7 Current Medications Famotidine 20 mg/ Sodium (Chloride) 10 mls @ 300 mls/hr IV Q12 [facility] Last Infusion: 07/29/20 10:18 Dose: Infused Documented by: Lactated Ringer's () 1,000 mls @ 100 mls/hr IV .Q10H [facility] Last Admin: 07/29/20 02:29 Dose: 100 mls/hr Documented by: Morphine Sulfate (Morphine 4 Mg/Ml Syringe) 2 - 4 mg IV Q2H PRN PRN PRN Reason: Pain Score 2-10/10 Last Admin: 07/29/20 08:43 Dose: 4 mg Documented by: Morphine Sulfate (Morphine 2 Mg/Ml Syringe) 2 - 4 mg IV Q2H PRN PRN PRN Reason: Pain Score 2-10/10 Ondansetron HCl (Ondansetron 4 Mg/2 Ml Vial) 4 mg IV Q8H PRN PRN PRN Reason: NAUSEA/VOMITING Last Admin: 07/26/20 20:20 Dose: 4 mg Documented by: Sodium Chloride (0.9% Saline Lock 10 Ml Syringe) 10 - 40 ml IV UD PRN PRN Reason: SALINE FLUSH Last Admin: 07/29/20 08:43 Dose: 10 ml Documented by: Throat Lozenges (Benzocaine/Menthol 1 Lozenge) 1 - 2 lozenge MUCOUS MEM Q2H PRN PRN PRN Reason: SORE THROAT Last Admin: 07/29/20 04:12 Dose: 1 lozenge Documented by: Medical Necessity - Tobacco Use Smoking Status: Never smoker Tobacco Use: Non-smoker Assessment/Plan All Active Problems (Last Updated 07/25/20 @ 20:[address] Greg Iglesias, DO) DVT, popliteal, acute (Acute) Small bowel obstruction (Acute) Prostate cancer (Resolved) Abdominal pain (Acute) Nausea and vomiting (Acute) Pre-operative cardiovascular examination (Resolved) Syncope and collapse (Resolved 08/23/16) Nonsustained ventricular tachycardia (Resolved 09/01/07) History of non-ST elevation myocardial infarction (NSTEMI) (Resolved 09/01/07) 1. Small bowel obstruction/bladder cancer status post bladder and prostate resection with ileal conduit in May 2020/status post lysis of adhesions and small bowel resection 07/28/2020 -Recently had an ileal conduit and a prostatectomy as well as bladder resection in May -This is his third SBO since surgery. Had resection of the small bowel during this admission -Maintain NG tube clamped, and will discuss with surgery plans for removal and advancing of his diet. In the meantime continue with IV fluids 2. Hypernatremia -Sodium is 149 -Continue with LR 3. HTN -Does not take any medications at home -We will monitor and will likely need to follow-up with his PCP on discharge. 4. History of DVT in his right lower extremity -He is on home Lovenox -Ultrasound on 07/22/2020 demonstrated continued DVT -Need to adjust after discharge to either therapeutic Lovenox or to an oral anticoagulant DVT: Lovenox Inpatient E&M: [id number] [facility] Hosp L2
[2020-07-29 12:40] VITALS: BMI 24.3
[2020-07-29 14:00] VITALS: PULSE 73
--- NOTE | 2020-07-29 14:07 | CHAPLAIN ---
Type of Pastoral Visit _x__ Initial Visit ___ Follow-up Visit ___ On-call Visit ___ General Patient Visit ___ Spiritual Assessment ___ Family Conference ___ Bereavement ___ Rapid Response ___ Code Blue ___ Other (describe below) Pastoral Care Referral From _x__ Patient ___ Family ___ Nurse ___ Physician ___ Auto Technician Mechanic ___ Legal Records Manager ___ Other (describe below) Sacrament/Intervention _x__ Active listening ___ Anointing ___ Confucianist ___ Bereavement ___ Communion _x__ Jael exploration ___ ___ Life review _x__ Prayer ___ Reconciliation ___ Sacrament of Sick _x__ Supportive presence ___ Wedding ___ Other (describe below) Pastoral Comments met this patient in a previous admission; pt has had several surgeries and admissions lately and expresses desire for visits, conversation, and prayer as he identifies himself as social and spiritual
[2020-07-29 16:40] VITALS: BMI 24.3
[2020-07-29] MEDS: Lactated Ringers 1,000 ML 60 ML IV ×2 (18:14→22:32)
[2020-07-29 20:40] VITALS: BMI 24.3
[2020-07-29] MEDS: Morphine 2 MG/ML Syringe IV (22:33)
[2020-07-30 02:57] VITALS: BP 158/84; PULSE 58; RESP 16; TEMP 36.7; O2SAT 97
[2020-07-30 05:54] LABS: Absolute Lymphocyte Count 0.95 X10^3/uL (0.83-4.51); Absolute Neutrophil Count 5.4 X10^3/uL (2.0-7.7); Basophil# 0.02 X10^3/uL; Basophil% 0.3 % (0-1); Eosinophil# 0.35 X10^3/uL; Eosinophils% 4.8 % (0-5); Hematocrit 32.9 % (40-54); Hemoglobin 10.2 g/dL (13.0-16.5); Lymphocyte # 0.95 X10^3/ul (4.0); Lymphocyte % 12.9 % (19-41); Mean Corpuscular Hgb 27.9 pg (27.0-32.0); Mean Corpuscular Volume 89.9 fL (80-94); Mean Platelet Vol. 10.3 fl (6.2-12.0); Monocyte# 0.61 X10^3/uL; Monocyte% 8.3 % (0-10); NRBC Flagged by Analyzer 0 % (0-5); Neutrophil # 5.38 X10^3/uL (2.7-7.7); Neutrophil % 73.2 % (47-70); Platelet Count 181 K/mm3 (150-450); RBC Distribution Width CV 14.7 % (11.6-14.6); RBC Distribution Width SD 48.3 fl (35.1-43.9); Red Blood Count 3.66 M/mm3 (4.6-6.2); White Blood Count 7.4 K/mm3 (4.4-11.0)
[2020-07-30 06:01] LABS: International Normalized Ratio 1.4; Prothrombin Time (Protime)PT. 16.6 SECONDS (11.7-14.9)
[2020-07-30 06:02] LABS: Partial Thromboplast Time 31.8 Seconds (24.1-36.2)
[2020-07-30 06:34] LABS: Anion Gap 6 (5-15); BUN 24 mg/dL (7-18); BUN/Creat Ratio 30.6 RATIO (10-20); Calcium,Total 8.5 mg/dL (8.5-10.1); Chloride 121 mmol/L (98-107); Creatinine, Serum 0.78 mg/dL (0.70-1.30); EST Glomerular Filtration Rate 105 mL/min (>60); Est Glom Filt Rate - Afr Amer 127 mL/min (>60); Estimated Creatinine Clearance 82.12 ml/min; Glucose 81 mg/dL (74-106); Potassium 3.4 mmol/L (3.5-5.1); Sodium Level 151 mmol/L (136-145)
[2020-07-30 07:02] VITALS: BP 142/82; PULSE 68; RESP 18; TEMP 36.4; O2SAT 95
[2020-07-30 08:00] VITALS: PULSE 68
--- NOTE | 2020-07-30 09:47 | PN.SURG_ITS ---
Patient Problems: Active and Suspected Problems (Last Updated 07/25/20 @ 20:[address] Greg Iglesias, DO) Abdominal pain (Acute) Nausea and vomiting (Acute) Subjective: no flatus/bm, NG removed yesterday - Physical Exam Vitals/I&O's: Vital Signs Temp Pulse Resp BP Pulse Ox 97.5 F L 68 18 142/82 H 95 07/30/20 07:02 07/30/20 07:02 07/30/20 07:02 07/30/20 07:02 07/30/20 07:02 Oxygen Delivery Method Room Air Weight: 184 lb 3.986 oz Body Mass Index (BMI) 24.3 Finger Stick Blood Glucose 126 Intake and Output for Last 24 Hours 07/28/20 07/29/20 07/30/20 23:59 23:59 23:59 Intake Total 2655 / 2655 3341.33 / 3371.33 30 / 30 Output Total 3030 / 3030 2025 / 2325 450 / 450 Balance -375 / -375 1316.33 / 1046.33 -420 / -420 General: Alert, Oriented x3, Cooperative, No apparent distress HEENT: Atraumatic Lungs: Normal air movement Cardiovascular: Regular rate Abdomen: Soft, Non-Distended, Tender - near incision c/d/i w nuno, no PS, urostomy - pink Microbiology Past 72 Hours 07/27/20 09:20 Mucosa - Nose SARS-CoV-2 Antigen (Rapid) - Final Laboratory Results 07/30/20 05:23: WBC 7.4, RBC 3.66 L, Hgb 10.2 L, Hct 32.9 L, MCV 89.9, MCH 27.9, MCHC 31.0 L, RDW Std Deviation 48.3 H, RDW Coeff of Lidia 14.7 H, Plt Count 181, MPV 10.3, Immature Gran % (Auto) 0.500, Neut % (Auto) 73.2 H, Lymph % (Auto) 12.9 L, [place] % (Auto) 8.3, Eos % (Auto) 4.8, Baso % (Auto) 0.3, Absolute Neuts (auto) 5.4, Absolute Lymphs (auto) 0.95, Nucleated RBC % 0 07/30/20 05:23: Sodium 151 H, Potassium 3.4 L, Chloride 121 H, Carbon Dioxide 24.0, Anion Gap 6, BUN 24 H, Creatinine 0.78, Estim Creat Clear Calc 82.12, Est GFR (MDRD) Af Amer 127, Est GFR (MDRD) Non-Af 105, BUN/Creatinine Ratio 30.6 H, Glucose 81, Calcium 8.5 07/30/20 05:23: PT 16.6 H, INR 1.4, APTT 31.8 Current Medications Famotidine 20 mg/ Sodium (Chloride) 10 mls @ 300 mls/hr IV Q12 [facility] Last Infusion: 07/29/20 22:38 Dose: Infused Documented by: Lactated Ringer's () 1,000 mls @ 60 mls/hr IV .[id number] [facility] Last Admin: 07/29/20 22:32 Dose: 60 mls/hr Documented by: Morphine Sulfate (Morphine 4 Mg/Ml Syringe) 2 - 4 mg IV Q2H PRN PRN PRN Reason: Pain Score 2-10/10 Last Admin: 07/29/20 18:14 Dose: 4 mg Documented by: Morphine Sulfate (Morphine 2 Mg/Ml Syringe) 2 - 4 mg IV Q2H PRN PRN PRN Reason: Pain Score 2-10/10 Last Admin: 07/29/20 22:33 Dose: 4 mg Documented by: Ondansetron HCl (Ondansetron 4 Mg/2 Ml Vial) 4 mg IV Q8H PRN PRN PRN Reason: NAUSEA/VOMITING Last Admin: 07/26/20 20:20 Dose: 4 mg Documented by: Sodium Chloride (0.9% Saline Lock 10 Ml Syringe) 10 - 40 ml IV UD PRN PRN Reason: SALINE FLUSH Last Admin: 07/29/20 08:43 Dose: 10 ml Documented by: Throat Lozenges (Benzocaine/Menthol 1 Lozenge) 1 - 2 lozenge MUCOUS MEM Q2H PRN PRN PRN Reason: SORE THROAT Last Admin: 07/29/20 12:31 Dose: 1 lozenge Documented by: Medical Necessity - Tobacco Use Smoking Status: Never smoker Tobacco Use: Non-smoker Assessment/Plan All Active Problems (Last Updated 07/25/20 @ 20:[address] Greg Iglesias, DO) DVT, popliteal, acute (Acute) Small bowel obstruction (Acute) Prostate cancer (Resolved) Abdominal pain (Acute) Nausea and vomiting (Acute) Pre-operative cardiovascular examination (Resolved) Syncope and collapse (Resolved 08/23/16) Nonsustained ventricular tachycardia (Resolved 09/01/07) History of non-ST elevation myocardial infarction (NSTEMI) (Resolved 09/01/07) Six 5-year-old male POD 1 status post exploratory laparotomy, lysis of adhesion release of partial small bowel obstruction, small bowel resection with anastomosis, status post recent cystectomy with ileal conduit due to bladder cancer Keep n.p.o./IV fluids until patient starts to have bowel function. will give suppository as pt had constipation before surgery as well per CT a/p Continue ambulating/up in the chair Pain control Pepcid, fabiano for anticoagulation today Jelena Mckoy M.D. Pager: [phone] [facility] [address] [place] [address], [address] [place] [address] Office: [phone]
[2020-07-30] MEDS: Famotidine 200 MG/20 ML MDV 20 MG in 0.9% Normal Saline (Pres. free 8 ML 300 MG IV ×2 (10:37→21:32)
[2020-07-30] MEDS: Bisacodyl 10 MG Suppository RECTAL (12:22)
[2020-07-30] MEDS: Lactated Ringers 1,000 ML 60 ML IV (14:38)
--- NOTE | 2020-07-30 15:47 | PN_ITS ---
Patient Problems: Active and Suspected Problems (Last Updated 07/25/20 @ 20:[address] Greg Iglesias, DO) Abdominal pain (Acute) Nausea and vomiting (Acute) Subjective: Slept okay, with the NG tube out. Ambulating but feels exhausted today Vitals/I&O's: Vital Signs Temp Pulse Resp BP Pulse Ox 97.5 F L 68 18 142/82 H 95 07/30/20 07:02 07/30/20 08:00 07/30/20 07:02 07/30/20 07:02 07/30/20 07:02 Oxygen Delivery Method Room Air Weight: 184 lb 3.986 oz Body Mass Index (BMI) 24.3 Finger Stick Blood Glucose 126 Intake and Output for Last 24 Hours 07/28/20 07/29/20 07/30/20 23:59 23:59 23:59 Intake Total 2655 / 2655 3341.33 / 3371.33 1036 / 1036 Output Total 3030 / 3030 2025 / 2325 1100 / 1100 Balance -375 / -375 1316.33 / 1046.33 -64 / -64 General: Alert, Oriented x3, Cooperative, No apparent distress HEENT: Atraumatic, PERRLA, EOMI, Normocephalic Oral: Moist Mucosa Neck: Supple, No JVD Lungs: Clear to auscultation, Normal air movement, No rhonchi, No wheeze, No rales Cardiovascular: Regular rate, Regular Rhythm, Normal S1, Normal S2, No murmurs Abdomen: Soft, Non Tender, Non-Distended, No Hepato-splenomegaly Extremities: No edema, Capillary Refill Less than 3 Seconds Skin: No rashes, No breakdown, incisional dressing is CDI Neurological: Neuro grossly intact, Sensory exam intact to light touch and pain Psych/Mental Status: Normal Affect, Appropriate Laboratory Results 07/30/20 05:23: WBC 7.4, RBC 3.66 L, Hgb 10.2 L, Hct 32.9 L, MCV 89.9, MCH 27.9, MCHC 31.0 L, RDW Std Deviation 48.3 H, RDW Coeff of Lidia 14.7 H, Plt Count 181, MPV 10.3, Immature Gran % (Auto) 0.500, Neut % (Auto) 73.2 H, Lymph % (Auto) 12.9 L, [place] % (Auto) 8.3, Eos % (Auto) 4.8, Baso % (Auto) 0.3, Absolute Neuts (auto) 5.4, Absolute Lymphs (auto) 0.95, Nucleated RBC % 0 07/30/20 05:23: Sodium 151 H, Potassium 3.4 L, Chloride 121 H, Carbon Dioxide 24.0, Anion Gap 6, BUN 24 H, Creatinine 0.78, Estim Creat Clear Calc 82.12, Est GFR (MDRD) Af Amer 127, Est GFR (MDRD) Non-Af 105, BUN/Creatinine Ratio 30.6 H, Glucose 81, Calcium 8.5 07/30/20 05:23: PT 16.6 H, INR 1.4, APTT 31.8 Current Medications Famotidine 20 mg/ Sodium (Chloride) 10 mls @ 300 mls/hr IV Q12 [facility] Last Infusion: 07/30/20 10:40 Dose: Infused Documented by: Lactated Ringer's () 1,000 mls @ 60 mls/hr IV .[id number] [facility] Last Admin: 07/30/20 14:38 Dose: 60 mls/hr Documented by: Morphine Sulfate (Morphine 4 Mg/Ml Syringe) 2 - 4 mg IV Q2H PRN PRN PRN Reason: Pain Score 2-10/10 Last Admin: 07/29/20 18:14 Dose: 4 mg Documented by: Morphine Sulfate (Morphine 2 Mg/Ml Syringe) 2 - 4 mg IV Q2H PRN PRN PRN Reason: Pain Score 2-10/10 Last Admin: 07/29/20 22:33 Dose: 4 mg Documented by: Nutritional Formula (Lactose Free) (Ensure Clear 120 Ml Liquid) 120 ml PO TIDCM [facility] Ondansetron HCl (Ondansetron 4 Mg/2 Ml Vial) 4 mg IV Q8H PRN PRN PRN Reason: NAUSEA/VOMITING Last Admin: 07/26/20 20:20 Dose: 4 mg Documented by: Sodium Chloride (0.9% Saline Lock 10 Ml Syringe) 10 - 40 ml IV UD PRN PRN Reason: SALINE FLUSH Last Admin: 07/29/20 08:43 Dose: 10 ml Documented by: Throat Lozenges (Benzocaine/Menthol 1 Lozenge) 1 - 2 lozenge MUCOUS MEM Q2H PRN PRN PRN Reason: SORE THROAT Last Admin: 07/29/20 12:31 Dose: 1 lozenge Documented by: Medical Necessity - Tobacco Use Smoking Status: Never smoker Tobacco Use: Non-smoker Assessment/Plan All Active Problems (Last Updated 07/25/20 @ 20:[address] Greg Iglesias, DO) DVT, popliteal, acute (Acute) Small bowel obstruction (Acute) Prostate cancer (Resolved) Abdominal pain (Acute) Nausea and vomiting (Acute) Pre-operative cardiovascular examination (Resolved) Syncope and collapse (Resolved 08/23/16) Nonsustained ventricular tachycardia (Resolved 09/01/07) History of non-ST elevation myocardial infarction (NSTEMI) (Resolved 09/01/07) 1. Small bowel obstruction/bladder cancer status post bladder and prostate resection with ileal conduit in May 2020/status post lysis of adhesions and small bowel resection 07/28/2020 -Recently had an ileal conduit and a prostatectomy as well as bladder resection in May -This is his third SBO since surgery. Had resection of the small bowel during this admission -NG tube was removed and he was started on some clear liquids 2. Hypernatremia -Sodium is 151 -We will transition him from LR to D5W 3. HTN -Does not take any medications at home -We will monitor and will likely need to follow-up with his PCP on discharge. 4. History of DVT in his right lower extremity -He is on home Lovenox -Ultrasound on 07/22/2020 demonstrated continued DVT -He states that between his initial surgery for his bladder cancer and this surgery he was found to have DVTs. He was initially started on therapeutic Lovenox however this was can decrease to prophylactic Lovenox prior to the second surgery and then he never resumed therapeutic Lovenox thereafter. May be easier for him to manage these DVTs with Eliquis, I did discuss with him that the research demonstrates that Lovenox is slightly better and DVTs and PEs caused by cancer however that only works if he is actually managing to get the appropriate dosage, he would be willing to try a pill however I will attempt to touch base with oncology. -He started refusing his Lovenox here in the hospital DVT: SCDs Inpatient E&M: [id number] Subs Hosp L2
[2020-07-30] MEDS: 0.9% Saline Lock 10 ML Syringe IV (15:59)
[2020-07-30] MEDS: Morphine 2 MG/ML Syringe IV (16:00)
[2020-07-30 16:08] VITALS: PULSE 66
[2020-07-30 21:25] VITALS: BP 138/83; PULSE 71; RESP 18; TEMP 36.9; O2SAT 98
[2020-07-30] MEDS: Morphine 4 MG/ML Syringe IV (21:32)
[2020-07-31] MEDS: Morphine 4 MG/ML Syringe IV ×4 (02:57→21:58)
[2020-07-31 03:00] VITALS: BP 129/84; PULSE 67; RESP 18; TEMP 36.7; O2SAT 98
--- NOTE | 2020-07-31 07:01 | PCM.PN.BLA ---
Progress Note Having some incisional pain with moving around but otherwise reports bowel movements feels like things are moving through says he feels better. Does not feel constipated. Plan tomorrow to remove the stents in the OR will be n.p.o. for surgery tomorrow
[2020-07-31 07:19] LABS: Anion Gap 6 (5-15); BUN 19 mg/dL (7-18); BUN/Creat Ratio 21.4 RATIO (10-20); Calcium,Total 8.3 mg/dL (8.5-10.1); Chloride 116 mmol/L (98-107); Creatinine, Serum 0.89 mg/dL (0.70-1.30); EST Glomerular Filtration Rate 91 mL/min (>60); Est Glom Filt Rate - Afr Amer 110 mL/min (>60); Estimated Creatinine Clearance 92.27 ml/min; Glucose 110 mg/dL (74-106); Potassium 3.1 mmol/L (3.5-5.1); Sodium Level 145 mmol/L (136-145)
--- NOTE | 2020-07-31 07:39 | PCS.PANDOC ---
PANDEMIC DOCUMENTATION INITIATED: Date: 07/28/20 Time: 2199
[2020-07-31 08:12] LABS: Magnesium 1.8 mg/dL (1.6-2.6)
--- NOTE | 2020-07-31 08:35 | PCM.PN.SRG ---
Patient Problems: Active and Suspected Problems (Last Updated 07/25/20 @ 20:[address] Greg Iglesias, DO) Abdominal pain (Acute) Nausea and vomiting (Acute) Subjective: Patient has had multiple bowel movements denies any nausea. Pain controlled tolerating clears - Physical Exam Vitals/I&O's: Vital Signs Temp Pulse Resp BP Pulse Ox 98.1 F 67 18 129/84 H 98 07/31/20 03:00 07/31/20 03:00 07/31/20 03:00 07/31/20 03:00 07/31/20 03:00 Oxygen Delivery Method Room Air Weight: 184 lb 3.986 oz Body Mass Index (BMI) 24.3 Finger Stick Blood Glucose 126 Intake and Output for Last 24 Hours 07/29/20 07/30/20 07/31/20 23:59 23:59 23:59 Intake Total 3341.33 / 3371.33 1758 / 2058 550 / 550 Output Total 2025 / 2325 1850 / 2850 1350 / 1350 Balance 1316.33 / 1046.33 -92 / -792 -800 / -800 General: Alert, Oriented x3, Cooperative, No apparent distress HEENT: Atraumatic Lungs: Normal air movement Cardiovascular: Regular rate Abdomen: Soft, Tender - Near incision clean dry and intact with nuno Extremities: No clubbing, No cyanosis, No edema Laboratory Results 07/31/20 06:44: Sodium 145, Potassium 3.1 L, Chloride 116 H, Carbon Dioxide 23.0, Anion Gap 6, BUN 19 H, Creatinine 0.89, Estim Creat Clear Calc 92.27, Est GFR (MDRD) Af Amer 110, Est GFR (MDRD) Non-Af 91, BUN/Creatinine Ratio 21.4 H, Glucose 110 H, Calcium 8.3 L 07/31/20 06:44: Phosphorus 2.0 L, Magnesium 1.8 Current Medications Famotidine 20 mg/ Sodium (Chloride) 10 mls @ 300 mls/hr IV Q12 [facility] Last Infusion: 07/30/20 21:34 Dose: Infused Documented by: Dextrose () 1,000 mls @ 60 mls/hr IV .[id number] [facility] Last Admin: 07/30/20 17:40 Dose: 60 mls/hr Documented by: Morphine Sulfate (Morphine 4 Mg/Ml Syringe) 2 - 4 mg IV Q2H PRN PRN PRN Reason: Pain Score 2-10/10 Last Admin: 07/31/20 06:03 Dose: 4 mg Documented by: Morphine Sulfate (Morphine 2 Mg/Ml Syringe) 2 - 4 mg IV Q2H PRN PRN PRN Reason: Pain Score 2-10/10 Last Admin: 07/30/20 16:00 Dose: 2 mg Documented by: Nutritional Formula (Lactose Free) (Ensure Clear 120 Ml Liquid) 120 ml PO TIDCM [facility] Last Admin: 07/30/20 19:26 Dose: Not Given Documented by: Ondansetron HCl (Ondansetron 4 Mg/2 Ml Vial) 4 mg IV Q8H PRN PRN PRN Reason: NAUSEA/VOMITING Last Admin: 07/26/20 20:20 Dose: 4 mg Documented by: Sodium Chloride (0.9% Saline Lock 10 Ml Syringe) 10 - 40 ml IV UD PRN PRN Reason: SALINE FLUSH Last Admin: 07/30/20 15:59 Dose: 10 ml Documented by: Throat Lozenges (Benzocaine/Menthol 1 Lozenge) 1 - 2 lozenge MUCOUS MEM Q2H PRN PRN PRN Reason: SORE THROAT Last Admin: 07/29/20 12:31 Dose: 1 lozenge Documented by: Medical Necessity - Tobacco Use Smoking Status: Never smoker Tobacco Use: Non-smoker Assessment/Plan All Active Problems (Last Updated 07/25/20 @ 20:[address] Greg Iglesias, DO) DVT, popliteal, acute (Acute) Small bowel obstruction (Acute) Prostate cancer (Resolved) Abdominal pain (Acute) Nausea and vomiting (Acute) Pre-operative cardiovascular examination (Resolved) Syncope and collapse (Resolved 08/23/16) Nonsustained ventricular tachycardia (Resolved 09/01/07) History of non-ST elevation myocardial infarction (NSTEMI) (Resolved 09/01/07) 65-year-old male POD 3 status post exploratory laparotomy, lysis of adhesion release of partial small bowel obstruction, small bowel resection with anastomosis, status post recent cystectomy with ileal conduit due to bladder cancer Plan clears will advance to a transitional diet also having multiple bowel movement, possible d/c if siddhartha diet Continue ambulating/up in the chair Pain control Pepcid, ok for anticoagulation today Jelena Mckoy M.D. Pager: [phone] [facility] [address] [place] [address], [address] [place] [address] Office: [phone]
[2020-07-31] MEDS: 0.9% Saline Lock 10 ML Syringe IV ×4 (08:49→21:58)
[2020-07-31] MEDS: Famotidine 200 MG/20 ML MDV 20 MG in 0.9% Normal Saline (Pres. free 8 ML 300 MG IV ×2 (08:49→21:58)
[2020-07-31 08:55] VITALS: BP 138/87; PULSE 69; RESP 16; TEMP 36.6; O2SAT 97
--- NOTE | 2020-07-31 08:57 | NURSING ---
Ostomy appliance remains intact. Pt is scheduled for stent removal tomorrow so appliance will most likely be changed at that time. pt states pain is decreased today.
--- NOTE | 2020-07-31 10:59 | PCM.PN.HOSP ---
Patient Problems: Active and Suspected Problems (Last Updated 07/25/20 @ 20:[address] Greg Iglesias, DO) Abdominal pain (Acute) Nausea and vomiting (Acute) Subjective: Feels much better today, has some incisional pain otherwise has been passing gas and had a BM overnight and this morning. Vitals/I&O's: Vital Signs Temp Pulse Resp BP Pulse Ox 97.9 F 69 16 138/87 H 97 07/31/20 08:55 07/31/20 08:55 07/31/20 08:55 07/31/20 08:55 07/31/20 08:55 Oxygen Delivery Method Room Air Weight: 184 lb 3.986 oz Body Mass Index (BMI) 24.3 Finger Stick Blood Glucose 126 Intake and Output for Last 24 Hours 07/29/20 07/30/20 07/31/20 23:59 23:59 23:59 Intake Total 3341.33 / 3371.33 1758 / 2058 1480 / 1480 Output Total 5 / 5 1850 / 2850 1350 / 1350 Balance 1316.33 / 1046.33 -92 / -792 130 / 130 General: Alert, Oriented x3, Cooperative, No apparent distress HEENT: Atraumatic, PERRLA, EOMI, Normocephalic Oral: Moist Mucosa Neck: Supple, No JVD Lungs: Clear to auscultation, Normal air movement, No rhonchi, No wheeze, No rales Cardiovascular: Regular rate, Regular Rhythm, Normal S1, Normal S2, No murmurs Abdomen: Soft, Non Tender, Non-Distended, No Hepato-splenomegaly Extremities: No edema, Capillary Refill Less than 3 Seconds Skin: No rashes, No breakdown, incisional dressing is CDI Neurological: Neuro grossly intact, Sensory exam intact to light touch and pain Psych/Mental Status: Normal Affect, Appropriate Laboratory Results 07/31/20 06:44: Sodium 145, Potassium 3.1 L, Chloride 116 H, Carbon Dioxide 23.0, Anion Gap 6, BUN 19 H, Creatinine 0.89, Estim Creat Clear Calc 92.27, Est GFR (MDRD) Af Amer 110, Est GFR (MDRD) Non-Af 91, BUN/Creatinine Ratio 21.4 H, Glucose 110 H, Calcium 8.3 L 12/10/20 06:44: Phosphorus 2.0 L, Magnesium 1.8 Current Medications Acetaminophen (Acetaminophen 325 Mg Tablet) 650 mg PO Q6H PRN PRN PRN Reason: Pain Score 1-10 Famotidine 20 mg/ Sodium (Chloride) 10 mls @ 300 mls/hr IV Q12 [facility] Last Infusion: 07/31/20 08:51 Dose: Infused Documented by: Morphine Sulfate (Morphine 4 Mg/Ml Syringe) 2 - 4 mg IV Q2H PRN PRN PRN Reason: Pain Score 2-10/10 Last Admin: 07/31/20 06:03 Dose: 4 mg Documented by: Morphine Sulfate (Morphine 2 Mg/Ml Syringe) 2 - 4 mg IV Q2H PRN PRN PRN Reason: Pain Score 2-10/10 Last Admin: 07/30/20 16:00 Dose: 2 mg Documented by: Nutritional Formula (Lactose Free) (Ensure Clear 120 Ml Liquid) 120 ml PO TIDCM [facility] Last Admin: 07/31/20 08:50 Dose: Not Given Documented by: Ondansetron HCl (Ondansetron 4 Mg/2 Ml Vial) 4 mg IV Q8H PRN PRN PRN Reason: NAUSEA/VOMITING Last Admin: 07/26/20 20:20 Dose: 4 mg Documented by: Oxycodone HCl (Oxycodone 5 Mg Tablet) 5 - 10 mg PO Q4H PRN PRN PRN Reason: Pain Score 1-10 Sodium Chloride (0.9% Saline Lock 10 Ml Syringe) 10 - 40 ml IV UD PRN PRN Reason: SALINE FLUSH Last Admin: 07/31/20 08:49 Dose: 10 ml Documented by: Throat Lozenges (Benzocaine/Menthol 1 Lozenge) 1 - 2 lozenge MUCOUS MEM Q2H PRN PRN PRN Reason: SORE THROAT Last Admin: 07/29/20 12:31 Dose: 1 lozenge Documented by: STROKE Vital Signs/Narrative: Vital Signs Temp Pulse Resp BP Pulse Ox 07/31/20 08:55 97.9 F 69 16 138/87 H 97 Medical Necessity - Tobacco Use Smoking Status: Never smoker Tobacco Use: Non-smoker Assessment/Plan All Active Problems (Last Updated 07/25/20 @ 20:[address] Greg Iglesias, DO) DVT, popliteal, acute (Acute) Small bowel obstruction (Acute) Prostate cancer (Resolved) Abdominal pain (Acute) Nausea and vomiting (Acute) Pre-operative cardiovascular examination (Resolved) Syncope and collapse (Resolved 08/23/16) Nonsustained ventricular tachycardia (Resolved 09/01/07) History of non-ST elevation myocardial infarction (NSTEMI) (Resolved 09/01/07) 1. Small bowel obstruction/bladder cancer status post bladder and prostate resection with ileal conduit in May 2020/status post lysis of adhesions and small bowel resection 07/28/2020 -Recently had an ileal conduit and a prostatectomy as well as bladder resection in May -This is his third SBO since surgery. Had resection of the small bowel during this admission -NG tube was removed and he was started on some clear liquids. He has continued to have increased bowel function and had a bowel movement overnight. Surgery advanced him to a transitional diet -Plan is for stent removal either today or tomorrow 2. Hypernatremia -Sodium is 151 -We will transition him from LR to D5W 3. HTN -Does not take any medications at home -We will monitor and will likely need to follow-up with his PCP on discharge. 4. History of DVT in his right lower extremity -He is on home Lovenox -Ultrasound on 07/22/2020 demonstrated continued DVT -I discussed his anticoagulation issue with oncology and they are okay with transitioning him to Eliquis on discharge -He started refusing his Lovenox here in the hospital DVT: SCDs Inpatient E&M: [id number] [facility] [place] Hosp L2
--- NOTE | 2020-07-31 14:56 | CHAPLAIN ---
Type of Pastoral Visit ___ Initial Visit _x__ Follow-up Visit ___ On-call Visit ___ General Patient Visit ___ Spiritual Assessment ___ Family Conference ___ Bereavement ___ Rapid Response ___ Code Blue ___ Other (describe below) Pastoral Care Referral From _x__ Patient ___ Family ___ Nurse ___ Physician ___ [employer] Machine Setter ___ Physical Therapy Professor ___ Other (describe below) Sacrament/Intervention _x__ Active listening ___ Anointing ___ Hinduism ___ Bereavement ___ Communion _x__ Jael exploration ___ ___ Life review _x__ Prayer ___ Reconciliation ___ Sacrament of Sick _x__ Supportive presence ___ Wedding ___ Other (describe below) Pastoral Comments
[2020-07-31 15:00] VITALS: BP 147/89; PULSE 77; RESP 16; TEMP 36.8; O2SAT 98
[2020-07-31 21:51] VITALS: BP 128/83; PULSE 72; RESP 18; TEMP 36.8; O2SAT 96
[2020-08-01] VITALS (11 sets, daily range): BP systolic 124–157; BP diastolic 83–95; PULSE 64–78; RESP 16–18; TEMP 36.2–37; O2SAT 95–98; BMI 24.3
[2020-08-01] MEDS: 0.9% Saline Lock 10 ML Syringe IV ×2 (03:15→13:33)
[2020-08-01] MEDS: Morphine 4 MG/ML Syringe IV ×2 (03:15→13:33)
[2020-08-01 07:31] LABS: Anion Gap 5 (5-15); BUN 14 mg/dL (7-18); BUN/Creat Ratio 15.1 RATIO (10-20); Calcium,Total 8.3 mg/dL (8.5-10.1); Chloride 113 mmol/L (98-107); Creatinine, Serum 0.92 mg/dL (0.70-1.30); EST Glomerular Filtration Rate 87 mL/min (>60); Est Glom Filt Rate - Afr Amer 105 mL/min (>60); Estimated Creatinine Clearance 89.26 ml/min; Glucose 90 mg/dL (74-106); Potassium 3.2 mmol/L (3.5-5.1); Sodium Level 144 mmol/L (136-145)
--- NOTE | 2020-08-01 08:58 | PCM.OPRPT ---
Problem List (1) Bladder cancer Status: Chronic Qualifiers: Bladder location: overlapping sites Qualified Code(s): C67.8 - Malignant neoplasm of overlapping sites of bladder Report of Operation Date of Procedure: 08/01/20 Pre-Operative Diagnosis: Status post bladder cancer and formation of ileal conduit Post-Operative Diagnosis: Same Surgery/Procedure Performed:: Flexible cystoscopy via the ileal conduit and removal of left and right ureteral stent Description of Surgical Findings:: 65-year-old male who was taken back to the operating room. At this point about 3 to 4 days ago he underwent a reexploration for bowel obstruction and an aspiration was found to have that the stents in the conduit and the ureters are nicely intact and working well therefore I think at this point it would be safe to remove the stents so again taken back to the operating room and do a flexible endoscopy via the ileal conduit and remove the stent. Patient was taken back to the operating room after smooth induction of general anesthesia he was placed supine on the table. We took the appliance off the ostomy site we left the sticky side of the plane still on the ostomy site we just clean the ostomy just with soapy water. I then used a flexible 18 Romanian cystoscope and went into the conduit with the flexible scope was able to navigate through the ileal conduit and then down the ileal conduit until we encountered the first stent. I then used a flexible grasper was able to grasp the stent and then gently removed the stent. I then went back into the ileoconduit with the flexible cystoscope again I was able to navigate through the conduit safely down to the bottom of the conduit until I encountered the second stent and then I grabbed the stent with a flexible grasper and gently removed the second stent. Both stents were removed atraumatically successfully. The appliance was placed back on the ileal conduit patient's anesthetic was reversed is taken back to PACU in good condition. Type of Anesthesia:: General Drains: stents removed - Admit VTE Documentation VTE Present on Admission: No VTE Mechan Device Prophylaxis: SCD's
--- NOTE | 2020-08-01 09:44 | PCM.PN.SRG ---
Patient Problems: Active and Suspected Problems (Last Updated 07/25/20 @ 20:[address] Greg Iglesias, DO) Abdominal pain (Acute) Nausea and vomiting (Acute) Subjective: siddhartha diet, +BM, pain controlled w meds - Physical Exam Vitals/I&O's: Vital Signs Temp Pulse Resp BP Pulse Ox 97.1 F L 64 16 126/85 H 97 08/01/20 09:07 08/01/20 09:15 08/01/20 09:15 08/01/20 09:15 08/01/20 09:15 Oxygen Delivery Method Room Air Weight: 184 lb 3.986 oz Body Mass Index (BMI) 24.3 Finger Stick Blood Glucose 126 Intake and Output for Last 24 Hours 07/30/20 07/31/20 08/01/20 23:59 23:59 23:59 Intake Total 1758 / 2058 2747 / 2967 220 / 220 Output Total 1850 / 2850 2225 / 2700 1275 / 1275 Balance -92 / -792 522 / 267 -1055 / -1055 General: Alert, Oriented x3, Cooperative, No apparent distress HEENT: Atraumatic Cardiovascular: Regular rate Abdomen: Soft, Non-Distended, Tender - near incision, w nuno no PS Laboratory Results 08/01/20 06:47: Sodium 144, Potassium 3.2 L, Chloride 113 H, Carbon Dioxide 26.0, Anion Gap 5, BUN 14, Creatinine 0.92, Estim Creat Clear Calc 89.26, Est GFR (MDRD) Af Amer 105, Est GFR (MDRD) Non-Af 87, BUN/Creatinine Ratio 15.1, Glucose 90, Calcium 8.3 L Current Medications Acetaminophen (Acetaminophen 325 Mg Tablet) 650 mg PO Q6H PRN PRN PRN Reason: Pain Score 1-10 Famotidine 20 mg/ Sodium (Chloride) 10 mls @ 300 mls/hr IV Q12 [facility] Last Infusion: 07/31/20 22:00 Dose: Infused Documented by: Morphine Sulfate (Morphine 4 Mg/Ml Syringe) 2 - 4 mg IV Q2H PRN PRN PRN Reason: Pain Score 2-10/10 Last Admin: 08/01/20 03:15 Dose: 4 mg Documented by: Morphine Sulfate (Morphine 2 Mg/Ml Syringe) 2 - 4 mg IV Q2H PRN PRN PRN Reason: Pain Score 2-10/10 Last Admin: 07/30/20 16:00 Dose: 2 mg Documented by: Ondansetron HCl (Ondansetron 4 Mg/2 Ml Vial) 4 mg IV Q8H PRN PRN PRN Reason: NAUSEA/VOMITING Last Admin: 07/26/20 20:20 Dose: 4 mg Documented by: Oxycodone HCl (Oxycodone 5 Mg Tablet) 5 - 10 mg PO Q4H PRN PRN PRN Reason: Pain Score 1-10 Sodium Chloride (0.9% Saline Lock 10 Ml Syringe) 10 - 40 ml IV UD PRN PRN Reason: SALINE FLUSH Last Admin: 08/01/20 03:15 Dose: 10 ml Documented by: Throat Lozenges (Benzocaine/Menthol 1 Lozenge) 1 - 2 lozenge MUCOUS MEM Q2H PRN PRN PRN Reason: SORE THROAT Last Admin: 07/29/20 12:31 Dose: 1 lozenge Documented by: Medical Necessity - Tobacco Use Smoking Status: Never smoker Tobacco Use: Non-smoker Assessment/Plan All Active Problems (Last Updated 07/25/20 @ 20:[address] Greg Iglesias, DO) DVT, popliteal, acute (Acute) Small bowel obstruction (Acute) Prostate cancer (Resolved) Abdominal pain (Acute) Nausea and vomiting (Acute) Pre-operative cardiovascular examination (Resolved) Syncope and collapse (Resolved 08/23/16) Nonsustained ventricular tachycardia (Resolved 09/01/07) History of non-ST elevation myocardial infarction (NSTEMI) (Resolved 09/01/07) 65-year-old male POD 4 status post exploratory laparotomy, lysis of adhesion release of partial small bowel obstruction, small bowel resection with anastomosis, status post recent cystectomy with ileal conduit due to bladder cancer Tolerating transitional diet Continue ambulating/up in the chair Pain control f/u tuesday for staple removal Jelena Mckoy M.D. Pager: [phone] [facility] [address] [place] [address], [address] [place] [address] Office: [phone]
[2020-08-01] MEDS: Famotidine 200 MG/20 ML MDV 20 MG in 0.9% Normal Saline (Pres. free 8 ML 300 MG IV (10:59)
--- NOTE | 2020-08-01 14:44 | PCM.DC ---
- Discharge Diagnoses Current Active Problems: Current Active and Chronic Problems (Last Updated 07/25/20 @ 20:[address] Greg Iglesias, DO) Bladder cancer (Chronic) Abdominal pain (Acute) Nausea and vomiting (Acute) You will use the following diet at home:: Regular Your food should be the consistency of: Regular Your liquids should be the consistency of: Regular/Thin Discharge Activity: Return to Normal Activity Call your doctor if your incision/area has: Increased Pain/ Swelling, Increased Redness Call your doctor if you observe: Fever of 101 or Higher, Shortness of breath, Dizziness, Fainting spells, Swelling in the ankles, Chest pain, Increased palpitations (irregular heartbeat) Allergies/Adverse Reactions: Allergies No Known Allergies Allergy (Verified 07/25/20 14:17) Medications to take at Discharge Docusate Sodium [Colace] 100 mg PO BID #120 cap 07/10/20 Iron Poly/Vit C [Niferex-150] 150 mg PO DAILYCM #60 cap 07/10/20 Apixaban [Eliquis] 5 mg PO BID #60 tab 08/01/20 Oxycodone HCl/Acetaminophen [Percocet 5/325] 1 - 2 tab PO Q6H PRN PRN 4 Days #20 tab 08/01/20 The following prescriptions were given: Apixaban [Eliquis] 5 mg PO BID #60 tab Transmission Status: Received by [facility] Oxycodone HCl/Acetaminophen [Percocet 5/325] 1 - 2 tab PO Q6H PRN PRN 4 Days #20 tab PRN Reason: Pain Transmission Status: Received by [facility]/pharmacy #[id number] Primary Care Physician: Avril Sorenson MD [Primary Care Provider] - Please follow up with your Primary Care Physician in: 3-5 days Test Results: Test results from this visit will be discussed in further detail at your follow-up appointment, if applicable. Please Follow Up With: Jelena Mckoy MD When: tuesday Please Follow Up With: David Pino MD When: 1 week
--- NOTE | 2020-08-01 18:50 | DS.PCM_ITS ---
Discharge Date and Diagnosis - Problem List Patient Problems: Active and Suspected Problems (Last Updated 07/25/20 @ 20:[address] Greg Iglesias, ) Abdominal pain (Acute) Nausea and vomiting (Acute) Date of Admission: 07/25/20 Date of Discharge: 08/01/20 - Primary Discharge Diagnosis Acute Problems: Active Problems (Last Updated 07/25/20 @ 20:[address] Greg Iglesias DO) Abdominal pain (Acute) Nausea and vomiting (Acute) - Secondary Discharge Diagnosis Chronic Problems: Chronic Problems (Last Updated 07/25/20 @ 20:[address] Greg Iglesias, ) Bladder cancer (Chronic) CAD (coronary artery disease) (Chronic) Atherosclerosis of coronary artery of [place] heart without angina pectoris (Chronic) Essential (primary) hypertension (Chronic) Hyperlipemia (Chronic) Hospital Course and Treatment Imaging Results: Clinical Impression(s) from Imaging Studies Abdomen/Pelvis CT 07/25/20 15:11 IMPRESSION: Moderately dilated fluid-filled loop of small bowel in the right side of the pelvis. Electronically Signed: Gary Ortiz MD at 17:07 EST Tel , Service support , Small Bowel X-Ray 07/26/20 08:29 IMPRESSION: Moderate partial small bowel obstruction. Electronically Signed: Gary Ortiz MD at 7:36 EST Tel , Service support , Abdomen X-Ray 07/26/20 17:18 IMPRESSION: Moderate partial small bowel obstruction. Electronically Signed: Gary Ortiz MD at 7:36 EST Tel , Service support , KUB X-Ray 07/26/20 18:30 IMPRESSION: Nasogastric tube placement with tip in proximal to mid gastric fundus Electronically Signed: Brown Green MD at 19:08 EST , Service support , KUB X-Ray 07/27/20 05:00 IMPRESSION: 1. Nasogastric tube with the tip in the left upper quadrant likely in the body the stomach. 2. Bilateral ureteral stents. 3. Dilated loop of small bowel in the left side of the abdomen possibly containing oral contrast. Electronically Signed: Gary Ortiz MD at 7:25 EST Tel , Service support , Report of Operation Date of Procedure: 07/28/20 Pre-Operative Diagnosis: Partial small bowel obstruction Post-Operative Diagnosis: Same Surgery/Procedure Performed:: Exploratory laparotomy, small bowel resection with primary anastomosis, lysis of adhesions release of partial small bowel obstruction manager utilization management: David Pino Type of Anesthesia:: General/Supplemental Anesthesiologist: Raz Iqbal Special Medications: Cefotetan 2 g IV x1 Specimen's removed: mid jejunum Estimated Blood Loss (mL): 100 cc Fluids Replaced: 900 cc Report of Operation Date of Procedure: 08/01/20 Pre-Operative Diagnosis: Status post bladder cancer and formation of ileal conduit Post-Operative Diagnosis: Same Surgery/Procedure Performed:: Flexible cystoscopy via the ileal conduit and removal of left and right ureteral stent Consultations 07/28/20 07:25 Consult: Onc/Wound/radio disc jockey Routine Comment: Reason for Consult:: ileal conduit Operations: - - Robotic cystectomy and formation of an ileal conduit Procedures: None Summary of Care Provided: Per HPI: The patient is a 65 year old M seen in the emergency room at [facility] with chief complaint of generalized abdominal pain that started today along with nausea and vomiting. Patient had recently been hospitalized at [facility] for small bowel obstruction-he did not require surgery, he was discharged on 09/09/2019. Work-up in the emergency room included a CBC which showed a white count of 13.4, chemistry profile showed a creatinine of 1.38, BUN of 28, and his lipase was 289. Patient had a CT of the abdomen and pelvis-it showed moderately dilated fluid-filled loops of small bowel in the right side of the pelvis. Patient was given morphine and Zofran along with IV fluids in the emergency room. He will be admitted to [place] [id number] for small bowel obstruction, he will be seen in consultation by general surgery, he will receive IV fluids and IV pain medications. Hospital Course: 1. Small bowel obstruction/bladder cancer status post bladder and prostate resection with ileal conduit in May 2020/status post lysis of adhesions and small bowel resection 07/28/2020 -Recently had an ileal conduit and a prostatectomy as well as bladder resection in May -This is his third SBO since surgery. Had resection of the small bowel during this admission -NG tube was removed and he was started on some clear liquids. He has continued to have increased bowel function and had a bowel movement overnight. Surgery advanced him to a transitional diet -Plan is for stent removal either today -He tolerated his diet very well and had a stent removed today. I discussed with him the plan for discharge and he expressed understanding the risk and benefits of going home. He would like to go home. He understands he is to follow-up with surgery on Tuesday for staple removal and he can follow-up with urology in a week. 2. Hypernatremia -Resolved with D5W 3. HTN -Does not take any medications at home -We will monitor and will likely need to follow-up with his PCP on discharge. 4. History of DVT in his right lower extremity -He is on home Lovenox -Ultrasound on 07/22/2020 demonstrated continued DVT -I discussed his anticoagulation issue with oncology and they are okay with transitioning him to Eliquis on discharge -He started refusing his Lovenox here in the hospital -He was given a 30-day free card for Eliquis and he will be discharged on that today with his first dose this evening. We discussed at length the importance of taking his anticoagulation in the setting of his DVT in his right lower extremity due to his bladder cancer. Patient Problems: Active and Suspected Problems (Last Updated 07/25/20 @ 20:[address] Greg Iglesias, DO) Abdominal pain (Acute) Nausea and vomiting (Acute) - Physical Exam Vitals/I&O's: Vital Signs Temp Pulse Resp BP Pulse Ox 98.2 F 78 18 148/92 H 98 08/01/20 12:47 08/01/20 12:47 08/01/20 12:47 08/01/20 12:47 08/01/20 12:47 Oxygen Delivery Method Room Air Weight: 184 lb 3.986 oz Body Mass Index (BMI) 24.3 Finger Stick Blood Glucose 126 Intake and Output for Last 24 Hours 07/30/20 07/31/20 08/01/20 23:59 23:59 23:59 Intake Total 1758 / 2058 2747 / 2967 350 / 350 Output Total 1850 / 2850 2225 / 2700 1425 / 1425 Balance -92 / -792 522 / 267 -1075 / -1075 General: Alert, Oriented x3, Cooperative, No apparent distress HEENT: Atraumatic, PERRLA, EOMI, Normocephalic Oral: Moist Mucosa Neck: Supple, No JVD Lungs: Clear to auscultation, Normal air movement, No rhonchi, No wheeze, No rales Cardiovascular: Regular rate, Regular Rhythm, Normal S1, Normal S2, No murmurs Abdomen: Soft, Non Tender, Non-Distended, No Hepato-splenomegaly Extremities: No edema, Capillary Refill Less than 3 Seconds Skin: No rashes, No breakdown, incisional dressing is CDI Neurological: Neuro grossly intact, Sensory exam intact to light touch and pain Psych/Mental Status: Normal Affect, Appropriate Laboratory Results 08/01/20 06:47: Sodium 144, Potassium 3.2 L, Chloride 113 H, Carbon Dioxide 26.0, Anion Gap 5, BUN 14, Creatinine 0.92, Estim Creat Clear Calc 89.26, Est GFR (MDRD) Af Amer 105, Est GFR (MDRD) Non-Af 87, BUN/Creatinine Ratio 15.1, Glucose 90, Calcium 8.3 L Discharge Activity: Return to Normal Activity Call your doctor if your incision/area has: Increased Pain/ Swelling, Increased Redness Call your doctor if you observe: Fever of 101 or Higher, Shortness of breath, Dizziness, Fainting spells, Swelling in the ankles, Chest pain, Increased palpitations (irregular heartbeat) Home Medications: Medications to take at Discharge Docusate Sodium [Colace] 100 mg PO BID #120 cap 07/10/20 Iron Poly/Vit C [Niferex-150] 150 mg PO DAILYCM #60 cap 07/10/20 Apixaban [Eliquis] 5 mg PO BID #60 tab 08/01/20 Oxycodone HCl/Acetaminophen [Percocet 5/325] 1 - 2 tab PO Q6H PRN PRN 4 Days #20 tab 08/01/20 Following Prescriptions Were Given to Patient: Apixaban [Eliquis] 5 mg PO BID #60 tab Transmission Status: Received by [facility] Oxycodone HCl/Acetaminophen [Percocet 5/325] 1 - 2 tab PO Q6H PRN PRN 4 Days #20 tab PRN Reason: Pain Transmission Status: Received by [facility]/pharmacy #[id number] Primary Care Physician: Avril Sorenson MD [Primary Care Provider] - Please follow up with your Primary Care Physician in: 3-5 days Please Follow Up With: Jelena Mckoy MD When: tuesday Please Follow Up With: David Pino MD When: 1 week Please Follow Up With: avril sorenson When: 3 to 5 days Disposition: Home Minutes spent on discharge:: 35 Patient Condition:: Stable Medical Necessity - Tobacco Use Smoking Status: Never smoker Tobacco Use: Non-smoker Meaningful Use Info Meaningful Use Diagnoses (Choose all that apply): None applicable Inpatient E&M: [id number] [facility]
--- NOTE | 2020-08-04 15:12 | CASEMGMT ---
TYE CARIAS Discharge Follow-up Phone Call: TIAN: Raissa Strata: 4 Call Date: 08/04/20 Discharge Date: 08/01/20 Time of Call: 1512 Duration: 1 min Admitting Diagnosis: SBO RN ARETHA attempted to complete follow-up phone call after recent hospitalization. No answer, voice message left with return contact information. Patient was setup with [facility] at discharge.
== END 2020-08-01 15:10 | disposition home health service (06) | DRG 330 ==
LOC: ED 15:41 → MS3 18:56
PROVIDERS: Anesthesiology; Student in an Organized Health Care Education/Training Program; Surgery; Urology; Admitting Provider Internal Medicine; Emergency Provider Emergency Medicine; PCP Family Medicine; Visit Provider Family Medicine
PROC: (CPT 49320; principal; 2020-07-27 13:00)
PROC: 0DB80ZZ Excision of Small Intestine, Open Approach (ICD-10-PCS; CPT 49000; principal; 2020-07-28 07:45)
PROC: 0TP98DZ Removal of Intraluminal Device from Ureter, Via Natural or Artificial Opening Endoscopic (ICD-10-PCS; CPT 50688; principal; 2020-08-01 08:40)
DX: K56.51 Intestinal adhesions [bands], with partial obstruction (principal); I82.431 Acute embolism and thrombosis of right popliteal vein; E87.0 Hyperosmolality and hypernatremia; I25.10 Atherosclerotic heart disease of native coronary artery without angina pectoris; E78.5 Hyperlipidemia, unspecified; I10 Essential (primary) hypertension; Z93.2 Ileostomy status; Z79.01 Long term (current) use of anticoagulants; Z79.899 Other long term (current) drug therapy; I25.2 Old myocardial infarction; Z85.46 Personal history of malignant neoplasm of prostate; Z85.51 Personal history of malignant neoplasm of bladder; Z86.718 Personal history of other venous thrombosis and embolism; Z90.79 Acquired absence of other genital organ(s); Z90.6 Acquired absence of other parts of urinary tract
CPT/HCPCS: 36415; 74018; 74019; 74177; 74250; 80048; 80053; 83690; 83735; 84100; 85025; 85610; 85730; 87426; 88307; 93005; 93970; 97802; 99285; J7030; J7050; J7120; Q9967; A4216; C1769; J2405; J3490

== ENCOUNTER → 2020-09-03 16:09 | Outpatient (CLI) | payer MEDICARE, OTHER, SELFPAY ==
[2020-08-01 07:54] VITALS: BMI 24.3
[2020-09-03 18:34] LABS: D-Dimer Quantitative (DVT/PE) 0.57 FEU/ug/m (0.27-0.49)
[2020-09-04 09:40] LABS: Iron 35 ug/dL (65-175)
== END ==
PROVIDERS: PCP Family Medicine; Referring Provider Family Medicine; Visit Provider Family Medicine
DX: D64.9 Anemia, unspecified (principal); I82.439 Acute embolism and thrombosis of unspecified popliteal vein
CPT/HCPCS: 36415; 83540; 85379

== ENCOUNTER → 2020-12-08 07:45 | Outpatient (CLI) | payer MEDICARE, OTHER, SELFPAY ==
[2020-08-01 07:54] VITALS: BMI 24.3
--- NOTE | 2020-12-08 07:48 | CT_ITS ---
STUDY: CT ABDOMEN AND PELVIS WITH CONTRAST REASON FOR EXAM: Male, 65 years old. MALIGNANT OF PROSTATE. History of prostate cancer. RADIATION DOSAGE (If Supplied By Facility): CTDIvol = ( 13.3 ) mGy, DLP = ( 1465.86 ) mGycm TECHNIQUE: Transaxial images were obtained from the dome of the diaphragm to the symphysis pubis without oral contrast. IV 100mL Isovue-300 was administered. Sagittal and coronal images were reconstructed. Individualized dose optimization techniques were used for this CT. COMPARISON: Comparison is made with prior study dated 07/25/2020. FINDINGS: Minimal degree of increased linear markings at the lung bases slightly more prominent at the left lung base suggestive of underlying atelectasis and/or scarring. The visualized portions of the heart are within normal limits. 3 mm cyst in the lateral aspect of the left lobe of the liver. Normal gallbladder and extrahepatic biliary system. 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 Normal spleen. Normal pancreas. Normal bilateral adrenal glands. Moderate degree of right hydronephrosis. Multiple cysts are seen in the right kidney. The largest cyst measures 2.3 cm x 2.2 cm. The previously seen ureteral stent has been removed. Stable small left renal cysts. Normal visualized stomach. Normal small intestine. Normal colon. There is non-visualization of the appendix. There is scattered atherosclerotic calcification of the abdominal aorta, without a demonstrated aneurysm. Normal inferior vena cava. Normal retroperitoneum. The patient is status post cystoprostatectomy. An ileal loop is seen in the right lower quadrant. There is a small umbilical hernia containing fat. Normal osseous structures. CT/Abdomen/Pelvis WITH Contrast IMPRESSION: Status post cystoprostatectomy with ileal loop in the anterior right lower quadrant. Moderate degree of right hydronephrosis and right hydroureter. Stable bilateral renal cysts. The previously seen bilateral ureteral stents have been removed. 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 Electronically Signed: Sabino Rodriguez MD at 9:47 EDT , Service support ,
[2020-12-08 08:10] LABS: CREATININE FINGERSTICK 1.4 mg/dL (0.70-1.30)
== END ==
PROVIDERS: PCP Family Medicine; Referring Provider Urology; Visit Provider Urology
DX: C61 Malignant neoplasm of prostate (principal)
CPT/HCPCS: 74177; Q9967

== ENCOUNTER → 2020-12-29 15:21 | Outpatient (CLI) | payer MEDICARE, OTHER, SELFPAY ==
[2020-08-01 07:54] VITALS: BMI 24.3
[2020-12-29 17:34] LABS: Hemoglobin 12.3 g/dL (13.0-16.5); Mean Corp Hgb Conc 31.5 g/dL (32-36); Mean Corpuscular Hgb 26.7 pg (27.0-32.0); Mean Corpuscular Volume 84.8 fL (80-94); Platelet Count 293 K/mm3 (150-450); RBC Distribution Width SD 43.7 fl (35.1-43.9); White Blood Count 8.6 K/mm3 (4.4-11.0)
[2020-12-29 18:07] LABS: Anion Gap 9 (5-15); BUN 25 mg/dL (7-18); BUN/Creat Ratio 18.7 RATIO (10-20); Calcium,Total 9.3 mg/dL (8.5-10.1); Chloride 110 mmol/L (98-107); Creatinine, Serum 1.34 mg/dL (0.70-1.30); EST Glomerular Filtration Rate 57 mL/min (>60); Est Glom Filt Rate - Afr Amer 68 mL/min (>60); Glucose 104 mg/dL (74-106); Potassium 3.8 mmol/L (3.5-5.1); Sodium Level 140 mmol/L (136-145)
== END ==
PROVIDERS: PCP Family Medicine; Referring Provider Urology; Visit Provider Urology
DX: C61 Malignant neoplasm of prostate (principal)
CPT/HCPCS: 36415; 80048; 85027

== ENCOUNTER → 2021-01-29 12:54 | Outpatient (CLI) | payer MEDICARE, OTHER, SELFPAY ==
[2020-08-01 07:54] VITALS: BMI 24.3
[2021-01-29 14:25] LABS: Anion Gap 6 (5-15); BUN 22 mg/dL (7-18); BUN/Creat Ratio 16.7 RATIO (10-20); Calcium,Total 9.5 mg/dL (8.5-10.1); Chloride 106 mmol/L (98-107); Creatinine, Serum 1.32 mg/dL (0.70-1.30); EST Glomerular Filtration Rate 58 mL/min (>60); Est Glom Filt Rate - Afr Amer 70 mL/min (>60); Glucose 93 mg/dL (74-106); Potassium 4.5 mmol/L (3.5-5.1); Sodium Level 140 mmol/L (136-145)
== END ==
PROVIDERS: PCP Family Medicine; Referring Provider Urology; Visit Provider Urology
DX: N13.1 Hydronephrosis with ureteral stricture, not elsewhere classified (principal)
CPT/HCPCS: 36415; 80048

== ENCOUNTER → 2021-04-06 10:05 | Outpatient (CLI) | payer MEDICARE, OTHER, SELFPAY ==
[2020-08-01 07:54] VITALS: BMI 24.3
[2021-04-06 13:10] LABS: ALB/GLOB Ratio 0.8 RATIO (0.9-2.4); AST(SGOT) 25 U/L (15-37); Alanine Aminotransfer ALT/SGPT 32 U/L (16-61); Albumin, Serum 3.5 g/dL (3.2-5.0); Alkaline Phosphatase 60 U/L (45-117); Anion Gap 8 (5-15); BUN 22 mg/dL (7-18); BUN/Creat Ratio 19.1 RATIO (10-20); Calcium,Total 8.9 mg/dL (8.5-10.1); Chloride 108 mmol/L (98-107); Creatinine, Serum 1.15 mg/dL (0.70-1.30); EST Glomerular Filtration Rate 67 mL/min (>60); Est Glom Filt Rate - Afr Amer 82 mL/min (>60); Globulin 4.4 g/dL (2.2-4.2); Glucose 83 mg/dL (74-106); PSA,Total- Diagnostic < 0.01 ng/mL (0.0-4.0); Protein, Total 7.9 g/dL (6.4-8.2); Sodium Level 138 mmol/L (136-145)
== END ==
PROVIDERS: PCP Family Medicine; Referring Provider Urology; Visit Provider Urology
DX: C61 Malignant neoplasm of prostate (principal); Z85.51 Personal history of malignant neoplasm of bladder
CPT/HCPCS: 36415; 80053; 84153

== ENCOUNTER 2021-04-11 09:51 | Emergency (ER) | payer MEDICARE, OTHER, SELFPAY ==
[2021-04-11 09:54] VITALS: BP 132/98; PULSE 79; RESP 17; TEMP 36.8; O2SAT 95; BMI 26.4
--- NOTE | 2021-04-11 10:16 | RAD_ITS ---
STUDY: X-RAY CHEST REASON FOR EXAM: Male, 66 years old. syncope TECHNIQUE: Single AP portable view of the chest. COMPARISON: June 11, 2020 FINDINGS: There are monitoring devices. The lungs are clear and expanded. There is no demonstrated pleural abnormality. Normal size heart. Normal mediastinum and himanshu. Normal visualized pulmonary arteries. Normal visualized aortic arch and descending thoracic aorta. Normal visualized thoracic spine. There are bilateral shoulder replacements. There is no demonstrated abnormality of the visualized soft tissue structures of the upper abdomen. RAD/Chest 1 View (Portable) IMPRESSION: No focal infiltrate or edema. Electronically Signed: Jorge Melton MD at 12:29 EDT , Service support ,
--- NOTE | 2021-04-11 10:17 | EKG12_ITS ---
Test Reason : SYNCOPE Blood Pressure : / mmHG Vent. Rate : 075 BPM Atrial Rate : 075 BPM P-R Int : 150 ms QRS Dur : 094 ms QT Int : 392 ms P-R-T Axes : 054 -52 -01 degrees QTc Int : 437 ms Normal sinus rhythm Left anterior fascicular block Abnormal ECG Confirmed by JEANETTE MACDONALD, JAHAIRA ([id number]), newspaper photo editor ALIZA CASEY ([id number]) on 04/15/2021 9:06:39 AM Referred By: Confirmed By:JAHAIRA REID MD
--- NOTE | 2021-04-11 10:18 | EDS_ITS ---
HPI History of Present Illness Chief Complaint: Syncope Informant: patient, spouse/S.O. and family Narrative Narrative: 66-year-old male presents the emergency department for the evaluation of syncope and fever. Patient states that he has felt fatigued for the past several days and last night went to bed early with 102 fever. He states that when he woke up this morning he was sweaty and his bed was wet. He went to the bathroom to empty his ileal conduit bag and was lightheaded and eventually passed out. His found him on the ground. He sustained a superficial wound to the dorsum of the left hand. He states that he was lethargic and does not remember hitting the floor. He attempted to sit up and passed out again. He states now his blood pressure seems to be normalized. He notes that he had a history of hypertension in the past but while undergoing cancer surgery last fall he had his HCTZ and ramipril discontinued due to hypotension. He denies any chest pain shortness of breath. He notes that yesterday he sneezed and had a slight frontal headache. No diarrhea. He notes that urine was darker than normal today. No significant cough or sore throat. [facility] Medical History (Updated 04/11/21 @ 12:[address] Oral Hardwick, DO) Atherosclerosis of coronary artery of [place] heart without angina pectoris Bladder cancer Deep venous thrombosis of right popliteal vein Erectile dysfunction Essential (primary) hypertension Gout Hemorrhoids History of non-ST elevation myocardial infarction (NSTEMI) (09/01/07) Hyperlipemia Nonsustained ventricular tachycardia (09/01/07) Pre-operative cardiovascular examination Syncope and collapse (08/23/16) Home Medications docusate sodium 100 mg PO BID #120 cap 07/10/20 [Rx Last Taken Unknown] iron aspgl,ps complex-vit C-sa 150 mg PO DAILYCM #60 cap 07/10/20 [Rx Last Taken Unknown] Hydrocortisone 2.5%/lidocaine 5% suppository (cmpd) 08/04/20 [History Last Taken Unknown] hydrocortisone 2.5 % topical cream 1 applic TOPICAL BID PRN #30 g 08/04/20 [Rx Last Taken Unknown] warfarin 5 mg tablet mg PO 09/15/20 [History Last Taken Unknown] Allergy/AdvReac Type Severity Reaction Status Date / Time No Known Allergies Allergy Verified 04/11/21 09:53 Family History Mother Hypertension Cancer lung Father Hypertension Surgical History history lysis of adhesions (~07/28/20) History of exploratory laparotomy (~07/28/20) History of left heart catheterization (08/2007) S/P ileal conduit Status post radical cystoprostatectomy Social History (Updated 04/11/21 @ 10:[address] Oral Hardwick DO) Smoking Status: Never smoker substance use type: does not use ROS ROS ED Constitutional Constitutional ED: Reports fever(s) and sweats; Denies chills or weight loss Eyes Eyes: Denies change in vision or diplopia ENT ENT ED: Denies ear pain, rhinorrhea or sore throat Cardiovascular Cardiovascular: Reports other Details: Syncope ; Denies chest pain, orthopnea, palpitations or racing heartbeat Respiratory/Chest Respiratory/Chest: Denies cough, dyspnea or orthopnea Gastrointestinal Gastrointestinal: Denies abdominal pain, diarrhea, nausea or vomiting Genitourinary Genitourinary ED: Denies dysuria, hematuria or urinary frequency Musculoskeletal Musculoskeletal: Denies arthralgias or myalgias Integumentary Denies abscess or rash Neurologic Neurologic: Denies headache(s) or weakness Psychiatric Psychiatric: Denies anxiety, depression, suicidal ideation or suicidal thoughts Endocrine Endocrinology: Denies polydipsia, polyphagia or polyuria Allergic/Immunologic Allergic/Immunologic ED: Denies mouth swelling, tongue swelling or urticaria EXAM Physical Exam Const Vital Signs: 04/11/21 09:54 04/11/21 10:39 04/11/21 10:40 Temperature 98.2 F Temperature Source Temporal Pulse Rate 79 Pulse Rate [Lying] 71 Pulse Rate [Sitting] 82 Pulse Rate [Standing] 88 Respiratory Rate 17 Respiratory Effort Normal Non-Labored Respiratory Pattern Normal Blood Pressure 132/98 H Blood Pressure [Lying] 117/78 Blood Pressure [Sitting] 119/73 Blood Pressure [Standing] 84/62 L Blood Pressure Mean 109 Blood Pressure Mean [Lying] 91 Blood Pressure Mean [Sitting] 88 Blood Pressure Mean [Standing] 69 Pulse Ox 95 Oxygen Delivery Method Room Air 04/11/21 13:10 04/11/21 13:32 Temperature Temperature Source Pulse Rate 61 Pulse Rate [Lying] Pulse Rate [Sitting] Pulse Rate [Standing] 95 Respiratory Rate 18 Respiratory Effort Respiratory Pattern Blood Pressure 129/90 H Blood Pressure [Lying] Blood Pressure [Sitting] Blood Pressure [Standing] 146/97 H Blood Pressure Mean 103 Blood Pressure Mean [Lying] Blood Pressure Mean [Sitting] Blood Pressure Mean [Standing] 113 Pulse Ox 96 Oxygen Delivery Method Room Air Positive well nourished and well developed General Appearance ED: well developed HEENT Reports normocephalic, head/scalp atraumatic and moist mucous membranes Eyes PERRL and EOMs intact bilaterally Neck no lymphadenopathy, supple and no JVD Resp normal respiratory effort and clear to auscultation bilaterally Cardio regular rate, regular rhythm and no murmurs GI normal to inspection, nondistended, normoactive bowel sounds and non-tender Palpation: soft Back/Spine no CVA tenderness and normal ROM Extremity normal to inspection General Extremety ED: Negative for edema General Extremity: Negative for edema Neuro oriented x3 and CN's II-XII intact bilaterally Sensorium / Orientation: alert Motor Exam: strength 5/5 throughout Psych mental status grossly normal Mood & Affect: Negative for depressed or tearful Skin no rashes or lesions noted and no wounds MDM MDM MDM Narrative Medical decision making narrative: My interpretation of the chest x-ray is no acute disease. White count 13.5. Troponin 9. Creatinine 1.34. INR slightly low at 1.9. Lactic acid is normal at 0.9. Urinalysis with 50-100 white cells negative nitrates positive leukocyte esterase and 2+ bacteria. This will be sent for culture. Covid influenza negative. Patient noted to be orthostatic positive. Standing blood pressure 84/62 with a 17 point rise in heart rate. Patient received 2 L of IV fluids. Patient was reassessed. He is feeling significantly better. The orthostatic hypotension has resolved. I do not see an obvious source of his fever at this time. Patient was advised we will await blood cultures. As he has been afebrile here I am not going to start him on any antibiotics at this time. Patient encouraged to continue oral hydration at home. Lab Data Attestation: I reviewed the patient's lab results. Labs: Laboratory Results - last 24 hr 04/11/21 04/11/21 04/11/21 10:30 10:30 10:30 WBC 13.5 H RBC 4.85 Hgb 13.5 Hct 41.8 MCV 86.2 MCH 27.8 MCHC 32.3 RDW Std Deviation 51.0 H RDW Coeff of Lidia 16.1 H Plt Count 201 MPV 9.3 Immature Gran % (Auto) 0.500 Neut % (Auto) 84.0 H Lymph % (Auto) 6.4 L [place] % (Auto) 8.3 Eos % (Auto) 0.5 Baso % (Auto) 0.3 Absolute Neuts (auto) 11.4 H Absolute Lymphs (auto) 0.87 Nucleated RBC % 0 PT 20.9 H INR 1.9 APTT 39.3 H Sodium 138 Potassium 3.9 Chloride 105 Carbon Dioxide 23.0 Anion Gap 10 BUN 21 H Creatinine 1.34 H Estim Creat Clear Calc 60.46 Est GFR (MDRD) Af Amer 68 Est GFR (MDRD) Non-Af 57 L BUN/Creatinine Ratio 15.7 Glucose 126 H Lactic Acid Calcium 9.2 Total Bilirubin 1.00 AST 24 ALT 28 Alkaline Phosphatase 58 Troponin I High Sens 9 Total Protein 8.4 H Albumin 3.5 Globulin 4.9 H Albumin/Globulin Ratio 0.7 L Urine Color Urine Clarity Urine pH Ur Specific [place] Urine Protein Urine Glucose (UA) Urine Ketones Urine Occult Blood Urine Nitrite Urine Bilirubin Urine Urobilinogen Ur Leukocyte Esterase Urine RBC Urine WBC Ur Squamous Epith Cells Urine Bacteria Urine Mucus 04/11/21 04/11/21 10:30 11:14 WBC RBC Hgb Hct MCV MCH MCHC RDW Std Deviation RDW Coeff of L[place] Plt Count MPV Immature Gran % (Auto) Neut % (Auto) Lymph % (Auto) [place] % (Auto) Eos % (Auto) Baso % (Auto) Absolute Neuts (auto) Absolute Lymphs (auto) Nucleated RBC % PT INR APTT Sodium Potassium Chloride Carbon Dioxide Anion Gap BUN Creatinine Estim Creat Clear Calc Est GFR (MDRD) Af Amer Est GFR (MDRD) Non-Af BUN/Creatinine Ratio Glucose Lactic Acid 0.9 Calcium Total Bilirubin AST ALT Alkaline Phosphatase Troponin I High Sens Total Protein Albumin Globulin Albumin/Globulin Ratio Urine Color Yellow Urine Clarity Cloudy Urine pH 8.0 Ur Specific [place] 1.015 Urine Protein 30 H Urine Glucose (UA) Normal Urine Ketones Negative Urine Occult Blood 150 H Urine Nitrite Negative Urine Bilirubin Negative Urine Urobilinogen Normal Ur Leukocyte Esterase 500 H Urine RBC 0-5 SEEN Urine WBC 50-100 SEEN Ur Squamous Epith Cells 0 SEEN Urine Bacteria 2+ Urine Mucus 1+ Radiography Diagnostic Testing: Radiology Impression Chest X-Ray 04/11/21 10:16 IMPRESSION: No focal infiltrate or edema. Electronically Signed: Jorge Melton MD at 12:29 EDT , Service support , EKG Initial EKG: Attestation: I personally reviewed and interpreted this EKG as follows: Comments: EKG shows a normal sinus rhythm with a ventricular rate of 75 bpm. Left anterior fascicular block noted Discharge Plan Triage Chief Complaint: Syncope ED Provider: Oral Hardwick Dx/Rx/DC Orders Clinical Impression: Syncope and collapse, Acute dehydration, Acute febrile illness, Orthostatic hypotension Instructions: What Is Syncope?, ED Dehydration (Adult) Prescriptions: No Action hydrocortisone 2.5 % cream 1 applic TOPICAL BID PRN (Reason: pain) Qty: 30 RF: 0 (DME) hydrocortisone suppository .Route RF: 0 warfarin 5 mg tablet PO RF: 0 iron aspgl,ps complex-vit C-sa 150 MG capsule 150 mg PO DAILYCM Qty: 60 RF: 0 docusate sodium 100 MG capsule 100 mg PO BID Qty: 120 RF: 0 Primary Care Provider: Avril Sorenson Referrals: Avril Sorenson MD [Primary Care Provider] - 3-5 Days Activity Restrictions/Additional Instructions: We have obtained blood cultures. This may take up to 48 hours for them to return. If they are positive for bacteria in your blood you will receive a phone call requesting that you come back to emergency. Your Coumadin level (INR) today was low at 1.9. I would recommend taking an extra dose of your Coumadin today. Disposition Disposition: Home, Self Care
[2021-04-11 10:39] VITALS: BP 117/78; BP 119/73; BP 84/62; PULSE 71; PULSE 82; PULSE 88
[2021-04-11 10:45] LABS: Absolute Lymphocyte Count 0.87 X10^3/uL (0.83-4.51); Absolute Neutrophil Count 11.4 X10^3/uL (2.0-7.7); Basophil# 0.04 X10^3/uL; Basophil% 0.3 % (0-1); Eosinophil# 0.07 X10^3/uL; Eosinophils% 0.5 % (0-5); Hematocrit 41.8 % (40-54); Hemoglobin 13.5 g/dL (13.0-16.5); Lymphocyte # 0.87 X10^3/ul (0.83-4.51); Lymphocyte % 6.4 % (19-41); Mean Corp Hgb Conc 32.3 g/dL (32-36); Mean Corpuscular Hgb 27.8 pg (27.0-32.0); Mean Corpuscular Volume 86.2 fL (80-94); Mean Platelet Vol. 9.3 fl (6.2-12.0); Monocyte# 1.12 X10^3/uL; Monocyte% 8.3 % (0-10); NRBC Flagged by Analyzer 0 % (0-5); Neutrophil # 11.36 X10^3/uL (2.7-7.7); Platelet Count 201 K/mm3 (150-450); RBC Distribution Width CV 16.1 % (11.6-14.6); Red Blood Count 4.85 M/mm3 (4.6-6.2); White Blood Count 13.5 K/mm3 (4.4-11.0)
[2021-04-11] MEDS: 0.9% Normal Saline 1,000 ML 1000 ML IV (10:45)
[2021-04-11 10:59] LABS: International Normalized Ratio 1.9; Partial Thromboplast Time 39.3 Seconds (24.1-36.2); Prothrombin Time (Protime)PT. 20.9 SECONDS (11.7-14.9)
[2021-04-11 11:03] LABS: ALB/GLOB Ratio 0.7 RATIO (0.9-2.4); AST(SGOT) 24 U/L (15-37); Alanine Aminotransfer ALT/SGPT 28 U/L (16-61); Albumin, Serum 3.5 g/dL (3.2-5.0); Alkaline Phosphatase 58 U/L (45-117); Anion Gap 10 (5-15); BUN 21 mg/dL (7-18); BUN/Creat Ratio 15.7 RATIO (10-20); Calcium,Total 9.2 mg/dL (8.5-10.1); Chloride 105 mmol/L (98-107); Creatinine, Serum 1.34 mg/dL (0.70-1.30); EST Glomerular Filtration Rate 57 mL/min (>60); Est Glom Filt Rate - Afr Amer 68 mL/min (>60); Estimated Creatinine Clearance 60.46 ml/min; Globulin 4.9 g/dL (2.2-4.2); Glucose 126 mg/dL (74-106); Potassium 3.9 mmol/L (3.5-5.1); Protein, Total 8.4 g/dL (6.4-8.2); Sodium Level 138 mmol/L (136-145); Troponin-I HS 9 pg/mL (3.0-78.0)
[2021-04-11 11:05] LABS: Lactic Acid 0.9 mmol/L (0.4-1.9)
[2021-04-11 11:21] LABS: Squamous Epithelial Cells - UA 0 SEEN /hpf (0-5)
[2021-04-11 11:25] LABS: Color, Urine Yellow (Yellow); Glucose, Dipstick Normal (Normal); Ketone-Dipstick Negative (Negative); Leukocyte Esterase-Dipstick 500 /ul (Negative); Nitrite-Dipstick Negative (Negative); Occult Blood-Urine 150 /ul (Negative); Protein-Dipstick 30 mg/dl (Negative); Specific Gravity, Urine 1.015 (1.002-1.030); Urine Bilirubin Dipstick Negative (Negative); Urine Clarity Cloudy (Clear); Urine Urobilinogen Normal (Normal)
[2021-04-11 11:56] LABS: Red Blood Cells-Urine 0-5 SEEN /hpf (0-5); White Blood Cells 50-100 SEEN /hpf (0-5)
[2021-04-11 11:57] LABS: Bacteria 2+ /hpf (None Seen); Mucous, Urine 1+ /hpf (<or=2+)
[2021-04-11] MEDS: 0.9% Normal Saline 1,000 ML 999 ML IV (12:42)
[2021-04-11 13:10] VITALS: BP 129/90; PULSE 61; RESP 18; O2SAT 96
[2021-04-11 13:32] VITALS: BP 146/97; PULSE 95
[2021-04-11 14:04] VITALS: BP 132/91; PULSE 66; RESP 18; O2SAT 95
== END 2021-04-11 14:05 | disposition home or self-care (01) ==
PROVIDERS: Emergency Provider Emergency Medicine; PCP Family Medicine
DX: I95.1 Orthostatic hypotension (principal); E86.0 Dehydration; R50.9 Fever, unspecified; Z20.822 Contact with and (suspected) exposure to COVID-19; I25.10 Atherosclerotic heart disease of native coronary artery without angina pectoris; I47.2 Ventricular tachycardia; I10 Essential (primary) hypertension; E78.5 Hyperlipidemia, unspecified; Z79.01 Long term (current) use of anticoagulants; I25.2 Old myocardial infarction; Z86.718 Personal history of other venous thrombosis and embolism; Z85.51 Personal history of malignant neoplasm of bladder; Z79.899 Other long term (current) drug therapy
CPT/HCPCS: 71045; 80053; 81001; 83605; 84484; 85025; 85610; 85730; 87040; 87077; 87086; 87088; 87186; 87426; 87804; 93005; 96360; 96361; 99285; J7030; A4216

== ENCOUNTER → 2021-08-11 10:55 | Outpatient (CLI) | payer MEDICARE, OTHER, SELFPAY ==
[2021-08-11 12:41] LABS: Anion Gap 8 (5-15); BUN 22 mg/dL (7-18); BUN/Creat Ratio 17.1 RATIO (10-20); Calcium,Total 9.6 mg/dL (8.5-10.1); Chloride 107 mmol/L (98-107); Creatinine, Serum 1.29 mg/dL (0.70-1.30); EST Glomerular Filtration Rate 59 mL/min (>60); Est Glom Filt Rate - Afr Amer 71 mL/min (>60); Glucose 95 mg/dL (74-106); Potassium 4.3 mmol/L (3.5-5.1); Sodium Level 138 mmol/L (136-145)
== END ==
PROVIDERS: PCP Family Medicine; Referring Provider Urology; Visit Provider Urology
DX: D41.4 Neoplasm of uncertain behavior of bladder (principal)
CPT/HCPCS: 36415; 80048

== ENCOUNTER 2021-10-06 17:25 | Outpatient (CLI) | payer MEDICARE, OTHER, SELFPAY | END 2021-10-06 23:59 | disposition home or self-care (01) | PROVIDERS: PCP Family Medicine; Visit Provider Urology | DX: R31.0 Gross hematuria (principal) | CPT/HCPCS: 87077; 87086; 87088; 87186 ==

== ENCOUNTER 2021-10-15 06:46 | Outpatient (CLI) | payer MEDICARE, OTHER, SELFPAY ==
--- NOTE | 2021-10-15 06:50 | CT_ITS ---
STUDY: CT ABDOMEN AND PELVIS WITH CONTRAST REASON FOR EXAM: Male, 66 years old. MALIGNANT NEOPLASM OF OVERLAPPING SITES OF BLADDER. Prostate cancer. RADIATION DOSAGE (If Supplied By Facility): CTDIvol = ( 16.24 ) mGy, DLP = ( 1761.62 ) mGycm TECHNIQUE: Transaxial images were obtained from the dome of the diaphragm to the symphysis pubis without oral contrast. IV 100mL Isovue-300 was administered. Sagittal and coronal images were reconstructed. Individualized dose optimization techniques were used for this CT. COMPARISON: Comparison is made with prior examination dated 12/08/2020. FINDINGS: The visualized lung bases are unremarkable. The visualized portions of the heart are within normal limits. Stable 3 mm cyst in the lateral aspect of the left lobe of the liver. Normal gallbladder and extrahepatic biliary system. Normal spleen. 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 Normal pancreas. Normal bilateral adrenal glands. Normal right kidney. Stable 2.3 cm x 2.2 cm cyst in the left kidney. Stable moderate degree of right hydronephrosis and right hydroureter. Stable appearance of the right renal cysts. There is a small hiatal hernia. Normal small intestine. Normal colon. The appendix is visualized and appears normal. There is diffuse atherosclerotic calcification of the abdominal aorta, without a demonstrated aneurysm. Normal inferior vena cava. Normal retroperitoneum. The patient is status post cystoprostatectomy. An ileal loop is seen in the right lower quadrant. There is diastases of the rectus abdominal muscles. This is unchanged. Normal osseous structures. CT/Abdomen/Pelvis W IV Cont ONLY IMPRESSION: Status post cystoprostatectomy. Stable moderate degree right hydronephrosis and hydroureter. Stable bilateral renal cysts. Stable small hepatic cysts. Stable splenic artery aneurysm. Electronically Signed: Sabino Rodriguez MD at 9:23 EST ,
[2021-10-15 07:06] LABS: EGFR FINGERSTICK > 60.0000 mL/min (>60)
--- NOTE | 2021-10-15 07:15 | RAD_ITS ---
STUDY: X-RAY CHEST REASON FOR EXAM: Male, 66 years old. Malignant neoplasm. TECHNIQUE: PA and lateral views of the chest. COMPARISON: 04/11/2021. FINDINGS: There is hyperinflation of the lungs consistent with chronic obstructive lung disease (COPD). No focal mass or infiltrate. There is no demonstrated pleural abnormality. Normal size heart. Normal mediastinum and himanshu. Normal visualized pulmonary arteries. There is atherosclerotic calcification of the aortic arch with tortuosity. Normal visualized thoracic spine. Bilateral shoulder replacements. There is no demonstrated abnormality of the visualized soft tissue structures of the upper abdomen. RAD/Chest PA and Lateral IMPRESSION: No acute cardiopulmonary disease or major interval change. Electronically Signed: Andrew Hubbard DO at 22:15 EST ,
== END 2021-10-15 23:59 | disposition home or self-care (01) ==
LOC: CT 06:48
PROVIDERS: PCP Family Medicine; Referring Provider Urology; Visit Provider Urology
DX: C67.8 Malignant neoplasm of overlapping sites of bladder (principal)
CPT/HCPCS: 71046; 74177; Q9967

== ENCOUNTER → 2021-11-27 | Outpatient (CLI) | payer MEDICARE, OTHER, SELFPAY ==
[2021-11-27 10:45] LABS: Absolute Lymphocyte Count 0.97 X10^3/uL (0.83-4.51); Absolute Neutrophil Count 3.4 X10^3/uL (2.0-7.7); Basophil# 0.04 X10^3/uL; Basophil% 0.8 % (0-1); Eosinophil# 0.21 X10^3/uL; Hematocrit 44.4 % (40-54); Hemoglobin 14.5 g/dL (13.0-16.5); Lymphocyte # 0.97 X10^3/ul (0.83-4.51); Lymphocyte % 18.5 % (19-41); Mean Corp Hgb Conc 32.7 g/dL (32-36); Mean Corpuscular Hgb 29.8 pg (27.0-32.0); Mean Corpuscular Volume 91.2 fL (80-94); Mean Platelet Vol. 9.7 fl (6.2-12.0); Monocyte# 0.61 X10^3/uL; Monocyte% 11.6 % (0-10); NRBC Flagged by Analyzer 0 % (0-5); Neutrophil # 3.38 X10^3/uL (2.7-7.7); Neutrophil % 64.5 % (47-70); Platelet Count 252 K/mm3 (150-450); RBC Distribution Width SD 50.1 fl (35.1-43.9); Red Blood Count 4.87 M/mm3 (4.6-6.2); White Blood Count 5.2 K/mm3 (4.4-11.0)
[2021-11-27 11:20] LABS: Homocysteine 11.2 umol/L (3.2-10.7)
[2021-11-27 11:24] LABS: ALB/GLOB Ratio 0.8 RATIO (0.9-2.4); AST(SGOT) 21 U/L (15-37); Alanine Aminotransfer ALT/SGPT 29 U/L (16-61); Albumin, Serum 3.5 g/dL (3.2-5.0); Alkaline Phosphatase 64 U/L (45-117); Anion Gap 4 (5-15); BUN 16 mg/dL (7-18); BUN/Creat Ratio 11.7 RATIO (10-20); Calcium,Total 9.2 mg/dL (8.5-10.1); Chloride 110 mmol/L (98-107); Cholesterol 210 mg/dL (200); Creatinine, Serum 1.37 mg/dL (0.70-1.30); EST Glomerular Filtration Rate 55 mL/min (>60); Est Glom Filt Rate - Afr Amer 67 mL/min (>60); Estradiol 24.7 pg/mL; Free T3 2.3 pg/mL (2.18-3.98); Globulin 4.2 g/dL (2.2-4.2); Glucose 96 mg/dL (74-106); High Density Lipoprotein 48 mg/dL; PSA,Total - Annual Screen 0.03 ng/mL (0.00-4.00); Potassium 4.4 mmol/L (3.5-5.1); Protein, Total 7.7 g/dL (6.4-8.2); Sodium Level 140 mmol/L (136-145); T4 Free Direct 1.08 ng/dL (0.76-1.46); Triglycerides 165 mg/dL; Very Low Density Lipoprotein 33 mg/dL (5-40)
[2021-11-27 11:36] LABS: Hemoglobin A1c 5.4 % (3.8-5.6)
[2021-12-01 16:53] LABS: Carcinoembryonic Antigen 2.5 ng/mL (0.0-4.7); Thyroid Peroxidase AB < 8 IU/mL (0-34)
== END | disposition home or self-care (01) ==
LOC: MTLAB 08:04
PROVIDERS: PCP Family Medicine
DX: E03.9 Hypothyroidism, unspecified (principal); C67.9 Malignant neoplasm of bladder, unspecified; R97.20 Elevated prostate specific antigen [PSA]; N40.1 Benign prostatic hyperplasia with lower urinary tract symptoms; I10 Essential (primary) hypertension; I25.10 Atherosclerotic heart disease of native coronary artery without angina pectoris; Z12.5 Encounter for screening for malignant neoplasm of prostate; E78.89 Other lipoprotein metabolism disorders
CPT/HCPCS: 36415; 80053; 80061; 82378; 82627; 82670; 83036; 83090; 84153; 84403; 84439; 84443; 84481; 85025; 86141; 86376; 82626; G0103

== ENCOUNTER → 2022-01-07 | Outpatient (CLI) | payer MEDICARE, OTHER, SELFPAY ==
[2022-01-07 10:45] LABS: Free T3 2.6 pg/mL (2.18-3.98); T4 Free Direct 0.96 ng/dL (0.76-1.46); Thyroid Stim Hormone (TSH) 2.87 uIU/mL (0.358-3.74)
[2022-01-08 11:05] LABS: Thyroid Peroxidase AB 8 IU/mL (0-34)
== END | disposition home or self-care (01) ==
PROVIDERS: PCP Family Medicine; Referring Provider Preventive Medicine Public Health & General Preventive Medicine; Visit Provider Preventive Medicine Public Health & General Preventive Medicine
DX: B37.7 Candidal sepsis (principal); E03.9 Hypothyroidism, unspecified
CPT/HCPCS: 36415; 84439; 84443; 84481; 86376

== ENCOUNTER 2022-01-17 22:07 | Emergency (ER) | payer MEDICARE, OTHER, SELFPAY ==
[2022-01-17 22:08] VITALS: BP 164/108; PULSE 72; RESP 19; TEMP 36.2; O2SAT 99; BMI 25.9
--- NOTE | 2022-01-17 22:47 | CT_ITS ---
STUDY: CT ABDOMEN AND PELVIS WITH CONTRAST REASON FOR EXAM: Male, 66 years old patient with abdominal pain lateral to urostomy. RADIATION DOSAGE (If Supplied By Facility): CTDIvol = ( 26.02 ) mGy, DLP = ( 1969.18 ) mGycm TECHNIQUE: Transaxial images were obtained from the dome of the diaphragm to the symphysis pubis without oral contrast. 75 ml of IV Isovue-300 was administered. Sagittal and coronal images were reconstructed. Individualized dose optimization techniques were used for this CT. COMPARISON: CT abdomen and pelvis dated 10/15/2021. FINDINGS: There are curvilinear opacities of the lung bases that may represent pulmonary fibrosis and/or subsegmental atelectasis. The visualized portions of the heart are within normal limits. Normal liver. Normal gallbladder and extrahepatic biliary system. There is a benign calcified granuloma of the spleen. Normal pancreas. Normal bilateral adrenal glands. There is moderately severe right-sided hydronephrosis and hydroureter which appears to terminate in the expected location of the urostomy. On delayed images, there is opacification of the urostomy by contrast which is dilated. This is new since the previous CT and the appearance suggests possible stricture at the level of the ileal pouch. There is prompt excretion of contrast by the left kidney. The distal left ureter is opacified and appears to drain into the urostomy. There is delayed excretion of contrast by the right kidney. There is a small right-sided renal cyst measuring approximately 2.3 cm. Surgical sutures are visible in the right lower quadrant bowel associated with urostomy. There is a small hiatal hernia. There is no obvious dilated bowel, ascites or pneumoperitoneum. Small bowel has a grossly normal appearance. There is stool visible throughout the colon. There is non-visualization of the appendix. There is multifocal atherosclerotic calcification of the abdominal aorta with elongation and tortuosity, but without a demonstrated aneurysm. There is venous distention of the inferior vena cava (IVC). Normal retroperitoneum. There has been surgical resection of the urinary bladder and prostate. Urostomy exits the right lower quadrant abdominal wall. There may be some associated abdominal fat adjacent to the urostomy. There are diffuse degenerative changes of the visualized lumbar spine. CT/Abdomen/Pelvis W IV Cont ONLY IMPRESSION: Findings suggest high -grade RIGHT-sided obstructive uropathy with increasing right-sided hydronephrosis and dilatation of a portion of the ileal pouch. This suggests a stricture in the region of the ileal pouch/urostomy N.B. : The above Results were Read Back by Nayeli Feliciano MD to Jack Cason MD, and understanding confirmed on 01/18/2022 00:47:55 (ET). Electronically Signed: Nayeli Feliciano MD at 0:53 EDT ,
[2022-01-17 23:10] LABS: Mucous, Urine 0 SEEN /hpf (<or=2+); Squamous Epithelial Cells - UA 0 SEEN /hpf (0-5)
[2022-01-17 23:11] LABS: Absolute Lymphocyte Count 0.89 X10^3/uL (0.83-4.51); Absolute Neutrophil Count 5.4 X10^3/uL (2.0-7.7); Basophil# 0.04 X10^3/uL; Basophil% 0.5 % (0-1); Eosinophil# 0.23 X10^3/uL; Eosinophils% 3.1 % (0-5); Hematocrit 39.7 % (40-54); Lymphocyte # 0.89 X10^3/ul (0.83-4.51); Lymphocyte % 12.1 % (19-41); Mean Corp Hgb Conc 32.7 g/dL (32-36); Mean Corpuscular Hgb 29.8 pg (27.0-32.0); Mean Corpuscular Volume 91.1 fL (80-94); Mean Platelet Vol. 9.4 fl (6.2-12.0); Monocyte# 0.72 X10^3/uL; Monocyte% 9.8 % (0-10); NRBC Flagged by Analyzer 0 % (0-5); Neutrophil # 5.44 X10^3/uL (2.7-7.7); Neutrophil % 74.2 % (47-70); Platelet Count 207 K/mm3 (150-450); RBC Distribution Width CV 14.2 % (11.6-14.6); RBC Distribution Width SD 47.8 fl (35.1-43.9); Red Blood Count 4.36 M/mm3 (4.6-6.2); White Blood Count 7.3 K/mm3 (4.4-11.0)
[2022-01-17 23:12] LABS: Color, Urine Yellow (Yellow); Glucose, Dipstick Normal (Normal); Ketone-Dipstick Negative (Negative); Leukocyte Esterase-Dipstick 500 /ul (Negative); Nitrite-Dipstick Negative (Negative); Occult Blood-Urine 25 /ul (Negative); Protein-Dipstick 30 mg/dl (Negative); Specific Gravity, Urine 1.005 (1.002-1.030); Urine Bilirubin Dipstick Negative (Negative); Urine Clarity Sl. Cloudy (Clear); Urine Urobilinogen Normal (Normal)
[2022-01-17 23:18] LABS: Bacteria 2+ /hpf (None Seen); Red Blood Cells-Urine 0-5 SEEN /hpf (0-5); White Blood Cells 10-25 SEEN /hpf (0-5)
[2022-01-17 23:31] LABS: Anion Gap 5 (5-15); BUN 20 mg/dL (7-18); BUN/Creat Ratio 14.5 RATIO (10-20); Chloride 111 mmol/L (98-107); Creatinine, Serum 1.38 mg/dL (0.70-1.30); EST Glomerular Filtration Rate 55 mL/min (>60); Est Glom Filt Rate - Afr Amer 66 mL/min (>60); Glucose 104 mg/dL (74-106); Potassium 4.1 mmol/L (3.5-5.1); Sodium Level 142 mmol/L (136-145)
[2022-01-18 00:10] VITALS: BP 161/103; RESP 16
--- NOTE | 2022-01-18 00:21 | EDS_ITS ---
HPI History of Present Illness Chief Complaint: Abd Pain Informant: patient Narrative Narrative: Patient presents with complaints of pain just to the lateral aspect of his urostomy. This urostomy was placed 2 to 3 years ago for bladder cancer that was stage III. He did not require any chemo or radiation. He does have a history of right-sided hydronephrosis that has been watched. He states the pain started earlier today. He ate some food. He played some corn hole. He started to get pain to the side. Rest of the abdomen is not tender. He moved his bowels just before he came in here. That was normal. He has not had nausea vomiting fevers or chills. Urostomy seems to look normal and be functionally normal medically. No change in urine output. No flank or posterior back/abdominal pain. Nothing really makes his symptoms better. Pressing on the area makes it worse. Patient had a urostomy placed. He then had 2 bowel obstructions afterwards. 1 resolved on its own and 1 did require surgery which was done about 15 to 18 months ago. He was doing well until this started earlier this evening [facility] Medical History (Updated 01/18/22 @ 03:[address] Jack Cason MD) Atherosclerosis of coronary artery of [place] heart without angina pectoris Bladder cancer Deep venous thrombosis of right popliteal vein Erectile dysfunction Essential (primary) hypertension Gout Hemorrhoids History of non-ST elevation myocardial infarction (NSTEMI) (09/01/07) Hyperlipemia Nonsustained ventricular tachycardia (09/01/07) Pre-operative cardiovascular examination Syncope and collapse (08/23/16) Home Medications Hydrocortisone 2.5%/lidocaine 5% suppository (cmpd) 08/04/20 [History Last Taken Unknown] ramipril 10 mg PO DAILY PRN PRN 01/17/22 [History Last Taken Unknown] Allergy/AdvReac Type Severity Reaction Status Date / Time No Known Allergies Allergy Verified 04/11/21 09:53 Family History Mother Hypertension Cancer lung Father Hypertension Surgical History history lysis of adhesions (~07/28/20) History of exploratory laparotomy (~07/28/20) History of left heart catheterization (08/2007) S/P ileal conduit Status post radical cystoprostatectomy Social History Smoking Status: Never smoker substance use type: does not use ROS ROS ED Constitutional Constitutional ED: Denies chills or fever(s) Eyes Eyes: Denies blurry vision ENT ENT ED: Denies rhinorrhea Cardiovascular Cardiovascular: Denies chest pain or palpitations Respiratory/Chest Respiratory/Chest: Denies cough or dyspnea Gastrointestinal Gastrointestinal: Reports abdominal pain; Denies constipation, diarrhea, melena, nausea or vomiting Genitourinary Genitourinary ED: Reports other Details: Urostomy functioning normally Musculoskeletal Musculoskeletal: Denies back pain Integumentary Denies rash Neurologic Neurologic: Denies headache(s), paresthesias or weakness Endocrine Endocrinology: Denies polydipsia or polyuria Allergic/Immunologic Allergic/Immunologic ED: Denies urticaria EXAM Physical Exam Const Vital Signs: 01/17/22 22:08 01/18/22 00:10 01/18/22 02:00 Temperature 97.2 F L Temperature Source Temporal Pulse Rate 72 72 Respiratory Rate 19 H 16 15 Blood Pressure 164/108 H 161/103 H 147/97 H Blood Pressure Mean 126 122 113 Pulse Ox 99 95 Oxygen Delivery Method Room Air Room Air Room Air Positive well nourished and well developed General Appearance ED: well developed and NAD; Negative for cyanotic or diaphoretic HEENT Reports moist mucous membranes Eyes General Eye ED: Negative for pale conjunctiva or scleral icterus Neck no JVD Chest Wall inspection of chest normal Resp normal respiratory effort and clear to auscultation bilaterally Effort and Inspection: Negative for pain with movement Auscultation: Negative for rales, rhonchi or wheezes Cardio regular rate and regular rhythm GI normal to inspection, nondistended, normoactive bowel sounds GI Narrative: Patient does have some tenderness laterally to his stoma and just above that area. I see no mass or rashes. I do not feel a mass. There is no rebound or guarding. Rest of abdomen is actually very benign. I do not get CVA tenderness on him. Palpation: soft Back/Spine no CVA tenderness Extremity normal to inspection Neuro oriented x3 Sensorium / Orientation: alert Psych mental status grossly normal Skin no rashes or lesions noted MDM MDM MDM Narrative Medical decision making narrative: Patient's blood work shows normal CBC including platelets white count hemoglobin. Electrolytes show creatinine at his baseline at 1.38. Urine showed 10-25 white cells but he has no fevers or white counts. This is from a urostomy and has fewer white cells and normal. Lactate was normal. CT scan suggested a high-grade obstructive uropathy on the right. Increasing right-sided hydronephrosis and worsening since prior scan. Radiologist stated that from these images it would appear a nephrostomy tube would be needed. I do not have urology on-call this weekend nor do I have radiology they can place a nephrostomy tube. Therefore, I contacted [facility]. They discussed the case with their urologist Dr. Gaytan and then the hospitalist Dr. Buckley who has accepted the patient in transfer. Lab Data Attestation: I reviewed the patient's lab results. Labs: Laboratory Results - last 24 hr 01/17/22 01/17/22 01/17/22 22:50 23:00 23:00 WBC 7.3 RBC 4.36 L Hgb 13.0 Hct 39.7 L MCV 91.1 MCH 29.8 MCHC 32.7 RDW Std Deviation 47.8 H RDW Coeff of Lidia 14.2 Plt Count 207 MPV 9.4 Immature Gran % (Auto) 0.300 Neut % (Auto) 74.2 H Lymph % (Auto) 12.1 L [place] % (Auto) 9.8 Eos % (Auto) 3.1 Baso % (Auto) 0.5 Absolute Neuts (auto) 5.4 Absolute Lymphs (auto) 0.89 Nucleated RBC % 0 Sodium 142 Potassium 4.1 Chloride 111 H Carbon Dioxide 26.0 Anion Gap 5 BUN 20 H Creatinine 1.38 H Estim Creat Clear Calc 58.70 Est GFR (MDRD) Af Amer 66 Est GFR (MDRD) Non-Af 55 L BUN/Creatinine Ratio 14.5 Glucose 104 Lactic Acid Calcium 9.0 Urine Color Yellow Urine Clarity Sl. Cloudy Urine pH 7.0 Ur Specific [place] 1.005 Urine Protein 30 H Urine Glucose (UA) Normal Urine Ketones Negative Urine Occult Blood 25 H Urine Nitrite Negative Urine Bilirubin Negative Urine Urobilinogen Normal Ur Leukocyte Esterase 500 H Urine RBC 0-5 SEEN Urine WBC 10-25 SEEN Ur Squamous Epith Cells 0 SEEN Urine Bacteria 2+ Urine Mucus 0 SEEN 01/17/22 23:00 WBC RBC Hgb Hct MCV MCH MCHC RDW Std Deviation RDW Coeff of [place] Plt Count MPV Immature Gran % (Auto) Neut % (Auto) Lymph % (Auto) [place] % (Auto) Eos % (Auto) Baso % (Auto) Absolute Neuts (auto) Absolute Lymphs (auto) Nucleated RBC % Sodium Potassium Chloride Carbon Dioxide Anion Gap BUN Creatinine Estim Creat Clear Calc Est GFR (MDRD) Af Amer Est GFR (MDRD) Non-Af BUN/Creatinine Ratio Glucose Lactic Acid 1.0 Calcium Urine Color Urine Clarity Urine pH Ur Specific [place] Urine Protein Urine Glucose (UA) Urine Ketones Urine Occult Blood Urine Nitrite Urine Bilirubin Urine Urobilinogen Ur Leukocyte Esterase Urine RBC Urine WBC Ur Squamous Epith Cells Urine Bacteria Urine Mucus Radiography Diagnostic Testing: Clinical Impression(s) from Imaging Studies Abdomen/Pelvis CT 01/17/22 22:47 IMPRESSION: Findings suggest high -grade RIGHT-sided obstructive uropathy with increasing right-sided hydronephrosis and dilatation of a portion of the ileal pouch. This suggests a stricture in the region of the ileal pouch/urostomy N.B. : The above Results were Read Back by Nayeli Feliciano MD to Jack Cason MD, and understanding confirmed on 01/18/2022 00:47:55 (ET). Electronically Signed: Nayeli Feliciano MD at 0:53 EDT Reading Location ID and State: [facility] / [place] , Service support , ADDENDUM: 01/18/22 0100 IMPRESSION: Findings suggest high -grade RIGHT-sided obstructive uropathy with increasing right-sided hydronephrosis and dilatation of a portion of the ileal pouch. This suggests a stricture in the region of the ileal pouch/urostomy N.B. : The above Results were Read Back by Nayeli Feliciano MD to Jack Cason MD, and understanding confirmed on 01/18/2022 00:47:55 (ET). Electronically Signed: Nayeli Feliciano MD at 0:53 EDT , Discharge Plan Triage Chief Complaint: Abd Pain ED Provider: Jack Cason Dx/Rx/DC Orders Clinical Impression: Ureteral obstruction, right, Abdominal pain Prescriptions: No Action (DME) hydrocortisone suppository .Route RF: 0 ramipril 10 mg capsule 10 mg PO DAILY PRN PRN (Reason: Hypertension) RF: 0 Primary Care Provider: Zoë Guerrero Referrals: Zoë Guerrero, [Primary Care Provider] - Disposition Disposition: Acute Care Hospital Discharge Location: [facility]
[2022-01-18] MEDS: Morphine 4 MG/ML Syringe IV (00:52)
[2022-01-18] MEDS: Ondansetron 4 MG/2 ML Vial IV (00:52)
[2022-01-18 02:00] VITALS: BP 147/97; PULSE 72; RESP 15; O2SAT 95
--- NOTE | 2022-01-18 03:15 | NURSING ---
CALLED PHYSICIANS AT [id number] ETA 20-30 MIN
[2022-01-18 03:45] VITALS: BP 147/98; PULSE 67; RESP 20; TEMP 36.6; O2SAT 94
--- NOTE | 2022-01-18 03:52 | NURSING ---
PHYSICIANS ARRIVED AT [id number]
== END 2022-01-18 03:56 | disposition short-term general hospital (02) ==
PROVIDERS: Emergency Provider Emergency Medicine; PCP Internal Medicine; Visit Provider Emergency Medicine
DX: N13.5 Crossing vessel and stricture of ureter without hydronephrosis (principal); R10.9 Unspecified abdominal pain; I25.10 Atherosclerotic heart disease of native coronary artery without angina pectoris; I12.9 Hypertensive chronic kidney disease with stage 1 through stage 4 chronic kidney disease, or unspecified chronic kidney disease; N13.30 Unspecified hydronephrosis; I25.2 Old myocardial infarction; Z79.899 Other long term (current) drug therapy
CPT/HCPCS: 74177; 80048; 81001; 83605; 85025; 87811; 96361; 96374; 96375; 99285; J7030; Q9967; A4216; J2405

== ENCOUNTER → 2022-04-05 | Outpatient (CLI) | payer MEDICARE, OTHER, SELFPAY ==
[2022-04-05 11:20] LABS: Anion Gap 7 (5-15); BUN 21 mg/dL (7-18); BUN/Creat Ratio 16.2 RATIO (10-20); Calcium,Total 9.5 mg/dL (8.5-10.1); Chloride 108 mmol/L (98-107); EST Glomerular Filtration Rate 58 mL/min (>60); Est Glom Filt Rate - Afr Amer 71 mL/min (>60); Glucose 97 mg/dL (74-106); Sodium Level 139 mmol/L (136-145)
== END | disposition home or self-care (01) ==
LOC: LAB 09:52
PROVIDERS: PCP Internal Medicine; Referring Provider Urology; Visit Provider Urology
DX: N13.1 Hydronephrosis with ureteral stricture, not elsewhere classified (principal)
CPT/HCPCS: 36415; 80048

== ENCOUNTER 2022-09-17 16:58 | Emergency (ER) | payer MEDICARE, OTHER, SELFPAY ==
[2022-09-17 16:59] VITALS: BP 152/94; PULSE 95; RESP 18; TEMP 36; O2SAT 96; BMI 26.9
--- NOTE | 2022-09-17 18:02 | EX.ED.GUMALE ---
HPI History of Present Illness Chief Complaint: Complaint Informant: patient and spouse/S.O. Narrative Narrative: Patient sent in here by PCP, I spoke with Dr. Hernández prior to arrival for an outpatient CT today with hydronephrosis right side with new stranding. He has history of bladder and prostate cancer with ileostomy [address] Pino. He had the scan done with these findings he is try to get a hold of urology unable to therefore sent him here for evaluation after discussion. On evaluation patient states 3 days ago noted some pink-tinged urine he had fever 100.4 then. He had no back or abdominal pain. He states he has been taking juices that normally takes with it improving. He states the urine was taken to the office microscopic urine on discussion there was leukocytes. Patient denies nausea or vomiting. He states chronic hydronephrosis of the right side since his surgery. Patient currently denies any symptoms. I reviewed his CT scan Greg hydronephrosis with stranding there is no rupture. No obstructive findings. Reviewed previous scans confirm hydronephrosis back in December of last year he is transferred back to [facility] due to severe findings due to no urology available here. Discussed the treatment there, he states he waited over the weekend had what sounds like a retrograde urethrogram that was inconclusive however symptoms resolved with him having back pain that time. Therefore no interventions and he was discharged home. [facility] Medical History Atherosclerosis of coronary artery of [place] heart without angina pectoris Bladder cancer Deep venous thrombosis of right popliteal vein Erectile dysfunction Essential (primary) hypertension Gout Hemorrhoids History of non-ST elevation myocardial infarction (NSTEMI) (09/01/07) Hyperlipemia Nonsustained ventricular tachycardia (09/01/07) Pre-operative cardiovascular examination Syncope and collapse (08/23/16) Home Medications Hydrocortisone 2.5%/lidocaine 5% suppository (cmpd) (hydrocortisone 2.5%/lidocaine 5% suppository (compound)) 08/04/20 [History Last Taken Unknown] meclizine 25 mg tablet 25 mg PO TID PRN PRN Vertigo 09/17/22 [History Last Taken Unknown] ramipril 2.5 mg capsule 2.5 mg PO DAILY 09/17/22 [History Last Taken Unknown] Allergy/AdvReac Type Severity Reaction Status Date / Time No Known Allergies Allergy Verified 09/17/22 17:03 Family History Mother Hypertension Cancer lung Father Hypertension Surgical History history lysis of adhesions (~07/28/20) History of exploratory laparotomy (~07/28/20) History of left heart catheterization (08/2007) S/P ileal conduit Status post radical cystoprostatectomy Social History Smoking Status: Never smoker substance use type: does not use ROS ROS ED Constitutional Constitutional ED: Denies chills, fever(s) or sweats Eyes Eyes: Denies change in vision ENT ENT ED: Denies dysphagia or sore throat Cardiovascular Cardiovascular: Denies chest pain, leg edema, palpitations or racing heartbeat Respiratory/Chest Respiratory/Chest: Denies cough, dyspnea or dyspnea on exertion Gastrointestinal Gastrointestinal: Denies abdominal pain, diarrhea, nausea or vomiting Genitourinary Genitourinary ED: Denies dysuria, hematuria or urinary frequency Musculoskeletal Musculoskeletal: Denies back pain, extremity pain or neck pain Integumentary Denies rash or wounds Neurologic Neurologic: Denies headache(s), paresthesias or weakness EXAM Physical Exam Const Vital Signs: 09/17/22 16:59 09/17/22 18:03 09/17/22 19:20 Temperature 96.8 F L 96.8 F L Temperature Source Temporal Temporal Pulse Rate 95 95 71 Respiratory Rate 18 18 18 Blood Pressure 152/94 H 152/94 H 143/94 H Blood Pressure Mean 113 113 110 Pulse Ox 96 96 96 Oxygen Delivery Method Room Air Room Air Room Air Positive well nourished and well developed General Appearance ED: well developed and NAD HEENT Reports moist mucous membranes normocephalic and atraumatic Eyes PERRL, EOMs intact bilaterally and conjunctivae normal General Eye ED: Yes normal appearance of both eyes Neck no lymphadenopathy and supple General: Negative for tenderness Chest Wall Chest: Negative for tenderness Resp normal respiratory effort and normal air movement Effort and Inspection: symmetric chest movement; Negative for respiratory distress Cardio regular rate, regular rhythm and no murmurs Peripheral Pulses: pulses 2+ throughout GI normal to inspection, nondistended, normoactive bowel sounds and non-tender GI Narrative: Right lower quadrant ileostomy with yellow urine. Palpation: Negative for guarding or rebound tenderness present Back/Spine no CVA tenderness and no thoracic nor lumbar tenderness Extremity normal to inspection General Extremety ED: Negative for edema or tenderness General Extremity: Negative for edema Neuro oriented x3 and no sensory deficits noted Sensorium / Orientation: awake and alert Skin no rashes or lesions noted and no wounds MDM MDM MDM Narrative Medical decision making narrative: Patient nontoxic declines any medications. Differential history UTI versus obstructive uropathy. No coughing for concern for pneumonia with his initial reported fever 2 days ago. Obtained laboratory studies White count 7.9 Hemoglobin 12.4. Creatinine 1.45 stable from his previous typically around 1.3 range. Urine did note slight infection with leukocytes and white cells and bacteria. Urine culture sent. He is given Rocephin IV for complicated UTI. Discussing with patient and significant other, he started on Cipro also today for 10-day course twice a day by his PCP and they have the prescription. He is followed by Dr. Pino, I did reach out to him discussed patient history and findings. No indication for hospitalization. We will follow-up with him as needed. Otherwise return precautions discussed. All questions were answered. Lab Data Attestation: I reviewed the patient's lab results. Labs: Laboratory Results - last 24 hr 09/17/22 09/17/22 09/17/22 18:12 18:12 18:20 WBC 7.9 RBC 4.23 L Hgb 12.4 L Hct 38.6 L MCV 91.3 MCH 29.3 MCHC 32.1 RDW Std Deviation 43.3 RDW Coeff of Lidia 13.1 Plt Count 256 MPV 9.1 Immature Gran % (Auto) 0.600 Neut % (Auto) 77.8 H Lymph % (Auto) 9.9 L [place] % (Auto) 8.8 Eos % (Auto) 2.5 Baso % (Auto) 0.4 Absolute Neuts (auto) 6.1 Absolute Lymphs (auto) 0.78 L Nucleated RBC % 0 Sodium 142 Potassium 4.3 Chloride 109 H Carbon Dioxide 26.0 Anion Gap 7 BUN 29 H Creatinine 1.45 H Estim Creat Clear Calc 55.10 Est GFR (MDRD) Af Amer 62 Est GFR (MDRD) Non-Af 51 L BUN/Creatinine Ratio 20.0 Glucose 88 Calcium 9.3 Urine Color Yellow Urine Clarity Sl. Cloudy Urine pH 6.5 Ur Specific [place] 1.010 Urine Protein 30 H Urine Glucose (UA) Normal Urine Ketones Negative Urine Occult Blood 25 H Urine Nitrite Negative Urine Bilirubin Negative Urine Urobilinogen Normal Ur Leukocyte Esterase 500 H Urine RBC 0-5 SEEN Urine WBC 25-50 SEEN Ur Squamous Epith Cells 0 SEEN Urine Bacteria 1+ Urine Mucus 0 SEEN Discharge Plan Triage Chief Complaint: Complaint ED Provider: Jakob [place] Dx/Rx/DC Orders Clinical Impression: Complicated UTI (urinary tract infection), Bladder cancer, Hydronephrosis of right kidney Instructions: ED Urinary Tract Infections in Men Prescriptions: No Action (DME) hydrocortisone suppository .Route Rx Instructions: per office meclizine 25 mg tablet 25 mg PO TID PRN PRN (Reason: Vertigo) ramipril 2.5 mg capsule 2.5 mg PO DAILY Primary Care Provider: Zoë Guerrero Referrals: Zoë Guerrero DO [Primary Care Provider] - 3-5 Days Activity Restrictions/Additional Instructions: Chronic hydronephrosis on CT scan. New stranding. Urine with infection. White count normal renal function stable. Take and finish her ciprofloxacin sent in by your PCP. Follow-up with Dr. Pino as needed. Disposition Disposition: Home, Self Care Discharge Date/Time: 09/17/22 20:37
[2022-09-17 18:03] VITALS: BP 152/94; PULSE 95; RESP 18; TEMP 36; O2SAT 96
[2022-09-17 18:23] LABS: Absolute Lymphocyte Count 0.78 X10^3/uL (0.83-4.51); Absolute Neutrophil Count 6.1 X10^3/uL (2.0-7.7); Basophil# 0.03 X10^3/uL; Basophil% 0.4 % (0-1); Eosinophils% 2.5 % (0-5); Hematocrit 38.6 % (40-54); Hemoglobin 12.4 g/dL (13.0-16.5); Lymphocyte # 0.78 X10^3/ul (0.83-4.51); Lymphocyte % 9.9 % (19-41); Mean Corp Hgb Conc 32.1 g/dL (32-36); Mean Corpuscular Hgb 29.3 pg (27.0-32.0); Mean Corpuscular Volume 91.3 fL (80-94); Mean Platelet Vol. 9.1 fl (6.2-12.0); Monocyte# 0.69 X10^3/uL; Monocyte% 8.8 % (0-10); NRBC Flagged by Analyzer 0 % (0-5); Neutrophil # 6.11 X10^3/uL (2.7-7.7); Neutrophil % 77.8 % (47-70); Platelet Count 256 K/mm3 (150-450); RBC Distribution Width CV 13.1 % (11.6-14.6); RBC Distribution Width SD 43.3 fl (35.1-43.9); Red Blood Count 4.23 M/mm3 (4.6-6.2); White Blood Count 7.9 K/mm3 (4.4-11.0)
[2022-09-17 18:26] LABS: Mucous, Urine 0 SEEN /hpf (<or=2+); Squamous Epithelial Cells - UA 0 SEEN /hpf (0-5)
[2022-09-17 18:34] LABS: Anion Gap 7 (5-15); BUN 29 mg/dL (7-18); Calcium,Total 9.3 mg/dL (8.5-10.1); Chloride 109 mmol/L (98-107); Creatinine, Serum 1.45 mg/dL (0.70-1.30); EST Glomerular Filtration Rate 51 mL/min (>60); Est Glom Filt Rate - Afr Amer 62 mL/min (>60); Glucose 88 mg/dL (74-106); Potassium 4.3 mmol/L (3.5-5.1); Sodium Level 142 mmol/L (136-145)
[2022-09-17 18:35] LABS: Color, Urine Yellow (Yellow); Glucose, Dipstick Normal (Normal); Ketone-Dipstick Negative (Negative); Leukocyte Esterase-Dipstick 500 /ul (Negative); Nitrite-Dipstick Negative (Negative); Occult Blood-Urine 25 /ul (Negative); Protein-Dipstick 30 mg/dl (Negative); Urine Bilirubin Dipstick Negative (Negative); Urine Clarity Sl. Cloudy (Clear); Urine Urobilinogen Normal (Normal); Urine pH 6.5 (5.0 - 8.0)
[2022-09-17 18:40] LABS: Bacteria 1+ /hpf (None Seen); White Blood Cells 25-50 SEEN /hpf (0-5)
[2022-09-17 18:41] LABS: Red Blood Cells-Urine 0-5 SEEN /hpf (0-5)
[2022-09-17] MEDS: Ceftriaxone 1 GM/50 ML BAG IV (19:19)
[2022-09-17 19:20] VITALS: BP 143/94; PULSE 71; RESP 18; O2SAT 96
== END 2022-09-17 20:37 | disposition home or self-care (01) ==
PROVIDERS: Emergency Provider Emergency Medicine; PCP Internal Medicine; Visit Provider Emergency Medicine
DX: N39.0 Urinary tract infection, site not specified (principal); C67.9 Malignant neoplasm of bladder, unspecified; E78.5 Hyperlipidemia, unspecified; I25.10 Atherosclerotic heart disease of native coronary artery without angina pectoris; I10 Essential (primary) hypertension; N13.39 Other hydronephrosis; R31.29 Other microscopic hematuria
CPT/HCPCS: 74176; 80048; 81001; 85025; 87077; 87086; 87088; 87186; 96365; 99283; A4216

== ENCOUNTER → 2022-09-17 | Outpatient (CLI) | payer MEDICARE, OTHER, SELFPAY ==
--- NOTE | 2022-09-17 13:38 | CT_ITS ---
STUDY: CT ABDOMEN AND PELVIS WITHOUT CONTRAST REASON FOR EXAM: Male, 67 years old. HEMATURIA, MICROSCOPIC, INFECTION OR VIRAL ILLNESS RADIATION DOSAGE (If Supplied By Facility): CTDIvol = ( 9.94 ) mGy, DLP = ( 531.30 ) mGycm TECHNIQUE: Transaxial images were obtained from the dome of the diaphragm to the symphysis pubis without oral contrast, and without intravenous contrast. Sagittal and coronal images were reconstructed. Individualized dose optimization techniques were used for this CT. COMPARISON: Comparison is made with prior study dated 01/17/2022. FINDINGS: Stable minimal increased markings at the lung bases suggestive of scarring. Coronary artery calcification. Normal liver. The gallbladder is contracted. There is a benign calcified granuloma of the spleen. Normal pancreas. Normal bilateral adrenal glands. There is enlargement of the right kidney. Marked degree of right hydronephrosis and right hydroureter down to the ileal conduit in the right lower quadrant. Nonspecific right perinephric stranding. Stable small left renal cysts. Moderate amount of residual food particles are seen in the stomach. Normal small intestine. Normal colon. The appendix is visualized and appears normal. There is scattered atherosclerotic calcification of the abdominal aorta, without a demonstrated aneurysm. Stable 3 cm x 2.7 cm partially calcified splenic artery aneurysm. Normal inferior vena cava. There is borderline retroperitoneal lymphadenopathy with enlarged nodes no greater than 10mm in the short axis diameter. The patient is status post cystectomy and prostatectomy. And ileal conduit is seen in the right lower quadrant. There is a small umbilical hernia containing fat. There are diffuse degenerative changes of the visualized lumbar spine. CT/Abdomen/Pelvis without Cont IMPRESSION: Status post resection of the urinary bladder and prostate. Marked degree of a right hydronephrosis and hydroureter down to the ileal loop in the right lower quadrant. Enlargement of the right kidney with right perinephric stranding. Stable small bilateral renal cysts. Electronically Signed: Sabino Rodriguez MD at 14:13 EST ,
== END | disposition home or self-care (01) ==
LOC: CT 13:36
PROVIDERS: PCP Internal Medicine; Visit Provider Internal Medicine
DX: R31.29 Other microscopic hematuria (principal)
CPT/HCPCS: 74176

== ENCOUNTER → 2022-09-22 | Outpatient (CLI) | payer MEDICARE, OTHER, SELFPAY ==
--- NOTE | 2022-09-22 15:08 | VDLE_ITS ---
Reason For Study: LLE PAIN (ANKLE/FOOT) Procedure LEFT This is a venous duplex using B-mode, color GSV is normal. flow and spectral Doppler. CFV is compressible, spontaneous, phasic, Exam performed in department. competent, and demonstrates normal A preliminary report was called and/or faxed augmentation. to Mary fischer/Dr. Guerrero @ 3:30 pm. FV is compressible, spontaneous, phasic, Office will call patient with RX competent and demonstrates normal instructions. augmentation. POP V is compressible, spontaneous, phasic, competent and demonstrates normal augmentation. T/P Trunk is compressible. LT PerV is compressible. PTV IS DILATED AND NON COMPRESSIBLE WITH NO FLOW NOTED IN VESSEL. VL/Venous Duplex US, Unilateral Interpretation Summary Acute deep vein thrombosis is noted in the left posterior tibial vein. The yary isabella of the left lower extremity deep venous system is patent and compressible. Valvular compete nce appears intact within the proximal deep venous system on the left . The left great saphenous v ein appears patent and compressible segmentally. Ordering Physician: Zoë Guerrero Referring Physician: Zoë Guerrero Performed By: Heike Doherty, GRABIEL, RVT
== END | disposition home or self-care (01) ==
PROVIDERS: PCP Internal Medicine; Visit Provider Internal Medicine
DX: M79.672 Pain in left foot (principal)
CPT/HCPCS: 93971

== ENCOUNTER → 2023-02-03 | Outpatient (CLI) | payer MEDICARE, OTHER, SELFPAY ==
--- NOTE | 2023-02-03 09:23 | US_ITS ---
STUDY: ULTRASOUND BREAST - LEFT REASON FOR EXAM: Male, 67 years old. Palpable lump left breast. TECHNIQUE: Axial and longitudinal images of the LEFT breast were performed with a high resolution ultrasound transducer. # OF IMAGES: 7 COMPARISON: Comparison is made with prior mammogram done earlier in the day. FINDINGS: LEFT Breast: The palpable lump corresponds to a 6 mm x 9 mm x 4 mm cyst likely hypoechoic well-defined nodule at the 12:00 position of the breast at 1 cm from the nipple. This most likely represents a lipoma. US/Breast Limited Unilateral IMPRESSION: The palpable abnormality most likely corresponds to a 9 mm x 6 mm x 4 mm lipoma. ASSESSMENT CATEGORY: BIRADS Category 2: Benign. A letter regarding these results will be sent to the patient by the facility within 30 days. Electronically Signed: Sabino Rodriguez MD at 10:28 EDT ,
--- NOTE | 2023-02-03 09:23 | BI_ITS ---
MAMMOGRAPHY - BILATERAL DIAGNOSTIC REASON FOR EXAM: Male, 67 years old. Six-week history of palpable lump in the left breast. PERTINENT HISTORY: History of a bladder cancer and prostate cancer. TECHNIQUE: Digital bilateral breast prema (3D mammographic acquisition) in the CC and MLO projections. 2-D mediolateral oblique (MLO) and craniocaudad (CC) views of both breasts were obtained. CAD: Full Field Digital Mammography with Computer Added Detection was performed. COMPARISON: None. Baseline examination. FINDINGS: Breast Composition: The breasts are almost entirely fatty. There are no dominant masses or suspicious calcifications. No other significant abnormalities are identified. BI/DIAG MAMM W/CAD, BILAT IMPRESSION: Negative diagnostic mammogram. With the patient''s history of a palpable lump in the left breast, correlation with ultrasound is recommended. ASSESSMENT CATEGORY: BIRADS Category 0: Incomplete. Need additional imaging evaluation. A letter regarding these results will be sent to the patient by the facility within 30 days. Approximately 10% of breast cancers are not detected by mammography. A normal mammogram should not delay biopsy of a clinically suspicious abnormality. Electronically Signed: Sabino Rodriguez MD at 10:46 EDT ,
== END | disposition home or self-care (01) ==
LOC: OPBI 09:22
PROVIDERS: PCP Internal Medicine; Referring Provider Internal Medicine; Visit Provider Internal Medicine
DX: N63.25 Unspecified lump in the left breast, overlapping quadrants (principal)
CPT/HCPCS: 76642; 77062; 77066; G0279

== ENCOUNTER → 2023-04-05 | Outpatient (CLI) | payer MEDICARE, OTHER, SELFPAY ==
[2023-04-05 10:52] LABS: Hematocrit 46.5 % (40-54); Hemoglobin 15.6 g/dL (13.0-16.5); Mean Corp Hgb Conc 33.5 g/dL (32-36); Mean Corpuscular Volume 89.4 fL (80-94); Mean Platelet Vol. 9.6 fl (6.2-12.0); Platelet Count 209 K/mm3 (150-450); RBC Distribution Width CV 12.6 % (11.6-14.6); RBC Distribution Width SD 41.5 fl (35.1-43.9); White Blood Count 6.4 K/mm3 (4.4-11.0)
[2023-04-05 11:18] LABS: ALB/GLOB Ratio 0.9 RATIO (0.9-2.4); AST(SGOT) 28 U/L (15-37); Alanine Aminotransfer ALT/SGPT 30 U/L (16-61); Albumin, Serum 3.9 g/dL (3.2-5.0); Alkaline Phosphatase 64 U/L (45-117); Anion Gap 2 (5-15); BUN 23 mg/dL (7-18); BUN/Creat Ratio 15.3 RATIO (10-20); Chloride 108 mmol/L (98-107); EST Glomerular Filtration Rate 49 mL/min (>60); Est Glom Filt Rate - Afr Amer 60 mL/min (>60); Globulin 4.2 g/dL (2.2-4.2); Glucose 100 mg/dL (74-106); Potassium 4.6 mmol/L (3.5-5.1); Protein, Total 8.1 g/dL (6.4-8.2); Sodium Level 139 mmol/L (136-145)
== END | disposition home or self-care (01) ==
LOC: LAB 10:32
PROVIDERS: PCP Internal Medicine; Referring Provider Urology; Visit Provider Urology
DX: C67.8 Malignant neoplasm of overlapping sites of bladder (principal)
CPT/HCPCS: 36415; 80053; 85027

== ENCOUNTER → 2023-04-15 | Outpatient (CLI) | payer MEDICARE, OTHER, SELFPAY ==
--- NOTE | 2023-04-15 16:52 | CT_ITS ---
INDICATION: History of MALIGNANT NEOPLASM OF OVERLAPPING SITES OF BLADDER, UROSTOMY. EXAMINATION: CT Abdomen And Pelvis WO/W Contrast Injection TECHNIQUE: Helically acquired images were obtained of the abdomen and pelvis before and following IV contrast, with portal venous phase and delayed imaging. 2-D reconstructions reviewed. A radiation dose optimization technique was used for this scan. IV Contrast dosage and agent: 100 cc [id number] Oral contrast: None. COMPARISON: Unenhanced CT abdomen and pelvis from 09/17/2022 FINDINGS: LOWER CHEST: Minimal dependent atelectasis. Heart size within normal limits. LIVER: There are few small simple appearing hepatic cysts requiring no additional follow-up. No concerning lesion. GALLBLADDER AND BILIARY TREE: No calcified gallstones identified. No gallbladder wall edema demonstrated. No significant biliary ductal dilation. PANCREAS: No discrete mass or peripancreatic edema. SPLEEN: Normal size spleen with benign punctate calcification. ADRENAL GLANDS: Unremarkable. KIDNEYS AND URETERS: Moderate right renal cortical scarring. Mild residual dilatation of right renal collecting system and right ureter with no obstructing ureteral stone. Several simple appearing, low-attenuation bilateral renal cysts requiring no additional follow-up. PERITONEUM: No significant free fluid. No peritoneal free air detected. RETROPERITONEUM: No retroperitoneal mass or pathologic fluid collection. BOWEL: No evidence of acute appendicitis. Previous partial bowel resection with urostomy formation. No bowel obstruction or significant bowel thickening. LYMPH NODES: No enlarged mesenteric or retroperitoneal lymph nodes. 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 No abdominal aortic aneurysm. Scattered atherosclerosis. URINARY BLADDER: Status post cystectomy with right lower abdominal urostomy formation. REPRODUCTIVE ORGANS: Status post prostatectomy. ABDOMINAL WALL: Right lower abdominal urostomy in place. BONES: Stable skeletal degenerative changes. CT/CT Abd/Pelvis W/WO Contrast IMPRESSION: 1. Previous cystectomy and urostomy formation with mild residual right hydroureteronephrosis to level of anastomosis, improved in the interval. 2. No other evidence of acute intra-abdominal abnormality. 3. No evidence of recurrent neoplasm. 4. Other chronic and nonurgent findings within body of report. Electronically Signed: Greg Puente MD at 22:45 EDT ,
== END | disposition home or self-care (01) ==
LOC: CT 16:50
PROVIDERS: PCP Internal Medicine; Referring Provider Urology; Visit Provider Urology
DX: C67.8 Malignant neoplasm of overlapping sites of bladder (principal)
CPT/HCPCS: 74178; Q9967

== ENCOUNTER → 2023-06-11 | Outpatient (CLI) | payer MEDICARE, OTHER, SELFPAY ==
--- NOTE | 2023-06-11 09:00 | MRI_ITS ---
INDICATION: LT KNEE PATELLAR TENDINITIS EXAMINATION: MRI - LEFT MR Knee W/O Contrast TECHNIQUE: Multiplanar and multisequence MR images of the LEFT knee. IV Contrast Dosage and Agent: None. COMPARISON: FINDINGS: BONE: Mild medial and lateral compartmental osteoarthritis. Mild to moderate osteoarthritis patellofemoral compartment. JOINT: Small suprapatellar joint effusion. Synovial hypertrophy, or intra-articular body. MUSCLES: Unremarkable. MENISCI: Mild myxoid change posterior horn medial meniscus. Anterior horn medial meniscus and lateral meniscus intact. CRUCIATE LIGAMENTS: Anterior and posterior cruciate ligaments are intact. COLLATERAL LIGAMENTS: Medial collateral ligament and lateral collateral ligamentous complex, inclusive of the popliteal tendon, are intact. CARTILAGE: Moderate medial patellar facet chondromalacia, mild lateral patellar facet chondromalacia. Osteochondritis desiccated and mid pole patella medial patellar facet. 0.56 cm transverse. Mild chondromalacia medial and lateral compartments. OTHER SOFT TISSUES: Unremarkable. No popliteal cyst. MRI/Lower Ext Joint Only (Routine) IMPRESSION: Mild myxoid change posterior horn medial meniscus. Small suprapatellar joint effusion. Osteochondritis desiccated and medial patellar facet upper pole patella. Tricompartmental chondromalacia and osteoarthritis as above. Electronically Signed: Greg Salguero MD at 13:00 EDT ,
== END | disposition home or self-care (01) ==
LOC: MRI 08:57
PROVIDERS: PCP Internal Medicine
DX: M76.52 Patellar tendinitis, left knee (principal)
CPT/HCPCS: 73721

== ENCOUNTER → 2024-01-03 | Outpatient (CLI) | payer MEDICARE, OTHER, SELFPAY ==
[2024-01-03 13:31] LABS: ALB/GLOB Ratio 0.8 RATIO (0.9-2.4); AST(SGOT) 20 U/L (15-37); Alanine Aminotransfer ALT/SGPT 25 U/L (16-61); Albumin, Serum 3.8 g/dL (3.2-5.0); Alkaline Phosphatase 65 U/L (45-117); Anion Gap 8 (5-15); BUN 28 mg/dL (7-18); BUN/Creat Ratio 17.2 RATIO (10-20); Calcium,Total 9.7 mg/dL (8.5-10.1); Chloride 107 mmol/L (98-107); Creatinine, Serum 1.63 mg/dL (0.70-1.30); EST Glomerular Filtration Rate 45 mL/min (>60); Est Glom Filt Rate - Afr Amer 54 mL/min (>60); Globulin 4.6 g/dL (2.2-4.2); Glucose 104 mg/dL (74-106); Protein, Total 8.4 g/dL (6.4-8.2); Sodium Level 136 mmol/L (136-145)
== END | disposition home or self-care (01) ==
PROVIDERS: PCP Internal Medicine; Referring Provider Nurse Practitioner Family; Visit Provider Nurse Practitioner Family
DX: N39.0 Urinary tract infection, site not specified (principal)
CPT/HCPCS: 36415; 80053